=== PATIENT | female | born 1940 | race Caucasian/White ===

== ENCOUNTER → 2017-09-25 | Outpatient (CLI) | payer MEDICARE ==
--- NOTE | 2017-09-25 19:38 | CT ---
EXAMINATION TYPE: CT brain w con DATE OF EXAM: 09/25/2017 COMPARISON: 04/23/2014 HISTORY: Patient complains of unsteady gait and ringing in ears. CT DLP: 1085 mGycm Automated exposure control for dose reduction was used. CONTRAST: CT scan of the head is performed with IV Contrast, patient injected with 100 mL of Isovue M300. FINDINGS: There is cerebral cortical atrophy. There is patchy hypodensity in the periventricular white matter. There is no mass effect nor midline shift. There is no sign of intracranial hemorrhage. The calvarium is intact. There is no pathologic enhancement. IMPRESSION: Cerebral atrophy and chronic small vessel ischemia. No acute intracranial abnormality. No change.
== END | disposition home or self-care (01) ==
LOC: RADCTMAIN 18:07
PROVIDERS: ATTEND Family Medicine
DX: G31.9 Degenerative disease of nervous system, unspecified (principal); I67.82 Cerebral ischemia
CPT/HCPCS: 82565; 84520; 70460; 36415; Q9967

== ENCOUNTER → 2019-06-13 | Day surgery (SDC) | payer MEDICARE ==
[2019-06-12 09:02] VITALS: BMI 24.0
[2019-06-13 13:03] VITALS: TEMP 97.9
[2019-06-13 14:09] VITALS: RESP 17
[2019-06-13 14:15] VITALS: BP 145/80; PULSE 55
== END ==
LOC: ORWHC2ENDO 11:51
PROVIDERS: ATTEND Surgery
DX: K57.30 Diverticulosis of large intestine without perforation or abscess without bleeding (principal); K59.00 Constipation, unspecified; K21.9 Gastro-esophageal reflux disease without esophagitis; E78.5 Hyperlipidemia, unspecified; I10 Essential (primary) hypertension; M19.90 Unspecified osteoarthritis, unspecified site; R55 Syncope and collapse; E07.9 Disorder of thyroid, unspecified; R01.1 Cardiac murmur, unspecified; R00.2 Palpitations; Z86.19 Personal history of other infectious and parasitic diseases; M43.9 Deforming dorsopathy, unspecified; N32.89 Other specified disorders of bladder; I38 Endocarditis, valve unspecified; Z90.710 Acquired absence of both cervix and uterus; Z98.42 Cataract extraction status, left eye; Z98.41 Cataract extraction status, right eye; Z96.653 Presence of artificial knee joint, bilateral; Z98.890 Other specified postprocedural states; P96.81 Exposure to (parental) (environmental) tobacco smoke in the perinatal period; Z80.9 Family history of malignant neoplasm, unspecified; Z82.5 Family history of asthma and other chronic lower respiratory diseases; Z79.890 Hormone replacement therapy; Z79.899 Other long term (current) drug therapy; Z88.8 Allergy status to other drugs, medicaments and biological substances
CPT/HCPCS: 45378; J2704

== ENCOUNTER → 2021-04-14 | Outpatient (CLI) | payer MEDICARE ==
--- NOTE | 2021-04-14 16:12 | MR ---
EXAMINATION TYPE: MR brain and iac wo/w con DATE OF EXAM: 04/14/2021 COMPARISON: CT brain September 25, 2017 HISTORY: Rt ear hearing loss, tinnitus, acoustic nerve disorder TECHNIQUE: Multiplanar, multisequence images of the brain and brainstem along with internal auditory canals are all performed without and with IV contrast, utilizing 6 mL intravenous Gadavist . FINDINGS: Diffusion weighted images demonstrate no evidence of a recent infarct or other diffusion ab normality. There is mild to moderate diffuse ventricular and sulcal prominence redemonstrated. There are focal and confluent areas of T2 hyperintensity throughout the white matter on MRI. Midline structures demonstrate normal morphology. The craniocervical junction appears within normal limits. Post contrast images demonstrate no abnormal enhancement. The dural venous sinuses appear pa tent. The visualized sinuses are clear and the globes are intact. No suspicious fluid signal in the mastoid air cells bilaterally. The vestibulocochlear complexes are symmetric and within normal limits. No suspicious enhancing cerebellopontine angle mass identified bi laterally. IMPRESSION: 1. No specific findings to account for patient's symptoms of right-sided hearing loss and tinnitus on IAC imaging. 2. [id number] diffuse cerebral atrophy with advanced chronic small vessel ischemic change prese nt on MRI.
== END | disposition home or self-care (01) ==
LOC: RADMRIMAIN 14:44
PROVIDERS: ATTEND Otolaryngology
DX: I67.82 Cerebral ischemia (principal); G31.89 Other specified degenerative diseases of nervous system
CPT/HCPCS: 70553; A9585

== ENCOUNTER → 2022-04-25 | Day surgery (SDC) | payer MEDICARE ==
[2022-04-24 11:44] VITALS: BMI 22.8
[~2022-04-25] MED LIST: LIDOCAINE 1% INJ 10MG/ML (30 ML VIAL-PF) SQ ONE; MIDAZOLAM 2 MG/2 ML VIAL IVP ONE; SODIUM CHLORIDE 0.9% 1,000 ML IV SCH; SODIUM CHLORIDE 0.9% 500 ML 500 ML IV ONE; fentaNYL (PF) 50 MCG/1 ML VIAL IVP ONE; fentaNYL (PF) 50 MCG/ML 2 ML AMP ONE
[2022-04-25 07:22] VITALS: RESP 16; TEMP 97.2
--- NOTE | 2022-04-25 08:01 | P.PCN ---
Description of Procedure: Procedure: Insertion of Linq loop recorder Indication: Syncope CONSENT:I have discussed the risks, benefits and alternative therapies for the above-mentioned procedure. The patient has indicated understanding and acceptance of the risks and procedures discussed. PROCEDURE: Patient was brought to the catheterization lab in a fasting state. Patient was prepped and draped in the usual fashion. 1% lidocaine was used to anesthetize the area of the left third intercostal space. Using the loop recorder incision device, a small 0.5 cm incision was made in the left 3rd intercostal space. Next the Linq loop recorder was deployed in the 3rd intercostal space subcutaneously using the insertion tool. Thresholds were checked and were excellent at 0.33V. Next the incision was closed using Dermabond. Steristrips were placed over the incision and the procedure was completed. The patient tolerated the procedure well. The patient was transported to the post cath holding area in stable condition. Linq loop recorder serial number: [id number]
[2022-04-25 08:53] VITALS: BP 118/61; PULSE 50
== END ==
LOC: CATHEP 06:59
PROVIDERS: ATTEND Internal Medicine
DX: R55 Syncope and collapse (principal); I10 Essential (primary) hypertension; I48.0 Paroxysmal atrial fibrillation; E78.2 Mixed hyperlipidemia; Z82.49 Family history of ischemic heart disease and other diseases of the circulatory system; Z79.899 Other long term (current) drug therapy
CPT/HCPCS: 33285; J2250; J0690; J2001; J3010

== ENCOUNTER → 2022-06-23 | Outpatient (CLI) | payer MEDICARE ==
--- NOTE | 2022-06-23 14:21 | US ---
EXAMINATION TYPE: US mass soft tissue Neck DATE OF EXAM: 06/23/2022 COMPARISON: NONE CLINICAL HISTORY: R22.2 LOCALIZED SWELLING, Left clavicle . FINDINGS: In area of palpable mass, left neck/clavicle area, several abnormal hypoechoic vascular ma sses are visualized. 1. Palpable over left clavicle/junction of the neck. 3.0 x 1.8 x 2.8cm 2. Medial to palpable, inferior left neck. 2.0 x 1.6 x 2.1cm 3. Superior/ medial to palpable, inferior left neck. 1.7 x 2.2 x 2.0cm. Superior to this area, several normal appearing lymph nodes are present on the left mid neck Comparison imaging of the right neck reveals an abnormal hypoechoic mass. Visualized mid right neck. 0.9 x 0.7 x 0.9cm IMPRESSION: 1. Abnormal adenopathy noted. Further evaluation with CT is advised.
== END | disposition home or self-care (01) ==
LOC: RADUSWWP 13:14
PROVIDERS: ATTEND Family Medicine
DX: R22.2 Localized swelling, mass and lump, trunk (principal)
CPT/HCPCS: 76536

== ENCOUNTER 2022-07-18 04:17 | Inpatient (IN) | payer MEDICARE ==
[2022-07-18] MEDS ORDERED: RX INFO: IV CONTRAST WAS GIVEN 1 EACH MISC MISCELLANE PRN (04:33)
[2022-07-18] MEDS ORDERED: KETOROLAC 15 MG/ML 1 ML VIAL IVP STA (04:59)
[2022-07-18 05:00] LABS: Basophils % (A) 0 %; Eosinophils # (A) 0.1 k/uL (0-0.7); Eosinophils % (A) 1 %; HCT 40.3 % (34.0-46.0); HGB 13.5 gm/dL (11.4-16.0); Lymphocytes # (A) 0.9 k/uL (1.0-4.8); Lymphocytes % (A) 11 %; MCH 30.5 pg (25.0-35.0); MCHC 33.6 g/dL (31.0-37.0); MCV 90.8 fL (80.0-100.0); Mean Platelet Volume 8.5; Monocytes # (A) 0.4 k/uL (0-1.0); Monocytes % (A) 5 %; Neutrophils # (A) 6.7 k/uL (1.3-7.7); Neutrophils % (A) 81 %; Platelet Count 195 k/uL (150-450); RBC 4.44 m/uL (3.80-5.40); RDW 12.6 % (11.5-15.5); WBC 8.3 k/uL (3.8-10.6)
--- NOTE | 2022-07-18 05:06 | ED ---
General Adult HPI - General Chief complaint: Weakness Stated complaint: Tachycardia, Shoulder Pain Time Seen by Provider: 07/18/22 04:19 Source: EMS Mode of arrival: EMS Limitations: no limitations - History of Present Illness Initial comments: This is a 82-year-old female with a past medical history including atrial fibrillation on Eliquis presented to the emergency department for left clavicular swelling and pain as well as palpitations. The patient stated that over the last one day she started to have pain and swelling noted to the anterior portion of her left clavicle that became significantly tender to palpation today. The patient stated that as is became more tender, she had worsening palpitations and felt that her A. fib was elevated. The patient denied any fevers or chills. The patient stated that this swelling was noted over the last 2 months but stated that it has become severely tender to palpation today. The patient was however otherwise resting in bed comfortably. - Related Data Home Medications Medication Instructions Recorded Confirmed Levothyroxine Sodium [Synthroid] 50 mcg PO DAILY 04/23/14 04/25/22 Acetaminophen [Tylenol Extra 500 mg PO Q8H PRN 06/12/19 04/24/22 Strength] Atorvastatin [Lipitor] 10 mg PO HS 06/12/19 04/24/22 Cbd Drops 25 mg PO HS 06/12/19 04/24/22 Enalapril Maleate [Vasotec] 2.5 mg PO HS 06/12/19 04/24/22 Multivitamin [Multivitamins Adult 1 each PO DAILY 06/12/19 04/24/22 Gummies] Oxybutynin Chloride [Ditropan] 5 mg PO BID 06/12/19 04/25/22 Vitamin C/Biotin [Hair, Skin and 1 tab PO DAILY 06/12/19 04/24/22 Nails] polyethylene glycoL 3350 [Miralax] 17 gm PO DAILY 06/12/19 04/25/22 Apixaban [Eliquis] 2.5 mg PO BID 04/24/22 04/25/22 Cholecalciferol [Vitamin D3 (25 25 mcg PO DAILY 04/24/22 04/24/22 Mcg = 1000 Iu)] Cyanocobalamin (Vitamin B-12) 1,000 mcg PO DAILY 04/24/22 04/24/22 [Vitamin B-12] [place] 3 1280mg 2,560 mg PO DAILY 04/24/22 Allergies Allergy/AdvReac Type Severity Reaction Status Date / Time No Known Allergies Allergy Verified 04/25/22 07:20 Review of Systems ROS Statement: Those systems with pertinent positive or pertinent negative responses have been documented in the HPI. ROS Other: All systems not noted in ROS Statement are negative. Past Medical History Past Medical History: Atrial Fibrillation, Cancer, Hearing Disorder / Deafness, Hyperlipidemia, Hypertension, Osteoarthritis (OA), Syncope, Thyroid Disorder Additional Past Medical History / Comment(s): Hx MURMUR, PALPITATIONS, SHINGLES, CONSTIPATION, CURVATURE OF SPINE, bladder control prob, prob w/ balance- IMPROVING Recently told "Small leak in heart valve.", SKIN CANCER History of Any Multi-Drug Resistant Organisms: None Reported Past Surgical History: Hysterectomy, Joint Replacement Additional Past Surgical History / Comment(s): JASPER CATARACTS, JASPER KNEE REPLACEMENTS, OOPHERECTOMY, ColonoscopIES Past Anesthesia/Blood Transfusion Reactions: No Reported Reaction Past Psychological History: Anxiety Smoking Status: Never smoker - Past Family History Father Family Medical History: Cancer Additional Family Medical History / Comment(s): AGE 98, SMOKED, SKIN CANCER Mother Additional Family Medical History / Comment(s): AGE 80- SMOKER/EMPHYSEMA General Exam Limitations: no limitations General appearance: alert, in no apparent distress Head exam: Present: atraumatic, normocephalic, normal inspection Eye exam: Present: normal appearance, PERRL Pupils: Present: normal accommodation ENT exam: Present: normal exam, normal oropharynx, mucous membranes moist Neck exam: Present: normal inspection, full ROM Respiratory exam: Present: normal lung sounds bilaterally, chest wall tenderness (Swelling noted to the midline left anterior clavicle with TTP and mild erythema) Cardiovascular Exam: Present: tachycardia, irregular rhythm GI/Abdominal exam: Present: soft, normal bowel sounds Extremities exam: Present: normal inspection, full ROM Back exam: Present: normal inspection, full ROM Neurological exam: Present: alert, oriented X3, CN II-XII intact Psychiatric exam: Present: normal affect, normal mood Skin exam: Present: warm, dry Course Vital Signs 07/18/22 07/18/22 07/18/22 04:19 04:58 05:00 Temperature 98.8 F Pulse Rate 110 H 125 H 126 H Respiratory 18 16 Rate Blood Pressure 100/61 91/64 100/61 O2 Sat by Pulse 99 98 Oximetry 07/18/22 07/18/22 07/18/22 05:10 06:00 06:10 Temperature Pulse Rate 108 H 87 74 Respiratory 18 18 19 Rate Blood Pressure 114/86 91/53 104/68 O2 Sat by Pulse 95 97 98 Oximetry EKG Findings - EKG Comments: EKG Findings:: An EKG was obtained and was interpreted by myself showing a rate of 149, QRS duration 92, QTC of 386. This EKG showed an atrial fibrillation with RVR. There was however no ST segment elevation or depression noted. The patient had a past medical history including atrial fibrillation and this is consistent with it. A repeat EKG was obtained at 0556 and was interpreted by myself showing a rate of 82, MN interval 181, QS duration 100 and QTC of 421. This EKG showed a normal sinus rhythm and is no longer in atrial fibrillation with RVR. Medical Decision Making - Medical Decision Making Was pt. sent in by a medical professional or institution (, PA, STATISTICAL ENGINEER, urgent care, hospital, or long term...) When possible be specific @ -No Did you speak to anyone other than the patient for history (EMS, parent, family, police, friend...)? What history was obtained from this source @ -No Did you review nursing and triage notes (agree or disagree)? Why? @ -I reviewed and agree with nursing and triage notes Were old charts reviewed (outside hosp., previous admission, EMS record, old EKG, old radiological studies, urgent care reports/EKG's, long term records)? Report findings @ -No old charts were reviewed Differential Diagnosis (chest pain, altered mental status, abdominal pain women, abdominal pain men, vaginal bleeding, weakness, fever, dyspnea, syncope, headache, dizziness, GI bleed, back pain, seizure, CVA, palpatations, mental health)? @ -Atrial fibrillation with RVR, metastatic cancer, abscess EKG interpreted by me (3pts min.). @ -As above X-rays interpreted by me (1pt min.). @ -None done CT interpreted by me (1pt min.). @ -CT chest with contrast was obtained and was interpreted by myself showing metastatic neoplasm suspected as there are multiple bilateral lower lung pulmonary nodules an abnormal thoracic adenopathy. There was no suspicious acute pulmonary process. U/S interpreted by me (1pt. min.). @ -None done What testing was considered but not performed or refused? (CT, X-rays, U/S, labs)? Why? @ -None What meds were considered but not given or refused? Why? @ -None Did you discuss the management of the patient with other professionals (professionals i.e. , PA, STATISTICAL ENGINEER, lab, RT, psych nurse, social services, knit tubing dyer, teacher, chief resource officer, hospice case manager)? Give summary @ -Yes, the admitting physician was contacted regarding patient admission. Was smoking cessation discussed for >3mins.? @ -No Was critical care preformed (if so, how long)? @ -No Were there social determinants of health that impacted care today? How? (Homelessness, low income, unemployed, alcoholism, drug addiction, transportation, low edu. Level, literacy, decrease access to med. care, retirement, rehab)? @ -No Was there de-escalation of care discussed even if they declined (Discuss DNR or withdrawal of care, Hospice)? DNR status @ -No What co-morbidities impacted this encounter? (DM, HTN, Smoking, COPD, CAD, Cancer, CVA, ARF, Chemo, Hep., AIDS, mental health diagnosis, sleep apnea, morbid obesity)? @ -Atrial fibrillation Was patient admitted / discharged? Hospital course, mention meds given and route, prescriptions, significant lab abnormalities, going to OR and other pertinent info. @ -The patient was seen and evaluated emergency department. Physical exam, the patient was resting in bed without any acute distress. The vital signs admission did show atrial fibrillation with an elevated heart rate. The patient did have mild distress of the upper left clavicle secondary to the area of swelling. Laboratory workup was largely within normal limits. Once the patient received Toradol for pain control, the patient did convert to normal sinus rhythm. CT of the chest showed metastatic neoplasm suspected and likely new onset neoplasm as a cause of her swelling and the clavicle. Due to this finding, the patient was offered admission for evaluation by oncology and she did accept this plan. The patient was except for admission and oncology was placed on consult. Undiagnosed new problem with uncertain prognosis? @ -No Drug Therapy requiring intensive monitoring for toxicity (Heparin, Nitro, Insulin, Cardizem)? @ -No Were any procedures done? @ -No Diagnosis/symptom? @ -Likely new onset metastatic cancer Acute, or Chronic, or Acute on Chronic? @ -Acute on chronic Uncomplicated (without systemic symptoms) or Complicated (systemic symptoms)? @ -Complicated Side effects of treatment? @ -No Exacerbation, Progression, or Severe Exacerbation? @ -No Poses a threat to life or bodily function? How? (Chest pain, [place], [place], pneumonia, PE, COPD, DKA, ARF, appy, cholecystitis, CVA, Diverticulitis, Homicidal, Suicidal, threat to staff... and all critical care pts) @ -Yes, continue growth in spite of cancer can lead to . Diagnosis/symptom? @ -Atrial fibrillation with RVR Acute, or Chronic, or Acute on Chronic? @ -Acute Uncomplicated (without systemic symptoms) or Complicated (systemic symptoms)? @ -Uncomplicated Side effects of treatment? @ -none Exacerbation, Progression, or Severe Exacerbation] @ -no Poses a threat to life or bodily function? @ -no - Lab Data Result diagrams: 07/18/22 04:30 07/18/22 04:30 Lab Results 07/18/22 07/18/22 07/18/22 Range/Units 04:30 04:30 04:30 WBC 8.3 (3.8-10.6) k/uL RBC 4.44 (3.80-5.40) m/uL Hgb 13.5 (11.4-16.0) gm/dL Hct 40.3 (34.0-46.0) % MCV 90.8 (80.0-100.0) fL MCH 30.5 (25.0-35.0) pg MCHC 33.6 (31.0-37.0) g/dL RDW 12.6 (11.5-15.5) % Plt Count 195 (150-450) k/uL MPV 8.5 Neutrophils % 81 % Lymphocytes % 11 % Monocytes % 5 % Eosinophils % 1 % Basophils % 0 % Neutrophils # 6.7 (1.3-7.7) k/uL Lymphocytes # 0.9 L (1.0-4.8) k/uL Monocytes # 0.4 (0-1.0) k/uL Eosinophils # 0.1 (0-0.7) k/uL Basophils # 0.0 (0-0.2) k/uL PT 10.4 (9.0-12.0) sec INR 1.0 (<1.2) APTT 22.2 (22.0-30.0) sec Sodium 135 L (137-145) mmol/L Potassium 3.9 (3.5-5.1) mmol/L Chloride 103 (98-107) mmol/L Carbon Dioxide 26 (22-30) mmol/L Anion Gap 6 mmol/L BUN 17 (7-17) mg/dL Creatinine 0.91 (0.52-1.04) mg/dL Est GFR (CKD-EPI)AfAm 68 (>60 ml/min/1.73 sqM) Est GFR (CKD-EPI)NonAf 59 (>60 ml/min/1.73 sqM) Glucose 172 H (74-99) mg/dL Calcium 9.4 (8.4-10.2) mg/dL Magnesium 1.9 (1.6-2.3) mg/dL Total Bilirubin 1.2 (0.2-1.3) mg/dL AST 46 H (14-36) U/L ALT 25 (4-34) U/L Alkaline Phosphatase 68 (38-126) U/L Troponin I (0.000-0.034) ng/mL Total Protein 7.1 (6.3-8.2) g/dL Albumin 4.5 (3.5-5.0) g/dL Lipase 65 (23-300) U/L 07/18/22 Range/Units 04:30 WBC (3.8-10.6) k/uL RBC (3.80-5.40) m/uL Hgb (11.4-16.0) gm/dL Hct (34.0-46.0) % MCV (80.0-100.0) fL MCH (25.0-35.0) pg MCHC (31.0-37.0) g/dL RDW (11.5-15.5) % Plt Count (150-450) k/uL MPV Neutrophils % % Lymphocytes % % Monocytes % % Eosinophils % % Basophils % % Neutrophils # (1.3-7.7) k/uL Lymphocytes # (1.0-4.8) k/uL Monocytes # (0-1.0) k/uL Eosinophils # (0-0.7) k/uL Basophils # (0-0.2) k/uL PT (9.0-12.0) sec INR (<1.2) APTT (22.0-30.0) sec Sodium (137-145) mmol/L Potassium (3.5-5.1) mmol/L Chloride (98-107) mmol/L Carbon Dioxide (22-30) mmol/L Anion Gap mmol/L BUN (7-17) mg/dL Creatinine (0.52-1.04) mg/dL Est GFR (CKD-EPI)AfAm (>60 ml/min/1.73 sqM) Est GFR (CKD-EPI)NonAf (>60 ml/min/1.73 sqM) Glucose (74-99) mg/dL Calcium (8.4-10.2) mg/dL Magnesium (1.6-2.3) mg/dL Total Bilirubin (0.2-1.3) mg/dL AST (14-36) U/L ALT (4-34) U/L Alkaline Phosphatase (38-126) U/L Troponin I 0.015 (0.000-0.034) ng/mL Total Protein (6.3-8.2) g/dL Albumin (3.5-5.0) g/dL Lipase (23-300) U/L Disposition Clinical Impression: Metastatic cancer, Atrial fibrillation with RVR Disposition: ADMITTED IP TO THIS HOSP Condition: Stable Is patient prescribed a controlled substance at d/c from ED?: No Referrals: Natalie Wilks MD [Primary Care Provider] - 1-2 days Time of Disposition: 07:00 Decision to Admit Reason: Admit from EC Decision Date: 07/18/22 Decision Time: 07:00
[2022-07-18 05:13] LABS: Albumin 4.5 g/dL (3.5-5.0); Calcium 9.4 mg/dL (8.4-10.2); Magnesium 1.9 mg/dL (1.6-2.3); Total Bilirubin 1.2 mg/dL (0.2-1.3); Total Protein 7.1 g/dL (6.3-8.2)
[2022-07-18 05:24] LABS: Partial Thromboplastin Time 22.2 sec (22.0-30.0); Prothrombin Time 10.4 sec (9.0-12.0)
[2022-07-18 05:27] LABS: Potassium 3.9 mmol/L (3.5-5.1)
--- NOTE | 2022-07-18 07:05 | CT ---
EXAMINATION TYPE: CT chest w con DATE OF EXAM: 07/18/2022 COMPARISON: NONE HISTORY: Left clavicle swelling, AFIB CT DLP: 308.3 mGycm. Automated Exposure Control for Dose Reduction was Utilized. TECHNIQUE: CT scan of the thorax is performed following with IV Contrast, patient injected with 100 ml mL of Isovue 300. FINDINGS: LUNGS: Small bilateral pulmonary nodules in the mid to lower lungs. For reference is 14 x 13 mm nodul e axial image 51 medial left lower lobe. No suspicious focal consolidation. There is no pleural eff usion or pneumothorax seen. The tracheobronchial tree is patent. MEDIASTINUM: There are bilateral prominent enlarged hilar lymph nodes somewhat confluent in appearanc e. Abnormal mediastinal adenopathy having mass effect near the brachiocephalic confluence. Mottled le ft supraclavicular adenopathy likely accounts for physical exam findings axial image 13. No cardiomeg shai or pericardial effusion is seen. Mild to moderate right ventricular dilatation. Left ventricular hypertrophy. Ascending aorta measures up to 3.8 cm in diameter. OTHER: There are 1.0 cm rounded low dense lesion in the liver axial image 56 favors benign thin-yamilet d cyst. Marked underlying levoconvex scoliosis centered upper to mid thoracic spine. IMPRESSION: Metastatic Neoplasm suspected as there are multiple bilateral lower lung pulmonary nodule s and abnormal thoracic adenopathy. No suspicious acute pulmonary process.
[2022-07-18] MEDS ORDERED: NALOXONE 0.4 MG/ML 1 ML VIAL IV PRN (07:29)
--- NOTE | 2022-07-18 11:26 | P.HPIM ---
History of Present Illness H&P Date: 07/18/22 Patient is a 82-year-old female with history of paroxysmal atrial fibrillation on Eliquis, hypothyroidism, hypertension, dyslipidemia presenting with worsening left clavicular mass. She claims that she noted the mass about 2 months ago, and has been slowly progressing. She is also complaining of on and off tenderness in that area, which prompted her to come to the emergency. She has noted about 15 pound weight loss over the last 1 year. She denies any fevers, chills, abdominal pain, chest pain, shortness of breath, nausea, vomiting, urinary or bowel complaints. She's had prior colonoscopies and mammograms, which have been normal. She denies any family history of cancers. She is a nonsmoker, occasional alcohol and marijuana use. In the ED, on presentation, she was afebrile at 98.8, tachycardic 210, respiratory rate 18, blood pressure 100/61, saturating at 99% on room air. Laboratory workup showed WBC 8.3, hemoglobin 13.5, platelet 195, sodium 135, potassium 3.9, creatinine 0.91, glucose 172, AST 46, ALT 25, ALP 68, troponin 0.015. EKG initially showed atrial fibrillation with RVR, repeat EKG shows sinus rhythm. CT chest shows metastatic neoplasm. Multiple bilateral lower lung pulmonary nodules and abnormal thoracic adenopathy. Patient admitted for diagnostic workup for her newfound malignancy. Pertinent positives and negatives as discussed in HPI, a complete review of systems was performed and all other systems are negative. Patient seen and examined at bedside. Vital signs reviewed General: nontoxic, no distress, appears at stated age Derm: warm, dry, large left clavicular mass Head: atraumatic, normocephalic, symmetric Eyes: EOMI, no lid lag, anicteric sclera, pupils equal round reactive to light ENT: Nose and ears atraumatic Neck: No thyromegaly, supple Mouth: no lip lesion, mucus membranes moist Cardiovascular: S1S2 reg, no murmur, no edema Lungs: clear to auscultation bilateral, no rhonchi, no rales, no wheeze, no accessory muscle use Abdominal: soft, nontender to palpation, no guarding, no appreciable organomegaly Ext: no gross muscle atrophy, muscle strength muscle strength 5 out of 5 in all 4 extremities, no contractures Neuro: CN II-XII grossly intact Psych: Alert, oriented, appropriate affect Assessment/Plan: Active: Left clavicular mass Metastatic lung nodules, unknown primary Paroxysmal Atrial fibrillation with RVR History of hypothyroidism -CT chest findings consistent with possible metastatic neoplasm -Personally discussed management with oncology, patient to get IR guided biopsy of left clavicular mass as well as CT abdomen and pelvis for staging -Patient converted back to normal sinus rhythm -Holding Eliquis for biopsy -Continue telemetry -Continue metoprolol 12.5 daily -Continue levothyroxine 50 g daily -TSH, free T4 ordered Chronic: Hypertension Dyslipidemia The patient is admitted with an anticipated greater than 2 midnight stay as inpatient status for evaluation of new Malignancy, A. fib with RVR. Surrogate decision-maker: CODE STATUS: DO NOT RESUSCITATE/DO NOT INTUBATE DVT prophylaxis: SCDs Anticipated discharge date: After biopsy Anticipated discharge place: Home A total of 65 minutes was spent on the care of this complex patient more than 50% of the time was spent in counseling and care coordination. Past Medical History Past Medical History: Atrial Fibrillation, Cancer, Hearing Disorder / Deafness, Hyperlipidemia, Hypertension, Osteoarthritis (OA), Syncope, Thyroid Disorder Additional Past Medical History / Comment(s): Hx MURMUR, PALPITATIONS, SHINGLES, CONSTIPATION, CURVATURE OF SPINE, bladder control prob, prob w/ balance- IMPROVING Recently told "Small leak in heart valve.", SKIN CANCER History of Any Multi-Drug Resistant Organisms: None Reported Past Surgical History: Hysterectomy, Joint Replacement Additional Past Surgical History / Comment(s): JASPER CATARACTS, JASPER KNEE REPLACEMENTS, OOPHERECTOMY, ColonoscopIES Past Anesthesia/Blood Transfusion Reactions: No Reported Reaction Past Psychological History: Anxiety Smoking Status: Never smoker - Past Family History Father Family Medical History: Cancer Additional Family Medical History / Comment(s): AGE 98, SMOKED, SKIN CANCER Mother Additional Family Medical History / Comment(s): AGE 80- SMOKER/EMPHYSEMA Medications and Allergies Home Medications Medication Instructions Recorded Confirmed Type Atorvastatin [Lipitor] 10 mg PO HS 06/12/19 07/18/22 History Oxybutynin Chloride [Ditropan] 5 mg PO BID 06/12/19 07/18/22 History Apixaban [Eliquis] 2.5 mg PO BID 04/24/22 07/18/22 History Azelastine HCl [Astepro] 1 - 2 spray EA NOSTRIL BID PRN 07/18/22 07/18/22 History Enalapril [Vasotec] 2.5 mg PO HS 07/18/22 07/18/22 History Eye Vitamin (Unknown) 1 tab PO DAILY 07/18/22 07/18/22 History Fluticasone Propionate 1 - 2 spray EA NOSTRIL HS PRN 07/18/22 07/18/22 History Levothyroxine Sodium [Synthroid] 50 mcg PO DAILY 07/18/22 07/18/22 History Metoprolol Succinate (ER) [Toprol 12.5 mg PO DAILY 07/18/22 07/18/22 History Xl] Multivitamins, Thera [Multivitamin 1 tab PO DAILY 07/18/22 07/18/22 History (formulary)] Allergies Allergy/AdvReac Type Severity Reaction Status Date / Time No Known Allergies Allergy Verified 07/18/22 07:36 Physical Exam Vitals: Vital Signs Temp Pulse Resp BP Pulse Ox 07/18/22 06:10 74 19 104/68 98 07/18/22 06:00 87 18 91/53 97 07/18/22 05:10 108 H 18 114/86 95 07/18/22 05:00 126 H 16 100/61 98 07/18/22 04:58 125 H 91/64 07/18/22 04:19 98.8 F 110 H 18 100/61 99 Intake and Output 07/17/22 07/18/22 07/18/22 22:59 06:59 14:59 Other: Weight 61.235 kg Results CBC & Chem 7: 07/18/22 04:30 07/18/22 04:30 Labs: Abnormal Lab Results - Last 24 Hours (Table) 07/18/22 07/18/22 Range/Units 04:30 04:30 Lymphocytes # 0.9 L (1.0-4.8) k/uL Sodium 135 L (137-145) mmol/L Glucose 172 H (74-99) mg/dL AST 46 H (14-36) U/L
[2022-07-18] MEDS ORDERED: HYDROmorphone 0.5 MG/0.5 ML SYRINGE IVP PRN (15:42)
--- NOTE | 2022-07-18 17:12 | P.CONS ---
History of Present Illness - Reason for Consult Consult date: 07/18/22 r/o metastaic disease Requesting physician: Khoa Bowden - Chief Complaint swelling/pain of lower neck - History of Present Illness Patient is an 82-year-old female with a significant history of A. fib on eliquis. She reports over the last 2 months she's been having left supraclavicular swelling that has recently become painful to palpation. CT chest revealed metastatic neoplasm suspected as her multiple bilateral lower lung pulmonary nodules and abnormal thoracic adenopathy. Left lower lobe nodule measuring 14 x 13 mm. Bilateral prominent enlarged hilar lymph nodes. Abnormal mediastinal adenopathy having mass effect near the brachiocephalic confluence. Mottled left supraclavicular adenopathy. Patient also reports a 15lb unintentional weight loss over the last year. She denies dysphagia or hoarse voice. Denies abdominal pain and chest pain. Denies nausea vomiting diarrhea, fever and hills. Reports she's had a mammogram and colonoscopy in the last y ear. Review of Systems 10 point ROS is negative except as stated in the HPI Past Medical History Past Medical History: Atrial Fibrillation, Cancer, Hearing Disorder / Deafness, Hyperlipidemia, Hypertension, Osteoarthritis (OA), Syncope, Thyroid Disorder Additional Past Medical History / Comment(s): Hx MURMUR, PALPITATIONS, SHINGLES, CONSTIPATION, CURVATURE OF SPINE, bladder control prob, prob w/ balance- IMPROVING Recently told "Small leak in heart valve.", SKIN CANCER History of Any Multi-Drug Resistant Organisms: None Reported Past Surgical History: Hysterectomy, Joint Replacement Additional Past Surgical History / Comment(s): JASPER CATARACTS, JASPER KNEE REPLACEMENTS, OOPHERECTOMY, ColonoscopIES Past Anesthesia/Blood Transfusion Reactions: No Reported Reaction Past Psychological History: Anxiety Smoking Status: Never smoker - Past Family History Father Family Medical History: Cancer Additional Family Medical History / Comment(s): AGE 98, SMOKED, SKIN CANCE R Mother Additional Family Medical History / Comment(s): AGE 80- SMOKER/EMPHYSEMA Medications and Allergies Home Medications Medication Instructions Recorded Confirmed Type Atorvastatin [Lipitor] 10 mg PO HS 06/12/19 07/18/22 History Oxybutynin Chloride [Ditropan] 5 mg PO BID 06/12/19 07/18/22 History Apixaban [Eliquis] 2.5 mg PO BID 04/24/22 07/18/22 History Azelastine HCl [Astepro] 1 - 2 spray EA NOSTRIL BID PRN 07/18/22 07/18/22 History Enalapril [Vasotec] 2.5 mg PO HS 07/18/22 07/18/22 History Eye Vitamin (Unknown) 1 tab PO DAILY 07/18/22 07/18/22 History Fluticasone Propionate 1 - 2 spray EA NOSTRIL HS PRN 07/18/22 07/18/22 History Levothyroxine Sodium [Synthroid] 50 mcg PO DAILY 07/18/22 07/18/22 History Metoprolol Succinate (ER) [Toprol 12.5 mg PO DAILY 07/18/22 07/18/22 History Xl] Multivitamins, Thera [Multivitamin 1 tab PO DAILY 07/18/22 07/18/22 History (formulary)] Allergies Allergy/AdvReac Type Severity Reaction Status Date / Time No Known Allergies Allergy Verified 07/18/22 07:36 Physical Exam Vitals: Vital Signs Temp Pulse Pulse Resp BP BP Pulse Ox 07/18/22 15:54 86 16 119/80 07/18/22 15:25 78 16 115/68 07/18/22 14:48 73 18 115/68 99 07/18/22 06:10 74 19 104/68 98 07/18/22 06:00 87 18 91/53 97 07/18/22 05:10 108 H 18 114/86 95 07/18/22 05:00 126 H 16 100/61 98 07/18/22 04:58 125 H 91/64 07/18/22 04:19 98.8 F 110 H 18 100/61 99 Intake and Output 07/18/22 07/18/22 07/18/22 06:59 14:59 22:59 Other: Weight 61.235 kg - Constitutional General appearance: average body habitus, no acute distress - EENT Eyes: anicteric sclerae ENT: hearing grossly normal - Neck tender palpable lymphadenopathy of left supraclavicular region - Respiratory Respiratory: bilateral: CTA - Cardiovascular Rhythm: regular Heart sounds: normal: S1, S2 Abnormal Heart Sounds: no systolic murmur, no diastolic murmur, no rub, no S3 Gallop, no S4 Gallop, no click, no other - Gastrointestinal General gastrointestinal: soft, tenderness - Integumentary Integumentary: normal - Neurologic Neurologic: CNII-XII intact - Musculoskeletal Musculoskeletal: strength equal bilaterally - Psychiatric Psychiatric: A&O x's 3, appropriate affect, intact judgment & insight Results CBC & Chem 7: 07/18/22 04:30 07/18/22 04:30 Labs: Abnormal Lab Results - Last 24 Hours (Table) 07/18/22 07/18/22 Range/Units 04:30 04:30 Lymphocytes # 0.9 L (1.0-4.8) k/uL Sodium 135 L (137-145) mmol/L Glucose 172 H (74-99) mg/dL AST 46 H (14-36) U/L CT scan - chest: report reviewed Assessment and Plan (1) Metastatic cancer Current Visit: Yes Status: Acute Priority: High Code(s): C79.9 - SECONDARY MALIGNANT NEOPLASM OF UNSPECIFIED SITE SNOMED Code(s): 350720121 Plan: R/o metastatic disease: - CT chest revealed metastatic neoplasm suspected as her multiple bilateral lower lung pulmonary nodules and abnormal thoracic adenopathy. Left lower lobe nodule measuring 14 x 13 mm. Bilateral prominent enlarged hilar lymph nodes. Abnormal mediastinal adenopathy having mass effect near the brachiocephalic con fluence. Mottled left supraclavicular adenopathy. -CT abd/pelvis ordered to r/o abdominal metastasis -IR consult placed for biopsy of left supraclavicular mass -Will obtain NGS and PDL-1 testing on tissue biopsy -Pt updated on POC and is agreeable attests: I have performed H&P and developed impression plan of care for patient, discussed with dictator. I agree with dictated note, documented as a scribe
[2022-07-18] MEDS: APIXABAN 2.5 MG TABLET PO SCH (20:18)
[2022-07-18] MEDS: OXYBUTYNIN CHLORIDE 5 MG TAB PO SCH (20:46)
[2022-07-18] MEDS ORDERED: lisinopriL 5 MG TAB PO SCH (21:00)
[2022-07-18] MEDS ORDERED: ATORVASTATIN 10 MG TAB PO SCH (21:00)
[2022-07-19] MEDS ORDERED: LEVOTHYROXINE 50 MCG TAB PO SCH (06:30)
[2022-07-19] MEDS ORDERED: METOPROLOL SUCCINATE (ER) 25 MG TAB.ER.24H PO SCH (09:00)
[2022-07-19] MEDS ORDERED: MULTIVITAMINS, THERA 1 EACH TAB PO SCH (09:00)
--- NOTE | 2022-07-19 09:32 | US ---
PROCEDURE: Ultrasound-guided soft tissue mass core needle biopsy DATE: 07/18/2022 CREDIT CONTROLLER: Dr. Ziegler CLINICAL HISTORY: Enlarging, painful left supraclavicular mass. COMPARISON: None ANESTHESIA: 1% local lidocaine PROCEDURE: The procedure, risks, and alternatives were discussed and all questions were answered. Written inform ed consent obtained. A complicating paperwork and verified for accuracy. Directed history and physica l exam performed prior to the procedure. Medication reconciliation performed by nursing personnel. Pr ocedure was performed using a cap, sterile gloves, hand hygiene, and chlorhexidine for cutaneous anti sepsis. A critical pause was performed with assisting personnel just prior to the procedure with the patient's identity confirmed using 2 identifiers, confirming site and side. Limited grayscale ultrasound of the left supra and infraclavicular region was performed of the palpab le mass which demonstrates a hypoechoic lesion measuring approximately 3.5 x 2.1 cm in greatest dimen praveena with some internal flow on color Doppler. An appropriate skin entry site targeting this lesion w as marked, prepped, and draped in usual sterile fashion. 1% lidocaine was administered into the skin and deeper soft tissues. A small skin incision was made. A 20-gauge coaxial biopsy needle was advance d under continuous ultrasound guidance into the lesion and several 20-gauge core needle biopsy specim ens were then obtained. Manual pressure was applied for approximately 5 minutes. Limited postprocedur al centimeters is demonstrated expected postbiopsy changes without evidence of a significant hematoma . A sterile dressing was placed. Specimens were collected for surgical pathology, as well as flow cyt ometry. The patient tolerated the procedure well and there were no immediate complications. Blood loss was mi nimal. IMPRESSION: Successful, uncomplicated left supraclavicular soft tissue mass core needle biopsy.
[2022-07-19] MEDS: IOPAMIDOL CONTRAST (ORAL USE) VIAL PO PRN ×2 (10:02→11:07)
[2022-07-19] MEDS: OXYBUTYNIN CHLORIDE 5 MG TAB PO SCH (10:05)
[2022-07-19] MEDS: APIXABAN 2.5 MG TABLET PO SCH (10:05)
[2022-07-19 11:56] LABS: ALT 24 U/L (4-34); AST 40 U/L (14-36); African American GFR (CKD) >90 (>60 ml/min/1.73 sqM); Albumin/Globulin Ratio 1.8; Alkaline Phosphatase 57 U/L (38-126); Anion Gap 7 mmol/L; Blood Urea Nitrogen 16 mg/dL (7-17); Calcium 9.3 mg/dL (8.4-10.2); Carbon Dioxide 27 mmol/L (22-30); Chloride 103 mmol/L (98-107); Globulin 2.2 g/dL; Glucose 146 mg/dL (74-99); Non-African American GFR(CKD) 79 (>60 ml/min/1.73 sqM); Potassium 4.6 mmol/L (3.5-5.1); Sodium 137 mmol/L (137-145); Total Bilirubin 0.7 mg/dL (0.2-1.3); Total Protein 6.2 g/dL (6.3-8.2)
[2022-07-19 12:06] LABS: Basophils % (A) 0 %; Eosinophils # (A) 0.1 k/uL (0-0.7); Eosinophils % (A) 2 %; HCT 38.8 % (34.0-46.0); Lymphocytes # (A) 1.1 k/uL (1.0-4.8); Lymphocytes % (A) 18 %; MCHC 33.5 g/dL (31.0-37.0); MCV 92.5 fL (80.0-100.0); Mean Platelet Volume 7.7; Monocytes # (A) 0.3 k/uL (0-1.0); Monocytes % (A) 5 %; Neutrophils # (A) 4.6 k/uL (1.3-7.7); Neutrophils % (A) 74 %; Platelet Count 192 k/uL (150-450); RBC 4.19 m/uL (3.80-5.40); RDW 12.8 % (11.5-15.5); WBC 6.3 k/uL (3.8-10.6)
[2022-07-19 12:41] VITALS: BP 129/82; PULSE 75; RESP 17; TEMP 97.8
--- NOTE | 2022-07-19 12:48 | CT ---
EXAMINATION TYPE: CT abdomen pelvis w con CT DLP: 1066 mGycm, Automated exposure control for dose reduction was used. DATE OF EXAM: 07/19/2022 12:26 PM COMPARISON: CT chest 07/18/2022 CLINICAL INDICATION:Female, 82 years old with history of CT chest, worrisome for malignancy, r/o meta stasis; r/o mets TECHNIQUE: Standard CT of the abdomen and pelvis following the administration of 100 cc of Isovue 3 00 IV contrast material and oral contrast. Coronal and sagittal reformats were performed. FINDINGS: LOWER CHEST: Redemonstration of bibasilar pulmonary nodules from CT performed yesterday. The largest visualized is demonstrated within the left lower lobe measuring up to 1.6 cm (series 4, image 7). Mil dly prominent heart. Trace pericardial fluid. ABDOMEN LIVER: Left hepatic dome 1.1 cm cyst with additional right hepatic dome subcentimeter hypodense focus which is too small to characterize. GALLBLADDER AND BILE DUCTS: Layering hyperattenuating material within the gallbladder. No biliary joo becca dilatation. PANCREAS: Unremarkable. SPLEEN: There are 2 heterogenous hypoattenuating lesions within the spleen with largest measuring up to 3.5 cm. ADRENAL GLANDS: Unremarkable. KIDNEYS AND URETERS: No evidence of hydronephrosis or renal calculus. The kidneys enhance symmetrical ly without suspicious focal lesion. PELVIS BLADDER: Unremarkable REPRODUCTIVE: Unremarkable. ABDOMEN & PELVIS STOMACH AND BOWEL: Stomach is unremarkable there is a pedunculated filling defect demonstrated within the first/second portion of the duodenum measuring up to 1.0 cm (series 3, image 33).. Enteric contr ast reaches the descending colon. No focal wall thickening or surrounding inflammatory changes. No ev idence of bowel obstruction. PERITONEUM: No evidence of pneumoperitoneum or free fluid. VASCULATURE: No evidence of aortic aneurysm. MUSCULOSKELETAL: No acute osseous abnormalities. Moderate multilevel degenerative changes of the visu alized spine. No aggressive osseous lesion. LYMPH NODES: No gross evidence for lymphadenopathy. SOFT TISSUE/ABDOMINAL WALL: Unremarkable IMPRESSION: 1. There are 2 heterogenous hypoattenuating lesions within the spleen measuring up to 3.5 cm concerni ng for metastasis. 2. Left hepatic dome cyst with additional right hepatic dome subcentimeter hypodense focus which is t oo small to characterize. 3. Pedunculated filling defect demonstrated within the first/second portion the duodenum which may re present a polyp. Direct visualization is recommended. 4. Hyperattenuating material layering within gallbladder which may represent gallstones and/or kwan ous excretion of contrast. 5. Redemonstration of multiple pulmonary nodules concerning for metastasis.
--- NOTE | 2022-07-19 13:02 | P.DS ---
Providers Date of admission: 07/18/22 07:31 Expected date of discharge: 07/19/22 Attending physician: Rajendra Hurt MD Consults: 07/18/22 07:29 Consult Physician Routine Consulting Provider: Kieran Randhawa Consult Reason/Comments: New onset metastatic cancer Do you want consulting provider notified?: Yes, Notify in am [facility] Course: Discharge Diagnosis: Left clavicular mass Metastatic lung nodules, unknown primary Paroxysmal Atrial fibrillation with RVR History of hypothyroidism Hospital Course: Patient is a 82-year-old female with history of paroxysmal atrial fibrillation on Eliquis, hypothyroidism, hypertension, dyslipidemia presenting with worsening left clavicular mass. In the ED, on presentation, she was afebrile at 98.8, tachycardic 210, respiratory rate 18, blood pressure 100/61, saturating at 99% on room air. Laboratory workup showed WBC 8.3, hemoglobin 13.5, platelet 195, sodium 135, potassium 3.9, creatinine 0.91, glucose 172, AST 46, ALT 25, ALP 68, troponin 0.015. EKG initially showed atrial fibrillation with RVR, repeat EKG shows sinus rhythm. CT chest shows metastatic neoplasm. Multiple bilateral lower lung pulmonary nodules and abnormal thoracic adenopathy. Patient admitted for diagnostic workup for her newfound malignancy. Oncology was consulted. Patient underwent needle biopsy. CT abdomen and pelvis shows 2 heterogeneous hypoattenuating lesions within the spleen concerning for metastatic disease, left hepatic dome cyst with additional right hepatic dome subcentimeter hyper dense focus, pedunculated filling defect in the first/second portion of duodenum, hyperattenuating material within the gallbladder, multiple pulmonary nodules. Patient is hemodynamically stable, being discharged home with close follow-up with oncology for biopsy follow-up and further treatment recommendations. Patient seen and examined at bedside. Vital signs reviewed and stable. General: nontoxic, no distress, appears at stated age Derm: warm, dry, large left clavicular mass Head: atraumatic, normocephalic, symmetric Eyes: EOMI, no lid lag, anicteric sclera Mouth: no lip lesion, mucus membranes moist Cardiovascular: S1S2 reg, no murmur Lungs: CTA bilateral, no rhonchi, no rales , no accessory muscle use Abdominal: soft, nontender to palpation, no guarding, no appreciable organomegaly Ext: no gross muscle atrophy, no edema, no contractures Neuro: CN II-XI grossly intact, no focal neuro deficits Psych: Alert, oriented, appropriate affect A total of 37 minutes of time were spent preparing this complex discharge summary. Patient was discharged on 07/19/22 at 12:53. Patient Condition at Discharge: Stable Plan - Discharge Summary New Discharge Prescriptions: Continue Oxybutynin Chloride [Ditropan] 5 mg PO BID Atorvastatin [Lipitor] 10 mg PO HS Metoprolol Succinate (ER) [Toprol XL] 12.5 mg PO DAILY Azelastine HCl [Astepro] 1 - 2 spray EA NOSTRIL BID PRN PRN Reason: DRAINAGE/CONGESTION Eye Vitamin (Unknown) 1 tab PO DAILY Apixaban [Eliquis] 2.5 mg PO BID Levothyroxine Sodium [Synthroid] 50 mcg PO DAILY Enalapril [Vasotec] 2.5 mg PO HS Multivitamins, Thera [Multivitamin (formulary)] 1 tab PO DAILY Fluticasone Propionate 1 - 2 spray EA NOSTRIL HS PRN PRN Reason: DRAINAGE/CONGESTION Discharge Medication List Atorvastatin [Lipitor] 10 mg PO HS 06/12/19 [History] Oxybutynin Chloride [Ditropan] 5 mg PO BID 06/12/19 [History] Apixaban [Eliquis] 2.5 mg PO BID 04/24/22 [History] Azelastine HCl [Astepro] 1 - 2 spray EA NOSTRIL BID PRN 07/18/22 [History] Enalapril [Vasotec] 2.5 mg PO HS 07/18/22 [History] Eye Vitamin (Unknown) 1 tab PO DAILY 07/18/22 [History] Fluticasone Propionate 1 - 2 spray EA NOSTRIL HS PRN 07/18/22 [History] Levothyroxine Sodium [Synthroid] 50 mcg PO DAILY 07/18/22 [History] Metoprolol Succinate (ER) [Toprol XL] 12.5 mg PO DAILY 07/18/22 [History] Multivitamins, Thera [Multivitamin (formulary)] 1 tab PO DAILY 07/18/22 [History] Follow up Appointment(s)/Referral(s): Kieran Randhawa MD [STAFF PHYSICIAN] - 08/02/22 9:00 am Natalie Wilks MD [Primary Care Provider] - 1-2 days Patient Instructions/Handouts: A-fib (Atrial Fibrillation) (DC) Activity/Diet/Wound Care/Special Instructions: Please see oncology to go over biopsy results as well as further treatment options. Discharge Disposition: HOME SELF-CARE
--- NOTE | 2022-07-19 13:37 | P.PN ---
Subjective Progress Note Date: 07/19/22 Principal diagnosis: At today's visit patient is resting comfortably in bed. She is s/p biopsy of left supraclavicular mass. Path is pending. She is scheduled today for CT abdomen and pelvis for staging. Patient is anxious to go home. Patient reports mild pain at biopsy site area. No other reported complaints Objective - Vital Signs Vital signs: Vital Signs Temp 97.8 F 07/19/22 12:27 Pulse 75 07/19/22 12:27 Resp 17 07/19/22 12:27 BP 129/82 07/19/22 12:27 Pulse Ox 97 07/19/22 12:27 FiO2 Intake & Output 07/18/22 07/19/22 07/19/22 18:59 06:59 18:59 Intake Total 240 Balance 240 Weight 61.235 kg Intake: Oral 240 Other: # Voids 1 - Constitutional General appearance: Present: average body habitus, no acute distress - EENT Eyes: Present: anicteric sclerae, EOMI ENT: Present: hearing grossly normal - Neck Details: left supraclavicular edema, and tenderness to palpation - Respiratory Details: Breathing is even and unlabored - Cardiovascular Details: Skin is warm and dry - Integumentary Integumentary: Present: normal - Neurologic Neurologic Comment(s): Grossly intact - Musculoskeletal Musculoskeletal: Present: strength equal bilaterally - Psychiatric Psychiatric: Present: A&O x's 3, appropriate affect, intact judgment & insight - Labs CBC & Chem 7: 07/19/22 11:03 07/19/22 11:03 Labs: Abnormal Lab Results - Last 24 Hours (Table) 07/19/22 Range/Units 11:03 Glucose 146 H (74-99) mg/dL AST 40 H (14-36) U/L Total Protein 6.2 L (6.3-8.2) g/dL Assessment and Plan (1) Metastatic cancer Current Visit: Yes Status: Acute Priority: High Code(s): C79.9 - SECONDARY MALIGNANT NEOPLASM OF UNSPECIFIED SITE SNOMED Code(s): 776720308 Plan: R/o metastatic disease: - CT chest revealed metastatic neoplasm suspected as there are multiple bilateral lower lung pulmonary nodules and abnormal thoracic adenopathy. Left lower lobe nodule measuring 14 x 13 mm. Bilateral prominent enlarged hilar lymph nodes. Abnormal mediastinal adenopathy having mass effect near the brachiocephalic confluence. Mottled left supraclavicular adenopathy. -CT abd/pelvis ordered to r/o abdominal metastasis. -S/p biopsy of left supraclavicular mass, path pending -Will obtain NGS and PDL-1 testing on tissue biopsy and schedule PET Scan in outpatient setting. F/u visit scheduled for 2 weeks. F/u in discharge plan -Pt updated on POC and is agreeable *Once patient receives CAT scan abdomen/pelvis, patient is cleared from a hem/onc standpoint, once cleared by IM and other consulted medical specialties
[2022-07-19 14:22] VITALS: BMI 23.9
== END 2022-07-19 14:48 | disposition home or self-care (01) | DRG 181 ==
LOC: EC 04:17 → 5NMEDONC 07:31
PROVIDERS: ADMIT Student in an Organized Health Care Education/Training Program; ATTEND Student in an Organized Health Care Education/Training Program
PROC: 0JBF3ZX Excision of Left Upper Arm Subcutaneous Tissue and Fascia, Percutaneous Approach, Diagnostic (ICD-10-PCS; principal; 2022-07-19)
DX: C78.00 Secondary malignant neoplasm of unspecified lung (principal); C77.1 Secondary and unspecified malignant neoplasm of intrathoracic lymph nodes; E03.9 Hypothyroidism, unspecified; E78.5 Hyperlipidemia, unspecified; F41.9 Anxiety disorder, unspecified; H91.90 Unspecified hearing loss, unspecified ear; M19.90 Unspecified osteoarthritis, unspecified site; I10 Essential (primary) hypertension; Z79.01 Long term (current) use of anticoagulants; I48.0 Paroxysmal atrial fibrillation; Z79.890 Hormone replacement therapy; Z79.899 Other long term (current) drug therapy; Z85.828 Personal history of other malignant neoplasm of skin; Z90.710 Acquired absence of both cervix and uterus; Z98.42 Cataract extraction status, left eye; Z98.41 Cataract extraction status, right eye; Z96.653 Presence of artificial knee joint, bilateral
CPT/HCPCS: 20206; 36415; 71260; 74177; 76942; 80053; 83690; 83735; 84443; 84484; 85025; 85610; 85730; 88305; 88341; 88342; 93005; 96374; 96375; 99285

== ENCOUNTER 2022-08-22 11:18 | Day surgery (SDC) | payer MEDICARE ==
[~2022-08-22 11:18] MED LIST changes: +LACTATED RINGERS 1,000 ML IV SCH; +LIDOCAINE 1% (10MG/ML) FOR IV START INTRADERMA PRN; -LIDOCAINE 1% INJ 10MG/ML (30 ML VIAL-PF) SQ ONE; -MIDAZOLAM 2 MG/2 ML VIAL IVP ONE; -SODIUM CHLORIDE 0.9% 1,000 ML IV SCH; -SODIUM CHLORIDE 0.9% 500 ML 500 ML IV ONE; -fentaNYL (PF) 50 MCG/1 ML VIAL IVP ONE; -fentaNYL (PF) 50 MCG/ML 2 ML AMP ONE
[2022-08-22 11:47] VITALS: TEMP 97.5
[2022-08-22] MEDS ORDERED: LACTATED RINGERS 1,000 ML IV ONE (11:47)
[2022-08-22] MEDS ORDERED: PROPOFOL 10 MG/ML 20 ML VIAL IV ONE (12:24)
[2022-08-22] MEDS ORDERED: LIDOCAINE 2% INJ 20 MG/ML (2 ML VIAL) ONE (12:24)
--- NOTE | 2022-08-22 12:31 | P.GSHP ---
History of Present Illness H&P Date: 08/22/22 Chief Complaint: Duodenal lesion, epigastric pain 82-year-old female recently found to have what appears represent metastatic cancer. Patient has a mass in the left supraclavicular region. Recent CAT scan shows pulmonary nodules, splenic nodules, possible duodenal lesion Past Medical History Past Medical History: Atrial Fibrillation, Cancer, Hearing Disorder / Deafness, Hyperlipidemia, Hypertension, Osteoarthritis (OA), Syncope, Thyroid Disorder Additional Past Medical History / Comment(s): Hx MURMUR, PALPITATIONS, SHINGLES, CONSTIPATION, CURVATURE OF SPINE, bladder control prob, prob w/ balance-IMPROVED "Small leak in heart valve.", SKIN CANCER, recent adm. [facility] lung nodules, left clavicular mass, pt. unsure of kind of cancer, states when anxious or "worked up" affects her a-fib History of Any Multi-Drug Resistant Organisms: None Reported Past Surgical History: Hysterectomy, Joint Replacement Additional Past Surgical History / Comment(s): JASPER CATARACTS, JASPER KNEE REPLACEMENTS, OOPHERECTOMY, Colonoscopies Past Anesthesia/Blood Transfusion Reactions: No Reported Reaction Smoking Status: Never smoker - Past Family History Father Family Medical History: Cancer Additional Family Medical History / Comment(s): AGE 98, SMOKED, SKIN CANCER Mother Additional Family Medical History / Comment(s): AGE 80- SMOKER/EMPHYSEMA Medications and Allergies Home Medications Medication Instructions Recorded Confirmed Type Atorvastatin [Lipitor] 10 mg PO HS 06/12/19 08/18/22 History oxyBUTYnin chloride [Ditropan] 5 mg PO BID 06/12/19 08/18/22 History Apixaban [Eliquis] 2.5 mg PO BID 04/24/22 08/18/22 History Azelastine HCl [Astepro] 1 - 2 spray EA NOSTRIL BID PRN 07/18/22 08/18/22 History Enalapril [Vasotec] 2.5 mg PO HS 07/18/22 08/18/22 History Eye Vitamin (Unknown) 1 tab PO DAILY 07/18/22 08/18/22 History Fluticasone Propionate 1 - 2 spray EA NOSTRIL HS PRN 07/18/22 08/18/22 History Levothyroxine Sodium [Synthroid] 50 mcg PO DAILY 07/18/22 08/18/22 History Metoprolol Succinate (ER) [Toprol 12.5 mg PO DAILY 07/18/22 08/18/22 History XL] Multivitamins, Thera [Multivitamin 1 tab PO DAILY 07/18/22 08/18/22 History (formulary)] Multivit-Min/Folic Acid/Biotin 133.3 mcg PO DAILY 08/18/22 08/18/22 History [Hair, Skin and Nails Softgel] Neuriva 1 tab PO DAILY 08/18/22 08/18/22 History [place]-3 Fatty Acids [[place]-3] 1,000 mg PO DAILY 08/18/22 08/18/22 History traMADol HCL [Ultram] 50 mg PO Q6HR PRN 08/18/22 08/18/22 History Allergies Allergy/AdvReac Type Severity Reaction Status Date / Time No Known Allergies Allergy Verified 08/18/22 10:18 Surgical - Exam Vital Signs Temp Pulse Resp BP Pulse Ox 97.5 F L 88 18 155/78 98 08/22/22 11:46 08/22/22 11:46 08/22/22 11:46 08/22/22 11:46 08/22/22 11:46 Physical exam: General: Well-developed, well-nourished HEENT: Normocephalic, sclerae nonicteric Abdomen: Nontender, nondistended Extremities: No edema Neuro: Alert and oriented Assessment and Plan (1) Duodenal mass Narrative/Plan: Will proceed with EGD. Current Visit: Yes Status: Acute Code(s): K31.89 - OTHER DISEASES OF STOMACH AND DUODENUM SNOMED Code(s): 144592151
--- NOTE | 2022-08-22 12:40 | P.PCN ---
Date of Procedure: 08/22/22 Procedure(s) Performed: Preoperative Dx: Duodenal mass, epigastric pain Postoperative Dx: Pedunculated polyp duodenum, gastritis Procedure: EGD with Bx Anesthesia: Sedation Endoscopist: Dr. Jean Specimens: Polypoid lesion and duodenum, antrum Endoscopic Procedure: The patient was on the endoscopy table in the left decubitus position. The Olympus gastroscope was inserted into the oropharynx and passed under direct visualization to the region of the third portion of the duodenum. From that point the scope was slowly withdrawn inspecting all surfaces carefully. In the duodenum there was noted to be a pedunculated polyp. This measured approximately 2-37 m in length. A biopsy of the polyp took pl terri. This did not appear to be malignant although likely was adenomatous tissue. The pylorus was widely patent. The stomach was carefully inspected. There was mild gastritis present. A biopsy of the antrum took place to rule out H. pylori. Retroflexion revealed a normal hiatus. The esophagus was then carefully examined. There were no neoplastic inflammatory or polypoid lesions throughout the visualized esophagus. The patient was then taken to the recovery room in stable condition per anesthesia guidelines. Recommendations: Resume diet. Await biopsies results. Continue metastatic work up.
[2022-08-22 12:54] VITALS: RESP 17
[2022-08-22 13:07] VITALS: BP 148/85; PULSE 86
== END 2022-08-22 13:45 | disposition home or self-care (01) ==
LOC: ORWHC2ENDO 11:18
PROVIDERS: ATTEND Surgery
DX: K29.50 Unspecified chronic gastritis without bleeding (principal); K31.7 Polyp of stomach and duodenum; I48.91 Unspecified atrial fibrillation; I10 Essential (primary) hypertension; M19.90 Unspecified osteoarthritis, unspecified site; E78.5 Hyperlipidemia, unspecified; E07.9 Disorder of thyroid, unspecified; Z85.828 Personal history of other malignant neoplasm of skin; Z98.41 Cataract extraction status, right eye; Z98.42 Cataract extraction status, left eye; Z90.710 Acquired absence of both cervix and uterus; Z98.890 Other specified postprocedural states; Z79.899 Other long term (current) drug therapy; Z79.890 Hormone replacement therapy
CPT/HCPCS: 88305; 43239; J2704; J2001

== ENCOUNTER 2022-08-29 10:07 | Observation (INO) | payer MEDICARE ==
[2022-08-29] MEDS ORDERED: SODIUM CHLORIDE 0.9% 1,000 ML IV STA (11:41)
[2022-08-29 12:00] LABS: Basophils % (A) 0 %; Eosinophils % (A) 0 %; HCT 40.7 % (34.0-46.0); HGB 13.7 gm/dL (11.4-16.0); Lymphocytes # (A) 0.6 k/uL (1.0-4.8); Lymphocytes % (A) 8 %; MCH 30.1 pg (25.0-35.0); MCHC 33.7 g/dL (31.0-37.0); MCV 89.3 fL (80.0-100.0); Mean Platelet Volume 7.7; Monocytes # (A) 0.4 k/uL (0-1.0); Monocytes % (A) 5 %; Neutrophils # (A) 6.8 k/uL (1.3-7.7); Neutrophils % (A) 86 %; Platelet Count 229 k/uL (150-450); RBC 4.56 m/uL (3.80-5.40); RDW 12.4 % (11.5-15.5); WBC 7.9 k/uL (3.8-10.6)
--- NOTE | 2022-08-29 12:03 | ED ---
General Adult HPI - General Chief complaint: Arrhythmia/Palpitations Stated complaint: Afib Time Seen by Provider: 08/29/22 11:28 Source: patient, family, RN notes reviewed Mode of arrival: ambulatory Limitations: no limitations - History of Present Illness Initial comments: 82-year-old female presents emergency Department with multiple complaints. Freda ent states she's not been feeling well of recent. Patient states that she does feel that she has been constipated took 2 Dulcolax with no relief of symptoms. Patient has a history of A. fib and states that she's not been on her medication recently. Patient states she is currently being worked up for cancer or mass and left side of her chest, neck. Patient states she's had decreased oral intake, slight nausea. Patient denies any fevers chills no significant cough no chest pain currently. - Related Data Home Medications Medication Instructions Recorded Confirmed Atorvastatin [Lipitor] 10 mg PO HS 06/12/19 08/29/22 oxyBUTYnin chloride [Ditropan] 5 mg PO BID 06/12/19 08/29/22 Apixaban [Eliquis] 2.5 mg PO BID 04/24/22 08/29/22 Azelastine HCl [Astepro] 1 - 2 spray EA NOSTRIL BID PRN 07/18/22 08/29/22 Enalapril [Vasotec] 2.5 mg PO HS 07/18/22 08/29/22 Fluticasone Propionate 1 - 2 spray EA NOSTRIL HS PRN 07/18/22 08/29/22 Levothyroxine Sodium [Synthroid] 50 mcg PO DAILY 07/18/22 08/29/22 Metoprolol Succinate (ER) [Toprol 12.5 mg PO DAILY 07/18/22 08/29/22 XL] Multivitamins, Thera [Multivitamin 1 tab PO DAILY 07/18/22 08/29/22 (formulary)] Neuriva 1 tab PO DAILY 08/18/22 08/29/22 traMADol HCL [Ultram] 50 mg PO Q6HR 08/18/22 08/29/22 Ondansetron Odt [Zofran Odt] 4 mg PO Q8HR PRN 08/29/22 08/29/22 Allergies Allergy/AdvReac Type Severity Reaction Status Date / Time No Known Allergies Allergy Verified 08/29/22 12:33 Review of Systems ROS Statement: Those systems with pertinent positive or pertinent negative responses have been documented in the HPI. ROS Other: All systems not noted in ROS Statement are negative. Past Medical History Past Medical History: Atrial Fibrillation, Cancer, Hearing Disorder / Deafness, Hyperlipidemia, Hypertension, Osteoarthritis (OA), Syncope, Thyroid Disorder Additional Past Medical History / Comment(s): Hx MURMUR, PALPITATIONS, SHINGLES, CONSTIPATION, CURVATURE OF SPINE, bladder control prob, prob w/ balance-IMPROVED "Small leak in heart valve.", SKIN CANCER, recent adm. MPH lung nodules, left clavicular mass, pt. unsure of kind of cancer, states when anxious or "worked up" affects her a-fib History of Any Multi-Drug Resistant Organisms: None Reported Past Surgical History: Hysterectomy, Joint Replacement Additional Past Surgical History / Comment(s): JASPER CATARACTS, JASPER KNEE REPLACEMENTS, OOPHERECTOMY, Colonoscopies Past Anesthesia/Blood Transfusion Reactions: No Reported Reaction Past Psychological History: Anxiety Smoking Status: Never smoker Past Alcohol Use History: Rare Past Drug Use History: Marijuana - Past Family History Father Family Medical History: Cancer Additional Family Medical History / Comment(s): AGE 98, SMOKED, SKIN CANCER Mother Additional Family Medical History / Comment(s): AGE 80- SMOKER/EMPHYSEMA General Exam Limitations: no limitations General appearance: alert, in no apparent distress Head exam: Present: atraumatic, normocephalic, normal inspection ENT exam: Present: normal exam, normal oropharynx, mucous membranes moist Neck exam: Present: normal inspection, full ROM. Absent: tenderness, meningi smus, lymphadenopathy Respiratory exam: Present: normal lung sounds bilaterally. Absent: respiratory distress, wheezes, rales, rhonchi, stridor Cardiovascular Exam: Present: regular rate, normal rhythm, normal heart sounds. Absent: systolic murmur, diastolic murmur, rubs, gallop, clicks GI/Abdominal exam: Present: soft, normal bowel sounds. Absent: distended, tenderness, guarding, rebound, rigid Neurological exam: Present: alert Skin exam: Present: warm, dry, intact, normal color. Absent: rash Course Vital Signs 08/29/22 08/29/22 08/29/22 10:23 11:40 12:00 Temperature 98.4 F Pulse Rate 105 H 84 84 Respiratory 18 22 21 Rate Blood Pressure 123/78 138/90 138/90 O2 Sat by Pulse 96 93 L 91 L Oximetry 08/29/22 08/29/22 08/29/22 12:30 13:00 13:30 Temperature Pulse Rate 81 71 Respiratory 20 24 Rate Blood Pressure 144/91 144/91 147/70 O2 Sat by Pulse 97 92 L Oximetry 08/29/22 08/29/22 08/29/22 14:00 14:30 15:00 Temperature Pulse Rate 55 L 64 Respiratory 18 18 Rate Blood Pressure 145/95 179/104 154/112 O2 Sat by Pulse 94 L 94 L Oximetry EKG Findings - EKG Comments: EKG Findings:: EKG performed at 10:54 sinus rhythm rate of 88 FL 175/87 QT /QTC 335/381 - EKG Results: EKG: interpreted by CECILE Medical Decision Making - Medical Decision Making Was pt. sent in by a medical professional or institution (, PA, FURNITURE DECALS INSPECTOR, urgent care, hospital, or snf...) When possible be specific @ -Oncologist Did you speak to anyone other than the patient for history (EMS, parent, family, police, friend...)? What history was obtained from this source @ -No Did you review nursing and triage notes (agree or disagree)? Why? @ -I reviewed and agree with nursing and triage notes Were old charts reviewed (outside hosp., previous admission, EMS record, old E KG, old radiological studies, urgent care reports/EKG's, snf records)? Report findings @ -Review recent admission, oncology, pulmonary duration Differential Diagnosis (chest pain, altered mental status, abdominal pain women, abdominal pain men, vaginal bleeding, weakness, fever, dyspnea, syncope, headache, dizziness, GI bleed, back pain, seizure, CVA, palpatations, mental health, musculoskeletal)? @ -Differential Dyspnea: Coronary syndrome, arrhythmia, tamponade, asthma, COPD, pulmonary embolism, pneumonia, pneumothorax, pulmonary effusion, anaphylaxis, diabetic ketoacidosis, flailed chest, pulmonary contusion, diaphragmatic rupture, anemia, neuromuscular, this is not meant to be an all-inclusive list. EKG interpreted by me (3pts min.). @ -As above X-rays interpreted by me (1pt min.). @ -Chest x-ray shows evidence of increasing pneumonia, known mass. CT interpreted by me (1pt min.). @ -None done U/S interpreted by me (1pt. min.). @ -None done What testing was considered but not performed or refused? (CT, X-rays, U/S, labs)? Why? @ -None What meds were considered but not given or refused? Why? @ -None Did you discuss the management of the patient with other professionals (professionals i.e. , PA, FURNITURE DECALS INSPECTOR, lab, RT, psych nurse, medical social worker, it solutions sales consultant, teacher, toxics program officer, pillowcase cutter)? Give summary @ - for admission with oncology evaluation Was smoking cessation discussed for >3mins.? @ -No Was critical care preformed (if so, how long)? @ -No Were there social determinants of health that impacted care today? How? (Homelessness, low income, unemployed, alcoholism, drug addiction, transportation, low edu. Level, literacy, decrease access to med. care, halfway, rehab)? @ -No Was there de-escalation of care discussed even if they declined (Discuss DNR or withdrawal of care, Hospice)? DNR status @ -No What co-morbidities impacted this encounter? (DM, HTN, Smoking, COPD, CAD, Cancer, CVA, ARF, Chemo, Hep., AIDS, mental health diagnosis, sleep apnea, morbid obesity)? @ -Metastatic cancer Was patient admitted / discharged? Hospital course, mention meds given and route, prescriptions, significant lab abnormalities, going to OR and other pertinent info. @ -Admitted patient has PNA with bouts of hypoxia, increasing dyspnea with known metastatic cancer and possible new pneumonia. Patient was started on antibiotics will be observed and consult oncology Undiagnosed new problem with uncertain prognosis? @ -No Drug Therapy requiring intensive monitoring for toxicity (Heparin, Nitro, Insulin, Cardizem)? @ -No Were any procedures done? @ -No Diagnosis/symptom? @ -Pneumonia, dyspnea, metastatic cancer Acute, or Chronic, or Acute on Chronic? @ -Acute Uncomplicated (without systemic symptoms) or Complicated (systemic symptoms)? @ -Complicated Side effects of treatment? @ -No Exacerbation, Progression, or Severe Exacerbation? @ -No Poses a threat to life or bodily function? How? (Chest pain, USA, ME, pneumonia, PE, COPD, DKA, ARF, appy, cholecystitis, CVA, Diverticulitis, Homicidal, Suicidal, threat to staff... and all critical care pts) @ -Yes patient has metastatic cancer, pneumonia - Lab Data Result diagrams: 08/29/22 11:48 08/29/22 11:48 Lab Results 08/29/22 08/29/22 08/29/22 Range/Units 11:48 11:48 11:48 WBC 7.9 (3.8-10.6) k/uL RBC 4.56 (3.80-5.40) m/uL Hgb 13.7 (11.4-16.0) gm/dL Hct 40.7 (34.0-46.0) % MCV 89.3 (80.0-100.0) fL MCH 30.1 (25.0-35.0) pg MCHC 33.7 (31.0-37.0) g/dL RDW 12.4 (11.5-15.5) % Plt Count 229 (150-450) k/uL MPV 7.7 Neutrophils % 86 % Lymphocytes % 8 % Monocytes % 5 % Eosinophils % 0 % Basophils % 0 % Neutrophils # 6.8 (1.3-7.7) k/uL Lymphocytes # 0.6 L (1.0-4.8) k/uL Monocytes # 0.4 (0-1.0) k/uL Eosinophils # 0.0 (0-0.7) k/uL Basophils # 0.0 (0-0.2) k/uL PT 10.4 (9.0-12.0) sec INR 1.0 (<1.2) APTT 24.6 (22.0-30.0) sec Sodium 130 L (137-145) mmol/L Potassium 4.6 (3.5-5.1) mmol/L Chloride 93 L (98-107) mmol/L Carbon Dioxide 29 (22-30) mmol/L Anion Gap 8 mmol/L BUN 15 (7-17) mg/dL Creatinine 0.68 (0.52-1.04) mg/dL Est GFR (CKD-EPI)AfAm >90 (>60 ml/min/1.73 sqM) Est GFR (CKD-EPI)NonAf 82 (>60 ml/min/1.73 sqM) Glucose 205 H (74-99) mg/dL Calcium 9.1 (8.4-10.2) mg/dL Magnesium 1.9 (1.6-2.3) mg/dL Total Bilirubin 0.7 (0.2-1.3) mg/dL AST 41 H (14-36) U/L ALT 21 (4-34) U/L Alkaline Phosphatase 83 (38-126) U/L Troponin I (0.000-0.034) ng/mL Total Protein 6.6 (6.3-8.2) g/dL Albumin 4.2 (3.5-5.0) g/dL 08/29/22 Range/Units 11:48 WBC (3.8-10.6) k/uL RBC (3.80-5.40) m/uL Hgb (11.4-16.0) gm/dL Hct (34.0-46.0) % MCV (80.0-100.0) fL MCH (25.0-35.0) pg MCHC (31.0-37.0) g/dL RDW (11.5-15.5) % Plt Count (150-450) k/uL MPV Neutrophils % % Lymphocytes % % Monocytes % % Eosinophils % % Basophils % % Neutrophils # (1.3-7.7) k/uL Lymphocytes # (1.0-4.8) k/uL Monocytes # (0-1.0) k/uL Eosinophils # (0-0.7) k/uL Basophils # (0-0.2) k/uL PT (9.0-12.0) sec INR (<1.2) APTT (22.0-30.0) sec Sodium (137-145) mmol/L Potassium (3.5-5.1) mmol/L Chloride (98-107) mmol/L Carbon Dioxide (22-30) mmol/L Anion Gap mmol/L BUN (7-17) mg/dL Creatinine (0.52-1.04) mg/dL Est GFR (CKD-EPI)AfAm (>60 ml/min/1.73 sqM) Est GFR (CKD-EPI)NonAf (>60 ml/min/1.73 sqM) Glucose (74-99) mg/dL Calcium (8.4-10.2) mg/dL Magnesium (1.6-2.3) mg/dL Total Bilirubin (0.2-1.3) mg/dL AST (14-36) U/L ALT (4-34) U/L Alkaline Phosphatase (38-126) U/L Troponin I <0.012 (0.000-0.034) ng/mL Total Protein (6.3-8.2) g/dL Albumin (3.5-5.0) g/dL Disposition Clinical Impression: Pneumonia, Metastatic cancer, Dyspnea Disposition: ADMITTED IP TO THIS HOSP Condition: Fair Referrals: Natalie Rossi, JOSELITO [Primary Care Provider] - 1-2 days Time of Disposition: 15:30
[2022-08-29 12:09] LABS: ALT 21 U/L (4-34); AST 41 U/L (14-36); African American GFR (CKD) >90 (>60 ml/min/1.73 sqM); Albumin 4.2 g/dL (3.5-5.0); Alkaline Phosphatase 83 U/L (38-126); Anion Gap 8 mmol/L; Blood Urea Nitrogen 15 mg/dL (7-17); Calcium 9.1 mg/dL (8.4-10.2); Carbon Dioxide 29 mmol/L (22-30); Chloride 93 mmol/L (98-107); Glucose 205 mg/dL (74-99); Magnesium 1.9 mg/dL (1.6-2.3); Non-African American GFR(CKD) 82 (>60 ml/min/1.73 sqM); Potassium 4.6 mmol/L (3.5-5.1); Sodium 130 mmol/L (137-145); Total Bilirubin 0.7 mg/dL (0.2-1.3); Total Protein 6.6 g/dL (6.3-8.2)
[2022-08-29 12:20] LABS: Partial Thromboplastin Time 24.6 sec (22.0-30.0); Prothrombin Time 10.4 sec (9.0-12.0)
--- NOTE | 2022-08-29 12:47 | XR ---
EXAMINATION TYPE: XR chest 2V DATE OF EXAM: 08/29/2022 COMPARISON: 04/23/2014 HISTORY: Shortness of breath TECHNIQUE: Frontal and lateral views of the chest are obtained. FINDINGS: Scattered senescent parenchymal changes noted. Hyperinflation compatible with COPD. Increased right infrahilar density may reflect developing infiltrate. Left upper lobe nodular density . Recent CT demonstrates basilar pulmonary nodules. Heart size is stable. Mediastinal structures are stable and grossly unremarkable. No evidence for hilar prominence. Degenerative changes dorsal spine. Thoracic scoliosis convex to the left. IMPRESSION: 1. Increased right infrahilar density may reflect developing infiltrate. Left upper lobe nodular dens ity. Recent CT demonstrates basilar pulmonary nodules.
--- NOTE | 2022-08-29 12:50 | XR ---
EXAMINATION TYPE: XR KUB DATE OF EXAM: 08/29/2022 COMPARISON: NONE HISTORY: Pain TECHNIQUE: Single supine KUB image of the abdomen is obtained FINDINGS: Small bowel demonstrates no evidence for dilatation or air fluid levels. Gas and fecal material is seen in non-distended colon. No convincing evidence for pneumoperitoneum. No unusual calcifications. The lung bases are clear. The osseous structures are intact. IMPRESSION: 1. Overall nonobstructive bowel gas pattern.
[2022-08-29] MEDS ORDERED: AZITHROMYCIN 500 MG in SODIUM CHLORIDE 0.9% 250 ML IVPB STA (15:28)
[2022-08-29] MEDS ORDERED: PNEUMONIA PROTOCOL UTILIZED 1 EACH MISC PO PRN (15:31)
[2022-08-29 15:58] LABS: Appearance,Urine Clear (Clear); Bilirubin,Urine Negative (Negative); Blood,Urine Negative (Negative); Color,Urine Light Yellow; Glucose,Urine (UA) Negative (Negative); Ketones,Urine Negative (Negative); Leukocyte Esterase,Urine Negative (Negative); Nitrite,Urine Negative (Negative); PH, Urine 7.5 (5.0-8.0); Protein,Urine Negative (Negative); Specific Gravity,Urine 1.006 (1.001-1.035); Urobilinogen,Urine <2.0 mg/dL (<2.0)
--- NOTE | 2022-08-29 18:07 | P.HPIM ---
History of Present Illness H&P Date: 08/29/22 Chief Complaint: palpitations 82 year old woman with history of metastatic cancer of unknown primary, HTN, HLD, paroxysmal atrial fibrillation, hypothyroidism presented for palpitations. Patient says that today she had a 30 minute episode of palpitations and was not sure what her triggering factor was. She says that she spontaneously reverted back to sinus rhythm. When she normally feels palpitations she is in atrial fibrillation and this has happened several times in the past, so she was well aware that she was in atrial fibrillation at the time her symptoms started. She came to the hospital for further evaluation of her atrial fibrillation. During her ER course, she started to feel short of breath and had a 10 minute episode of inability to catch her breath. She says when she ambulates she feel short of breath as well. She is being worked up for metastatic cancer of unknown primary and was due for an MRI , but was unable to get it today due to being in atrial fibrillation and symptomatically from this. She denies fevers, reports chills. She denies nausea, vomiting, chest pain, syncope, presyncope, cough. She reports dyspnea. She denies abdominal pain, constipation, diarrhea, dysuria, dyschezia, numbness/weakness of extremities. She denies lower extremity edema. She denies pain in her calf. She does report loss of appetite. In the emergency room, patient was afebrile, 175/90, heart rate 82, 93% on room air. CBC was unremarkable. Basic metabolic panel shows sodium of 130, chloride of 93. Liver function test shows AST of 41. Troponin was less than 0.012. Coags are unremarkable. UA is unremarkable. Chest x-ray demonstrates right hilar prominence, thoracic scoliosis, appreciable loop recorder, otherwise clear parenchyma with no overt evidence of heart failure. EKG shows normal sinus rhythm with left axis deviation, no evidence of ischemia. KUB shows an overall nonobstructive bowel gas pattern. Case was discussed with emergency room provider and decision was made to admit the patient to observation for dyspnea. All Systems reviewed and pertinent positives and negatives noted in HPI, all other symptoms are negative Gen: in no apparent distress, resting comfortably in bed Eyes: PERRL, no scleral injection or icterus HENT: normocephalic, atraumatic, good hearing acuity, moist mucous membranes Neck: no tracheal deviation, full range of motion Resp: good air exchange, breathing comfortably with no accessory muscle use, no tactile fremitus, right lungs are clear, left lung has rhonchi in the middle posterior lung field CVS: good distal perfusion x 4, no pitting edema, regular rate and rhythm without murmurs GI: soft, NTTP, ND, no hepatosplenomegaly : no suprapubic tenderness, no CVAT, mccormack catheter not present MSK: no clubbing, no cyanosis, no noted contractures of extremities Skin: no noted rashes, petechiae; temperature of skin is appropriate Neuro: moving all extremities without signs of weakness, CN II-XII intact Psych: cooperative, euthymic mood, insight and judgment intact Labs and imaging as above Assessment: Dyspnea Hypertensive urgency Hyperlipidemia Paroxysmal atrial fibrillation Metastatic cancer of unknown primary Hypothyroidism Plan: Vital signs reviewed and noted in the HPI Lab work reviewed and noted in the HPI EKG and CXR are personally interpreted and noted in the HPI KUB result is reviewed and noted in HPI above Case was discussed with the Emergency Room provider and decision was made to admit the patient for dyspnea, hypertensive urgency Order CT of the chest with angiography to rule out pulmonary embolism given history of cancer Ceftriaxone, azithromycin ordered until pneumonia definitively ruled out pro- calcitonin Pending pro-calcitonin Oncology consulted Continue Apixiban 2.5 mg twice a day Continue atorvastatin 10 mg daily at bedtime Continue levothyroxine 50 g Continue lisinopril 5 mg at bedtime, 12.5 mg metoprolol succinate Past Medical History Past Medical History: Atrial Fibrillation, Cancer, Hearing Disorder / Deafness, Hyperlipidemia, Hypertension, Osteoarthritis (OA), Syncope, Thyroid Disorder Additional Past Medical History / Comment(s): Hx MURMUR, PALPITATIONS, SHINGLES, CONSTIPATION, CURVATURE OF SPINE, bladder control prob, prob w/ balance-IMPROVED "Small leak in heart valve.", SKIN CANCER, recent adm. MPH lung nodules, left clavicular mass, pt. unsure of kind of cancer, states when anxious or "worked up" affects her a-fib History of Any Multi-Drug Resistant Organisms: None Reported Past Surgical History: Hysterectomy, Joint Replacement Additional Past Surgical History / Comment(s): JASPER CATARACTS, JASPER KNEE REPLACEMENTS, OOPHERECTOMY, Colonoscopies Past Anesthesia/Blood Transfusion Reactions: No Reported Reaction Past Psychological History: Anxiety Smoking Status: Never smoker Past Alcohol Use History: Rare Past Drug Use History: Marijuana - Past Family History Father Family Medical History: Cancer Additional Family Medical History / Comment(s): AGE 98, SMOKED, SKIN C ANCER Mother Additional Family Medical History / Comment(s): AGE 80- SMOKER/EMPHYSEMA Medications and Allergies Home Medications Medication Instructions Recorded Confirmed Type Atorvastatin [Lipitor] 10 mg PO HS 06/12/19 08/29/22 History oxyBUTYnin chloride [Ditropan] 5 mg PO BID 06/12/19 08/29/22 History Apixaban [Eliquis] 2.5 mg PO BID 04/24/22 08/29/22 History Azelastine HCl [Astepro] 1 - 2 spray EA NOSTRIL BID PRN 07/18/22 08/29/22 History Enalapril [Vasotec] 2.5 mg PO HS 07/18/22 08/29/22 History Fluticasone Propionate 1 - 2 spray EA NOSTRIL HS PRN 07/18/22 08/29/22 History Levothyroxine Sodium [Synthroid] 50 mcg PO DAILY 07/18/22 08/29/22 History Metoprolol Succinate (ER) [Toprol 12.5 mg PO DAILY 07/18/22 08/29/22 History XL] Multivitamins, Thera [Multivitamin 1 tab PO DAILY 07/18/22 08/29/22 History (formulary)] Neuriva 1 tab PO DAILY 08/18/22 08/29/22 History traMADol HCL [Ultram] 50 mg PO Q6HR 08/18/22 08/29/22 History Ondansetron Odt [Zofran Odt] 4 mg PO Q8HR PRN 08/29/22 08/29/22 History Allergies Allergy/AdvReac Type Severity Reaction Status Date / Time No Known Allergies Allergy Verified 08/29/22 12:33 Physical Exam Osteopathic Statement: *. No significant issues noted on an osteopathic structural exam other than those noted in the History and Physical/Consult. Vitals: Vital Signs Temp Pulse Resp BP Pulse Ox 08/29/22 15:30 82 23 175/90 95 08/29/22 15:00 154/112 08/29/22 14:30 64 18 179/104 94 L 08/29/22 14:00 55 L 18 145/95 94 L 08/29/22 13:30 71 24 147/70 92 L 08/29/22 13:00 81 20 144/91 97 08/29/22 12:30 144/91 08/29/22 12:00 84 21 138/90 91 L 08/29/22 11:40 84 22 138/90 93 L 08/29/22 10:23 98.4 F 105 H 18 123/78 96 Intake and Output 08/29/22 08/29/22 08/29/22 06:59 14:59 22:59 Other: Weight 61.235 kg Results CBC & Chem 7: 08/29/22 11:48 08/29/22 11:48 Labs: Abnormal Lab Results - Last 24 Hours (Table) 08/29/22 08/29/22 Range/Units 11:48 11:48 Lymphocytes # 0.6 L (1.0-4.8) k/uL Sodium 130 L (137-145) mmol/L Chloride 93 L (98-107) mmol/L Glucose 205 H (74-99) mg/dL AST 41 H (14-36) U/L
[2022-08-29] MEDS: traMADol 50 MG TAB PO SCH (19:05)
--- NOTE | 2022-08-29 19:43 | CT ---
CT CHEST FOR PULMONARY EMBOLISM. EXAMINATION TYPE: CT angio chest DATE OF EXAM: 08/29/2022 INDICATION: a-fib CT DLP: 198.9 mGycm, Automated exposure control for dose reduction was used. CONTRAST: Patient injected with 68cc mL of Isovue 370. COMPARISON: 07/18/2022 TECHNIQUE: CT of the chest is performed on a spiral scan at 2 mm thick sections. Study is performed with intravenous contrast timed for evaluation for pulmonary embolism. This will limit additional po rtions of the evaluation. 3-D MIP images reconstructed by the technologist are reviewed on the compu ter in the coronal and sagittal planes. FINDINGS: No persistent filling defects are evident to suggest an acute pulmonary embolism. No mediastinal or hilar adenopathy enlarged by CT criteria is evident. The ascending aorta diameter at the level of the main pulmonary artery is 3.9 cm. The main pulmonary artery diameter at the bifur cation is 2.8 cm. There is a small right pleural effusion. There is a 1.2 cm nodule posterior lateral left lung base. Series 406 image 102. There is a 0.6 cm posterior medial right apical nodule. Series 406 image 18. There is a 0.5 cm nodule anterior right apex. Series 406 image 26. There is a 0.4 cm nodule anterior left upper lobe. Series 406 image 33. There is a 1.0 cm nodule posterior right upper lobe. Series 406 image 46. There is a 0.5 cm nodule right upper lung field posterior lateral. Series 406 image 51. There is a 0.9 cm nodule anterior left upper lung field. Series 406 image 53. There is a 1.7 cm nodule right hilar region. Series 406 image 65. There is a 1.7 cm right hilar nodul e. Series 406 image 70. There appears to be confluent nodularity extending from the left infrahilar r egion. Series 406 image 83. There is a 1.9 cm nodule in the posterior medial left lung base. Series 406 image 94. Multiple additional subcentimeter nodules are present scattered bilaterally. Findings should consider multiple metastatic lesions. Nodularity is increasing in number and size from the recent comparison of 07/18/2022. Limited CT section through the upper abdomen are unremarkable. IMPRESSIONS: 1. No acute pulmonary embolism. 2. Multiple bilateral nodules, increasing in size and number from 07/18/2022 comparison.
[2022-08-29] MEDS ORDERED: ATORVASTATIN 10 MG TAB PO SCH (21:00)
[2022-08-29] MEDS: APIXABAN 2.5 MG TABLET PO SCH (21:05)
[2022-08-29] MEDS: oxyBUTYnin chloride 5 MG TAB PO SCH (21:06)
[2022-08-29] MEDS: lisinopriL 5 MG TAB PO SCH ×2 (21:06→21:07)
[2022-08-30] MEDS: traMADol 50 MG TAB PO SCH ×3 (02:22→11:32)
[2022-08-30] MEDS ORDERED: LEVOTHYROXINE 50 MCG TAB PO SCH (06:30)
[2022-08-30] MEDS: oxyBUTYnin chloride 5 MG TAB PO SCH (08:10)
[2022-08-30] MEDS: APIXABAN 2.5 MG TABLET PO SCH (08:10)
[2022-08-30] MEDS ORDERED: METOPROLOL SUCCINATE (ER) 25 MG TAB.ER.24H PO SCH (09:00)
--- NOTE | 2022-08-30 09:36 | P.DS ---
Providers Date of admission: 08/29/22 16:17 Expected date of discharge: 08/30/22 Attending physician: Maranda Lawrence DO Consults: 08/29/22 15:31 Consult Physician Routine Consulting Provider: Kieran Randhawa Consult Reason/Comments: Metastatic cancer, increasing weakness Do you want consulting provider notified?: Yes Primary care physician: JOSELITO Venegas Hospital Course: Assessment: Dyspnea Hypertensive urgency Hyperlipidemia Paroxysmal atrial fibrillation Metastatic cancer of unknown primary Hypothyroidism 82 year old woman with history of metastatic cancer of unknown primary, HTN, HLD, paroxysmal atrial fibrillation, hypothyroidism presented for palpitations. In the emergency room, patient was afebrile, 175/90, heart rate 82, 93% on room air. CBC was unremarkable. Basic metabolic panel shows sodium of 130, chloride of 93. Liver function test shows AST of 41. Troponin was less than 0.012. Coags are unremarkable. UA is unremarkable. Chest x-ray demonstrates right hilar prominence, thoracic scoliosis, appreciable loop recorder, otherwise clear parenchyma with no overt evidence of heart failure. EKG shows normal sinus rhythm with left axis deviation, no evidence of ischemia. KUB shows an overall nonobstructive bowel gas pattern. Case was discussed with emergency room provider and decision was made to admit the patient to observation for dyspnea. Patient did undergo computed tomography scan of the chest to rule out pulmonary embolism and this was negative, but really demonstrated findings of multiple nodules consistent with metastatic disease. There was no evidence of pneumonia on the scan. Pro-calcitonin was 0.08. Patient was subsequently discharged home with instructions to follow-up with oncology for ongoing cancer workup and treatment plan. Gen: in no apparent distress, resting comfortably in bed Eyes: PERRL, no scleral injection or icterus HENT: normocephalic, atraumatic, good hearing acuity, moist mucous membranes Neck: no tracheal deviation, full range of motion Resp: good air exchange, breathing comfortably with no accessory muscle use, no tactile fremitus, right lungs are clear, left lung has rhonchi in the middle posterior lung field CVS: good distal perfusion x 4, no pitting edema, regular rate and rhythm without murmurs GI: soft, NTTP, ND, no hepatosplenomegaly : no suprapubic tenderness, no CVAT, mccormack catheter not present MSK: no clubbing, no cyanosis, no noted contractures of extremities Skin: no noted rashes, petechiae; temperature of skin is appropriate Neuro: moving all extremities without signs of weakness, CN II-XII intact Psych: cooperative, euthymic mood, insight and judgment intact Patient Condition at Discharge: Good Plan - Discharge Summary Discharge Rx Participant: No New Discharge Prescriptions: Continue oxyBUTYnin chloride [Ditropan] 5 mg PO BID Atorvastatin [Lipitor] 10 mg PO HS Metoprolol Succinate (ER) [Toprol XL] 12.5 mg PO DAILY Azelastine HCl [Astepro] 1 - 2 spray EA NOSTRIL BID PRN PRN Reason: DRAINAGE/CONGESTION Neuriva 1 tab PO DAILY Apixaban [Eliquis] 2.5 mg PO BID Levothyroxine Sodium [Synthroid] 50 mcg PO DAILY Enalapril [Vasotec] 2.5 mg PO HS Multivitamins, Thera [Multivitamin (formulary)] 1 tab PO DAILY Fluticasone Propionate 1 - 2 spray EA NOSTRIL HS PRN PRN Reason: DRAINAGE/CONGESTION traMADol HCL [Ultram] 50 mg PO Q6HR Ondansetron Odt [Zofran ODT] 4 mg PO Q8HR PRN PRN Reason: Nausea And Vomiting Discharge Medication List Atorvastatin [Lipitor] 10 mg PO HS 06/12/19 [History] oxyBUTYnin chloride [Ditropan] 5 mg PO BID 06/12/19 [History] Apixaban [Eliquis] 2.5 mg PO BID 04/24/22 [History] Azelastine HCl [Astepro] 1 - 2 spray EA NOSTRIL BID PRN 07/18/22 [History] Enalapril [Vasotec] 2.5 mg PO HS 07/18/22 [History] Fluticasone Propionate 1 - 2 spray EA NOSTRIL HS PRN 07/18/22 [History] Levothyroxine Sodium [Synthroid] 50 mcg PO DAILY 07/18/22 [History] Metoprolol Succinate (ER) [Toprol XL] 12.5 mg PO DAILY 07/18/22 [History] Multivitamins, Thera [Multivitamin (formulary)] 1 tab PO DAILY 07/18/22 [History] Neuriva 1 tab PO DAILY 08/18/22 [History] traMADol HCL [Ultram] 50 mg PO Q6HR 08/18/22 [History] Ondansetron Odt [Zofran ODT] 4 mg PO Q8HR PRN 08/29/22 [History] Follow up Appointment(s)/Referral(s): Natalie Rossi NPC [Primary Care Provider] - 1-2 days Discharge Disposition: HOME SELF-CARE
[2022-08-30 10:28] VITALS: RESP 16; TEMP 97.6
[2022-08-30] MEDS ORDERED: polyethylene glycoL 3350 17 GM POWD.PACK PO SCH (10:30)
[2022-08-30 11:38] VITALS: BMI 23.1
--- NOTE | 2022-08-30 12:07 | XR ---
EXAMINATION TYPE: XR chest 1V portable DATE OF EXAM: 08/30/2022 Comparison: 08/29/2022 Clinical History: 82-year-old female follow-up pneumonia. Findings: The heart is normal size. Marked levoconvex scoliosis of the upper thoracic spine. Hyperinflation. Pa tchy right midlung opacity in medial right lower lung opacity relatively similar to slightly increase d. No pleural effusion. Loop recorder device projects over the left side of the heart. Impression: COPD, scoliosis, and similar to slightly increased focal airspace disease right mid and lower lung.
--- NOTE | 2022-08-30 14:45 | P.CONS ---
History of Present Illness - Reason for Consult Consult date: 08/30/22 hx NSCLC Requesting physician: Severiano Kowalski - Chief Complaint weakness, palpitations - History of Present Illness Patient is a 82 year old female with a history of NSCLC. She is a patient of Dr. Randhawa. She was initially seen in consult at [facility] on . The patient had presented with a lump that was noticed about 2 months prior, in the left supraclavicular area. Ultrasound had shown a 3 x 1.8 x 2.8 cm mass, with additional masses in the 2 cm range adjacent to that. CT chest on this admission showed bilateral prominent enlarged hilar nodes, somewhat confluent in appearance, abnormal mediastinal adenopathy with mass effect near the brachiocephalic confluence, and left supraclavicular adenopathy. there were bilateral lung nodules, largest 1.4 cm in the left lower lobe. There was a 1 cm cystic lesion in the liver. CT of the abdomen and pelvis showed 2 lesions in the spleen measuring up to 3.5 cm concerning for metastasis. 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 IHC was nonspecific on site of origin, which is felt to include lung, upper GI, head and neck/salivary gland and breast. 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 She had an EGD showing a benign looking polyp in the duodenum. Biopsy negative for malignancy. PET scan showed uptake in b/l lung nodules and mediastinal and supraclavicular adenopathy, as well as involvement of the spleen and portocaval/hepatorenal nodes. MRI brain scheduled. Recommended treatment with Carboplatin /Taxol and keytruda. If brain MRI reveals malignancy, she would need RT first. patient presented to the ER for weakness, SOB and palpitations. Patient has history of A. fib anticoagulated with eloquent. Patient also reports experiencing nausea and constipation. Last BM 6 days ago. Denies vomiting. She reports eating this morning and was able to tolerate breakfast. Patient denies fever and chills. chest x-ray revealed increased right infrahilar density which may reflect developing infiltrate. Left upper lobe nodular density. KUB showed overall nonobstructive bowel gas pattern. CT chest negative for pulmonary embolism area multiple bilateral nodules, increasing in size and number from previous study on 07/18/22. UA negative for acute infection. Blood cultures and sputum culture ordered. WBC 7.9, hemoglobin 13.7, platelets 229,000. Review of Systems 10 point ROS is negative except as stated in the HPI Past Medical History Past Medical History: Atrial Fibrillation, Cancer, Hearing Disorder / Deafness, Hyperlipidemia, Hypertension, Osteoarthritis (OA), Syncope, Thyroid Disorder Additional Past Medical History / Comment(s): Hx MURMUR, PALPITATIONS, SHINGLES, CONSTIPATION, CURVATURE OF SPINE, bladder control prob, prob w/ balance-IMPROVED "Small leak in heart valve.", SKIN CANCER, recent adm. [facility] lung nodules, left clavicular mass, pt. unsure of kind of cancer, states when anxious or "worked up" affects her a-fib History of Any Multi-Drug Resistant Organisms: None Reported Past Surgical History: Hysterectomy, Joint Replacement Additional Past Surgical History / Comment(s): JASPER CATARACTS, JASPER KNEE REPLACEMENTS, OOPHERECTOMY, Colonoscopies Past Anesthesia/Blood Transfusion Reactions: No Reported Reaction Past Psychological History: Anxiety Smoking Status: Never smoker Past Alcohol Use History: Rare Additional Past Alcohol Use History / Comment(s): 2ND HAND SMOKE WHILE GROWING UP (PARENTS) Past Drug Use History: Marijuana Additional Drug Use History / Comment(s): TAKES CBD GUMMIES FOR SLEEP - Past Family History Father Family Medical History: Cancer Additional Family Medical History / Comment(s): AGE 98, SMOKED, SKIN CANCER Mother Additional Family Medical History / Comment(s): AGE 80- SMOKER/EMPHYSEMA Medications and Allergies Home Medications Medication Instructions Recorded Confirmed Type Atorvastatin [Lipitor] 10 mg PO HS 06/12/19 08/29/22 History oxyBUTYnin chloride [Ditropan] 5 mg PO BID 06/12/19 08/29/22 History Apixaban [Eliquis] 2.5 mg PO BID 04/24/22 08/29/22 History Azelastine HCl [Astepro] 1 - 2 spray EA NOSTRIL BID PRN 07/18/22 08/29/22 History Enalapril [Vasotec] 2.5 mg PO HS 07/18/22 08/29/22 History Fluticasone Propionate 1 - 2 spray EA NOSTRIL HS PRN 07/18/22 08/29/22 History Levothyroxine Sodium [Synthroid] 50 mcg PO DAILY 07/18/22 08/29/22 History Metoprolol Succinate (ER) [Toprol 12.5 mg PO DAILY 07/18/22 08/29/22 History XL] Multivitamins, Thera [Multivitamin 1 tab PO DAILY 07/18/22 08/29/22 History (formulary)] Neuriva 1 tab PO DAILY 08/18/22 08/29/22 History traMADol HCL [Ultram] 50 mg PO Q6HR 08/18/22 08/29/22 History Ondansetron Odt [Zofran ODT] 4 mg PO Q8HR PRN 08/29/22 08/29/22 History Allergies Allergy/AdvReac Type Severity Reaction Status Date / Time No Known Allergies Allergy Verified 08/29/22 12:33 Physical Exam Vitals: Vital Signs Temp Pulse Pulse Resp BP BP Pulse Ox 08/30/22 07:46 96 08/30/22 06:52 15 08/30/22 02:25 97.2 F L 64 19 136/66 96 08/30/22 00:09 70 18 133/88 96 08/29/22 19:00 77 14 95 08/29/22 18:30 71 19 96 08/29/22 18:00 75 17 174/112 94 L 08/29/22 17:30 181/106 94 L 08/29/22 17:00 171/128 93 L 08/29/22 16:30 172/97 96 08/29/22 16:00 77 19 177/95 94 L 08/29/22 15:30 82 23 175/90 95 08/29/22 15:00 154/112 08/29/22 14:30 64 18 179/104 94 L 08/29/22 14:00 55 L 18 145/95 94 L 08/29/22 13:30 71 24 147/70 92 L 08/29/22 13:00 81 20 144/91 97 08/29/22 12:30 144/91 08/29/22 12:00 84 21 138/90 91 L 08/29/22 11:40 84 22 138/90 93 L 08/29/22 10:23 98.4 F 105 H 18 123/78 96 Intake and Output 08/29/22 08/30/22 08/30/22 22:59 06:59 14:59 Intake Total 1970 Balance 1969 Intake: IV 10 Invasive Line 1 10 Intake, IV Titration 1000 Amount Sodium Chloride 0.9% 1, 1000 000 ml @ 999 mls/hr IV . Q1H1M STA Rx#:[id number] Oral 960 Other: Voiding Method Toilet # Voids 1 Weight 61.235 kg - Constitutional General appearance: average body habitus, no acute distress - EENT Eyes: anicteric sclerae, EOMI ENT: hearing grossly normal - Respiratory Respiratory: bilateral: CTA - Cardiovascular Rhythm: regular Heart sounds: normal: S1, S2 Abnormal Heart Sounds: no systolic murmur, no diastolic murmur, no rub, no S3 Gallop, no S4 Gallop, no click, no other - Gastrointestinal mildly distended General gastrointestinal: soft, no tenderness - Integumentary Integumentary: no cyanotic, no rash - Neurologic grossly intact - Musculoskeletal Musculoskeletal: strength equal bilaterally - Psychiatric Psychiatric: A&O x's 3, appropriate affect, intact judgment & insight Results CBC & Chem 7: 08/29/22 11:48 08/29/22 11:48 Labs: Abnormal Lab Results - Last 24 Hours (Table) 08/29/22 08/29/22 Range/Units 11:48 11:48 Lymphocytes # 0.6 L (1.0-4.8) k/uL Sodium 130 L (137-145) mmol/L Chloride 93 L (98-107) mmol/L Glucose 205 H (74-99) mg/dL AST 41 H (14-36) U/L Chest x-ray: report reviewed Abdominal x-ray: report reviewed CT scan - chest: report reviewed Assessment and Plan (1) Metastatic cancer Current Visit: Yes Status: Acute Priority: High Code(s): C79.9 - SECONDARY MALIGNANT NEOPLASM OF UNSPECIFIED SITE SNOMED Code(s): 423955893 Plan: Metastatic NSCLC: -The patient had an ultrasound-guided biopsy in 07/19/22, revealing malignant, severely atypical epithelioid cells, 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 PET scan showed uptake in b/l lung nodules and mediastinal and supraclavicular adenopathy, as well as involvement of the spleen and portocaval/hepatorenal nodes. -MRI brain will be rescheduled due to hospitalization. Recommended treatment with Carboplatin /Taxol and keytruda. If brain MRI reveals malignancy, she would need RT first. -Clinic f/u scheduled Constipation: -No BM in last 6 days, miralax ordered. Pt is tolerating oral intake. Abdominal exam benign -Defer to IM for medical management attests: I have performed H&P and developed impression and plan of care for patient, discussed with dictator. I agree with dictated note, documented as a scribe
[2022-08-30 15:29] VITALS: BP 130/62; PULSE 62
== END 2022-08-30 15:15 | disposition home or self-care (01) ==
LOC: EC 10:07 → 5NMEDONC 16:17 → 1SOBS 08-30 00:31
PROVIDERS: ADMIT Internal Medicine; ATTEND Internal Medicine
DX: R06.00 Dyspnea, unspecified (principal); J18.9 Pneumonia, unspecified organism; C78.02 Secondary malignant neoplasm of left lung; C78.01 Secondary malignant neoplasm of right lung; K59.00 Constipation, unspecified; I16.0 Hypertensive urgency; I48.0 Paroxysmal atrial fibrillation; E03.9 Hypothyroidism, unspecified; E78.5 Hyperlipidemia, unspecified; I10 Essential (primary) hypertension; F41.9 Anxiety disorder, unspecified; Z79.899 Other long term (current) drug therapy; Z79.01 Long term (current) use of anticoagulants; Z79.890 Hormone replacement therapy; Z79.51 Long term (current) use of inhaled steroids; Z82.5 Family history of asthma and other chronic lower respiratory diseases; Z80.8 Family history of malignant neoplasm of other organs or systems
CPT/HCPCS: 99285; 36415; 94760; 93005; 80053; 87449; 83735; 84484; 85025; 85610; 85730; 81003; 87040; 84145; 71045; 71046; 74018; 71275; G0378 ×3; J0456; J0696; Q9967

== ENCOUNTER → 2022-09-01 | Outpatient (CLI) | payer MEDICARE ==
--- NOTE | 2022-09-01 14:17 | MR ---
EXAMINATION TYPE: MR brain wo/w con DATE OF EXAM: 09/01/2022 1:56 PM COMPARISON: 04/14/2021 HISTORY: Hx of lung cancer CONTRAST: Patient received 6 mL intravenous Gadavist gadolinium contrast. Multiplanar and multispin-echo imaging of the brain was performed . Pre and post contrast enhanced i mages are obtained. The ventricles, basal cisterns and sulci overlying the cerebral convexities are moderately enlarged. There is evidence of severe confluent periventricular white matter ischemic demyelination. Remote deep white matter insults are also noted. No acute edema is seen on diffusion weighted imaging. There is no evidence for midline shift or mass effect. Acute intracranial hemorrhage or extra-axial collection is not evident. No enhancing lesions are seen. The paranasal sinuses and mastoid air cells are well-aerated. IMPRESSION: Age-related atrophic and chronic small vessel ischemic change. No acute intracranial process at this time. No enhancing lesions are seen.
== END | disposition home or self-care (01) ==
LOC: RADMRIMAIN 12:44
PROVIDERS: ATTEND Internal Medicine Hematology & Oncology
DX: C34.32 Malignant neoplasm of lower lobe, left bronchus or lung (principal); I67.82 Cerebral ischemia
CPT/HCPCS: 70553; A9585

== ENCOUNTER 2022-09-12 10:06 | Inpatient (IN) | payer MEDICARE ==
[2022-09-12 11:43] LABS: Basophils % (A) 0 %; Eosinophils % (A) 0 %; HCT 43.6 % (34.0-46.0); HGB 14.6 gm/dL (11.4-16.0); Lymphocytes % (A) 10 %; MCH 29.9 pg (25.0-35.0); MCHC 33.5 g/dL (31.0-37.0); Mean Platelet Volume 8.3; Monocytes # (A) 0.6 k/uL (0-1.0); Monocytes % (A) 6 %; Neutrophils # (A) 7.9 k/uL (1.3-7.7); Neutrophils % (A) 82 %; Platelet Count 260 k/uL (150-450); RBC 4.89 m/uL (3.80-5.40); RDW 12.4 % (11.5-15.5); WBC 9.6 k/uL (3.8-10.6)
[2022-09-12 11:51] LABS: ALT 21 U/L (4-34); AST 44 U/L (14-36); African American GFR (CKD) >90 (>60 ml/min/1.73 sqM); Albumin 4.2 g/dL (3.5-5.0); Alkaline Phosphatase 87 U/L (38-126); Anion Gap 11 mmol/L; Blood Urea Nitrogen 15 mg/dL (7-17); Calcium 9.5 mg/dL (8.4-10.2); Carbon Dioxide 23 mmol/L (22-30); Chloride 93 mmol/L (98-107); Glucose 140 mg/dL (74-99); Magnesium 1.8 mg/dL (1.6-2.3); Non-African American GFR(CKD) 81 (>60 ml/min/1.73 sqM); Sodium 127 mmol/L (137-145); Total Bilirubin 1.1 mg/dL (0.2-1.3); Total Protein 6.8 g/dL (6.3-8.2)
--- NOTE | 2022-09-12 12:06 | XR ---
EXAMINATION TYPE: XR chest 2V DATE OF EXAM: 09/12/2022 11:52 AM COMPARISON: Chest radiographs from 08/30/2022 CTA chest 08/29/2022 TECHNIQUE: XR chest 2V Frontal and lateral views of the chest. CLINICAL INDICATION:Female, 82 years old with history of Weakness; FINDINGS: Patient is rotated which limits evaluation. Lungs/Pleura: No pleural effusion or pneumothorax. Increased right midlung perihilar opacity. Nodular density measuring up to 1.1 cm in the lung base corresponding to prior CT. Pulmonary vascularity: Unremarkable. Heart/mediastinum: Cardiomediastinal silhouette is prominent in size. Musculoskeletal: No acute osseous pathology. IMPRESSION: Similar left basilar nodularity with increased right midlung opacity likely representing adenopathy/m ass when compared to prior CT.
[2022-09-12 12:12] LABS: Partial Thromboplastin Time 24.7 sec (22.0-30.0)
[2022-09-12 12:16] LABS: Potassium 4.9 mmol/L (3.5-5.1)
[2022-09-12] MEDS ORDERED: ONDANSETRON 4 MG/2 ML VIAL IVP STA (12:18)
[2022-09-12] MEDS ORDERED: DILTIAZEM DRIP BOLUS FROM BAG 1 MG SOLN IV ONE (12:21)
[2022-09-12] MEDS: SODIUM CHLORIDE 0.9% 1,000 ML IV SCH (12:31)
--- NOTE | 2022-09-12 12:51 | ED ---
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 Patient was recently discharged for same complaint. She reports that at home she has not been eating or drinking. Her last significant oral intake was 4 days ago. She admits to dry heaving without vomiting. She did take Zofran at home without any improvement in her symptoms. She was able to take her morning medications. Presents today in A. fib with a rapid ventricular rate. Patient does have a history of A. fib. Denies chest pain or palpitations. No fevers. Patient has not started any chemo or radiation at this time. Follow-up appointment was on to possibly begin radiation. She denies any chest pain, shortness breath, abdominal pain. No other alleviating, precipitating or modifying factors - Related Data Home Medications Medication Instructions Recorded Confirmed Azelastine HCl [Astepro] 1 - 2 spray EA NOSTRIL BID PRN 07/18/22 09/26/22 Fluticasone Propionate 1 - 2 spray EA NOSTRIL HS PRN 07/18/22 09/26/22 Multivitamins, Thera [Multivitamin 1 tab PO DAILY 07/18/22 09/26/22 (formulary)] Neuriva 1 tab PO DAILY 08/18/22 09/26/22 traMADol HCL [Ultram] 50 mg PO Q6HR 08/18/22 09/26/22 Zolpidem [Ambien] 5 mg PO HS PRN 09/12/22 09/26/22 Amiodarone [Cordarone] See Taper PO DIRECTED 09/26/22 09/26/22 Previous Rx's Medication Instructions Recorded Calcium Carbonate [Tums] 500 mg PO QID PRN #28 tab 09/14/22 Docusate [Colace] 100 mg PO BID #60 capsule 09/15/22 ALPRAZolam [Xanax] 0.25 mg PO DAILY PRN tab 09/17/22 Apixaban [Eliquis] 2.5 mg PO BID 30 Days #60 tab 09/17/22 Atorvastatin [Lipitor] 10 mg PO HS 30 Days #30 tab 09/17/22 Enalapril [Vasotec] 2.5 mg PO HS 30 Days #30 tab 09/17/22 Levothyroxine Sodium [Synthroid] 50 mcg PO DAILY 30 Days #30 tab 09/17/22 Metoprolol Tartrate [Lopressor] 75 mg PO TID 30 Days #90 tab 09/17/22 Omeprazole 20 mg PO DAILY 30 Days #30 tab 09/17/22 Ondansetron Odt [Zofran ODT] 8 mg PO Q8HR PRN 7 Days #21 tab 09/17/22 oxyBUTYnin chloride [Ditropan] 5 mg PO BID 30 Days #60 tab 09/17/22 droNABinol [Marinol] 2.5 mg PO AC-BID #60 cap 09/22/22 Allergies Allergy/AdvReac Type Severity Reaction Status Date / Time No Known Allergies Allergy Verified 09/26/22 10:49 Review of Systems ROS Statement: Those systems with pertinent positive or pertinent negative responses have been documented in the HPI. ROS Other: All systems not noted in ROS Statement are negative. Past Medical History Past Medical History: Atrial Fibrillation, Cancer, Hearing Disorder / Deafness, Hyperlipidemia, Hypertension, Osteoarthritis (OA), Syncope, Thyroid Disorder Additional Past Medical History / Comment(s): Hx MURMUR, PALPITATIONS, SHINGLES, CONSTIPATION, CURVATURE OF SPINE, bladder control prob, prob w/ balance- IMPROVED "Small leak in heart valve.", SKIN CANCER, recent adm. [facility] lung nodules, left clavicular mass, pt. unsure of kind of cancer, states when anxious or "worked up" affects her a-fib History of Any Multi-Drug Resistant Organisms: None Reported Past Surgical History: Hysterectomy, Joint Replacement Additional Past Surgical History / Comment(s): JASPER CATARACTS, JASPER KNEE REPLACEMENTS, OOPHERECTOMY, Colonoscopies Past Anesthesia/Blood Transfusion Reactions: No Reported Reaction Past Psychological History: Anxiety Smoking Status: Never smoker Past Alcohol Use History: Rare Past Drug Use History: Marijuana - Past Family History Father Family Medical History: Cancer Additional Family Medical History / Comment(s): AGE 98, SMOKED, SKIN CANCER Mother Additional Family Medical History / Comment(s): AGE 80- SMOKER/EMPHYSEMA General Exam Limitations: no limitations General appearance: alert, in no apparent distress, cachectic Head exam: Present: atraumatic, normocephalic, normal inspection Eye exam: Present: normal appearance, PERRL, EOMI. Absent: scleral icterus, conjunctival injection, periorbital swelling ENT exam: Present: mucous membranes dry Neck exam: Present: normal inspection. Absent: tenderness, meningismus, lymphadenopathy Respiratory exam: Present: normal lung sounds bilaterally. Absent: respiratory distress, wheezes, rales, rhonchi, stridor Cardiovascular Exam: Present: tachycardia, irregular rhythm, normal heart sounds. Absent: systolic murmur, diastolic murmur, rubs, gallop, clicks GI/Abdominal exam: Present: soft, normal bowel sounds. Absent: distended, tenderness, guarding, rebound, rigid Extremities exam: Present: normal inspection, full ROM, normal capillary refill. Absent: tenderness, pedal edema, joint swelling, calf tenderness Back exam: Present: normal inspection Neurological exam: Present: alert, oriented X3, CN II-XII intact Psychiatric exam: Present: normal affect, normal mood Skin exam: Present: warm, dry, intact, normal color. Absent: rash Course Vital Signs 09/12/22 09/12/22 09/12/22 10:12 10:33 10:47 Temperature 97.9 F Pulse Rate 132 H 172 H Pulse Rate [ 146 H Apical] Respiratory 20 147 H 12 Rate Blood Pressure 94/62 125/95 106/76 O2 Sat by Pulse 96 95 95 Oximetry 09/12/22 09/12/22 09/12/22 11:25 12:37 13:46 Temperature Pulse Rate 156 H 167 H 75 Pulse Rate [ Apical] Respiratory 18 18 Rate Blood Pressure 108/62 111/81 110/78 O2 Sat by Pulse 95 95 Oximetry Medical Decision Making - Medical Decision Making Was pt. sent in by a medical professional or institution (, PA, INTERNATIONAL ACCOUNTANT, urgent care, hospital, or longterm...) When possible be specific @ -No Did you speak to anyone other than the patient for history (EMS, parent, family, police, friend...)? What history was obtained from this source @ -No Did you review nursing and triage notes (agree or disagree)? Why? @ -I reviewed and agree with nursing and triage notes Were old charts reviewed (outside hosp., previous admission, EMS record, old EKG, old radiological studies, urgent care reports/EKG's, longterm records)? Report findings @ - old charts were reviewed - biopsy results from july. egd from july Differential Diagnosis (chest pain, altered mental status, abdominal pain women, abdominal pain men, vaginal bleeding, weakness, fever, dyspnea, syncope, headache, dizziness, GI bleed, back pain, seizure, CVA, palpatations, mental health, musculoskeletal)? @ -aflutter, afib, dehydration, pe EKG interpreted by me (3pts min.). @ -Yes and demonstrates A. fib with a rapid rate of 163. QRS 87. QTC of 338. No acute ST segment elevations or depressions Repeat EKG done at 1326 demonstrates the patient has converted to a sinus rhythm with a rate of 84. Pr interval 166. QRS 86. QTC 392 X-rays interpreted by me (1pt min.). @ -None done CT interpreted by me (1pt min.). @ -None done U/S interpreted by me (1pt. min.). @ -None done What testing was considered but not performed or refused? (CT, X-rays, U/S, labs)? Why? @ -None What meds were considered but not given or refused? Why? @ -No Did you discuss the management of the patient with other professionals (professionals i.e. , PA, INTERNATIONAL ACCOUNTANT, lab, RT, psych nurse, social studies department chair, cooler worker, teacher, senior credit officer, case filler)? Give summary @ -dr garza Was smoking cessation discussed for >3mins.? @ -No Was critical care preformed (if so, how long)? @ -35 minutes for cardizem gtt Were there social determinants of health that impacted care today? How? (Homelessness, low income, unemployed, alcoholism, drug addiction, transportation, low edu. Level, literacy, decrease access to med. care, custodial, rehab)? @ -No Was there de-escalation of care discussed even if they declined (Discuss DNR or withdrawal of care, Hospice)? DNR status @ -yes - patient states she will think about it What co-morbidities impacted this encounter? (DM, HTN, Smoking, COPD, CAD, Cancer, CVA, ARF, Chemo, Hep., AIDS, mental health diagnosis, sleep apnea, morbid obesity)? @ -lung cancer Was patient admitted / discharged? Hospital course, mention meds given and route, prescriptions, significant lab abnormalities, going to OR and other pertinent info. @ -Upon arrival patient was placed in the hallway 19. Thorough history and physical exam was performed. Patient placed on continuous pulse ox and cardiac monitoring. She is in A. fib with a rapid ventricular rate of 163. She has taken her morning medications. IV is established. She is started on main tenance fluids. She is given a bolus of Cardizem and started on a Cardizem drip. Laboratory studies are conducted. Sodium is 127. Chest x-ray demonstrates left basilar nodularity with increased right mid lung opacity. These results are discussed the patient. She is given 4 mg of Zofran for lokesh sea. Recommended admission for dehydration and A. fib. Patient was agreeable to this. Spoke with Dr. Garza who is agreeable to admission Undiagnosed new problem with uncertain prognosis? @ -No Drug Therapy requiring intensive monitoring for toxicity (Heparin, Nitro, Insulin, Cardizem)? @ -cardizem Were any procedures done? @ -No Diagnosis/symptom? @ -afib with rvr, acute/chronic nausea, lung cancer Acute, or Chronic, or Acute on Chronic? @ -acute on chronic Uncomplicated (without systemic symptoms) or Complicated (systemic symptoms)? @ -complicated Side effects of treatment? @ -hypotension, bradycardia Exacerbation, Progression, or Severe Exacerbation? @ -yes Poses a threat to life or bodily function? How? (Chest pain, USA, NC, pneumonia, PE, COPD, DKA, ARF, appy, cholecystitis, CVA, Diverticulitis, Homicidal, Suicidal, threat to staff... and all critical care pts) @ -yes - rapid heart rate, dehydration - Lab Data Result diagrams: 09/13/22 08:27 09/13/22 08:27 Lab Results 09/12/22 09/12/22 09/12/22 Range/Units 11:24 11:24 11:24 WBC 9.6 (3.8-10.6) k/uL RBC 4.89 (3.80-5.40) m/uL Hgb 14.6 (11.4-16.0) gm/dL Hct 43.6 (34.0-46.0) % MCV 89.0 (80.0-100.0) fL MCH 29.9 (25.0-35.0) pg MCHC 33.5 (31.0-37.0) g/dL RDW 12.4 (11.5-15.5) % Plt Count 260 (150-450) k/uL MPV 8.3 Neutrophils % 82 % Lymphocytes % 10 % Monocytes % 6 % Eosinophils % 0 % Basophils % 0 % Neutrophils # 7.9 H (1.3-7.7) k/uL Lymphocytes # 1.0 (1.0-4.8) k/uL Monocytes # 0.6 (0-1.0) k/uL Eosinophils # 0.0 (0-0.7) k/uL Basophils # 0.0 (0-0.2) k/uL PT 11.0 (9.0-12.0) sec INR 1.0 (<1.2) APTT 24.7 (22.0-30.0) sec Sodium 127 L (137-145) mmol/L Potassium 4.9 (3.5-5.1) mmol/L Chloride 93 L (98-107) mmol/L Carbon Dioxide 23 (22-30) mmol/L Anion Gap 11 mmol/L BUN 15 (7-17) mg/dL Creatinine 0.70 (0.52-1.04) mg/dL Est GFR (CKD-EPI)AfAm >90 (>60 ml/min/1.73 sqM) Est GFR (CKD-EPI)NonAf 81 (>60 ml/min/1.73 sqM) Glucose 140 H (74-99) mg/dL Plasma Lactic Acid Pierre (0.7-2.0) mmol/L Calcium 9.5 (8.4-10.2) mg/dL Magnesium 1.8 (1.6-2.3) mg/dL Total Bilirubin 1.1 (0.2-1.3) mg/dL AST 44 H (14-36) U/L ALT 21 (4-34) U/L Alkaline Phosphatase 87 (38-126) U/L Troponin I (0.000-0.034) ng/mL Total Protein 6.8 (6.3-8.2) g/dL Albumin 4.2 (3.5-5.0) g/dL TSH 3.200 (0.465-4.680) mIU/L 09/12/22 09/12/22 Range/Units 11:24 11:24 WBC (3.8-10.6) k/uL RBC (3.80-5.40) m/uL Hgb (11.4-16.0) gm/dL Hct (34.0-46.0) % MCV (80.0-100.0) fL MCH (25.0-35.0) pg MCHC (31.0-37.0) g/dL RDW (11.5-15.5) % Plt Count (150-450) k/uL MPV Neutrophils % % Lymphocytes % % Monocytes % % Eosinophils % % Basophils % % Neutrophils # (1.3-7.7) k/uL Lymphocytes # (1.0-4.8) k/uL Monocytes # (0-1.0) k/uL Eosinophils # (0-0.7) k/uL Basophils # (0-0.2) k/uL PT (9.0-12.0) sec INR (<1.2) APTT (22.0-30.0) sec Sodium (137-145) mmol/L Potassium (3.5-5.1) mmol/L Chloride (98-107) mmol/L Carbon Dioxide (22-30) mmol/L Anion Gap mmol/L BUN (7-17) mg/dL Creatinine (0.52-1.04) mg/dL Est GFR (CKD-EPI)AfAm (>60 ml/min/1.73 sqM) Est GFR (CKD-EPI)NonAf (>60 ml/min/1.73 sqM) Glucose (74-99) mg/dL Plasma Lactic Acid Pierre 1.7 (0.7-2.0) mmol/L Calcium (8.4-10.2) mg/dL Magnesium (1.6-2.3) mg/dL Total Bilirubin (0.2-1.3) mg/dL AST (14-36) U/L ALT (4-34) U/L Alkaline Phosphatase (38-126) U/L Troponin I <0.012 (0.000-0.034) ng/mL Total Protein (6.3-8.2) g/dL Albumin (3.5-5.0) g/dL TSH (0.465-4.680) mIU/L Disposition Clinical Impression: Atrial fibrillation with RVR, Hyponatremia, Nausea and vomiting, Metastatic cancer Disposition: ADMITTED IP TO THIS [facility] Condition: Poor Is patient prescribed a controlled substance at d/c from ED?: No Time of Disposition: 12:52 Decision to Admit Reason: Admit from EC Decision Date: 09/12/22 Decision Time: 12:52
[2022-09-12] MEDS ORDERED: NALOXONE 0.4 MG/ML 1 ML VIAL IV PRN (12:58)
[2022-09-12] MEDS ORDERED: DILTIAZEM 125 MG in SODIUM CHLORIDE 0.9% 100 ML IV SCH (13:00)
[2022-09-12] MEDS: PANTOPRAZOLE 40 MG/10 ML VIAL IV SCH (13:44)
[2022-09-12] MEDS: traMADol 50 MG TAB PO SCH ×2 (16:00→23:58)
[2022-09-12] MEDS: CALCIUM CARBONATE 500 MG CHEWABLE PO PRN (17:36)
--- NOTE | 2022-09-12 17:52 | P.HPIM ---
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 She was recently discharged for similar complaints and reports that since returning home has not been eating and drinking well. She started to develop palpitations today and in addition to her generalized weakness decided to come to the hospital for further evaluation. She denies fevers, chills, vomiting. She reports nausea. She denies chest pain, syncopal, presyncope, cough, dyspnea, abdominal pain, constipation, diarrhea, dysuria, dyschezia, numbness/weakness of extremities. In the emergency room, patient was afebrile, 94/62, heart rate 172, 95% on room air. CBC was unremarkable. His metabolic panel showed hyponatremia to 127, chloride of 93. Liver function test showed AST of 44, ALT of 21, otherwise unremarkable. TSH was 2.2. Initial troponin is less than 0.012. Coags are unremarkable. Chest x-ray shows mass in the right midlung, otherwise clear parenchyma bilaterally. Initial EKG demonstrated atrial fibrillation with rapid ventricular response at a rate of 163, right axis deviation. Repeat EKG demonstrated return to normal sinus rhythm with occasional PACs. Case was discussed with emergency room provider, and decision was made to admit the patient to our hospital for further evaluation of hyponatremia and paroxysmal atrial fibrillation. All Systems reviewed and pertinent positives and negatives noted in HPI, all other symptoms are negative Gen: in no apparent distress, resting comfortably in bed Eyes: PERRL, no scleral injection or icterus HENT: normocephalic, atraumatic, good hearing acuity, moist mucous membranes Neck: no tracheal deviation, full range of motion Resp: good air exchange, breathing comfortably with no accessory muscle use, no tactile fremitus CVS: good distal perfusion x 4, no pitting edema GI: soft, NTTP, ND, no hepatosplenomegaly : no suprapubic tenderness, no CVAT, mccormack catheter not present MSK: no clubbing, no cyanosis, no noted contractures of extremities Skin: no noted rashes, petechiae; temperature of skin is appropriate Neuro: moving all extremities without signs of weakness, CN II-XII intact Psych: cooperative, euthymic mood, insight and judgment intact Assessment: Paroxysmal atrial fibrillation with RVR Generalized weakness Hyponatremia Hypertension Hyperlipidemia Hypothyroidism Plan: Vital signs reviewed and noted in the HPI Lab work reviewed and noted in the HPI EKG and CXR are personally interpreted and noted in the HPI Case was discussed with the Emergency Room provider and decision was made to admit the patient for paroxysmal atrial fibrillation with RVR and hyponatremia Start Cardizem drip Increase home metoprolol to 25 mg XL from 12.5 mg XL Cardiology consultation requested Consideration of flecainide pill in pocket strategy on discharge IV fluids: Normal saline at 75 mL per hour Tramadol 50 mrem every 6 hours for pain control Continue Apixiban had 2.5 mg twice a day Patient is DO NOT RESUSCITATE/DO NOT INTUBATE Past Medical History Past Medical History: Atrial Fibrillation, Cancer, Hearing Disorder / Deafness, Hyperlipidemia, Hypertension, Osteoarthritis (OA), Syncope, Thyroid Disorder Additional Past Medical History / Comment(s): Hx MURMUR, PALPITATIONS, SHINGLES, CONSTIPATION, CURVATURE OF SPINE, bladder control prob, prob w/ balance-IMPROVED "Small leak in heart valve.", SKIN CANCER, recent adm. MPH lung nodules, left clavicular mass, pt. unsure of kind of cancer, states when anxious or "worked up" affects her a-fib History of Any Multi-Drug Resistant Organisms: None Reported Past Surgical History: Hysterectomy, Joint Replacement Additional Past Surgical History / Comment(s): JASPER CATARACTS, JASPER KNEE REPLACEME NTS, OOPHERECTOMY, Colonoscopies Past Anesthesia/Blood Transfusion Reactions: No Reported Reaction Past Psychological History: Anxiety Smoking Status: Never smoker Past Alcohol Use History: Rare Past Drug Use History: Marijuana - Past Family History Father Family Medical History: Cancer Additional Family Medical History / Comment(s): AGE 98, SMOKED, SKIN CANCER Mother Additional Family Medical History / Comment(s): AGE 80- SMOKER/EMPHYSEMA Medications and Allergies Home Medications Medication Instructions Recorded Confirmed Type Atorvastatin [Lipitor] 10 mg PO HS 06/12/19 09/12/22 History oxyBUTYnin chloride [Ditropan] 5 mg PO BID 06/12/19 09/12/22 History Apixaban [Eliquis] 2.5 mg PO BID 04/24/22 09/12/22 History Azelastine HCl [Astepro] 1 - 2 spray EA NOSTRIL BID PRN 07/18/22 09/12/22 History Enalapril [Vasotec] 2.5 mg PO HS 07/18/22 09/12/22 History Fluticasone Propionate 1 - 2 spray EA NOSTRIL HS PRN 07/18/22 09/12/22 History Levothyroxine Sodium [Synthroid] 50 mcg PO DAILY 07/18/22 09/12/22 History Metoprolol Succinate (ER) [Toprol 12.5 mg PO DAILY 07/18/22 09/12/22 History XL] Multivitamins, Thera [Multivitamin 1 tab PO DAILY 07/18/22 09/12/22 History (formulary)] Neuriva 1 tab PO DAILY 08/18/22 09/12/22 History traMADol HCL [Ultram] 50 mg PO Q6HR 08/18/22 09/12/22 History Omeprazole 20 mg PO DAILY 09/12/22 09/12/22 History Ondansetron Odt [Zofran Odt] 8 mg PO Q8HR PRN 09/12/22 09/12/22 History Zolpidem [Ambien] 5 mg PO HS PRN 09/12/22 09/12/22 History Allergies Allergy/AdvReac Type Severity Reaction Status Date / Time No Known Allergies Allergy Verified 09/12/22 13:28 Physical Exam Osteopathic Statement: *. No significant issues noted on an osteopathic structural exam other than those noted in the History and Physical/Consult. Vitals: Vital Signs Temp Pulse Pulse Resp BP BP Pulse Ox 09/12/22 16:34 18 93 L 09/12/22 15:16 97.9 F 72 18 128/80 95 09/12/22 15:14 97.9 F 75 18 120/87 95 09/12/22 13:46 75 18 110/78 95 09/12/22 12:37 167 H 111/81 09/12/22 11:25 156 H 18 108/62 95 09/12/22 10:47 172 H 146 H 12 106/76 95 09/12/22 10:33 147 H 125/95 95 09/12/22 10:12 97.9 F 132 H 20 94/62 96 Intake and Output 09/12/22 09/12/22 09/12/22 06:59 14:59 22:59 Intake Total 0 Balance 0 Intake: Oral 0 Other: Voiding Method Toilet # Voids 1 Weight 61.235 kg 61.235 kg Results CBC & Chem 7: 09/12/22 11:24 09/12/22 11:24 Labs: Abnormal Lab Results - Last 24 Hours (Table) 09/12/22 09/12/22 Range/Units 11:24 11:24 Neutrophils # 7.9 H (1.3-7.7) k/uL Sodium 127 L (137-145) mmol/L Chloride 93 L (98-107) mmol/L Glucose 140 H (74-99) mg/dL AST 44 H (14-36) U/L Thrombosis Risk Factor Assmnt - Choose All That Apply Any of the Below Risk Factors Present?: Yes Each Factor Represents 1 point: Serious lung disease incl. pneumonia (< 1month) Other Risk Factors: Yes Each Risk Factor Represents 2 Points: Malignancy Each Risk Factor Represents 3 Points: Age 75 years or older Other congenital or acquired thrombophilia - If yes, enter type in comment: No Thrombosis Risk Factor Assessment Total Risk Factor Score: 6 Thrombosis Risk Factor Assessment Level: High Risk
[2022-09-12] MEDS: oxyBUTYnin chloride 5 MG TAB PO SCH (21:01)
[2022-09-12] MEDS: APIXABAN 2.5 MG TABLET PO SCH (21:02)
[2022-09-12] MEDS: lisinopriL 5 MG TAB PO SCH (21:02)
[2022-09-12] MEDS: ATORVASTATIN 10 MG TAB PO SCH (21:02)
[2022-09-13] MEDS: SODIUM CHLORIDE 0.9% 1,000 ML IV SCH ×2 (04:45→15:56)
[2022-09-13] MEDS: LEVOTHYROXINE 50 MCG TAB PO SCH (06:02)
[2022-09-13] MEDS: traMADol 50 MG TAB PO SCH ×4 (06:02→23:45)
[2022-09-13] MEDS: MULTIVITAMINS, THERA 1 EACH TAB PO SCH (08:55)
[2022-09-13] MEDS: APIXABAN 2.5 MG TABLET PO SCH ×2 (08:55→20:34)
[2022-09-13] MEDS: PANTOPRAZOLE 40 MG/10 ML VIAL IV SCH (08:55)
[2022-09-13] MEDS: oxyBUTYnin chloride 5 MG TAB PO SCH ×2 (08:55→20:33)
[2022-09-13] MEDS: ONDANSETRON 4 MG/2 ML VIAL IVP PRN (08:55)
[2022-09-13] MEDS ORDERED: METOPROLOL SUCCINATE (ER) 25 MG TAB.ER.24H PO SCH ×2 (09:00)
[2022-09-13] MEDS ORDERED: NON FORMULARY DRUG (Omeprazole [Omeprazole] 20 MG Tab.Rap.Dr) PO SCH (09:00)
[2022-09-13 09:22] LABS: Basophils % (A) 0 %; Eosinophils % (A) 0 %; HCT 41.8 % (34.0-46.0); HGB 13.9 gm/dL (11.4-16.0); Lymphocytes # (A) 0.8 k/uL (1.0-4.8); Lymphocytes % (A) 9 %; MCH 30.2 pg (25.0-35.0); MCHC 33.2 g/dL (31.0-37.0); MCV 90.9 fL (80.0-100.0); Mean Platelet Volume 7.8; Monocytes # (A) 0.5 k/uL (0-1.0); Monocytes % (A) 5 %; Neutrophils # (A) 7.8 k/uL (1.3-7.7); Neutrophils % (A) 85 %; Platelet Count 233 k/uL (150-450); RDW 12.2 % (11.5-15.5); WBC 9.2 k/uL (3.8-10.6)
[2022-09-13 09:41] LABS: African American GFR (CKD) 79 (>60 ml/min/1.73 sqM); Anion Gap 6 mmol/L; Blood Urea Nitrogen 14 mg/dL (7-17); Calcium 9.1 mg/dL (8.4-10.2); Carbon Dioxide 25 mmol/L (22-30); Chloride 97 mmol/L (98-107); Glucose 177 mg/dL (74-99); Non-African American GFR(CKD) 68 (>60 ml/min/1.73 sqM); Sodium 128 mmol/L (137-145)
--- NOTE | 2022-09-13 09:47 | P.PN ---
Subjective Progress Note Date: 09/13/22 No new complaints today. Still hyponatremic Gen: in no apparent distress, resting comfortably in bed Eyes: PERRL, no scleral injection or icterus HENT: normocephalic, atraumatic, good hearing acuity, moist mucous membranes Neck: no tracheal deviation, full range of motion Resp: good air exchange, breathing comfortably with no accessory muscle use, no tactile fremitus CVS: good distal perfusion x 4, no pitting edema GI: soft, NTTP, ND, no hepatosplenomegaly : no suprapubic tenderness, no CVAT, mccormack catheter not present MSK: no clubbing, no cyanosis, no noted contractures of extremities Skin: no noted rashes, petechiae; temperature of skin is appropriate Neuro: moving all extremities without signs of weakness, CN II-XII intact Psych: cooperative, euthymic mood, insight and judgment intact Hospital Course: 82-year-old woman with medical history of 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 In the emergency room, patient was afebrile, 94/62, heart rate 172, 95% on room air. CBC was unremarkable. His metabolic panel showed hyponatremia to 127, chloride of 93. Liver function test showed AST of 44, ALT of 21, otherwise unremarkable. TSH was 2.2. Initial troponin is less than 0.012. Coags are unremarkable. Chest x-ray shows mass in the right midlung, otherwise clear parenchyma bilaterally. Initial EKG demonstrated atrial fibri llation with rapid ventricular response at a rate of 163, right axis deviation. Repeat EKG demonstrated return to normal sinus rhythm with occasional PACs. Case was discussed with emergency room provider, and decision was made to admit the patient to our hospital for further evaluation of hyponatremia and paroxysmal atrial fibrillation. Assessment: Paroxysmal atrial fibrillation with RVR Generalized weakness Hyponatremia Hypertension Hyperlipidemia Hypothyroidism Plan: Today, patient is afebrile, 121/75, heart rate 95, 95% on room air CBC is reviewed and unremarkable Basic metabolic panel shows sodium of 128, chloride of 97 Discontinue Cardizem Continue metoprolol and increased dose of 25 mg XL from 12.5 mg XL Cardiology consultation requested Consideration of flecainide pill in pocket strategy on discharge IV fluids: Normal saline at 75 mL per hour Tramadol 50 mrem every 6 hours for pain control Continue Apixiban had 2.5 mg twice a day Patient is DO NOT RESUSCITATE/DO NOT INTUBATE Objective - Vital Signs Vital signs: Vital Signs Temp 98.1 F 09/13/22 08:50 Pulse 95 09/13/22 08:50 Resp 16 09/13/22 08:50 BP 121/75 09/13/22 08:50 Pulse Ox 95 09/13/22 08:50 FiO2 Intake & Output 09/12/22 09/13/22 09/13/22 18:59 06:59 18:59 Intake Total 0 220 Output Total 300 Balance 0 -300 220 Weight 61.235 kg Intake: Oral 0 220 Output: Urine 300 Other: Voiding Method Toilet Toilet # Voids 1 2 - Labs CBC & Chem 7: 09/13/22 08:27 09/13/22 08:27 Labs: Abnormal Lab Results - Last 24 Hours (Table) 09/12/22 09/12/22 09/13/22 Range/Units 11:24 11:24 08:27 Neutrophils # 7.9 H 7.8 H (1.3-7.7) k/uL Lymphocytes # 0.8 L (1.0-4.8) k/uL Sodium 127 L (137-145) mmol/L Chloride 93 L (98-107) mmol/L Glucose 140 H (74-99) mg/dL AST 44 H (14-36) U/L 09/13/22 Range/Units 08:27 Neutrophils # (1.3-7.7) k/uL Lymphocytes # (1.0-4.8) k/uL Sodium 128 L (137-145) mmol/L Chloride 97 L (98-107) mmol/L Glucose 177 H (74-99) mg/dL AST (14-36) U/L
--- NOTE | 2022-09-13 11:07 | P.CRDCN ---
History of Present Illness History of present illness: HISTORY OF PRESENT ILLNESS: This is a 82-year-old female with a past medical history significant for paroxysmal atrial fibrillation, hypertension, hyperlipidemia, non-small cell lung cancer, and hypothyroidism. Patient follows in the office with Dr. Harris. We have been asked to see the patient in consultation for A. fib with RVR. Patient examined at the bedside. Patient presented to the hospital with a chief complaint of palpitations. Patient states she has been having palpitations over the past week but yesterday her symptoms seemed to be worse. She also reports increased weakness and states she feels "worn out". Patient was found to be in A. fib with RVR. This morning upon review of telemetry, the patient has in sinus mechanism although she is slightly tachycardic with a heart rate around 105. She is also having PACs this morning. * EKG reveals A. fib with RVR * Chest xray similar left basilar nodularity with increased right midlung opacity likely representing adenopathy, mass when compared to prior CT * Laboratory data: WBC 9.6. Hemoglobin 14.6. Platelet count 260. Sodium 127. Potassium 4.9. BUN 15. Creatinine 0.70. Troponin negative 1. TSH 3.200. * Current home cardiac medications include Eliquis 2.5mg BID, metoprolol succinate 12.5 mg daily, Lipitor 10 mg at night, enalapril 2.5 mg at night * Most recent echocardiogram obtained in April 2014 revealed ejection fraction 60-65%, mild MR, mild TR REVIEW OF SYSTEMS: At the time of my exam: CONSTITUTIONAL: Denies fever or chills. HEENT: Denies blurred vision, vision changes, or eye pain. Denies hemoptysis CARDIOVASCULAR: Denies chest pain. Denies orthopnea. Denies PND. Denies palpitations RESPIRATORY: Denies shortness of breath. GASTROINTESTINAL: Denies abdominal pain. Denies nausea or vomiting. HEMATOLOGIC: Denies bleeding disorders. GENITOURINARY: Denies any blood in urine. SKIN: Denies pruitis. Denies rash. PHYSICAL EXAM: VITAL SIGNS: Reviewed. GENERAL: Well-developed in no acute distress. HEENT: Head is normocephalic. Pupils are equal, round. Sclerae anicteric. Mucous membranes of the mouth are moist. Neck supple. No JVD or thyromegaly LUNGS: Respirations even and unlabored. Lungs essentially clear to auscultation bilaterally. HEART: Tachycardic. Regular rate and rhythm. S1 and S2 heard. ABDOMEN: Soft. Nondistended. Nontender. EXTREMITIES: Normal range of motion. No clubbing or cyanosis. Peripheral pulses intact. No lower extremity edema NEUROLOGIC: Awake and alert. Oriented x 3. ASSESSMENT: Palpitations Paroxysmal atrial fibrillation with RVR, currently maintaining sinus mechanism Hyponatremia, secondary to decreased oral intake Syed weakness Hypertension Hyperlipidemia Non-small cell lung cancer Hypothyroidism PLAN: Obtain 2-D echo to assess cardiac structure and function Change metoprolol to 25mg TID TSH checked and within normal limits Continue telemetry monitoring Stable from a cardiac standpoint Further recommendations pending patient's course Nurse practitioner note has been reviewed by physician. Signing provider agrees with the documented findings, assessment, and plan of care. Past Medical History Past Medical History: Atrial Fibrillation, Cancer, Hearing Disorder / Deafness, Hyperlipidemia, Hypertension, Osteoarthritis (OA), Syncope, Thyroid Disorder Additional Past Medical History / Comment(s): Hx MURMUR, PALPITATIONS, SHINGLES, CONSTIPATION, CURVATURE OF SPINE, bladder control prob, prob w/ balance-IMPROVED "Small leak in heart valve.", SKIN CANCER, recent adm. [facility] lung nodules, left clavicular mass, pt. unsure of kind of cancer, states when anxious or "worked up" affects her a-fib History of Any Multi-Drug Resistant Organisms: None Reported Past Surgical History: Hysterectomy, Joint Replacement Additional Past Surgical History / Comment(s): JASPER CATARACTS, JASPER KNEE REPLACEMENTS, OOPHERECTOMY, Colonoscopies Past Anesthesia/Blood Transfusion Reactions: No Reported Reaction Past Psychological History: Anxiety Smoking Status: Never smoker Past Alcohol Use History: Rare Past Drug Use History: Marijuana - Past Family History Father Family Medical History: Cancer Additional Family Medical History / Comment(s): AGE 98, SMOKED, SKIN CANCER Mother Additional Family Medical History / Comment(s): AGE 80- SMOKER/EMPHYSEMA Medications and Allergies Home Medications Medication Instructions Recorded Confirmed Type Atorvastatin [Lipitor] 10 mg PO HS 06/12/19 09/12/22 History oxyBUTYnin chloride [Ditropan] 5 mg PO BID 06/12/19 09/12/22 History Apixaban [Eliquis] 2.5 mg PO BID 04/24/22 09/12/22 History Azelastine HCl [Astepro] 1 - 2 spray EA NOSTRIL BID PRN 07/18/22 09/12/22 History Enalapril [Vasotec] 2.5 mg PO HS 07/18/22 09/12/22 History Fluticasone Propionate 1 - 2 spray EA NOSTRIL HS PRN 07/18/22 09/12/22 History Levothyroxine Sodium [Synthroid] 50 mcg PO DAILY 07/18/22 09/12/22 History Metoprolol Succinate (ER) [Toprol 12.5 mg PO DAILY 07/18/22 09/12/22 History XL] Multivitamins, Thera [Multivitamin 1 tab PO DAILY 07/18/22 09/12/22 History (formulary)] Neuriva 1 tab PO DAILY 08/18/22 09/12/22 History traMADol HCL [Ultram] 50 mg PO Q6HR 08/18/22 09/12/22 History Omeprazole 20 mg PO DAILY 09/12/22 09/12/22 History Ondansetron Odt [Zofran Odt] 8 mg PO Q8HR PRN 09/12/22 09/12/22 History Zolpidem [Ambien] 5 mg PO HS PRN 09/12/22 09/12/22 History Allergies Allergy/AdvReac Type Severity Reaction Status Date / Time No Known Allergies Allergy Verified 09/12/22 13:28 Physical Exam Vitals: Vital Signs Temp Pulse Pulse Resp BP BP Pulse Ox 09/13/22 04:00 97.5 F L 71 21 137/79 97 09/13/22 01:36 80 15 09/12/22 23:58 98.5 F 80 15 120/83 96 09/12/22 20:00 97.2 F L 84 17 134/78 96 09/12/22 16:34 18 93 L 09/12/22 15:16 97.9 F 72 18 128/80 95 09/12/22 15:14 97.9 F 75 18 120/87 95 09/12/22 13:46 75 18 110/78 95 09/12/22 12:37 167 H 111/81 09/12/22 11:25 156 H 18 108/62 95 09/12/22 10:47 172 H 146 H 12 106/76 95 06/13/23 10:33 147 H 125/95 95 09/12/22 10:12 97.9 F 132 H 20 94/62 96 Intake and Output 09/12/22 09/13/22 09/13/22 22:59 06:59 14:59 Intake Total 0 Output Total 300 Balance 0 -300 Intake: Oral 0 Output: Urine 300 Other: Voiding Method Toilet Toilet # Voids 1 2 Weight 61.235 kg Results 09/13/22 08:27 09/13/22 08:27 Cardiac Enzymes 09/12/22 09/12/22 Range/Units 11:24 11:24 AST 44 H (14-36) U/L Troponin I <0.012 (0.000-0.034) ng/mL Coagulation 09/12/22 Range/Units 11:24 PT 11.0 (9.0-12.0) sec APTT 24.7 (22.0-30.0) sec CBC 09/12/22 Range/Units 11:24 WBC 9.6 (3.8-10.6) k/uL RBC 4.89 (3.80-5.40) m/uL Hgb 14.6 (11.4-16.0) gm/dL Hct 43.6 (34.0-46.0) % Plt Count 260 (150-450) k/uL Comprehensive Metabolic Panel 09/12/22 Range/Units 11:24 Sodium 127 L (137-145) mmol/L Potassium 4.9 (3.5-5.1) mmol/L Chloride 93 L (98-107) mmol/L Carbon Dioxide 23 (22-30) mmol/L BUN 15 (7-17) mg/dL Creatinine 0.70 (0.52-1.04) mg/dL Glucose 140 H (74-99) mg/dL Calcium 9.5 (8.4-10.2) mg/dL AST 44 H (14-36) U/L ALT 21 (4-34) U/L Alkaline Phosphatase 87 (38-126) U/L Total Protein 6.8 (6.3-8.2) g/dL Albumin 4.2 (3.5-5.0) g/dL Current Medications Generic Name Dose Route Start Last Admin Trade Name Freq PRN Reason Stop Dose Admin Apixaban 2.5 mg 09/12/22 21:00 09/12/22 21:02 Apixaban 2.5 Mg Tablet PO 2.5 mg BID TYREE Administration Protocol Atorvastatin Calcium 10 mg 09/12/22 21:00 09/12/22 21:02 Atorvastatin 10 Mg Tab PO 10 mg HS TYREE Administration Calcium Carbonate/Glycine 500 mg 09/12/22 17:33 09/12/22 17:36 Calcium Carbonate 500 Mg Chewable PO 500 mg QID PRN Administration Heartburn Sodium Chloride 1,000 mls @ 75 mls/hr 09/12/22 12:30 09/13/22 04:45 Saline 0.9% IV Not Given .[id number] TYREE Levothyroxine Sodium 50 mcg 09/13/22 06:30 09/13/22 06:02 Levothyroxine 50 Mcg Tab PO 50 mcg 0630 TYREE Administration Lisinopril 5 mg 09/12/22 21:00 09/12/22 21:02 Lisinopril 5 Mg Tab PO 5 mg HS [facility] Administration Metoprolol Succinate 25 mg 09/13/22 09:00 Metoprolol Succinate (Er) 25 Mg Tab.Er.24h PO DAILY [facility] Multivitamins 1 each 09/13/22 09:00 Multivitamins, Thera 1 Each Tab PO DAILY [facility] Naloxone HCl 0.2 mg 09/12/22 12:58 Naloxone 0.4 Mg/Ml 1 Ml Vial IV Q2M PRN Opioid Reversal Ondansetron HCl 4 mg 09/12/22 13:04 Ondansetron 4 Mg/2 Ml Vial IVP Q8HR PRN Nausea And Vomiting Oxybutynin Chloride 5 mg 09/12/22 21:00 09/12/22 21:01 Oxybutynin Chloride 5 Mg Tab PO 5 mg BID [facility] Administration Pantoprazole Sodium 40 mg 09/12/22 13:30 09/12/22 13:44 Pantoprazole 40 Mg/10 Ml Vial IV 40 mg DAILY [facility] Administration Tramadol HCl 50 mg 09/12/22 18:00 09/13/22 06:02 Tramadol 50 Mg Tab PO 50 mg Q6HR TYREE Administration Intake and Output 09/12/22 09/13/22 09/13/22 22:59 06:59 14:59 Intake Total 0 Output Total 300 Balance 0 -300 Intake: Oral 0 Output: Urine 300 Other: Voiding Method Toilet Toilet # Voids 1 2 Weight 61.235 kg 09/12/22 11:24 09/12/22 11:24
[2022-09-13 14:42] VITALS: BMI 23.1
[2022-09-13] MEDS: CALCIUM CARBONATE 500 MG CHEWABLE PO PRN (15:56)
[2022-09-13] MEDS: METOPROLOL TARTRATE 25 MG TAB PO SCH ×2 (15:56→23:45)
[2022-09-13] MEDS: droNABinol 2.5 MG CAP PO SCH (16:43)
--- NOTE | 2022-09-13 18:46 | CA ---
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 [employer] Operator Jazzy Nina [facility] Procedure CPT: Indications: LV function Cardiac Hx: Technical Quality: Fair Contrast 1: Total Dose (mL): Contrast 2: Total Dose (mL): MEASUREMENTS (Male / Female) Normal Values 2D ECHO LV Diastolic Diameter PLAX 3.4 cm 4.2 - 5.9 / 3.9 - 5.3 cm LV Systolic Diameter PLAX 1.9 cm IVS Diastolic Thickness 1.3 cm 0.6 - 1.0 / 0.6 - 0.9 cm LVPW Diastolic Thickness 1.2 cm 0.6 - 1.0 / 0.6 - 0.9 cm LV Relative Wall Thickness 0.7 Ascending Aorta Diameter 3.9 cm M-MODE Aortic Root Diameter MM 3.0 cm LA Systolic Diameter MM 2.7 cm LA Ao Ratio MM 0.9 AV Cusp Separation MM 2.1 cm DOPPLER AV Peak Velocity 206.4 cm/s AV Peak Gradient 17.0 mmHg AV Mean Velocity 135.5 cm/s AV Mean Gradient 9.7 mmHg AV Velocity Time Integral 43.1 cm LVOT Peak Velocity 172.4 cm/s LVOT Peak Gradient 11.9 mmHg LVOT Velocity Time Integral 28.9 cm Mitral E Point Velocity 60.0 cm/s Mitral A Point Velocity 86.9 cm/s Mitral E to A Ratio 0.7 MV Deceleration Time 234.3 ms LV E' Lateral Velocity 6.0 cm/s Mitral E to LV E' Lateral Ratio 9.9 LV E' Septal Velocity 5.9 cm/s Mitral E to LV E' Septal Ratio 10.2 TR Peak Velocity 291.5 cm/s TR Peak Gradient 34.0 mmHg Right Atrial Pressure 3.0 mmHg Pulmonary Artery Systolic Pressu 37.0 mmHg Right Ventricular Systolic Press 37.0 mmHg FINDINGS Left Ventricle No obvious regional wall motion abnormalities. Left ventricular ejection fraction is estimated at 60-65.left ventricular cavity size normal. Mildly increased left ventricular wall thickness. Right Ventricle Normal right ventricular size and function. Mild pulmonary hypertension Right Atrium Normal right atrial size. Left Atrium Normal left atrial size. Mitral Valve Structurally normal mitral valve. Mild mitral regurgitation. Aortic Valve Trileaflet aortic valve. No aortic valve stenosis or regurgitation. Tricuspid Valve Structurally normal tricuspid valve. moderate tricuspid regurgitation. Pulmonic Valve Structurally normal pulmonic valve. Mild pulmonic regurgitation. Pericardium No pericardial effusion. Aorta Mildly dilated proximal ascending aorta (tube). CONCLUSIONS 1. Normal left ventricle size and systolic function 2. Mild mitral was moderate tricuspid regurgitation and mild pulmonary hypertension Previewed by: Dr. Warren Harris MD (Electronically Signed) Final Date: 13 September 2022 18:45
[2022-09-13] MEDS: ATORVASTATIN 10 MG TAB PO SCH (20:34)
[2022-09-13] MEDS: lisinopriL 5 MG TAB PO SCH (20:34)
[2022-09-14] MEDS: ONDANSETRON 4 MG/2 ML VIAL IVP PRN (04:30)
[2022-09-14] MEDS: SODIUM CHLORIDE 0.9% 1,000 ML IV SCH (06:06)
[2022-09-14] MEDS: LEVOTHYROXINE 50 MCG TAB PO SCH (06:15)
[2022-09-14] MEDS: traMADol 50 MG TAB PO SCH (06:15)
[2022-09-14] MEDS: droNABinol 2.5 MG CAP PO SCH (06:15)
[2022-09-14 08:08] VITALS: BP 148/83; PULSE 90; RESP 18; TEMP 98
[2022-09-14] MEDS: APIXABAN 2.5 MG TABLET PO SCH (08:09)
[2022-09-14] MEDS: MULTIVITAMINS, THERA 1 EACH TAB PO SCH (08:09)
[2022-09-14] MEDS: PANTOPRAZOLE 40 MG/10 ML VIAL IV SCH (08:09)
[2022-09-14] MEDS: oxyBUTYnin chloride 5 MG TAB PO SCH (08:09)
[2022-09-14] MEDS: METOPROLOL TARTRATE 25 MG TAB PO SCH (08:09)
[2022-09-14] MEDS: CALCIUM CARBONATE 500 MG CHEWABLE PO PRN (08:19)
[2022-09-14] MEDS ORDERED: DOCUSATE 100 MG CAP PO SCH (09:00)
--- NOTE | 2022-09-14 11:21 | P.DS ---
Providers Date of admission: 09/12/22 14:46 Attending physician: David Garza MD Consults: 09/12/22 13:04 Consult Physician Urgent Consulting Provider: [facility] Consult Reason/Comments: afib with rvr Do you want consulting provider notified?: Yes 09/14/22 09:21 Consult Physician Routine Consulting Provider: Kieran Randhawa Consult Reason/Comments: history of cancer Do you want consulting provider notified?: Yes 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 In the emergency room, patient was afebrile, 94/62, heart rate 172, 95% on room air. CBC was unremarkable. His metabolic panel showed hyponatremia to 127, chloride of 93. Liver function test showed AST of 44, ALT of 21, otherwise unremarkable. TSH was 2.2. Initial troponin is less than 0.012. Coags are unremarkable. Chest x-ray shows mass in the right midlung, otherwise clear parenchyma bilaterally. Initial EKG demonstrated atrial fibrillation with rapid ventricular response at a rate of 163, right axis deviation. Repeat EKG demonstrated return to normal sinus rhythm with occasional PACs. Case was discussed with emergency room provider, and decision was made to admit the patient to our hospital for further evaluation of hyponatremia and paroxysmal atrial fibrillation. Patient was initially started on Cardizem drip. Cardiology increases patient's metoprolol to 25 mg 3 times a day. Patient was weaned off the Cardizem drip. Her heart rate was monitored for 24 hours and was controlled. Patient's sodium was also stable. Hyponatremia could be due to hypovolemia versus SIADH related to her lung cancer. Patient had a poor appetite. She was started on Marinol. Patient was deemed stable for discharge. Patient will follow-up with her oncologist as well as a radiation oncologist. Patient seen and examined at bedside on 09/14/2022.[] Vital signs reviewed and stable. General: [non toxic], [no distress], [appears at stated age], appears malnourished and chronically debilitated Derm: [warm], [dry] Head: [atraumatic], [normocephalic], [symmetric] Eyes: [EOMI], [no lid lag], [anicteric sclera] Mouth: [no lip lesion], [mucus membranes moist] Cardiovascular: [S1S2 reg], [no murmur], [positive posterior tibial pulse bilateral], Lungs: [CTA bilateral], [no rhonchi, no rales] , [no accessory muscle use] Abdominal: [soft], [ nontender to palpation], [no guarding], [no appreciable organomegaly] Ext: [no gross muscle atrophy], [no edema], [no contractures] Neuro: [ CN II-XI grossly intact], [no focal neuro deficits] Psych: [Alert], [oriented], [appropriate affect] anxious A total of [33] minutes of time were spent preparing this complex discharge summary . Patient Condition at Discharge: Poor Plan - Discharge Summary Discharge Rx Participant: No New Discharge Prescriptions: New Metoprolol Tartrate [Lopressor] 25 mg PO TID 30 Days #90 tab droNABinol [Marinol] 2.5 mg PO AC-BID #14 cap Calcium Carbonate [Tums] 500 mg PO QID PRN #28 tab PRN Reason: Heartburn Continue oxyBUTYnin chloride [Ditropan] 5 mg PO BID Atorvastatin [Lipitor] 10 mg PO HS Azelastine HCl [Astepro] 1 - 2 spray EA NOSTRIL BID PRN PRN Reason: DRAINAGE/CONGESTION Neuriva 1 tab PO DAILY Ondansetron Odt [Zofran ODT] 8 mg PO Q8HR PRN PRN Reason: Nausea And Vomiting Apixaban [Eliquis] 2.5 mg PO BID Levothyroxine Sodium [Synthroid] 50 mcg PO DAILY Enalapril [Vasotec] 2.5 mg PO HS Multivitamins, Thera [Multivitamin (formulary)] 1 tab PO DAILY Fluticasone Propionate 1 - 2 spray EA NOSTRIL HS PRN PRN Reason: DRAINAGE/CONGESTION traMADol HCL [Ultram] 50 mg PO Q6HR Zolpidem [Ambien] 5 mg PO HS PRN PRN Reason: Insomnia Omeprazole 20 mg PO DAILY Discontinued Metoprolol Succinate (ER) [Toprol XL] 12.5 mg PO DAILY Discharge Medication List Atorvastatin [Lipitor] 10 mg PO HS 06/12/19 [History] oxyBUTYnin chloride [Ditropan] 5 mg PO BID 06/12/19 [History] Apixaban [Eliquis] 2.5 mg PO BID 04/24/22 [History] Azelastine HCl [Astepro] 1 - 2 spray EA NOSTRIL BID PRN 07/18/22 [History] Enalapril [Vasotec] 2.5 mg PO HS 07/18/22 [History] Fluticasone Propionate 1 - 2 spray EA NOSTRIL HS PRN 07/18/22 [History] Levothyroxine Sodium [Synthroid] 50 mcg PO DAILY 07/18/22 [History] Multivitamins, Thera [Multivitamin (formulary)] 1 tab PO DAILY 07/18/22 [His tory] Neuriva 1 tab PO DAILY 08/18/22 [History] traMADol HCL [Ultram] 50 mg PO Q6HR 08/18/22 [History] Omeprazole 20 mg PO DAILY 09/12/22 [History] Ondansetron Odt [Zofran ODT] 8 mg PO Q8HR PRN 09/12/22 [History] Zolpidem [Ambien] 5 mg PO HS PRN 09/12/22 [History] Calcium Carbonate [Tums] 500 mg PO QID PRN #28 tab 09/14/22 [Rx] Metoprolol Tartrate [Lopressor] 25 mg PO TID 30 Days #90 tab 09/14/22 [Rx] droNABinol [Marinol] 2.5 mg PO AC-BID #14 cap 09/14/22 [Rx] Follow up Appointment(s)/Referral(s): Kieran Randhawa MD [STAFF PHYSICIAN] - 1 Week (please call and make appointment) aNtalie Wilks MD [Primary Care Provider] - 1-2 days (please call and make appointment) Patient Instructions/Handouts: A-fib (Atrial Fibrillation) (DC), Hyponatremia (DC) Discharge Disposition: HOME SELF-CARE
--- NOTE | 2022-09-14 13:04 | P.PN ---
Subjective HISTORY OF PRESENT ILLNESS: This is a 82-year-old female with a past medical history significant for paroxysmal atrial fibrillation, hypertension, hyperlipidemia, non-small cell lung cancer, and hypothyroidism. Patient follows in the office with Dr. Harris. We have been asked to see the patient in consultation for A. fib with RVR. Patient examined at the bedside. Patient presented to the hospital with a chief complaint of palpitations. Patient states she has been having palpitations over the past week but yesterday her symptoms seemed to be worse. She also reports increased weakness and states she feels "worn out". Patient was found to be in A. fib with RVR. This morning upon review of telemetry, the patient has in sinus mechanism although she is slightly tachycardic with a heart rate around 105. She is also having PACs this morning. * EKG reveals A. fib with RVR * Chest xray similar left basilar nodularity with increased right midlung opacity likely representing adenopathy, mass when compared to prior CT * Laboratory data: WBC 9.6. Hemoglobin 14.6. Platelet count 260. Sodium 127. Potassium 4.9. BUN 15. Creatinine 0.70. Troponin negative 1. TSH 3.200. * Current home cardiac medications include Eliquis 2.5mg BID, metoprolol succinate 12.5 mg daily, Lipitor 10 mg at night, enalapril 2.5 mg at night * Most recent echocardiogram obtained in April 2014 revealed ejection fraction 60-65%, mild MR, mild TR 09/14/2022 Patient examined this morning at the bedside. Patient denies chest pain or pressure. She denies shortness of breath. Telemetry reveals sinus mechanism. Vital signs are stable. Echocardiogram completed revealing ejection fraction 60-65%. PHYSICAL EXAM: VITAL SIGNS: Reviewed. GENERAL: Well-developed in no acute distress. HEENT: Head is normocephalic. Pupils are equal, round. Sclerae anicteric. Mucous membranes of the mouth are moist. Neck supple. No JVD or thyromegaly LUNGS: Respirations even and unlabored. Lungs essentially clear to auscultation bilaterally. HEART: Tachycardic. Regular rate and rhythm. S1 and S2 heard. ABDOMEN: Soft. Nondistended. Nontender. EXTREMITIES: Normal range of motion. No clubbing or cyanosis. Peripheral pulses intact. No lower extremity edema NEUROLOGIC: Awake and alert. Oriented x 3. ASSESSMENT: Palpitations Paroxysmal atrial fibrillation with RVR, currently maintaining sinus mechanism Hyponatremia, secondary to decreased oral intake Generalized weakness Hypertension Hyperlipidemia Non-small cell lung cancer Hypothyroidism PLAN: Continue current cardiac medications Patient is stable for discharge home today from a cardiac standpoint We will sign off. Please reconsult if needed Nurse practitioner note has been reviewed by physician. Signing provider agrees with the documented findings, assessment, and plan of care. Objective - Vital Signs Vital signs: Vital Signs Temp 98.0 F 09/14/22 08:04 Pulse 90 09/14/22 10:41 Resp 18 09/14/22 10:41 BP 148/83 09/14/22 08:04 Pulse Ox 92 L 09/14/22 08:04 FiO2 Intake & Output 09/13/22 09/14/22 09/14/22 18:59 06:59 18:59 Intake Total 550 Balance 550 Weight 61.235 kg Intake: Oral 550 Other: Voiding Method Toilet Toilet Toilet # Voids 1 2 - Labs CBC & Chem 7: 09/13/22 08:27 09/13/22 08:27
--- NOTE | 2022-09-15 07:51 | P.CONS ---
History of Present Illness - Reason for Consult Consult date: 09/14/22 hx NSCLC Requesting physician: Rodri Peña - Chief Complaint weakness, nausea - History of Present Illness Patient is a 82 year old female with a significant hx of NSCLC. She is a patient of Dr. Randhawa. She was initially seen on consult at [facility] 07/2022 for a left suprac lavicular mass. Ultrasound had shown a 3 x 1.8 x 2.8 cm mass, with additional masses in the 2 cm range adjacent to that. Scans showed bilateral prominent enlarged hilar nodes, somewhat confluent in appearance, abnormal mediastinal adenopathy with mass effect near the brachiocephalic confluence, and left supraclavicular adenopathy. there were bilateral lung nodules, largest 1.4 cm in the left lower lobe. There was a 1 cm cystic lesion in the liver, and 2 lesions in the spleen measuring up to 3.5 cm concerning for metastasis. MRI brain negative for metastasis. 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 IHC was nonspecific or site of origin, which is felt to include lung, upper GI, head and neck/salivary gland and breast. 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 It was recommended that patient would start Carboplatin /Taxol and keytruda. Patient is first wanting a second opinion from the [facility]. She has not yet started treatment but has upcoming appointment in office in 2 weeks to further discuss treatment plan. She is following with rad onc for palliative RT of left supraclavicular mass. Patient presented to the ER with complaints of persistent nausea, decreased appetite and generalized weakness. Patient denies abdominal pain and diarrhea. Denies fever and chills. Upon admission chest x-ray showed similar left basilar nodularity with increased right midlung opacity likely representing adenopathy/mass. Echocardiogram revealed normal left ventricle size and systolic function. Hemoglobin 13.9, WBC 9.2, platelets 233,000. Sodium 128 which could be contributing to some of patient's symptoms. Patient afebrile. Review of Systems 10 point ROS is negative except as stated in the HPI Past Medical History Past Medical History: Atrial Fibrillation, Cancer, Hearing Disorder / Deafness, Hyperlipidemia, Hypertension, Osteoarthritis (OA), Syncope, Thyroid Disorder Additional Past Medical History / Comment(s): Hx MURMUR, PALPITATIONS, SHINGLES, CONSTIPATION, CURVATURE OF SPINE, bladder control prob, prob w/ balance-IMPROVED "Small leak in heart valve.", SKIN CANCER, recent adm. MPH lung nodules, left clavicular mass, pt. unsure of kind of cancer, states when anxious or "worked up" affects her a-fib History of Any Multi-Drug Resistant Organisms: None Reported Past Surgical History: Hysterectomy, Joint Replacement Additional Past Surgical History / Comment(s): JASPER CATARACTS, JASPER KNEE REPLACEMENTS, OOPHERECTOMY, Colonoscopies Past Anesthesia/Blood Transfusion Reactions: No Reported Reaction Past Psychological History: Anxiety Smoking Status: Never smoker Past Alcohol Use History: Rare Past Drug Use History: Marijuana - Past Family History Father Family Medical History: Cancer Additional Family Medical History / Comment(s): AGE 98, SMOKED, SKIN CANCER Mother Additional Family Medical History / Comment(s): AGE 80- SMOKER/EMPHYSEMA Medications and Allergies Home Medications Medication Instructions Recorded Confirmed Type Atorvastatin [Lipitor] 10 mg PO HS 06/12/19 09/12/22 History oxyBUTYnin chloride [Ditropan] 5 mg PO BID 06/12/19 09/12/22 History Apixaban [Eliquis] 2.5 mg PO BID 04/24/22 09/12/22 History Azelastine HCl [Astepro] 1 - 2 spray EA NOSTRIL BID PRN 07/18/22 09/12/22 History Enalapril [Vasotec] 2.5 mg PO HS 07/18/22 09/12/22 History Fluticasone Propionate 1 - 2 spray EA NOSTRIL HS PRN 07/18/22 09/12/22 History Levothyroxine Sodium [Synthroid] 50 mcg PO DAILY 07/18/22 09/12/22 History Multivitamins, Thera [Multivitamin 1 tab PO DAILY 07/18/22 09/12/22 History (formulary)] Neuriva 1 tab PO DAILY 08/18/22 09/12/22 History traMADol HCL [Ultram] 50 mg PO Q6HR 08/18/22 09/12/22 History Omeprazole 20 mg PO DAILY 09/12/22 09/12/22 History Ondansetron Odt [Zofran ODT] 8 mg PO Q8HR PRN 09/12/22 09/12/22 History Zolpidem [Ambien] 5 mg PO HS PRN 09/12/22 09/12/22 History Calcium Carbonate [Tums] 500 mg PO QID PRN #28 tab 09/14/22 Rx Metoprolol Tartrate [Lopressor] 25 mg PO TID 30 Days #90 tab 09/14/22 Rx droNABinol [Marinol] 2.5 mg PO AC-BID #14 cap 09/14/22 Rx Allergies Allergy/AdvReac Type Severity Reaction Status Date / Time No Known Allergies Allergy Verified 09/12/22 13:28 Physical Exam Vitals: Vital Signs Temp Pulse Resp BP Pulse Ox 09/14/22 10:41 90 18 09/14/22 08:04 98.0 F 90 18 148/83 92 L 09/14/22 04:00 98.6 F 75 15 142/87 96 09/14/22 02:00 76 18 09/14/22 00:00 76 18 142/84 96 Intake and Output 09/14/22 09/14/22 09/14/22 06:59 14:59 22:59 Other: Voiding Method Toilet Toilet # Voids 2 - Constitutional General appearance: average body habitus, no acute distress - EENT Eyes: anicteric sclerae, EOMI ENT: hearing grossly normal - Neck left supraclavicular mass - Respiratory Respiratory: bilateral: CTA - Cardiovascular Rhythm: regular Heart sounds: normal: S1, S2 Abnormal Heart Sounds: no systolic murmur, no diastolic murmur, no rub, no S3 Gallop, no S4 Gallop, no click, no other - Gastrointestinal General gastrointestinal: soft, no tenderness - Integumentary Integumentary: no cyanotic, no rash - Neurologic Neurologic: CNII-XII intact - Musculoskeletal Musculoskeletal: strength equal bilaterally - Psychiatric Psychiatric: A&O x's 3, appropriate affect, intact judgment & insight Results CBC & Chem 7: 09/13/22 08:27 09/13/22 08:27 Comments: Echo reviewed Chest x-ray: report reviewed Assessment and Plan (1) Non-small cell lung cancer (NSCLC) Status: Acute Priority: High Code(s): C34.90 - MALIGNANT NEOPLASM OF UNSP PART OF UNSP BRONCHUS OR LUNG SNOMED Code(s): 720840944 Plan: NSCLC: -Recently diagnosed with 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 -It was recommended that patient would start Carboplatin /Taxol and keytruda. Patient is first wanting a second opinion from the [facility]. She has not yet started treatment but has upcoming appointment in office in 2 weeks to further discuss treatment plan. -She is following with rad onc for palliative RT of left supraclavicular mass. Nausea: -Patient has been started on zofran and continues on fluid hydration -Sodium found to be 127 on admission, 128 today. -Defer to IM for management. -Zofran sent to pharmacy on file attests: I have performed H&P and developed impression and plan of care for patient, discussed with dictator. I agree with dictated note, documented as a scribe
--- NOTE | 2022-09-15 13:31 | CDI ---
Documentation Clarification Form Date: 09/15/2022 01:06:07 PM From: Genoveva Bryson Admit Date: 09/12/2022 02:46:00 PM Patient Name: Puja Sheridan Visit Number: [id number] Discharge Date: 09/14/2022 11:18:00 AM ATTENTION: The Clinical Documentation Specialists (CDI) and [facility] Coding Staff appreciate your assistance in clarifying documentation. Please respond to the clarification below the line at the bottom and electronically sign. The CDI & [facility] Coding staff will review the response and follow-up if needed. Please note: Queries are made part of the Legal Health Record. If you have any questions, please contact the author of this message via ITS. Dr. Rodri Peña Malnutrition is documented in the discharge summary 09/14/22 under general "nontoxic, no distress, appears as stated age, appears malnourished and chronically debilitated. Additional clarification regarding the severity of malnutrition is requested. History/Risk Factors: patient is an 82 year old woman with a history of non- small cell lung cancer with endocrine features and metastasis to supraclavicular lymph nodes, mediastinum, and the spleen. She has paroxysmal AFIB, hypothyroidism, hyperlipidemia, and hypertension. 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
== END 2022-09-14 11:18 | disposition home or self-care (01) | DRG 644 ==
LOC: EC 10:06 → 3SCARD 14:46 → OBSVTOIN 14:46
PROVIDERS: ADMIT Internal Medicine; ATTEND Internal Medicine
DX: E22.2 Syndrome of inappropriate secretion of antidiuretic hormone (principal); C34.90 Malignant neoplasm of unspecified part of unspecified bronchus or lung; C7A.1 Malignant poorly differentiated neuroendocrine tumors; C77.0 Secondary and unspecified malignant neoplasm of lymph nodes of head, face and neck; C78.1 Secondary malignant neoplasm of mediastinum; C78.89 Secondary malignant neoplasm of other digestive organs; E44.1 Mild protein-calorie malnutrition; I48.0 Paroxysmal atrial fibrillation; E03.9 Hypothyroidism, unspecified; E86.1 Hypovolemia; E78.5 Hyperlipidemia, unspecified; I10 Essential (primary) hypertension; F41.9 Anxiety disorder, unspecified; M19.90 Unspecified osteoarthritis, unspecified site; R62.7 Adult failure to thrive; H91.90 Unspecified hearing loss, unspecified ear; Z66 Do not resuscitate; Z96.653 Presence of artificial knee joint, bilateral; Z68.23 Body mass index [BMI] 23.0-23.9, adult; Z79.890 Hormone replacement therapy; Z79.01 Long term (current) use of anticoagulants; Z79.899 Other long term (current) drug therapy; Z87.01 Personal history of pneumonia (recurrent)
CPT/HCPCS: 36415; 71046; 80048; 80053; 83605; 83735; 84443; 84484; 85025; 85610; 85730; 93005; 93306; 96361; 96374; 96375; 99291

== ENCOUNTER 2022-09-15 16:21 | Emergency (ER) | payer MEDICARE ==
[2022-09-15 16:49] VITALS: TEMP 98.2
--- NOTE | 2022-09-15 17:07 | ED ---
General Adult HPI - General Chief complaint: Shortness of Breath Stated complaint: SOB Time Seen by Provider: 09/15/22 16:49 Source: patient, RN notes reviewed, old records reviewed Mode of arrival: wheelchair Limitations: no limitations - History of Present Illness Initial comments: 82-year-old female presenting for evaluation of dyspnea and palpitations. Patient has history of lung cancer as well as atrial fibrillation. She states she will has been evaluated on multiple occasions but her symptoms persist. She denies central chest pain. Denies fever. Denies cough. Denies lower extremity pain or swelling. - Related Data Home Medications Medication Instructions Recorded Confirmed Atorvastatin [Lipitor] 10 mg PO HS 06/12/19 09/15/22 oxyBUTYnin chloride [Ditropan] 5 mg PO BID 06/12/19 09/15/22 Apixaban [Eliquis] 2.5 mg PO BID 04/24/22 09/15/22 Azelastine HCl [Astepro] 1 - 2 spray EA NOSTRIL BID PRN 07/18/22 09/15/22 Enalapril [Vasotec] 2.5 mg PO HS 07/18/22 09/15/22 Fluticasone Propionate 1 - 2 spray EA NOSTRIL HS PRN 07/18/22 09/15/22 Levothyroxine Sodium [Synthroid] 50 mcg PO DAILY 07/18/22 09/15/22 Multivitamins, Thera [Multivitamin 1 tab PO DAILY 07/18/22 09/15/22 (formulary)] Neuriva 1 tab PO DAILY 08/18/22 09/15/22 traMADol HCL [Ultram] 50 mg PO Q6HR 08/18/22 09/15/22 Omeprazole 20 mg PO DAILY 09/12/22 09/15/22 Ondansetron Odt [Zofran ODT] 8 mg PO Q8HR PRN 09/12/22 09/15/22 Zolpidem [Ambien] 5 mg PO HS PRN 09/12/22 09/15/22 Previous Rx's Medication Instructions Recorded Calcium Carbonate [Tums] 500 mg PO QID PRN #28 tab 09/14/22 Metoprolol Tartrate [Lopressor] 25 mg PO TID 30 Days #90 tab 09/14/22 droNABinol [Marinol] 2.5 mg PO AC-BID #14 cap 09/14/22 Docusate [Colace] 100 mg PO BID #60 capsule 09/15/22 Allergies Allergy/AdvReac Type Severity Reaction Status Date / Time No Known Allergies Allergy Verified 09/15/22 18:05 Review of Systems ROS Statement: Those systems with pertinent positive or pertinent negative responses have been documented in the HPI. ROS Other: All systems not noted in ROS Statement are negative. Past Medical History Past Medical History: Atrial Fibrillation, Cancer, Hearing Disorder / Deafness, Hyperlipidemia, Hypertension, Osteoarthritis (OA), Syncope, Thyroid Disorder Additional Past Medical History / Comment(s): Hx MURMUR, PALPITATIONS, SHINGLES, CONSTIPATION, CURVATURE OF SPINE, bladder control prob, prob w/ balance- IMPROVED "Small leak in heart valve.", SKIN CANCER, recent adm. MPH lung nodules, left clavicular mass, pt. unsure of kind of cancer, states when anxious or "worked up" affects her a-fib History of Any Multi-Drug Resistant Organisms: None Reported Past Surgical History: Hysterectomy, Joint Replacement Additional Past Surgical History / Comment(s): JASPER CATARACTS, JASPER KNEE REPLACEMENTS, OOPHERECTOMY, Colonoscopies Past Anesthesia/Blood Transfusion Reactions: No Reported Reaction Past Psychological History: Anxiety Smoking Status: Never smoker Past Alcohol Use History: Rare Past Drug Use History: Marijuana - Past Family History Father Family Medical History: Cancer Additional Family Medical History / Comment(s): AGE 98, SMOKED, SKIN CANCER Mother Additional Family Medical History / Comment(s): AGE 80- SMOKER/EMPHYSEMA General Exam Limitations: no limitations General appearance: alert, in no apparent distress Head exam: Present: atraumatic, normocephalic Eye exam: Present: normal appearance, PERRL ENT exam: Present: normal exam Respiratory exam: Present: normal lung sounds bilaterally. Absent: respiratory distress, wheezes Cardiovascular Exam: Present: regular rate, normal rhythm GI/Abdominal exam: Present: soft. Absent: distended, tenderness Neurological exam: Present: alert, oriented X3, CN II-XII intact. Absent: motor sensory deficit Psychiatric exam: Present: normal affect, normal mood Skin exam: Present: warm, dry, other (Mass in the supraclavicular region left side) Course Vital Signs 09/15/22 09/15/22 09/15/22 16:47 17:10 19:00 Temperature 98.2 F Pulse Rate 98 65 Respiratory 20 18 20 Rate Blood Pressure 147/86 165/85 O2 Sat by Pulse 96 95 Oximetry Medical Decision Making - Medical Decision Making Was pt. sent in by a medical professional or institution ([facility] Feliz, [facility], urgent care, hospital, or long-term...) When possible be specific @ -[No] Did you speak to anyone other than the patient for history (EMS, parent, family, police, friend...)? What history was obtained from this source @ -[No] Did you review nursing and triage notes (agree or disagree)? Why? @ -[I reviewed and agree with nursing and triage notes] Were old charts reviewed (outside hosp., previous admission, EMS record, old EKG, old radiological studies, urgent care reports/EKG's, long-term records)? Report findings @ Reviewed echo, CT angiography, previous admission Differential Diagnosis (chest pain, altered mental status, abdominal pain women, abdominal pain men, vaginal bleeding, weakness, fever, dyspnea, syncope, headache, dizziness, GI bleed, back pain, seizure, CVA, palpatations, mental health, musculoskeletal)? @ Differential Dyspnea: Coronary syndrome, arrhythmia, tamponade, asthma, COPD, pulmonary embolism, pneumonia, pneumothorax, pulmonary effusion, anaphylaxis, diabetic ketoacidosis, flailed chest, pulmonary contusion, diaphragmatic rupture, anemia, neuromuscular, this is not meant to be an all-inclusive list. EKG interpreted by me (3pts min.). @Sinus rhythm rate of 86, [place] interval 172, QRS duration 86, QTC [address] segment elevation X-rays interpreted by me (1pt min.). @ -Chest x-ray negative for pneumothorax focal pneumonia, shows right hilar consolidation and fullness CT interpreted by me (1pt min.). @ -[None done] U/S interpreted by me (1pt. min.). @ -[None done] What testing was considered but not performed or refused? (CT, X-rays, U/S, labs)? Why? @ -[None] What meds were considered but not given or refused? Why? @ -[None] Did you discuss the management of the patient with other professionals (professionals i.e. , SHREYA, [facility], lab, RT, psych nurse, social sciences instructor, chair car driver, teacher, corrections officer, manager case management)? Give summary @ -[No] Was smoking cessation discussed for >3mins.? @ -[No] Was critical care preformed (if so, how long)? @ -[No] Were there social determinants of health that impacted care today? How? (Homelessness, low income, unemployed, alcoholism, drug addiction, transportation, low edu. Level, literacy, decrease access to med. care, senior care, rehab)? @ -[No] Was there de-escalation of care discussed even if they declined (Discuss DNR or withdrawal of care, Hospice)? DNR status @ -[No] What co-morbidities impacted this encounter? (DM, HTN, Smoking, COPD, CAD, Cancer, CVA, ARF, Chemo, Hep., AIDS, mental health diagnosis, sleep apnea, morb id obesity)? @ -[Atrial fibrillation, lung CVA Was patient admitted / discharged? Hospital course, mention meds given and route, prescriptions, significant lab abnormalities, going to OR and other pertinent info. @ 82-year-old female with dyspnea. Patient does not appear short of breath. Her vital signs are stable upon arrival. Chest x-ray is stable showing right hilar consolidation or mass. No pneumothorax. Patient has normal CBC, h yponatremia sodium 126, negative troponin, EKG is sinus. Patient reevaluated she states her breathing is improved but she is complaining of constipation and requests an enema. The cause of her shortness of breath likely related to tumor. There is previous CT angiography which is negative for pulmonary embolism previous echo performed yesterday. I do not feel she will benefit from admission at this time. Patient is on Eliquis. Undiagnosed new problem with uncertain prognosis? @ -[No] Drug Therapy requiring intensive monitoring for toxicity (Heparin, Nitro, Insulin, Cardizem)? @ -[No] Were any procedures done? @ -[No] Diagnosis/symptom? @ Dyspnea, lung cancer Acute, or Chronic, or Acute on Chronic? @ -[Chronic Uncomplicated (without systemic symptoms) or Complicated (systemic symptoms)? @ -[default] Side effects of treatment? @ -[No] Exacerbation, Progression, or Severe Exacerbation? @ -[No] Poses a threat to life or bodily function? How? (Chest pain, [place], [place], pneumonia, PE, COPD, DKA, ARF, appy, cholecystitis, CVA, Diverticulitis, Homicidal, Suicidal, threat to staff... and all critical care pts) @ -ES, multiple comorbidities, atrial fibrillation, lung cancer - Lab Data Result diagrams: 09/15/22 17:00 09/15/22 17:00 Lab Results 09/15/22 09/15/22 09/15/22 Range/Units 17:00 17:00 17:00 WBC 9.9 (3.8-10.6) k/uL RBC 4.68 (3.80-5.40) m/uL Hgb 14.3 (11.4-16.0) gm/dL Hct 41.9 (34.0-46.0) % MCV 89.6 (80.0-100.0) fL MCH 30.6 (25.0-35.0) pg MCHC 34.1 (31.0-37.0) g/dL RDW 12.2 (11.5-15.5) % Plt Count 239 (150-450) k/uL MPV 7.7 Neutrophils % 83 % Lymphocytes % 9 % Monocytes % 6 % Eosinophils % 1 % Basophils % 0 % Neutrophils # 8.3 H (1.3-7.7) k/uL Lymphocytes # 0.9 L (1.0-4.8) k/uL Monocytes # 0.6 (0-1.0) k/uL Eosinophils # 0.1 (0-0.7) k/uL Basophils # 0.0 (0-0.2) k/uL PT 10.4 (9.0-12.0) sec INR 1.0 (<1.2) APTT 23.6 (22.0-30.0) sec Sodium 126 L (137-145) mmol/L Potassium 4.7 (3.5-5.1) mmol/L Chloride 93 L (98-107) mmol/L Carbon Dioxide 23 (22-30) mmol/L Anion Gap 10 mmol/L BUN 15 (7-17) mg/dL Creatinine 0.53 (0.52-1.04) mg/dL Est GFR (CKD-EPI)AfAm >90 (>60 ml/min/1.73 sqM) Est GFR (CKD-EPI)NonAf 89 (>60 ml/min/1.73 sqM) Glucose 158 H (74-99) mg/dL Plasma Lactic Acid Pierre (0.7-2.0) mmol/L Calcium 9.0 (8.4-10.2) mg/dL Magnesium 1.8 (1.6-2.3) mg/dL Total Bilirubin 0.7 (0.2-1.3) mg/dL AST 48 H (14-36) U/L ALT 21 (4-34) U/L Alkaline Phosphatase 66 (38-126) U/L Troponin I (0.000-0.034) ng/mL Total Protein 6.9 (6.3-8.2) g/dL Albumin 4.3 (3.5-5.0) g/dL 09/15/22 09/15/22 Range/Units 17:00 17:10 WBC (3.8-10.6) k/uL RBC (3.80-5.40) m/uL Hgb (11.4-16.0) gm/dL Hct (34.0-46.0) % MCV (80.0-100.0) fL MCH (25.0-35.0) pg MCHC (31.0-37.0) g/dL RDW (11.5-15.5) % Plt Count (150-450) k/uL MPV Neutrophils % % Lymphocytes % % Monocytes % % Eosinophils % % Basophils % % Neutrophils # (1.3-7.7) k/uL Lymphocytes # (1.0-4.8) k/uL Monocytes # (0-1.0) k/uL Eosinophils # (0-0.7) k/uL Basophils # (0-0.2) k/uL PT (9.0-12.0) sec INR (<1.2) APTT (22.0-30.0) sec Sodium (137-145) mmol/L Potassium (3.5-5.1) mmol/L Chloride (98-107) mmol/L Carbon Dioxide (22-30) mmol/L Anion Gap mmol/L BUN (7-17) mg/dL Creatinine (0.52-1.04) mg/dL Est GFR (CKD-EPI)AfAm (>60 ml/min/1.73 sqM) Est GFR (CKD-EPI)NonAf (>60 ml/min/1.73 sqM) Glucose (74-99) mg/dL Plasma Lactic Acid Pierre 1.4 (0.7-2.0) mmol/L Calcium (8.4-10.2) mg/dL Magnesium (1.6-2.3) mg/dL Total Bilirubin (0.2-1.3) mg/dL AST (14-36) U/L ALT (4-34) U/L Alkaline Phosphatase (38-126) U/L Troponin I <0.012 (0.000-0.034) ng/mL Total Protein (6.3-8.2) g/dL Albumin (3.5-5.0) g/dL Disposition Clinical Impression: Non-small cell lung cancer (NSCLC), Metastatic cancer Disposition: HOME SELF-CARE Condition: Fair Instructions (If sedation given, give patient instructions): Lung Cancer (DC) Prescriptions: Docusate [Colace] 100 mg PO BID #60 capsule Is patient prescribed a controlled substance at d/c from ED?: No Referrals: Natalie Rossi NPC [STAFF PHYSICIAN] - 1-2 days Time of Disposition: 19:32
[2022-09-15 17:17] LABS: Basophils % (A) 0 %; Eosinophils # (A) 0.1 k/uL (0-0.7); Eosinophils % (A) 1 %; HCT 41.9 % (34.0-46.0); HGB 14.3 gm/dL (11.4-16.0); Lymphocytes # (A) 0.9 k/uL (1.0-4.8); Lymphocytes % (A) 9 %; MCH 30.6 pg (25.0-35.0); MCHC 34.1 g/dL (31.0-37.0); MCV 89.6 fL (80.0-100.0); Mean Platelet Volume 7.7; Monocytes # (A) 0.6 k/uL (0-1.0); Monocytes % (A) 6 %; Neutrophils # (A) 8.3 k/uL (1.3-7.7); Neutrophils % (A) 83 %; Platelet Count 239 k/uL (150-450); RBC 4.68 m/uL (3.80-5.40); RDW 12.2 % (11.5-15.5); WBC 9.9 k/uL (3.8-10.6)
[2022-09-15 17:32] LABS: ALT 21 U/L (4-34); AST 48 U/L (14-36); African American GFR (CKD) >90 (>60 ml/min/1.73 sqM); Albumin 4.3 g/dL (3.5-5.0); Alkaline Phosphatase 66 U/L (38-126); Anion Gap 10 mmol/L; Blood Urea Nitrogen 15 mg/dL (7-17); Carbon Dioxide 23 mmol/L (22-30); Chloride 93 mmol/L (98-107); Magnesium 1.8 mg/dL (1.6-2.3); Non-African American GFR(CKD) 89 (>60 ml/min/1.73 sqM); Potassium 4.7 mmol/L (3.5-5.1); Sodium 126 mmol/L (137-145); Total Bilirubin 0.7 mg/dL (0.2-1.3); Total Protein 6.9 g/dL (6.3-8.2)
[2022-09-15 17:39] LABS: Glucose 158 mg/dL (74-99)
[2022-09-15 17:40] LABS: Partial Thromboplastin Time 23.6 sec (22.0-30.0); Prothrombin Time 10.4 sec (9.0-12.0)
--- NOTE | 2022-09-15 18:35 | XR ---
EXAMINATION TYPE: XR chest 2V DATE OF EXAM: 09/15/2022 6:08 PM COMPARISON: Chest radiographs from 09/12/2022 TECHNIQUE: XR chest 2V Frontal and lateral views of the chest. CLINICAL INDICATION:Female, 82 years old with history of difficulty breathing; FINDINGS: Lungs/Pleura: Right midlung perihilar consolidation similar to prior 09/12/2022 given differences in t echnique. No pneumothorax or pleural effusion. Eventration of the diaphragm. Pulmonary vascularity: Unremarkable. Heart/mediastinum: Cardiomediastinal silhouette is unremarkable. A loop recorder projects over the le ft thorax over the heart. Musculoskeletal: Severe scoliosis changes of the spine. There is degeneration changes of the spine. IMPRESSION: Right perihilar consolidation similar to prior given differences in technique.
[2022-09-15 20:00] VITALS: BP 165/85; PULSE 65; RESP 20
== END 2022-09-15 20:15 | disposition home or self-care (01) ==
LOC: EC 16:21
DX: C34.90 Malignant neoplasm of unspecified part of unspecified bronchus or lung (principal); C79.89 Secondary malignant neoplasm of other specified sites; I48.91 Unspecified atrial fibrillation; E78.5 Hyperlipidemia, unspecified; I10 Essential (primary) hypertension; M19.90 Unspecified osteoarthritis, unspecified site; E07.9 Disorder of thyroid, unspecified; F41.9 Anxiety disorder, unspecified; F12.90 Cannabis use, unspecified, uncomplicated; Z79.890 Hormone replacement therapy; Z79.1 Long term (current) use of non-steroidal anti-inflammatories (NSAID); Z79.899 Other long term (current) drug therapy; Z79.01 Long term (current) use of anticoagulants
CPT/HCPCS: 36415; 71046; 80053; 83605; 83735; 84484; 85025; 85610; 85730; 93005; 99285

== ENCOUNTER 2022-09-16 | Inpatient (IN) | payer MEDICARE ==
[2022-09-16] MEDS ORDERED: DILTIAZEM DRIP BOLUS FROM BAG 1 MG SOLN IV ONE (00:10)
--- NOTE | 2022-09-16 00:13 | ED ---
General Adult HPI - General Stated complaint: SVT Time Seen by Provider: 09/16/22 00:05 - History of Present Illness Initial comments: Dictation was produced using [employer] dictation software. please excuse any grammatical, word or spelling errors. Chief Complaint: 82-year-old female past medical history of A. fib presents to the ER for palpitations History of Present Illness: Patient is a 82-year-old female she is brought in by EMS. She was brought in from home. Patient history of A. fib. She takes anticoagulation medications and beta blockers. Patient was having a bout of shortness of breath. Called EMS. EMS noticed that she was tachycardic. He diagnosed her with SVT and gave her some adenosine. Adenosine did not resolve her tachycardia patient is brought to the ER. Patient states that she feels slightly improved. She is still tachycardic. Denies any chest pain. No fever or constitutional symptoms. The ROS documented in this emergency department record has been reviewed and confirmed by me. Those systems with pertinent positive or negative responses have been documented in the HPI. All other systems are other negative and/or noncontributory. - Related Data Home Medications Medication Instructions Recorded Confirmed Atorvastatin [Lipitor] 10 mg PO HS 06/12/19 09/15/22 oxyBUTYnin chloride [Ditropan] 5 mg PO BID 06/12/19 09/15/22 Apixaban [Eliquis] 2.5 mg PO BID 04/24/22 09/15/22 Azelastine HCl [Astepro] 1 - 2 spray EA NOSTRIL BID PRN 07/18/22 09/15/22 Enalapril [Vasotec] 2.5 mg PO HS 07/18/22 09/15/22 Fluticasone Propionate 1 - 2 spray EA NOSTRIL HS PRN 07/18/22 09/15/22 Levothyroxine Sodium [Synthroid] 50 mcg PO DAILY 07/18/22 09/15/22 Multivitamins, Thera [Multivitamin 1 tab PO DAILY 07/18/22 09/15/22 (formulary)] Neuriva 1 tab PO DAILY 08/18/22 09/15/22 traMADol HCL [Ultram] 50 mg PO Q6HR 08/18/22 09/15/22 Omeprazole 20 mg PO DAILY 09/12/22 09/15/22 Ondansetron Odt [Zofran ODT] 8 mg PO Q8HR PRN 09/12/22 09/15/22 Zolpidem [Ambien] 5 mg PO HS PRN 09/12/22 09/15/22 Previous Rx's Medication Instructions Recorded Calcium Carbonate [Tums] 500 mg PO QID PRN #28 tab 09/14/22 Metoprolol Tartrate [Lopressor] 25 mg PO TID 30 Days #90 tab 09/14/22 droNABinol [Marinol] 2.5 mg PO AC-BID #14 cap 09/14/22 Docusate [Colace] 100 mg PO BID #60 capsule 09/15/22 Allergies Allergy/AdvReac Type Severity Reaction Status Date / Time No Known Allergies Allergy Verified 09/15/22 18:05 Review of Systems ROS Statement: Those systems with pertinent positive or pertinent negative responses have been documented in the HPI. ROS Other: All systems not noted in ROS Statement are negative. Past Medical History Past Medical History: Atrial Fibrillation, Cancer, Hearing Disorder / Deafness, Hyperlipidemia, Hypertension, Osteoarthritis (OA), Syncope, Thyroid Disorder Additional Past Medical History / Comment(s): Hx MURMUR, PALPITATIONS, SHINGLES, CONSTIPATION, CURVATURE OF SPINE, bladder control prob, prob w/ balance- IMPROVED "Small leak in heart valve.", SKIN CANCER, recent adm. [facility] lung nodules, left clavicular mass, pt. unsure of kind of cancer, states when anxious or "worked up" affects her a-fib History of Any Multi-Drug Resistant Organisms: None Reported Past Surgical History: Hysterectomy, Joint Replacement Additional Past Surgical History / Comment(s): JASPER CATARACTS, JASEPR KNEE REPLACEMENTS, OOPHERECTOMY, Colonoscopies Past Anesthesia/Blood Transfusion Reactions: No Reported Reaction Past Psychological History: Anxiety Smoking Status: Never smoker Past Alcohol Use History: Rare Past Drug Use History: Marijuana - Past Family History Father Family Medical History: Cancer Additional Family Medical History / Comment(s): AGE 98, SMOKED, SKIN CANCER Mother Additional Family Medical History / Comment(s): AGE 80- SMOKER/EMPHYSEMA General Exam - General Exam Comments Initial Comments: PHYSICAL EXAM: General Impression: Alert and oriented x3, not in acute distress HEENT: Normocephalic atraumatic, extra-ocular movements intact, pupils equal and reactive to light bilaterally, mucous membranes moist. Cardiovascular: Tachycardic, irregularly irregular Chest: Able to complete full sentences, no retractions, no tachypnea Abdomen: abdomen soft, non-tender, non-distended, no organomegaly Musculoskeletal: Pulses present and equal in all extremities, no peripheral edema Motor: no focal deficits noted Neurological: CN II-XII grossly intact, no focal motor or sensory deficits noted Skin: Intact with no visualized rashes Psych: Normal affect and mood Course Vital Signs 09/16/22 09/16/22 09/16/22 00:13 00:15 01:15 Temperature 97.5 F L Pulse Rate 147 H 110 H Pulse Rate [ 147 H Tar Boiler ] Respiratory 16 20 Rate Blood Pressure 140/104 135/99 O2 Sat by Pulse 98 99 Oximetry 09/16/22 02:01 Temperature Pulse Rate 85 Pulse Rate [ Tar Boiler ] Respiratory 18 Rate Blood Pressure 117/83 O2 Sat by Pulse 98 Oximetry EKG Findings - EKG Comments: EKG Findings:: My EKG interpretation: Ventricular rate 161, A. fib with RVR, QRS 85, QTc 350. , no QTC prolongation, no ST or T-wave changes noted. No evidence of rate dependent ischemia. Gross EKG consistent with A. fib with RVR Medical Decision Making - Medical Decision Making Was pt. sent in by a medical professional or institution (, PA, FLOOR POLISHER, urgent care, hospital, or correction...) When possible be specific @ -No Did you speak to anyone other than the patient for history (EMS, parent, family, police, friend...)? What history was obtained from this source @ -No Did you review nursing and triage notes (agree or disagree)? Why? @ -I reviewed and agree with nursing and triage notes Were old charts reviewed (outside hosp., previous admission, EMS record, old EKG, old radiological studies, urgent care reports/EKG's, correction records)? Report findings @ -No old charts were reviewed Differential Diagnosis (chest pain, altered mental status, abdominal pain women, abdominal pain men, vaginal bleeding, musculoskeletal, weakness, fever, dyspnea, syncope, headache, dizziness, GI bleed, back pain, seizure, CVA, palpatations, mental health)? @ - Differential Palpitations: Ventricular arrhythmias, atrial arrhythmias, myocardial infarction, anemia, thyrotoxicosis, electrolyte imbalance, hypokalemia, pulmonary embolism, pulmonary disease, drugs, alcohol, anxiety, stress.... This is not meant to be an all-inclusive list. EKG interpreted by me (3pts min.). @ -See above X-rays interpreted by me (1pt min.). @ -Chest x-ray is nonacute CT interpreted by me (1pt min.). @ -None done U/S interpreted by me (1pt. min.). @ -None done What testing was considered but not performed or refused? (CT, X-rays, U/S, labs)? Why? @ -None What meds were considered but not given or refused? Why? @ -None Did you discuss the management of the patient with other professionals (professionals i.e. , PA, FLOOR POLISHER, lab, RT, psych nurse, social secretary, quantitative manager, te acher, principal gifts officer, patient case coordinator)? Give summary @ -Clinical presentation labs and imaging discussed with Dr. Aiken for admission Was smoking cessation discussed for >3mins.? @ -No Was critical care preformed (if so, how long)? @ -yes, 30 minutes Were there social determinants of health that impacted care today? How? (Homelessness, low income, unemployed, alcoholism, drug addiction, transportation, low edu. Level, literacy, decrease access to med. care, [place] [facility], rehab)? @ -No Was there de-escalation of care discussed even if they declined (Discuss DNR or withdrawal of care, Hospice)? DNR status @ -No What co-morbidities impacted this encounter? (DM, HTN, Smoking, COPD, CAD, Cancer, CVA, ARF, Chemo, Hep., AIDS, mental health diagnosis, sleep apnea, morbid obesity)? @ -None Was patient admitted / discharged? Hospital course, mention meds given and route, prescriptions, significant lab abnormalities, going to OR and other pertinent info. @ -82-year-old female presents emergency Department with A. fib with RVR. Patient started on Cardizem drip with rate control. Patient's hyponatremia 125. Rest of labs within acceptable limits. Patient also getting IV fluids. Patient be admitted to stepdown cardiac floor. Undiagnosed new problem with uncertain prognosis? @ -No Drug Therapy requiring intensive monitoring for toxicity (Heparin, Nitro, Insulin, Cardizem)? @ -No Were any procedures done? @ -No Diagnosis/symptom? Acute, or Chronic, or Acute on Chronic? Uncomplicated (without systemic symptoms) or Complicated (systemic symptoms)? @ -. A. fib RVR Side effects of treatment? @ -No Exacerbation, Progression, or Severe Exacerbation? @ -No Poses a threat to life or bodily function? How? (Chest pain, [place], [place], pneumonia, PE, COPD, DKA, ARF, appy, cholecystitis, CVA, Diverticulitis, Homicidal, Suicidal, threat to staff... and all critical care pts) @ -yes - Lab Data Result diagrams: 09/16/22 00:05 09/16/22 00:05 Lab Results 09/16/22 09/16/22 09/16/22 Range/Units 00:05 00:05 00:05 WBC 13.4 H (3.8-10.6) k/uL RBC 4.99 (3.80-5.40) m/uL Hgb 14.7 (11.4-16.0) gm/dL Hct 44.1 (34.0-46.0) % MCV 88.6 (80.0-100.0) fL MCH 29.5 (25.0-35.0) pg MCHC 33.3 (31.0-37.0) g/dL RDW 12.4 (11.5-15.5) % Plt Count 257 (150-450) k/uL MPV 8.0 Neutrophils % 84 % Lymphocytes % 8 % Monocytes % 7 % Eosinophils % 0 % Basophils % 0 % Neutrophils # 11.2 H (1.3-7.7) k/uL Lymphocytes # 1.0 (1.0-4.8) k/uL Monocytes # 0.9 (0-1.0) k/uL Eosinophils # 0.1 (0-0.7) k/uL Basophils # 0.0 (0-0.2) k/uL Sodium 125 L (137-145) mmol/L Potassium 3.6 (3.5-5.1) mmol/L Chloride 93 L (98-107) mmol/L Carbon Dioxide 21 L (22-30) mmol/L Anion Gap 11 mmol/L BUN 13 (7-17) mg/dL Creatinine 0.59 (0.52-1.04) mg/dL Est GFR (CKD-EPI)AfAm >90 (>60 ml/min/1.73 sqM) Est GFR (CKD-EPI)NonAf 86 (>60 ml/min/1.73 sqM) Glucose 171 H (74-99) mg/dL Plasma Lactic Acid Pierre 1.9 (0.7-2.0) mmol/L Calcium 9.1 (8.4-10.2) mg/dL Magnesium 1.6 (1.6-2.3) mg/dL Total Bilirubin 0.8 (0.2-1.3) mg/dL AST 39 H (14-36) U/L ALT 21 (4-34) U/L Alkaline Phosphatase 94 (38-126) U/L Troponin I (0.000-0.034) ng/mL NT-Pro-B Natriuret Pep pg/mL Total Protein 6.8 (6.3-8.2) g/dL Albumin 4.3 (3.5-5.0) g/dL 09/16/22 09/16/22 Range/Units 00:05 00:05 WBC (3.8-10.6) k/uL RBC (3.80-5.40) m/uL Hgb (11.4-16.0) gm/dL Hct (34.0-46.0) % MCV (80.0-100.0) fL MCH (25.0-35.0) pg MCHC (31.0-37.0) g/dL RDW (11.5-15.5) % Plt Count (150-450) k/uL MPV Neutrophils % % Lymphocytes % % Monocytes % % Eosinophils % % Basophils % % Neutrophils # (1.3-7.7) k/uL Lymphocytes # (1.0-4.8) k/uL Monocytes # (0-1.0) k/uL Eosinophils # (0-0.7) k/uL Basophils # (0-0.2) k/uL Sodium (137-145) mmol/L Potassium (3.5-5.1) mmol/L Chloride (98-107) mmol/L Carbon Dioxide (22-30) mmol/L Anion Gap mmol/L BUN (7-17) mg/dL Creatinine (0.52-1.04) mg/dL Est GFR (CKD-EPI)AfAm (>60 ml/min/1.73 sqM) Est GFR (CKD-EPI)NonAf (>60 ml/min/1.73 sqM) Glucose (74-99) mg/dL Plasma Lactic Acid Pierre (0.7-2.0) mmol/L Calcium (8.4-10.2) mg/dL Magnesium (1.6-2.3) mg/dL Total Bilirubin (0.2-1.3) mg/dL AST (14-36) U/L ALT (4-34) U/L Alkaline Phosphatase (38-126) U/L Troponin I 0.020 (0.000-0.034) ng/mL NT-Pro-B Natriuret Pep 368 pg/mL Total Protein (6.3-8.2) g/dL Albumin (3.5-5.0) g/dL Disposition Clinical Impression: Atrial fibrillation Disposition: ADMITTED IP TO THIS HOSP Condition: Serious Referrals: Natalie Rossi NPC [Primary Care Provider] - 1-2 days Decision Time: 01:37
[2022-09-16] MEDS ORDERED: DILTIAZEM 125 MG in SODIUM CHLORIDE 0.9% 100 ML IV SCH (00:15)
[2022-09-16 00:26] LABS: Basophils % (A) 0 %; Eosinophils # (A) 0.1 k/uL (0-0.7); Eosinophils % (A) 0 %; HCT 44.1 % (34.0-46.0); HGB 14.7 gm/dL (11.4-16.0); Lymphocytes % (A) 8 %; MCH 29.5 pg (25.0-35.0); MCHC 33.3 g/dL (31.0-37.0); MCV 88.6 fL (80.0-100.0); Monocytes # (A) 0.9 k/uL (0-1.0); Monocytes % (A) 7 %; Neutrophils # (A) 11.2 k/uL (1.3-7.7); Neutrophils % (A) 84 %; Platelet Count 257 k/uL (150-450); RBC 4.99 m/uL (3.80-5.40); RDW 12.4 % (11.5-15.5); WBC 13.4 k/uL (3.8-10.6)
[2022-09-16 00:37] LABS: ALT 21 U/L (4-34); AST 39 U/L (14-36); African American GFR (CKD) >90 (>60 ml/min/1.73 sqM); Albumin 4.3 g/dL (3.5-5.0); Alkaline Phosphatase 94 U/L (38-126); Anion Gap 11 mmol/L; Blood Urea Nitrogen 13 mg/dL (7-17); Calcium 9.1 mg/dL (8.4-10.2); Carbon Dioxide 21 mmol/L (22-30); Chloride 93 mmol/L (98-107); Glucose 171 mg/dL (74-99); Magnesium 1.6 mg/dL (1.6-2.3); Non-African American GFR(CKD) 86 (>60 ml/min/1.73 sqM); Potassium 3.6 mmol/L (3.5-5.1); Sodium 125 mmol/L (137-145); Total Bilirubin 0.8 mg/dL (0.2-1.3); Total Protein 6.8 g/dL (6.3-8.2)
[2022-09-16] MEDS ORDERED: NALOXONE 0.4 MG/ML 1 ML VIAL IV PRN (02:12)
[2022-09-16] MEDS ORDERED: SODIUM CHLORIDE 0.9% 1,000 ML IV SCH (02:15)
--- NOTE | 2022-09-16 03:21 | XR ---
EXAM: XR Chest, 1 View CLINICAL HISTORY: ITS.REASON XR Reason: afib rvr TECHNIQUE: Frontal view of the chest. COMPARISON: 09/12/2022 FINDINGS: Lungs: Focal segmental right perihilar opacity. Few irregular patchy airspace opacities. Bronchovascular markings, slightly ill-defined. Pleural space: Unremarkable. No significant pleural effusion or pneumothorax seen. Heart: Unremarkable. No cardiomegaly. Mediastinum: Prominent cardiomediastinal silhouette. Bones/joints: Moderate degenerative scoliosis. Tubes, lines and devices: Cardiac event loop recorder projects over the left heart. IMPRESSION: 1. Subtle increased interstitial edema/unusual pneumonia changes. 2. Persistent subsegmental and segmental opacities, likely atelectasis.
--- NOTE | 2022-09-16 04:49 | P.HPIM ---
History of Present Illness H&P Date: 09/15/22 Chief Complaint: palpitations 82 year old female with metastatic lung cancer, afib on blood thinners patient was hospitalized recently and just discharged yesterday, where she was treated for afib , and medications were adjusted prior to discharge , metoprolol was increase to 25 mg po tid she went home yesterday, and later that day , she started experiencing palpitations again and heart racing , called EMS , she was given adenosine with no improvement and then she was brought in here. in the ED she was found in afib with RVR again. she claims that she took all her medications as prescribed patient is known to have metastatic lung cancer and claims she was supposed to start chemotherapy soon Review of Systems Pertinent positives as noted in HPI. All other systems were reviewed and are negative Past Medical History Past Medical History: Atrial Fibrillation, Cancer, Hearing Disorder / Deafness, Hyperlipidemia, Hypertension, Osteoarthritis (OA), Syncope, Thyroid Disorder Additional Past Medical History / Comment(s): Hx MURMUR, PALPITATIONS, SHINGLES, CONSTIPATION, CURVATURE OF SPINE, bladder control prob, prob w/ balance-IMPROVED "Small leak in heart valve.", SKIN CANCER, recent adm. [facility] lung nodules, left clavicular mass, pt. unsure of kind of cancer, states when anxious or "worked up" affects her a-fib History of Any Multi-Drug Resistant Organisms: None Reported Past Surgical History: Hysterectomy, Joint Replacement Additional Past Surgical History / Comment(s): JASPER CATARACTS, JASPER KNEE REPLACEMENTS, OOPHERECTOMY, Colonoscopies Past Anesthesia/Blood Transfusion Reactions: No Reported Reaction Past Psychological History: Anxiety Smoking Status: Never smoker Past Alcohol Use History: Rare Additional Past Alcohol Use History / Comment(s): Both parents smoked when she was growing up so she was exposed. Past Drug Use History: Marijuana Additional Drug Use History / Comment(s): CBD gummies for sleep each night per pt. - Past Family History Father Family Medical History: Cancer Additional Family Medical History / Comment(s): AGE 98, SMOKED, SKIN CANCER Mother Additional Family Medical History / Comment(s): AGE 80- SMOKER/EMPHYSEMA Medications and Allergies Home Medications Medication Instructions Recorded Confirmed Type Atorvastatin [Lipitor] 10 mg PO HS 06/12/19 09/15/22 History oxyBUTYnin chloride [Ditropan] 5 mg PO BID 06/12/19 09/15/22 History Apixaban [Eliquis] 2.5 mg PO BID 04/24/22 09/15/22 History Azelastine HCl [Astepro] 1 - 2 spray EA NOSTRIL BID PRN 07/18/22 09/15/22 History Enalapril [Vasotec] 2.5 mg PO HS 07/18/22 09/15/22 History Fluticasone Propionate 1 - 2 spray EA NOSTRIL HS PRN 07/18/22 09/15/22 History Levothyroxine Sodium [Synthroid] 50 mcg PO DAILY 07/18/22 09/15/22 History Multivitamins, Thera [Multivitamin 1 tab PO DAILY 07/18/22 09/15/22 History (formulary)] Neuriva 1 tab PO DAILY 08/18/22 09/15/22 History traMADol HCL [Ultram] 50 mg PO Q6HR 08/18/22 09/15/22 History Omeprazole 20 mg PO DAILY 09/12/22 09/15/22 History Ondansetron Odt [Zofran ODT] 8 mg PO Q8HR PRN 09/12/22 09/15/22 History Zolpidem [Ambien] 5 mg PO HS PRN 09/12/22 09/15/22 History Calcium Carbonate [Tums] 500 mg PO QID PRN #28 tab 09/14/22 09/15/22 Rx Metoprolol Tartrate [Lopressor] 25 mg PO TID 30 Days #90 tab 09/14/22 09/15/22 Rx droNABinol [Marinol] 2.5 mg PO AC-BID #14 cap 09/14/22 09/15/22 Rx Docusate [Colace] 100 mg PO BID #60 capsule 09/15/22 Rx Allergies Allergy/AdvReac Type Severity Reaction Status Date / Time No Known Allergies Allergy Verified 09/15/22 18:05 Physical Exam Vitals: Vital Signs Temp Pulse Pulse Resp BP BP Pulse Ox 09/16/22 03:27 76 20 124/84 99 09/16/22 03:15 97.6 F 78 17 155/93 98 09/16/22 02:01 85 18 117/83 98 09/16/22 01:15 110 H 20 135/99 99 09/16/22 00:15 147 H 09/16/22 00:13 97.5 F L 147 H 16 140/104 98 Intake and Output 09/15/22 09/15/22 09/16/22 14:59 22:59 06:59 Intake Total 13.167 Balance 13.167 Intake: Intake, IV Titration 13.167 Amount Diltiazem 125 mg In 13.167 Sodium Chloride 0.9% 100 ml @ 10 MG/HR 10 mls/hr IV .[id number] [facility] Rx#: [id number] Other: Weight 61.235 kg Constitutional: No acute distress, conversant, Eyes: Anicteric sclerae, moist conjunctiva, Pupils equal round reactive to light ENMT: NC/AT Oropharynx clear, no erythema, or exudates Neck: Supple, large left supraclavicular mass hard , non tender, attached to the underlying tissue. nodular Lungs: Clear to auscultation Clear to percussion Normal respiratory effort, no accessory muscle use Cardiovascular: Heart regular in rate and rhythm, No murmurs, gallops, or rubs No peripheral edema Abdominal: Soft Nontender, no guarding, rebound or rigidity Abdomen moving with respiration Normoactive bowel sounds No hepatomegaly, No splenomegaly No palpable mass No abdominal wall hernia noted Skin: Normal temperature, tone, texture, turgor Extremities: No digital cyanosis No clubbing Pedal pulses intact and symmetrical Radial pulses intact and symmetrical No calf tenderness Psychiatric: Alert and oriented to person, place and time Appropriate affect Neuro Muscles Strength 5/5 in all 4 extremities Sensation to light touch grossly present throughout Cranial nerves II-XII grossly intact Lymphatics: no palpable cervical or supraclavicular lymph nodes Results CBC & Chem 7: 09/16/22 00:05 09/16/22 00:05 Labs: Abnormal Lab Results - Last 24 Hours (Table) 09/16/22 09/16/22 Range/Units 00:05 00:05 WBC 13.4 H (3.8-10.6) k/uL Neutrophils # 11.2 H (1.3-7.7) k/uL Sodium 125 L (137-145) mmol/L Chloride 93 L (98-107) mmol/L Carbon Dioxide 21 L (22-30) mmol/L Glucose 171 H (74-99) mg/dL AST 39 H (14-36) U/L Thrombosis Risk Factor Assmnt - Choose All That Apply Any of the Below Risk Factors Present?: Yes Each Factor Represents 1 point: Serious lung disease incl. pneumonia (< 1month) Other Risk Factors: Yes Each Risk Factor Represents 2 Points: Malignancy Each Risk Factor Represents 3 Points: Age 75 years or older Other congenital or acquired thrombophilia - If yes, enter type in comment: No Thrombosis Risk Factor Assessment Total Risk Factor Score: 6 Thrombosis Risk Factor Assessment Level: High Risk Assessment and Plan Assessment: 82 year old female with metastatic lung cancer, afib on eliquis , presneted with afib with RVR, I discussed the case with ED doc, and I accepted the admission for management of afib afib with RVR resume eliquis cardizem drip, patient converted to sinus rhythm, will proceed with weaning off cardizem resume metoprolol 25 mg po TID cardiaac monitor patient recently was admitted and had full work up of her afib metastatic lung cancer left supraclavicular hard mass. 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
[2022-09-16] MEDS: LEVOTHYROXINE 50 MCG TAB PO SCH (06:39)
[2022-09-16] MEDS ORDERED: ONDANSETRON 4 MG/2 ML VIAL IVP STA (06:53)
--- NOTE | 2022-09-16 07:18 | P.CRDCN ---
History of Present Illness Consult date: 09/16/22 Chief complaint: Medications/heart racing History of present illness: The patient is an 82-year-old female patient who is known to our service from before with a past medical history significant for non-small cell lung cancer as well as paroxysmal atrial fibrillation presented to the hospital complaining of heart racing/fluttering. The patient just was discharged from the hospital recently after she was admitted with atrial fibrillation with rapid ventricular response and electrolytes imbalance with hyponatremia. The dose of metoprolol h as increased and she was receiving oral anticoagulation. During that admission she underwent an echocardiogram which revealed normal LV systolic function. This time she stated that she has been compliant with all of her medication and she went home and started experiencing palpitations/heart racing was no dizziness or light conus and no presyncope or syncope and no symptoms of chest pain or chest discomfort or any shortness of breath. Ambulance was called and the patient was found to be in A. fib with RVR and subsequently she was brought to the hospital where she started on Cardizem IV and converted to normal sinus mechanism. She still on Cardizem IV at 5 mg per hour. She is on metoprolol at 25 mg by mouth 3 times a day. I'm going to increase that to 50 twice a day. She is on oral anticoagulation which was continued. She underwent further workup including electrolytes and that showed sodium of 125. On examination she does have regular rhythm with clear breathing sounds bilater ally and no lower extremity edema noted. Assessment Atrial fibrillation with RVR. Currently the patient is in normal sinus mechanism Paroxysmal atrial fibrillation History of non-small cell lung cancer Plan Increase the dose of beta stefany with metoprolol Continue oral anticoagulation No need to repeat the echo in the light of recent echo showing normal LV function Follow-up with the patient Past Medical History Past Medical History: Atrial Fibrillation, Cancer, Hearing Disorder / Deafness, Hyperlipidemia, Hypertension, Osteoarthritis (OA), Syncope, Thyroid Disorder Additional Past Medical History / Comment(s): Hx MURMUR, PALPITATIONS, SHINGLES, CONSTIPATION, CURVATURE OF SPINE, bladder control prob, prob w/ balance-IMPROVED "Small leak in heart valve.", SKIN CANCER, recent adm. [facility]PH lung nodules, left clavicular mass, pt. unsure of kind of cancer, states when anxious or "worked up" affects her a-fib History of Any Multi-Drug Resistant Organisms: None Reported Past Surgical History: Hysterectomy, Joint Replacement Additional Past Surgical History / Comment(s): JASPER CATARACTS, JASPER KNEE REPLACEMENTS, OOPHERECTOMY, Colonoscopies Past Anesthesia/Blood Transfusion Reactions: No Reported Reaction Past Psychological History: Anxiety Smoking Status: Never smoker Past Alcohol Use History: Rare Additional Past Alcohol Use History / Comment(s): Both parents smoked when she was growing up so she was exposed. Past Drug Use History: Marijuana Additional Drug Use History / Comment(s): CBD gummies for sleep each night per pt. - Past Family History Father Family Medical History: Cancer Additional Family Medical History / Comment(s): AGE 98, SMOKED, SKIN CANCER Mother Additional Family Medical History / Comment(s): AGE 80- SMOKER/EMPHYSEMA Medications and Allergies Home Medications Medication Instructions Recorded Confirmed Type Atorvastatin [Lipitor] 10 mg PO HS 06/12/19 09/15/22 History oxyBUTYnin chloride [Ditropan] 5 mg PO BID 06/12/19 09/15/22 History Apixaban [Eliquis] 2.5 mg PO BID 04/24/22 09/15/22 History Azelastine HCl [Astepro] 1 - 2 spray EA NOSTRIL BID PRN 07/18/22 09/15/22 History Enalapril [Vasotec] 2.5 mg PO HS 07/18/22 09/15/22 History Fluticasone Propionate 1 - 2 spray EA NOSTRIL HS PRN 07/18/22 09/15/22 History Levothyroxine Sodium [Synthroid] 50 mcg PO DAILY 07/18/22 09/15/22 History Multivitamins, Thera [Multivitamin 1 tab PO DAILY 07/18/22 09/15/22 History (formulary)] Neuriva 1 tab PO DAILY 08/18/22 09/15/22 History traMADol HCL [Ultram] 50 mg PO Q6HR 08/18/22 09/15/22 History Omeprazole 20 mg PO DAILY 09/12/22 09/15/22 History Ondansetron Odt [Zofran ODT] 8 mg PO Q8HR PRN 09/12/22 09/15/22 History Zolpidem [Ambien] 5 mg PO HS PRN 09/12/22 09/15/22 History Calcium Carbonate [Tums] 500 mg PO QID PRN #28 tab 09/14/22 09/15/22 Rx Metoprolol Tartrate [Lopressor] 25 mg PO TID 30 Days #90 tab 09/14/22 09/15/22 Rx droNABinol [Marinol] 2.5 mg PO AC-BID #14 cap 09/14/22 09/15/22 Rx Docusate [Colace] 100 mg PO BID #60 capsule 09/15/22 Rx Allergies Allergy/AdvReac Type Severity Reaction Status Date / Time No Known Allergies Allergy Verified 09/15/22 18:05 Physical Exam Vitals: Vital Signs Temp Pulse Pulse Resp BP BP Pulse Ox 09/16/22 03:27 76 20 124/84 99 09/16/22 03:15 97.6 F 78 17 155/93 98 09/16/22 02:01 85 18 117/83 98 09/16/22 01:15 110 H 20 135/99 99 09/16/22 00:15 147 H 09/16/22 00:13 97.5 F L 147 H 16 140/104 98 Intake and Output 09/15/22 09/16/22 09/16/22 22:59 06:59 14:59 Intake Total 13.167 Balance 13.167 Intake: Intake, IV Titration 13.167 Amount Diltiazem 125 mg In 13.167 Sodium Chloride 0.9% 100 ml @ 10 MG/HR 10 mls/hr IV .[id number] [facility] Rx#: [id number] Other: Weight 61.235 kg Results 09/16/22 00:05 09/16/22 00:05 Cardiac Enzymes 09/16/22 09/16/22 Range/Units 00:05 00:05 AST 39 H (14-36) U/L Troponin I 0.020 (0.000-0.034) ng/mL CBC 09/16/22 Range/Units 00:05 WBC 13.4 H (3.8-10.6) k/uL RBC 4.99 (3.80-5.40) m/uL Hgb 14.7 (11.4-16.0) gm/dL Hct 44.1 (34.0-46.0) % Plt Count 257 (150-450) k/uL Comprehensive Metabolic Panel 09/16/22 Range/Units 00:05 Sodium 125 L (137-145) mmol/L Potassium 3.6 (3.5-5.1) mmol/L Chloride 93 L (98-107) mmol/L Carbon Dioxide 21 L (22-30) mmol/L BUN 13 (7-17) mg/dL Creatinine 0.59 (0.52-1.04) mg/dL Glucose 171 H (74-99) mg/dL Calcium 9.1 (8.4-10.2) mg/dL AST 39 H (14-36) U/L ALT 21 (4-34) U/L Alkaline Phosphatase 94 (38-126) U/L Total Protein 6.8 (6.3-8.2) g/dL Albumin 4.3 (3.5-5.0) g/dL Current Medications Generic Name Dose Route Start Last Admin Trade Name Freq PRN Reason Stop Dose Admin Apixaban 2.5 mg 09/16/22 09:00 Apixaban 2.5 Mg Tablet PO BID [facility] Protocol Atorvastatin Calcium 10 mg 09/16/22 21:00 Atorvastatin 10 Mg Tab PO HS [facility] Diltiazem HCl 125 mg/ Sodium 125 mls @ 10 mls/hr 09/16/22 00:15 09/16/22 01:59 Chloride IV 5 mg/hr .[id number] [facility] 5 mls/hr Infusion 10 MG/HR Levothyroxine Sodium 50 mcg 09/16/22 06:30 09/16/22 06:39 Levothyroxine 50 Mcg Tab PO 50 mcg DAILY@0630 [facility] Administration Lisinopril 5 mg 09/16/22 21:00 Lisinopril 5 Mg Tab PO HS [facility] Metoprolol Tartrate 25 mg 09/16/22 09:00 Metoprolol Tartrate 25 Mg Tab PO TID [facility] Naloxone HCl 0.2 mg 09/16/22 02:12 Naloxone 0.4 Mg/Ml 1 Ml Vial IV Q2M PRN Opioid Reversal Oxybutynin Chloride 5 mg 09/16/22 09:00 Oxybutynin Chloride 5 Mg Tab PO BID [facility] Intake and Output 09/15/22 09/16/22 09/16/22 22:59 06:59 14:59 Intake Total 13.167 Balance 13.167 Intake: Intake, IV Titration 13.167 Amount Diltiazem 125 mg In 13.167 Sodium Chloride 0.9% 100 ml @ 10 MG/HR 10 mls/hr IV .[id number] [facility] Rx#: [id number] Other: Weight 61.235 kg 09/16/22 00:05 09/16/22 00:05
[2022-09-16] MEDS: METOPROLOL TARTRATE 50 MG TAB PO SCH ×3 (08:49→19:58)
[2022-09-16] MEDS: oxyBUTYnin chloride 5 MG TAB PO SCH ×2 (08:49→19:59)
[2022-09-16] MEDS: APIXABAN 2.5 MG TABLET PO SCH ×2 (08:49→19:58)
[2022-09-16] MEDS ORDERED: METOPROLOL TARTRATE 25 MG TAB PO SCH (09:00)
[2022-09-16] MEDS ORDERED: ALPRAZolam 0.5 MG TAB PO PRN (11:42)
--- NOTE | 2022-09-16 11:43 | P.NPCON ---
History of Present Illness - Reason for Consult hyponatremia - History of Present Illness Patient is a 82-year-old female with history of chronic A. fib, non-small cell lung cancer who was recently discharged from the hospital after treatment for A. fib with RVR. It appears that patient was taking the metoprolol twice a day instead of 3 times a day. She is readmitted with complaints of palpitations and feeling her heart was racing. No complaints of shortness of breath or chest pain. Noted to be back in A. fib with RVR. Currently maintained on IV Cardizem. Sodium was noted to be 125. Sodium was 1:30 on 08/29/2022 but noted to be 126- 127 mEq per liter on 09/12/2022. Next Patient admits to not eating much due to loss of taste and sensation of fullness. No complaints of nausea vomiting diarrhea or abdominal pain. No other new medications started recently. Review of Systems As per HPI Past Medical History Past Medical History: Atrial Fibrillation, Cancer, Hearing Disorder / Deafness, Hyperlipidemia, Hypertension, Osteoarthritis (OA), Syncope, Thyroid Disorder Additional Past Medical History / Comment(s): Hx MURMUR, PALPITATIONS, SHINGLES, CONSTIPATION, CURVATURE OF SPINE, bladder control prob, prob w/ balance-IMPROVED "Small leak in heart valve.", SKIN CANCER, recent adm. MPH lung nodules, left clavicular mass, pt. unsure of kind of cancer, states when anxious or "worked up" affects her a-fib History of Any Multi-Drug Resistant Organisms: None Reported Past Surgical History: Hysterectomy, Joint Replacement Additional Past Surgical History / Comment(s): JASPER CATARACTS, JASPER KNEE REPLACEMENTS, OOPHERECTOMY, Colonoscopies Past Anesthesia/Blood Transfusion Reactions: No Reported Reaction Past Psychological History: Anxiety Smoking Status: Never smoker Past Alcohol Use History: Rare Additional Past Alcohol Use History / Comment(s): Both parents smoked when she was growing up so she was exposed. Past Drug Use History: Marijuana Additional Drug Use History / Comment(s): CBD gummies for sleep each night per pt. - Past Family History Father Family Medical History: Cancer Additional Family Medical History / Comment(s): AGE 98, SMOKED, SKIN CANCE R Mother Additional Family Medical History / Comment(s): AGE 80- SMOKER/EMPHYSEMA Medications and Allergies Home Medications Medication Instructions Recorded Confirmed Type Atorvastatin [Lipitor] 10 mg PO HS 06/12/19 09/16/22 History oxyBUTYnin chloride [Ditropan] 5 mg PO BID 06/12/19 09/16/22 History Apixaban [Eliquis] 2.5 mg PO BID 04/24/22 09/16/22 History Azelastine HCl [Astepro] 1 - 2 spray EA NOSTRIL BID PRN 07/18/22 09/16/22 History Enalapril [Vasotec] 2.5 mg PO HS 07/18/22 09/16/22 History Fluticasone Propionate 1 - 2 spray EA NOSTRIL HS PRN 07/18/22 09/16/22 History Levothyroxine Sodium [Synthroid] 50 mcg PO DAILY 07/18/22 09/16/22 History Multivitamins, Thera [Multivitamin 1 tab PO DAILY 07/18/22 09/16/22 History (formulary)] Neuriva 1 tab PO DAILY 08/18/22 09/16/22 History traMADol HCL [Ultram] 50 mg PO Q6HR 08/18/22 09/16/22 History Omeprazole 20 mg PO DAILY 09/12/22 09/16/22 History Ondansetron Odt [Zofran ODT] 8 mg PO Q8HR PRN 09/12/22 09/16/22 History Zolpidem [Ambien] 5 mg PO HS PRN 09/12/22 09/16/22 History Calcium Carbonate [Tums] 500 mg PO QID PRN #28 tab 09/14/22 09/16/22 Rx Metoprolol Tartrate [Lopressor] 25 mg PO TID 30 Days #90 tab 09/14/22 09/16/22 Rx droNABinol [Marinol] 2.5 mg PO AC-BID #14 cap 09/14/22 09/16/22 Rx Docusate [Colace] 100 mg PO BID #60 capsule 09/15/22 09/16/22 Rx Allergies Allergy/AdvReac Type Severity Reaction Status Date / Time No Known Allergies Allergy Verified 09/16/22 11:08 Physical Exam Vitals: Vital Signs Temp Pulse Pulse Resp BP BP Pulse Ox 09/16/22 08:00 98.4 F 84 16 131/79 97 09/16/22 03:27 76 20 124/84 99 09/16/22 03:15 97.6 F 78 17 155/93 98 09/16/22 02:01 85 18 117/83 98 09/16/22 01:15 110 H 20 135/99 99 09/16/22 00:15 147 H 09/16/22 00:13 97.5 F L 147 H 16 140/104 98 Intake and Output 09/15/22 09/16/22 09/16/22 22:59 06:59 14:59 Intake Total 13.167 420 Balance 13.167 420 Intake: Intake, IV Titration 13.167 Amount Diltiazem 125 mg In 13.167 Sodium Chloride 0.9% 100 ml @ 10 MG/HR 10 mls/hr IV .[id number] [facility] Rx#: [id number] Oral 420 Other: # Voids 2 Weight 61.235 kg Patient is awake, comfortable, no acute distress Examination of the heart S1 and S2 Examination of the lungs bilateral breath sounds are heard Abdomen is soft nontender Examination of lower extremity shows no evidence of edema [employer] exam grossly intact Results - Lab Results Most recent lab results Calcium 9.1 mg/dL (8.4-10.2) 09/16/22 00:05 Magnesium 1.6 mg/dL (1.6-2.3) 09/16/22 00:05 09/16/22 00:05 09/16/22 00:05 Assessment and Plan Assessment: 1. Hyponatremia, patient appears euvolemic. 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 Check urine osmolality and random urine sodium. Maintain off of normal saline for now. Patient is encouraged increased oral intake particularly protein. We will maintain her on some degree of fluid restriction. 2. A. fib with RVR maintained on Cardizem drip. Metoprolol dose has been increased 3. Hypothyroidism 4. Non-small cell lung cancer with bilateral multiple nodules Plan: Check urine osmolality and random urine sodium Encourage increased oral intake particularly protein Fluid restriction to about 1.5 L Repeat sodium this evening Consider tolvaptan if serum sodium does not improve. Thank you for the consultation. We will continue to follow the patient with you during her hospitalization.
[2022-09-16] MEDS ORDERED: ALPRAZolam 0.25 MG TAB PO PRN (15:41)
[2022-09-16] MEDS ORDERED: ATORVASTATIN 10 MG TAB PO SCH (21:00)
[2022-09-16] MEDS ORDERED: lisinopriL 5 MG TAB PO SCH (21:00)
[2022-09-17 04:00] VITALS: RESP 18
[2022-09-17] MEDS: LEVOTHYROXINE 50 MCG TAB PO SCH (06:22)
[2022-09-17 08:49] LABS: African American GFR (CKD) >90 (>60 ml/min/1.73 sqM); Anion Gap 5 mmol/L; Blood Urea Nitrogen 15 mg/dL (7-17); Calcium 9.5 mg/dL (8.4-10.2); Carbon Dioxide 29 mmol/L (22-30); Chloride 98 mmol/L (98-107); Glucose 97 mg/dL (74-99); Non-African American GFR(CKD) 85 (>60 ml/min/1.73 sqM); Potassium 4.8 mmol/L (3.5-5.1); Sodium 132 mmol/L (137-145)
[2022-09-17] MEDS: oxyBUTYnin chloride 5 MG TAB PO SCH (09:01)
[2022-09-17] MEDS: METOPROLOL TARTRATE 50 MG TAB PO SCH (09:01)
[2022-09-17] MEDS: APIXABAN 2.5 MG TABLET PO SCH (09:01)
--- NOTE | 2022-09-17 09:11 | P.PN ---
Subjective Progress Note Date: 09/17/22 Principal diagnosis: Paroxysmal atrial fibrillation The patient is an 82-year-old female patient who is known to our service from before with a past medical history significant for non-small cell lung cancer as well as paroxysmal atrial fibrillation presented to the hospital complaining of heart racing/fluttering. The patient just was discharged from the hospital recently after she was admitted with atrial fibrillation with rapid ventricular response and electrolytes imbalance with hyponatremia. The dose of metoprolol has increased and she was receiving oral anticoagulation. During that admission she underwent an echocardiogram which revealed normal LV systolic function. This time she stated that she has been compliant with all of her medication and she went home and started experiencing palpitations/heart racing was no dizziness or light conus and no presyncope or syncope and no symptoms of chest pain or chest discomfort or any shortness of breath. Ambulance was called and the patient was found to be in A. fib with RVR and subsequently she was brought to the hospital where she started on Cardizem IV and converted to normal sinus mechanism. She still on Cardizem IV at 5 mg per hour. She is on metoprolol at 25 mg by mouth 3 times a day. I'm going to increase that to 50 twice a day. She is on oral anticoagulation which was continued. She underwent further workup including electrolytes and that showed sodium of 125. 09/17/2022 The patient was seen and evaluated this morning. She has been maintaining normal sinus mechanism. She seems to be euvolemic on examination. I am going to increase the dose of beta stefany the right to keep the patient in normal sinus mechanism and continue oral anticoagulation. From a cardiovascular standpoint of view, the patient seems to be stable but she is euvolemic on examination. We will follow-up with the patient on when necessary case On examination she does have regular rhythm with clear breathing sounds bilaterally and no lower extremity edema noted. Assessment Atrial fibrillation with RVR. Currently the patient is in normal sinus mechanism Paroxysmal atrial fibrillation History of non-small cell lung cancer Plan Increase the dose of beta stefany with metoprolol Continue oral anticoagulation No need to repeat the echo in the light of recent echo showing normal LV function Follow-up with the patient on when necessary case Objective - Vital Signs Vital signs: Vital Signs Temp 98.1 F 09/16/22 20:00 Pulse 75 09/17/22 03:54 Resp 18 09/17/22 03:54 BP 145/83 09/17/22 03:54 Pulse Ox 98 09/17/22 03:54 FiO2 Intake & Output 09/16/22 09/17/22 09/17/22 18:59 06:59 18:59 Intake Total 420 Balance 420 Intake: Oral 420 Other: # Voids 1 2 - Labs CBC & Chem 7: 09/16/22 00:05 09/17/22 07:31 Labs: Abnormal Lab Results - Last 24 Hours (Table) 09/16/22 09/17/22 Range/Units 10:50 07:31 Sodium 127 L 132 L (137-145) mmol/L
[2022-09-17 11:37] VITALS: BP 104/70; PULSE 81; TEMP 98.2
--- NOTE | 2022-09-17 12:40 | P.PN ---
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 Sodium has improved with fluid restriction and increased intake of supplements like ensure. Sodium is 132 today. No significant complaints today except for weakness Objective - Vital Signs Vital signs: Vital Signs Temp 98.2 F 09/17/22 11:37 Pulse 81 09/17/22 11:37 Resp 18 09/17/22 11:37 BP 104/70 09/17/22 11:37 Pulse Ox 96 09/17/22 11:37 FiO2 Intake & Output 09/16/22 09/17/22 09/17/22 18:59 06:59 18:59 Intake Total 420 Balance 420 Intake: Oral 420 Other: Voiding Method Toilet # Voids 1 2 1 - Exam Patient is awake, comfortable, no acute distress Examination of the heart S1 and S2 Examination of the lungs bilateral breath sounds are heard Abdomen is soft nontender Examination lower extremity shows no edema [employer] exam grossly intact - Labs CBC & Chem 7: 09/16/22 00:05 09/17/22 07:31 Labs: Abnormal Lab Results - Last 24 Hours (Table) 09/17/22 Range/Units 07:31 Sodium 132 L (137-145) mmol/L Assessment and Plan Assessment: 1. Hyponatremia, patient appears euvolemic. Etiology is related to decreased oral intake and low urine osmoles. Urine osmolality was low at 181. Maintain off of normal saline for now. Patient is encouraged increased oral intake particularly protein. We will maintain her on some degree of fluid restriction. 2. A. fib with RVR maintained on Cardizem drip. Metoprolol dose has been increased 3. Hypothyroidism 4. Non-small cell lung cancer with bilateral multiple nodules Plan: Continue to encourage increased oral intake Continue with ensure Repeat labs in a.m.
--- NOTE | 2022-09-17 12:58 | P.DS ---
Providers Date of admission: 09/16/22 02:12 Attending physician: Bjorn Aiken MD Consults: 09/16/22 02:12 Consult Physician Routine Consulting Provider: Ganesh Bartholomew Consult Reason/Comments: afib rvr Do you want consulting provider notified?: Yes 09/16/22 09:29 Consult Physician Routine Consulting Provider: Natalia Kay Consult Reason/Comments: hyponatremia Do you want consulting provider notified?: Yes [facility]: Discharge Diagnosis: A. fib with RVR Metastatic lung cancer Hyponatremia secondary to SIADH Hypothyroidism Hospital Course: Patient is a 82-year-old female with a past medical history of metastatic lung cancer who is scheduled to start radiation next week and then chemotherapy, atrial fibrillation on blood thinners who was recently admitted to a hospital for A. fib with RVR. Patient was discharged on metoprolol 25 mg by mouth 3 times a day. Daughter suspects that the patient was not compliant with her medications. When asked the patient if she was taking the medication 3 times a day patient responded by saying she thought she was only supposed to take it 2 times a day. In the ED patient was again found to be in A. fib with RVR. Likely due to not taking her medications correctly. Patient was started on Cardizem drip. She was restarted on metoprolol. She converted normal sinus rhythm and was weaned off of the Cardizem drip. Cardiology also increased her metoprolol now to 75 mg 3 times a day to keep her in sinus rhythm. Patient cleared for discharge by cardiology. Daughter states that she will arrange her mother's medications out to make it easier for her mom to take them. Daughter also will make sure that her mom will take her medications. Daughter also suggested something for anxiety for her mother. I started patient on Xanax 0.5 mg twice a day. Patient then became too somnolent so I reduced it to 0.25 mg twice a day. On the day of discharge patient was somnolent. I spoke with the daughter and told her that I will discharge her on Xanax 0.25 mg daily only if she is able to provide her mother were 24/7 supervision and also accepts the risk of increased fall that can potentially lead to head bleed and . Daughter was amenable to the patient starting on Xanax. I also discussed with the patient and she is also amenable to Xanax. Patient also had hyponatremia. Due to history of lung cancer I suspect SIADH. Patient was placed on a fluid restriction of 1.5 L. Her sodium improved. I discussed with daughter that a she will need to be on a fluid restriction diet. Patient's home meds were apparently lost in the ambulance. So I prescribed all her other home medications that were essential. Patient seen and examined at bedside.[] Vital signs reviewed and stable. General: [non toxic], [no distress], [appears at stated age], appears chronically debilitated Derm: [warm], [dry] Head: [atraumatic], [normocephalic], [symmetric] Eyes: [EOMI], [no lid lag], [anicteric sclera] Mouth: [no lip lesion], [mucus membranes moist] Cardiovascular: [S1S2 reg], [no murmur], [positive posterior tibial pulse bilateral], Lungs: [CTA bilateral], [no rhonchi, no rales] , [no accessory muscle use], left side supraclavicular mass Abdominal: [soft], [ nontender to palpation], [no guarding], [no appreciable organomegaly] Ext: [no gross muscle atrophy], [no edema], [no contractures] Neuro: [ CN II-XI grossly intact], [no focal neuro deficits] Psych: [Alert], [oriented], [appropriate affect] somnolent A total of [33] minutes of time were spent preparing this complex discharge summary . Patient Condition at Discharge: Poor Plan - Discharge Summary Discharge Rx Participant: No New Discharge Prescriptions: New Metoprolol Tartrate [Lopressor] 75 mg PO TID 30 Days #90 tab ALPRAZolam [Xanax] 0.25 mg PO DAILY PRN tab PRN Reason: Anxiety Continue Azelastine HCl [Astepro] 1 - 2 spray EA NOSTRIL BID PRN PRN Reason: DRAINAGE/CONGESTION Neuriva 1 tab PO DAILY droNABinol [Marinol] 2.5 mg PO AC-BID #14 cap Calcium Carbonate [Tums] 500 mg PO QID PRN #28 tab PRN Reason: Heartburn Apixaban [Eliquis] 2.5 mg PO BID 30 Days #60 tab Atorvastatin [Lipitor] 10 mg PO HS 30 Days #30 tab Levothyroxine Sodium [Synthroid] 50 mcg PO DAILY 30 Days #30 tab Enalapril [Vasotec] 2.5 mg PO HS 30 Days #30 tab Ondansetron Odt [Zofran ODT] 8 mg PO Q8HR PRN 7 Days #21 tab PRN Reason: Nausea And Vomiting Multivitamins, Thera [Multivitamin (formulary)] 1 tab PO DAILY Fluticasone Propionate 1 - 2 spray EA NOSTRIL HS PRN PRN Reason: DRAINAGE/CONGESTION traMADol HCL [Ultram] 50 mg PO Q6HR Zolpidem [Ambien] 5 mg PO HS PRN PRN Reason: Insomnia Docusate [Colace] 100 mg PO BID #60 capsule oxyBUTYnin chloride [Ditropan] 5 mg PO BID 30 Days #60 tab Omeprazole 20 mg PO DAILY 30 Days #30 tab Discontinued Metoprolol Tartrate [Lopressor] 25 mg PO TID 30 Days #90 tab Discharge Medication List Azelastine HCl [Astepro] 1 - 2 spray EA NOSTRIL BID PRN 07/18/22 [History] Fluticasone Propionate 1 - 2 spray EA NOSTRIL HS PRN 07/18/22 [History] Multivitamins, Thera [Multivitamin (formulary)] 1 tab PO DAILY 07/18/22 [History] Neuriva 1 tab PO DAILY 08/18/22 [History] traMADol HCL [Ultram] 50 mg PO Q6HR 08/18/22 [History] Zolpidem [Ambien] 5 mg PO HS PRN 09/12/22 [History] Calcium Carbonate [Tums] 500 mg PO QID PRN #28 tab 09/14/22 [Rx] droNABinol [Marinol] 2.5 mg PO AC-BID #14 cap 09/14/22 [Rx] Docusate [Colace] 100 mg PO BID #60 capsule 09/15/22 [Rx] ALPRAZolam [Xanax] 0.25 mg PO DAILY PRN tab 09/17/22 [Rx] Apixaban [Eliquis] 2.5 mg PO BID 30 Days #60 tab 09/17/22 [Rx] Atorvastatin [Lipitor] 10 mg PO HS 30 Days #30 tab 09/17/22 [Rx] Enalapril [Vasotec] 2.5 mg PO HS 30 Days #30 tab 09/17/22 [Rx] Levothyroxine Sodium [Synthroid] 50 mcg PO DAILY 30 Days #30 tab 09/17/22 [Rx] Metoprolol Tartrate [Lopressor] 75 mg PO TID 30 Days #90 tab 09/17/22 [Rx] Omeprazole 20 mg PO DAILY 30 Days #30 tab 09/17/22 [Rx] Ondansetron Odt [Zofran ODT] 8 mg PO Q8HR PRN 7 Days #21 tab 09/17/22 [Rx] oxyBUTYnin chloride [Ditropan] 5 mg PO BID 30 Days #60 tab 09/17/22 [Rx] Follow up Appointment(s)/Referral(s): Chai Grubbs MD [STAFF PHYSICIAN] - 1 Week Natalie Rossi NPC [Family Provider] - 1-2 days (Please call to set up appointment ) Patient Instructions/Handouts: A-fib (Atrial Fibrillation) (DC) Activity/Diet/Wound Care/Special Instructions: Home care will call tomorrow to set up appointment to come to house. Discharge Disposition: HOME WITH HOME HEALTH SERVICES Plan of Treatment: Please restrict fluid intake to 1.5L
[2022-09-17] MEDS ORDERED: METOPROLOL TARTRATE 25 MG TAB PO SCH (16:00)
== END 2022-09-17 14:28 | disposition home health service (06) | DRG 309 ==
LOC: EC → 3SCARD 02:12
PROVIDERS: ADMIT Internal Medicine; ATTEND Internal Medicine
DX: I48.0 Paroxysmal atrial fibrillation (principal); C34.92 Malignant neoplasm of unspecified part of left bronchus or lung; C79.9 Secondary malignant neoplasm of unspecified site; E22.2 Syndrome of inappropriate secretion of antidiuretic hormone; I47.1 Supraventricular tachycardia; D64.9 Anemia, unspecified; E03.9 Hypothyroidism, unspecified; E78.5 Hyperlipidemia, unspecified; E87.6 Hypokalemia; F10.20 Alcohol dependence, uncomplicated; F41.9 Anxiety disorder, unspecified; B02.9 Zoster without complications; H91.90 Unspecified hearing loss, unspecified ear; I10 Essential (primary) hypertension; Z79.899 Other long term (current) drug therapy; Z79.890 Hormone replacement therapy; M19.90 Unspecified osteoarthritis, unspecified site; Z85.118 Personal history of other malignant neoplasm of bronchus and lung; Z85.828 Personal history of other malignant neoplasm of skin; Z90.710 Acquired absence of both cervix and uterus; Z98.42 Cataract extraction status, left eye; Z98.41 Cataract extraction status, right eye; Z96.653 Presence of artificial knee joint, bilateral; Z91.148 Patient's other noncompliance with medication regimen for other reason; Z79.01 Long term (current) use of anticoagulants
CPT/HCPCS: 36415; 71045; 80048; 80053; 83605; 83735; 83880; 83935; 84295; 84300; 84443; 84484; 85025; 93005; 96365; 96366; 99291

== ENCOUNTER 2022-09-21 07:59 | Observation (INO) | payer MEDICARE ==
[2022-09-21] MEDS ORDERED: SODIUM CHLORIDE 0.9% 1,000 ML IV STA (08:25)
[2022-09-21 08:26] LABS: Glucose,Whole Blood 204 mg/dL (70-110)
--- NOTE | 2022-09-21 08:30 | ED ---
General Adult HPI - General Chief complaint: Weakness Stated complaint: Recheck - sent by Dr Slater Seen by Provider: 09/21/22 08:01 Source: patient, family Mode of arrival: wheelchair Limitations: no limitations - History of Present Illness Initial comments: Dictation was produced using [employer] dictation software. please excuse any grammatical, word or spelling errors. Chief Complaint: 82-year-old female recently admitted to the hospital for A. fib with RVR and hyponatremia presents to the emergency department for generalized weakness History of Present Illness: Patient is a 82-year-old female presents emergency department for generalized weakness. Patient just discharged from the hospital 4 days ago. She was admitted for A. fib with RVR and hyponatremia. She was treated and discharged in stable medical condition. She had her medications adjusted. Patient states that since being discharged she slowly became weak. Patient went to her radiation therapy appointment. The emergency department. Patient has not taken her morning medications yet. She usually takes them after radiation appointment. The ROS documented in this emergency department record has been reviewed and confirmed by me. Those systems with pertinent positive or negative responses have been documented in the HPI. All other systems are other negative and/or noncontributory. - Related Data Home Medications Medication Instructions Recorded Confirmed RX: Azelastine HCl [Astepro] 1 - 2 spray EA NOSTRIL BID PRN 07/18/22 09/16/22 RX: Fluticasone Propionate 1 - 2 spray EA NOSTRIL HS PRN 07/18/22 09/16/22 RX: Multivitamins, Thera 1 tab PO DAILY 07/18/22 09/16/22 [Multivitamin (formulary)] Neuriva 1 tab PO DAILY 08/18/22 09/16/22 RX: traMADol HCL [Ultram] 50 mg PO Q6HR 08/18/22 09/16/22 RX: Zolpidem [Ambien] 5 mg PO HS PRN 09/12/22 09/16/22 Previous Rx's Medication Instructions Recorded RX: Calcium Carbonate [Tums] 500 mg PO QID PRN #28 tab 09/14/22 RX: droNABinol [Marinol] 2.5 mg PO AC-BID #14 cap 09/14/22 RX: Docusate [Colace] 100 mg PO BID #60 capsule 09/15/22 RX: ALPRAZolam [Xanax] 0.25 mg PO DAILY PRN tab 09/17/22 RX: Apixaban [Eliquis] 2.5 mg PO BID 30 Days #60 tab 09/17/22 RX: Atorvastatin [Lipitor] 10 mg PO HS 30 Days #30 tab 09/17/22 RX: Enalapril [Vasotec] 2.5 mg PO HS 30 Days #30 tab 09/17/22 RX: Levothyroxine Sodium 50 mcg PO DAILY 30 Days #30 tab 09/17/22 [Synthroid] RX: Metoprolol Tartrate [Lopressor] 75 mg PO TID 30 Days #90 tab 09/17/22 RX: Omeprazole 20 mg PO DAILY 30 Days #30 tab 09/17/22 RX: Ondansetron Odt [Zofran ODT] 8 mg PO Q8HR PRN 7 Days #21 tab 09/17/22 RX: oxyBUTYnin chloride [Ditropan] 5 mg PO BID 30 Days #60 tab 09/17/22 Allergies Allergy/AdvReac Type Severity Reaction Status Date / Time No Known Allergies Allergy Verified 09/21/22 08:07 Review of Systems ROS Statement: Those systems with pertinent positive or pertinent negative responses have been documented in the HPI. ROS Other: All systems not noted in ROS Statement are negative. Past Medical History Past Medical History: Atrial Fibrillation, Cancer, Hearing Disorder / Deafness, Hyperlipidemia, Hypertension, Osteoarthritis (OA), Syncope, Thyroid Disorder Additional Past Medical History / Comment(s): Hx MURMUR, PALPITATIONS, SHINGLES, CONSTIPATION, CURVATURE OF SPINE, bladder control prob, prob w/ balance- IMPROVED "Small leak in heart valve.", SKIN CANCER, recent adm. [facility] lung nodules, left clavicular mass, pt. unsure of kind of cancer, states when anxious or "worked up" affects her a-fib History of Any Multi-Drug Resistant Organisms: None Reported Past Surgical History: Hysterectomy, Joint Replacement Additional Past Surgical History / Comment(s): JASPER CATARACTS, JASPER KNEE REPLACEMENTS, OOPHERECTOMY, Colonoscopies Past Anesthesia/Blood Transfusion Reactions: No Reported Reaction Past Psychological History: Anxiety Smoking Status: Never smoker Past Alcohol Use History: Rare Past Drug Use History: Marijuana - Past Family History Father Family Medical History: Cancer Additional Family Medical History / Comment(s): AGE 98, SMOKED, SKIN CANCER Mother Additional Family Medical History / Comment(s): AGE 80- SMOKER/EMPHYSEMA General Exam - General Exam Comments Initial Comments: PHYSICAL EXAM: General Impression: Alert and oriented x3, not in acute distress HEENT: Normocephalic atraumatic, extra-ocular movements intact, pupils equal and reactive to light bilaterally, mucous membranes moist. Cardiovascular: Tachycardic irregular Chest: Able to complete full sentences, no retractions, no tachypnea Abdomen: abdomen soft, non-tender, non-distended, no organomegaly Musculoskeletal: Pulses present and equal in all extremities, no peripheral edema Motor: no focal deficits noted Neurological: CN II-XII grossly intact, no focal motor or sensory deficits noted Skin: Intact with no visualized rashes Psych: Normal affect and mood Limitations: no limitations Course Vital Signs 09/21/22 09/21/22 09/21/22 08:01 09:59 11:29 Temperature 98 F Pulse Rate 118 H 89 88 Respiratory 18 20 18 Rate Blood Pressure 88/60 118/80 119/78 O2 Sat by Pulse 97 95 96 Oximetry EKG Findings - EKG Comments: EKG Findings:: My EKG interpretation: Ventricular rate 151, a fibrillation with RVR. No DC prolongation, no QTC prolongation, no ST or T-wave changes noted. EKG is consistent with A. fib RVR Medical Decision Making - Medical Decision Making Was pt. sent in by a medical professional or institution (, PA, TRACER CLERK, urgent care, hospital, or [facility]...) When possible be specific @ -Sent in from radiation oncology outpatient Did you speak to anyone other than the patient for history (EMS, parent, family, police, friend...)? What history was obtained from this source @ -No Did you review nursing and triage notes (agree or disagree)? Why? @ -I reviewed and agree with nursing and triage notes Were old charts reviewed (outside hosp., previous admission, EMS record, old EKG, old radiological studies, urgent care reports/EKG's, [facility] records)? Report findings @ -discharge summary was reviewed showing the patient was admitted for hyponatremia A. fib RVR Differential Diagnosis (chest pain, altered mental status, abdominal pain women, abdominal pain men, vaginal bleeding, musculoskeletal, weakness, fever, dyspnea, syncope, headache, dizziness, GI bleed, back pain, seizure, CVA, palpatations, mental health)? @ -Differential Weakness: Hypoglycemia, shock, sepsis, hyponatremia, anemia, infection, CO, ETOH, adverse medicine reaction, overdose, stroke, this is not meant to be an all-inclusive list. EKG interpreted by me (3pts min.). @ -See above X-rays interpreted by me (1pt min.). @ -None done CT interpreted by me (1pt min.). @ -None done U/S interpreted by me (1pt. min.). @ -None done What testing was considered but not performed or refused? (CT, X-rays, U/S, labs)? Why? @ -None What meds were considered but not given or refused? Why? @ -None Did you discuss the management of the patient with other professionals (professionals i.e. , PA, TRACER CLERK, lab, RT, psych nurse, professor of social work, spike machine feeder, teacher, human resource officer, cyanide case hardener)? Give summary @ -Clinical presentation, vital signs and labs discussed with Dr. Shepard from [facility] for admission Was smoking cessation discussed for >3mins.? @ -No Was critical care preformed (if so, how long)? @ -33 minutes. Patient initially arrived with A. fib RVR Were there social determinants of health that impacted care today? How? (Homelessness, low income, unemployed, alcoholism, drug addiction, transportation, low edu. Level, literacy, decrease access to med. care, skilled nursing, rehab)? @ -No Was there de-escalation of care discussed even if they declined (Discuss DNR or withdrawal of care, Hospice)? DNR status @ -No What co-morbidities impacted this encounter? (DM, HTN, Smoking, COPD, CAD, Cancer, CVA, ARF, Chemo, Hep., AIDS, mental health diagnosis, sleep apnea, morbid obesity)? @ -None Was patient admitted / discharged? Hospital course, mention meds given and rou te, prescriptions, significant lab abnormalities, going to OR and other pertinent info. @ -82 Year-old female presents emergency department for generalized weakness. Patient initially very tachycardic A. fib RVR. Patient given IV fluids. She converted to sinus rhythm. Patient has a soft blood pressure. Lab shows hyponatremia. Rest of labs within acceptable limits. Patient was admitted to observation with consultation to cardiology. Undiagnosed new problem with uncertain prognosis? @ -No Drug Therapy requiring intensive monitoring for toxicity (Heparin, Nitro, Insulin, Cardizem)? @ -No Were any procedures done? @ -No Diagnosis/symptom? Acute, or Chronic, or Acute on Chronic? Uncomplicated (without systemic symptoms) or Complicated (systemic symptoms)? @ -1. Hyponatremia, 2. A. fib RVR Side effects of treatment? @ -No Exacerbation, Progression, or Severe Exacerbation? @ -No Poses a threat to life or bodily function? How? (Chest pain, USA, CO, pneumonia, PE, COPD, DKA, ARF, appy, cholecystitis, CVA, Diverticulitis, Homicidal, Suicidal, threat to staff... and all critical care pts) @ -ES - Lab Data Result diagrams: 09/21/22 08:30 09/21/22 08:30 Lab Results 09/21/22 09/21/22 09/21/22 Range/Units 08:25 08:30 08:30 WBC 10.0 (3.8-10.6) k/uL RBC 4.83 (3.80-5.40) m/uL Hgb 14.8 (11.4-16.0) gm/dL Hct 43.9 (34.0-46.0) % MCV 90.8 (80.0-100.0) fL MCH 30.6 (25.0-35.0) pg MCHC 33.7 (31.0-37.0) g/dL RDW 12.3 (11.5-15.5) % Plt Count 281 (150-450) k/uL MPV 8.2 Neutrophils % 85 % Lymphocytes % 6 % Monocytes % 7 % Eosinophils % 0 % Basophils % 0 % Neutrophils # 8.5 H (1.3-7.7) k/uL Lymphocytes # 0.6 L (1.0-4.8) k/uL Monocytes # 0.7 (0-1.0) k/uL Eosinophils # 0.0 (0-0.7) k/uL Basophils # 0.0 (0-0.2) k/uL PT 10.5 (9.0-12.0) sec INR 1.0 (<1.2) APTT 23.2 (22.0-30.0) sec Sodium (137-145) mmol/L Potassium (3.5-5.1) mmol/L Chloride (98-107) mmol/L Carbon Dioxide (22-30) mmol/L Anion Gap mmol/L BUN (7-17) mg/dL Creatinine (0.52-1.04) mg/dL Est GFR (CKD-EPI)AfAm (>60 ml/min/1.73 sqM) Est GFR (CKD-EPI)NonAf (>60 ml/min/1.73 sqM) Glucose (74-99) mg/dL POC Glucose (mg/dL) 204 H (70-110) mg/dL POC Glu Blast Furnace Supervisor ID Ross, Concepcion Plasma Lactic Acid Pierre (0.7-2.0) mmol/L Calcium (8.4-10.2) mg/dL Magnesium (1.6-2.3) mg/dL Total Bilirubin (0.2-1.3) mg/dL AST (14-36) U/L ALT (4-34) U/L Alkaline Phosphatase (38-126) U/L Troponin I (0.000-0.034) ng/mL Total Protein (6.3-8.2) g/dL Albumin (3.5-5.0) g/dL Blood Type Blood Type Confirm Blood Type Recheck Bld Type Recheck Status Antibody Screen Spec Expiration Date 09/21/22 09/21/22 09/21/22 Range/Units 08:30 08:30 08:30 WBC (3.8-10.6) k/uL RBC (3.80-5.40) m/uL Hgb (11.4-16.0) gm/dL Hct (34.0-46.0) % MCV (80.0-100.0) fL MCH (25.0-35.0) pg MCHC (31.0-37.0) g/dL RDW (11.5-15.5) % Plt Count (150-450) k/uL MPV Neutrophils % % Lymphocytes % % Monocytes % % Eosinophils % % Basophils % % Neutrophils # (1.3-7.7) k/uL Lymphocytes # (1.0-4.8) k/uL Monocytes # (0-1.0) k/uL Eosinophils # (0-0.7) k/uL Basophils # (0-0.2) k/uL PT (9.0-12.0) sec INR (<1.2) APTT (22.0-30.0) sec Sodium 129 L (137-145) mmol/L Potassium 4.4 (3.5-5.1) mmol/L Chloride 96 L (98-107) mmol/L Carbon Dioxide 23 (22-30) mmol/L Anion Gap 10 mmol/L BUN 21 H (7-17) mg/dL Creatinine 0.72 (0.52-1.04) mg/dL Est GFR (CKD-EPI)AfAm >90 (>60 ml/min/1.73 sqM) Est GFR (CKD-EPI)NonAf 79 (>60 ml/min/1.73 sqM) Glucose 208 H (74-99) mg/dL POC Glucose (mg/dL) (70-110) mg/dL POC Glu Blast Furnace Supervisor ID Plasma Lactic Acid Pierre 2.3 H* (0.7-2.0) mmol/L Calcium 9.5 (8.4-10.2) mg/dL Magnesium 1.9 (1.6-2.3) mg/dL Total Bilirubin 0.9 (0.2-1.3) mg/dL AST 40 H (14-36) U/L ALT 25 (4-34) U/L Alkaline Phosphatase 91 (38-126) U/L Troponin I 0.018 (0.000-0.034) ng/mL Total Protein 6.5 (6.3-8.2) g/dL Albumin 4.1 (3.5-5.0) g/dL Blood Type Blood Type Confirm Blood Type Recheck Bld Type Recheck Status Antibody Screen Spec Expiration Date 09/21/22 09/21/22 Range/Units 08:30 09:35 WBC (3.8-10.6) k/uL RBC (3.80-5.40) m/uL Hgb (11.4-16.0) gm/dL Hct (34.0-46.0) % MCV (80.0-100.0) fL MCH (25.0-35.0) pg MCHC (31.0-37.0) g/dL RDW (11.5-15.5) % Plt Count (150-450) k/uL MPV Neutrophils % % Lymphocytes % % Monocytes % % Eosinophils % % Basophils % % Neutrophils # (1.3-7.7) k/uL Lymphocytes # (1.0-4.8) k/uL Monocytes # (0-1.0) k/uL Eosinophils # (0-0.7) k/uL Basophils # (0-0.2) k/uL PT (9.0-12.0) sec INR (<1.2) APTT (22.0-30.0) sec Sodium (137-145) mmol/L Potassium (3.5-5.1) mmol/L Chloride (98-107) mmol/L Carbon Dioxide (22-30) mmol/L Anion Gap mmol/L BUN (7-17) mg/dL Creatinine (0.52-1.04) mg/dL Est GFR (CKD-EPI)AfAm (>60 ml/min/1.73 sqM) Est GFR (CKD-EPI)NonAf (>60 ml/min/1.73 sqM) Glucose (74-99) mg/dL POC Glucose (mg/dL) (70-110) mg/dL POC Glu Blast Furnace Supervisor ID Plasma Lactic Acid Pierre (0.7-2.0) mmol/L Calcium (8.4-10.2) mg/dL Magnesium (1.6-2.3) mg/dL Total Bilirubin (0.2-1.3) mg/dL AST (14-36) U/L ALT (4-34) U/L Alkaline Phosphatase (38-126) U/L Troponin I (0.000-0.034) ng/mL Total Protein (6.3-8.2) g/dL Albumin (3.5-5.0) g/dL Blood Type A Positive Blood Type Confirm A Positive Blood Type Recheck No Previous Record Bld Type Recheck Status CABO Indicated Antibody Screen NEGATIVE Spec Expiration Date 09/24/20222329 Disposition Clinical Impression: Atrial fibrillation with RVR, Hyponatremia Disposition: ADMITTED IP TO THIS [facility] Condition: Fair Referrals: Natalie Rossi, JOSELITO [Primary Care Provider] - 1-2 days Decision Time: 11:40
[2022-09-21 10:10] LABS: ALT 25 U/L (4-34); AST 40 U/L (14-36); African American GFR (CKD) >90 (>60 ml/min/1.73 sqM); Albumin 4.1 g/dL (3.5-5.0); Alkaline Phosphatase 91 U/L (38-126); Anion Gap 10 mmol/L; Basophils % (A) 0 %; Blood Urea Nitrogen 21 mg/dL (7-17); Calcium 9.5 mg/dL (8.4-10.2); Carbon Dioxide 23 mmol/L (22-30); Chloride 96 mmol/L (98-107); Eosinophils % (A) 0 %; Glucose 208 mg/dL (74-99); HCT 43.9 % (34.0-46.0); HGB 14.8 gm/dL (11.4-16.0); Lymphocytes # (A) 0.6 k/uL (1.0-4.8); Lymphocytes % (A) 6 %; MCH 30.6 pg (25.0-35.0); MCHC 33.7 g/dL (31.0-37.0); MCV 90.8 fL (80.0-100.0); Magnesium 1.9 mg/dL (1.6-2.3); Mean Platelet Volume 8.2; Monocytes # (A) 0.7 k/uL (0-1.0); Monocytes % (A) 7 %; Neutrophils # (A) 8.5 k/uL (1.3-7.7); Neutrophils % (A) 85 %; Non-African American GFR(CKD) 79 (>60 ml/min/1.73 sqM); Partial Thromboplastin Time 23.2 sec (22.0-30.0); Platelet Count 281 k/uL (150-450); Potassium 4.4 mmol/L (3.5-5.1); Prothrombin Time 10.5 sec (9.0-12.0); RBC 4.83 m/uL (3.80-5.40); RDW 12.3 % (11.5-15.5); Sodium 129 mmol/L (137-145); Total Bilirubin 0.9 mg/dL (0.2-1.3); Total Protein 6.5 g/dL (6.3-8.2)
[2022-09-21] MEDS ORDERED: ONDANSETRON 4 MG/2 ML VIAL IVP PRN (11:30)
[2022-09-21] MEDS ORDERED: NALOXONE 0.4 MG/ML 1 ML VIAL IV PRN (11:30)
[2022-09-21] MEDS ORDERED: ZOLPIDEM 5 MG TAB PO PRN (15:49)
[2022-09-21] MEDS ORDERED: ALPRAZolam 0.25 MG TAB PO PRN (15:49)
[2022-09-21] MEDS ORDERED: CALCIUM CARBONATE 500 MG CHEWABLE PO PRN (15:49)
[2022-09-21] MEDS ORDERED: traMADol 50 MG TAB PO PRN (15:49)
[2022-09-21] MEDS: METOPROLOL TARTRATE 25 MG TAB PO SCH ×2 (17:10→21:47)
[2022-09-21] MEDS: SODIUM CHLORIDE 0.9% 1,000 ML IV SCH ×2 (17:22→21:53)
[2022-09-21] MEDS: droNABinol 2.5 MG CAP PO SCH (18:21)
--- NOTE | 2022-09-21 18:22 | P.HPIM ---
History of Present Illness H&P Date: 09/21/22 Patient is a 82-year-old female with PMH of metastatic lung cancer, atrial fibrillation, hypertension, dyslipidemia, hypothyroidism presents the ED for generalized weakness. She was sent in by her radiation oncologist that noted that her heart rate was high. She reports generalized weakness since her previous discharge on 09/17. Patient and family reports a poor appetite. Patient reports constipation, last bowel movement was 3 days ago. She would like to home. She denies any headache, lower extremity edema, nausea or vomiting, fever or chills, cough, chest pain, shortness breath, palpitations, changes in urination. She denies any dizziness, numbness/weakness/tingling of the extremities. In the ED, her vital signs are stable. EKG showed atrial fibrillation with RVR, ventricular rate 151. CBC was unremarkable. Coagulation panel within normal limits. CMP showed sodium 129, chloride of 96, BUN of 21, glucose of 208, AST of 40. Troponin was 0.018. Lactic acid was 2.3. Patient is admitted for atrial fibrillation with RVR with cardiology consultation. Pertinent positives and negatives as discussed in HPI, a complete review of systems was performed and all other systems are negative. General: non toxic, no distress, appears at stated age Derm: warm, dry Head: atraumatic, normocephalic, symmetric Eyes: EOMI, no lid lag, anicteric sclera Mouth: no lip lesion, mucus membranes moist Cardiovascular: Irregularly regular, no murmur, positive posterior tibial pulse bilateral, Lungs: CTA bilateral, no rhonchi, no rales , no accessory muscle use Abdominal: soft, nontender to palpation, no guarding, no appreciable organomegaly Ext: no gross muscle atrophy, no edema, no contractures Neuro: no focal neuro deficits Psych: Alert, oriented, appropriate affect Atrial fibrillation with RVR Constipation Hyponatremia likely due to dehydration Lactic acidosis Chronic conditions: metastatic lung cancer, hypertension, dyslipidemia, hypothyroidism Based on my assessment of this patient, this patient meets a high complexity level of care. Patient has an acute diagnosis of atrial fibrillation with RVR that poses a threat to life or bodily function. This is likely worsened by dehydration. She is currently converted after 1 L normal saline bolus. Restart metoprolol 75 mg by mouth 3 times a day. Restart Eliquis 2.5 mg by mouth twice a day. Telemetry monitoring. Obtain magnesium level. Obtain TSH. Cardiology consulted. PT and OT was consulted to work with this patient. MiraLAX and Senokot for constipation. Trend lactic acid until negative. Hopeful improvement of hyponatremia with IV hydration. Eliquis for DVT prophylaxis. Patient would like to be NO CODE but OK with chest compressions. Patient names her daughter decision maker if she can't make decisions for herself. I have reviewed the following rehab consultant notes: I have reviewed the results of the following tests: CBC, CMP, coagulation panel, troponin, lactic acid as above. I have ordered the following tests: TSH, magnesium level. Repeat BMP tomorrow morning. I have discussed the care of this patient with the following independent historian: I have independently interpreted the following test below: EKG as above. I have discussed the management of this patient with the following physician: The case was discussed with the ED physician. Past Medical History Past Medical History: Atrial Fibrillation, Cancer, Hearing Disorder / Deafness, Hyperlipidemia, Hypertension, Osteoarthritis (OA), Syncope, Thyroid Disorder Additional Past Medical History / Comment(s): Hx MURMUR, PALPITATIONS, SHINGLES, CONSTIPATION, CURVATURE OF SPINE, bladder control prob, prob w/ balance-IMPROVED "Small leak in heart valve.", SKIN CANCER, recent adm. [facility] lung nodules, left clavicular mass, pt. unsure of kind of cancer, states when anxious or "worked up" affects her a-fib History of Any Multi-Drug Resistant Organisms: None Reported Past Surgical History: Hysterectomy, Joint Replacement Additional Past Surgical History / Comment(s): JASPER CATARACTS, JASPER KNEE RE PLACEMENTS, OOPHERECTOMY, Colonoscopies Past Anesthesia/Blood Transfusion Reactions: No Reported Reaction Past Psychological History: No Psychological Hx Reported, Anxiety Smoking Status: Never smoker Past Alcohol Use History: Rare Additional Past Alcohol Use History / Comment(s): Both parents smoked when she was growing up so she was exposed. Past Drug Use History: Marijuana Additional Drug Use History / Comment(s): CBD gummies for sleep each night per pt. - Past Family History Father Family Medical History: Cancer Additional Family Medical History / Comment(s): AGE 98, SMOKED, SKIN CANCER Mother Additional Family Medical History / Comment(s): AGE 80- SMOKER/EMPHYSEMA Medications and Allergies Home Medications Medication Instructions Recorded Confirmed Type Azelastine HCl [Astepro] 1 - 2 spray EA NOSTRIL BID PRN 07/18/22 09/21/22 History Fluticasone Propionate 1 - 2 spray EA NOSTRIL HS PRN 07/18/22 09/21/22 History Multivitamins, Thera [Multivitamin 1 tab PO DAILY 07/18/22 09/21/22 History (formulary)] Neuriva 1 tab PO DAILY 08/18/22 09/21/22 History traMADol HCL [Ultram] 50 mg PO Q6HR 08/18/22 09/21/22 History Zolpidem [Ambien] 5 mg PO HS PRN 09/12/22 09/21/22 History Calcium Carbonate [Tums] 500 mg PO QID PRN #28 tab 09/14/22 09/21/22 Rx droNABinol [Marinol] 2.5 mg PO AC-BID #14 cap 09/14/22 09/21/22 Rx Docusate [Colace] 100 mg PO BID #60 capsule 09/15/22 09/21/22 Rx ALPRAZolam [Xanax] 0.25 mg PO DAILY PRN tab 09/17/22 09/21/22 Rx Apixaban [Eliquis] 2.5 mg PO BID 30 Days #60 tab 09/17/22 09/21/22 Rx Atorvastatin [Lipitor] 10 mg PO HS 30 Days #30 tab 09/17/22 09/21/22 Rx Enalapril [Vasotec] 2.5 mg PO HS 30 Days #30 tab 09/17/22 09/21/22 Rx Levothyroxine Sodium [Synthroid] 50 mcg PO DAILY 30 Days #30 tab 09/17/22 09/21/22 Rx Metoprolol Tartrate [Lopressor] 75 mg PO TID 30 Days #90 tab 09/17/22 09/21/22 Rx Omeprazole 20 mg PO DAILY 30 Days #30 tab 09/17/22 09/21/22 Rx Ondansetron Odt [Zofran ODT] 8 mg PO Q8HR PRN 7 Days #21 tab 09/17/22 09/21/22 Rx oxyBUTYnin chloride [Ditropan] 5 mg PO BID 30 Days #60 tab 06/18/23 06/22/23 Rx Allergies Allergy/AdvReac Type Severity Reaction Status Date / Time No Known Allergies Allergy Verified 09/21/22 12:24 Physical Exam Vitals: Vital Signs Temp Pulse Pulse Resp BP BP Pulse Ox 09/21/22 14:00 76 16 09/21/22 13:53 98.3 F 76 16 133/78 97 09/21/22 12:33 97.4 F L 76 18 136/79 95 09/21/22 11:29 88 18 119/78 96 09/21/22 09:59 89 20 118/80 95 09/21/22 08:01 98 F 118 H 18 88/60 97 Intake and Output 09/21/22 09/21/22 09/21/22 06:59 14:59 22:59 Intake Total 118 Balance 118 Intake: Oral 118 Other: # Voids 1 Weight 60.328 kg 60.328 kg Results CBC & Chem 7: 09/21/22 08:30 09/21/22 08:30 Labs: Abnormal Lab Results - Last 24 Hours (Table) 09/21/22 09/21/22 09/21/22 Range/Units 08:25 08:30 08:30 Neutrophils # 8.5 H (1.3-7.7) k/uL Lymphocytes # 0.6 L (1.0-4.8) k/uL Sodium 129 L (137-145) mmol/L Chloride 96 L (98-107) mmol/L BUN 21 H (7-17) mg/dL Glucose 208 H (74-99) mg/dL POC Glucose (mg/dL) 204 H (70-110) mg/dL Plasma Lactic Acid Pierre (0.7-2.0) mmol/L AST 40 H (14-36) U/L 09/21/22 Range/Units 08:30 Neutrophils # (1.3-7.7) k/uL Lymphocytes # (1.0-4.8) k/uL Sodium (137-145) mmol/L Chloride (98-107) mmol/L BUN (7-17) mg/dL Glucose (74-99) mg/dL POC Glucose (mg/dL) (70-110) mg/dL Plasma Lactic Acid Pierre 2.3 H* (0.7-2.0) mmol/L AST (14-36) U/L Thrombosis Risk Factor Assmnt - Choose All That Apply Each Factor Represents 1 point: Abnormal pulmonary function (COPD) Each Risk Factor Represents 2 Points: Malignancy Each Risk Factor Represents 3 Points: Age 75 years or older Thrombosis Risk Factor Assessment Total Risk Factor Score: 6 Thrombosis Risk Factor Assessment Level: High Risk
[2022-09-21] MEDS: polyethylene glycoL 3350 17 GM POWD.PACK PO SCH (19:55)
[2022-09-21] MEDS: SENNOSIDES 8.6 MG TAB PO SCH (19:55)
[2022-09-21] MEDS: DOCUSATE 100 MG CAP PO SCH (19:59)
[2022-09-21] MEDS: APIXABAN 2.5 MG TABLET PO SCH (20:00)
[2022-09-21] MEDS: oxyBUTYnin chloride 5 MG TAB PO SCH (20:00)
[2022-09-21] MEDS ORDERED: lisinopriL 5 MG TAB PO SCH (21:00)
[2022-09-21] MEDS ORDERED: ATORVASTATIN 10 MG TAB PO SCH (21:00)
[2022-09-22] MEDS: droNABinol 2.5 MG CAP PO SCH (05:34)
[2022-09-22] MEDS ORDERED: LEVOTHYROXINE 50 MCG TAB PO SCH (06:30)
[2022-09-22 07:28] VITALS: RESP 18
[2022-09-22 07:58] LABS: HCT 43.4 % (34.0-46.0); HGB 14.7 gm/dL (11.4-16.0); MCH 30.7 pg (25.0-35.0); MCHC 33.8 g/dL (31.0-37.0); MCV 90.9 fL (80.0-100.0); Mean Platelet Volume 7.7; Platelet Count 266 k/uL (150-450); RBC 4.77 m/uL (3.80-5.40); RDW 12.3 % (11.5-15.5); WBC 9.8 k/uL (3.8-10.6)
[2022-09-22 08:28] LABS: African American GFR (CKD) >90 (>60 ml/min/1.73 sqM); Anion Gap 7 mmol/L; Blood Urea Nitrogen 14 mg/dL (7-17); Calcium 9.4 mg/dL (8.4-10.2); Carbon Dioxide 26 mmol/L (22-30); Chloride 95 mmol/L (98-107); Glucose 116 mg/dL (74-99); Non-African American GFR(CKD) 87 (>60 ml/min/1.73 sqM); Potassium 4.5 mmol/L (3.5-5.1); Sodium 128 mmol/L (137-145)
[2022-09-22] MEDS ORDERED: PANTOPRAZOLE 40 MG TABLET PO SCH (09:00)
[2022-09-22] MEDS ORDERED: AMIODARONE 200 MG TAB PO SCH (09:00)
[2022-09-22] MEDS: APIXABAN 2.5 MG TABLET PO SCH (09:02)
[2022-09-22] MEDS: DOCUSATE 100 MG CAP PO SCH (09:02)
[2022-09-22] MEDS: SENNOSIDES 8.6 MG TAB PO SCH (09:02)
[2022-09-22] MEDS: METOPROLOL TARTRATE 25 MG TAB PO SCH (09:02)
[2022-09-22] MEDS: polyethylene glycoL 3350 17 GM POWD.PACK PO SCH (09:03)
[2022-09-22] MEDS: oxyBUTYnin chloride 5 MG TAB PO SCH (09:03)
--- NOTE | 2022-09-22 09:20 | P.CRDCN ---
History of Present Illness History of present illness: HISTORY OF PRESENT ILLNESS: This is a 82-year-old female with a past medical history significant for paroxysmal atrial fibrillation hypertension, hyperlipidemia, and metastatic lung cancer. Patient follows in the office with Dr. Harris. We have been asked to see the patient in consultation for atrial fibrillation. Patient examined at the bedside. Patient presented to the hospital as recommended by her radiation oncologist as he noted her heart rate to be high. The patient was found to be in A. fib with RVR. At the time of examination this morning, the patient is maintaining sinus mechanism. She has been started on oral amiodarone. She denies any chest pain or pressure. Denies shortness of breath. Vital signs are stable. * EKG reveals atrial fibrillation with RVR * Laboratory data: WBC 9.8. Hemoglobin 14.7. Platelet count 266. Sodium 128. Potassium 4.5. B UN 14. Creatinine 0.57. Troponin negative 1. TSH 2.270. * Current home cardiac medications include Eliquis 2.5mg BID, enalapril 2.5 mg at night, metoprolol tartrate 75 mg 3 times a day * Most recent echocardiogram obtained in August 2022 revealing normal left ventricular size and systolic function, mild mitral and moderate tricuspid regurgitation and mild pulmonary hypertension REVIEW OF SYSTEMS: At the time of my exam: CONSTITUTIONAL: Denies fever or chills. HEENT: Denies blurred vision, vision changes, or eye pain. Denies hemoptysis CARDIOVASCULAR: Denies chest pain. Denies orthopnea. Denies PND. Denies palpitations RESPIRATORY: Denies shortness of breath. GASTROINTESTINAL: Denies abdominal pain. Denies nausea or vomiting. HEMATOLOGIC: Denies bleeding disorders. GENITOURINARY: Denies any blood in urine. SKIN: Denies pruitis. Denies rash. PHYSICAL EXAM: VITAL SIGNS: Reviewed. GENERAL: Well-developed in no acute distress. HEENT: Head is normocephalic. Pupils are equal, round. Sclerae anicteric. Mucous membranes of the mouth are moist. Neck supple. No JVD or thyromegaly LUNGS: Respirations even and unlabored. Lungs essentially clear to auscultation bilaterally. HEART: Regular rate and rhythm. S1 and S2 heard. ABDOMEN: Soft. Nondistended. Nontender. EXTREMITIES: Normal range of motion. No clubbing or cyanosis. Peripheral pulses intact. No lower extremity edema NEUROLOGIC: Awake and alert. Oriented x 3. ASSESSMENT: Paroxysmal atrial fibrillation with RVR, currently maintaining sinus mechanism Hyponatremia Metastatic lung cancer Hypertension Hyperlipidemia PLAN: No need to repeat echocardiogram as this was performed last week Continue current cardiac medications Patient started on amiodarone this morning. Continue 400 mg twice a day for one week then decrease to 200 mg twice a day for one week and then decrease to 200 mg daily Patient may be discharged home today from a cardiac standpoint Nurse practitioner note has been reviewed by physician. Signing provider agrees with the documented findings, assessment, and plan of care. Past Medical History Past Medical History: Atrial Fibrillation, Cancer, Hearing Disorder / Deafness, Hyperlipidemia, Hypertension, Osteoarthritis (OA), Syncope, Thyroid Disorder Additional Past Medical History / Comment(s): Hx MURMUR, PALPITATIONS, SHINGLES, CONSTIPATION, CURVATURE OF SPINE, bladder control prob, prob w/ balance-IMPROVED "Small leak in heart valve.", SKIN CANCER, recent adm. MPH lung nodules, left clavicular mass, pt. unsure of kind of cancer, states when anxious or "worked up" affects her a-fib History of Any Multi-Drug Resistant Organisms: None Reported Past Surgical History: Hysterectomy, Joint Replacement Additional Past Surgical History / Comment(s): JASPER CATARACTS, JASPER KNEE REPLACEMENTS, OOPHERECTOMY, Colonoscopies Past Anesthesia/Blood Transfusion Reactions: No Reported Reaction Past Psychological History: No Psychological Hx Reported, Anxiety Smoking Status: Never smoker Past Alcohol Use History: Rare Additional Past Alcohol Use History / Comment(s): Both parents smoked when she was growing up so she was exposed. Past Drug Use History: Marijuana Additional Drug Use History / Comment(s): CBD gummies for sleep each night per pt. - Past Family History Father Family Medical History: Cancer Additional Family Medical History / Comment(s): AGE 98, SMOKED, SKIN CANCER Mother Additional Family Medical History / Comment(s): AGE 80- SMOKER/EMPHYSEMA Medications and Allergies Home Medications Medication Instructions Recorded Confirmed Type Azelastine HCl [Astepro] 1 - 2 spray EA NOSTRIL BID PRN 07/18/22 09/21/22 History Fluticasone Propionate 1 - 2 spray EA NOSTRIL HS PRN 07/18/22 09/21/22 History Multivitamins, Thera [Multivitamin 1 tab PO DAILY 07/18/22 09/21/22 History (formulary)] Neuriva 1 tab PO DAILY 08/18/22 09/21/22 History traMADol HCL [Ultram] 50 mg PO Q6HR 08/18/22 09/21/22 History Zolpidem [Ambien] 5 mg PO HS PRN 09/12/22 09/21/22 History Calcium Carbonate [Tums] 500 mg PO QID PRN #28 tab 09/14/22 09/21/22 Rx droNABinol [Marinol] 2.5 mg PO AC-BID #14 cap 09/14/22 09/21/22 Rx Docusate [Colace] 100 mg PO BID #60 capsule 09/15/22 09/21/22 Rx ALPRAZolam [Xanax] 0.25 mg PO DAILY PRN tab 09/17/22 09/21/22 Rx Apixaban [Eliquis] 2.5 mg PO BID 30 Days #60 tab 09/17/22 09/21/22 Rx Atorvastatin [Lipitor] 10 mg PO HS 30 Days #30 tab 09/17/22 09/21/22 Rx Enalapril [Vasotec] 2.5 mg PO HS 30 Days #30 tab 09/17/22 09/21/22 Rx Levothyroxine Sodium [Synthroid] 50 mcg PO DAILY 30 Days #30 tab 09/17/22 09/21/22 Rx Metoprolol Tartrate [Lopressor] 75 mg PO TID 30 Days #90 tab 09/17/22 09/21/22 Rx Omeprazole 20 mg PO DAILY 30 Days #30 tab 09/17/22 09/21/22 Rx Ondansetron Odt [Zofran ODT] 8 mg PO Q8HR PRN 7 Days #21 tab 09/17/22 09/21/22 Rx oxyBUTYnin chloride [Ditropan] 5 mg PO BID 30 Days #60 tab 09/17/22 09/21/22 Rx Allergies Allergy/AdvReac Type Severity Reaction Status Date / Time No Known Allergies Allergy Verified 09/21/22 12:24 Physical Exam Vitals: Vital Signs Temp Pulse Pulse Resp BP BP BP 09/22/22 06:30 97.5 F L 68 18 137/81 09/22/22 04:10 97.7 F 71 15 146/80 09/22/22 02:16 97.9 F 70 16 138/81 09/21/22 19:40 98.2 F 51 L 16 154/88 09/21/22 14:00 76 16 09/21/22 13:53 98.3 F 76 16 133/78 09/21/22 12:33 97.4 F L 76 18 136/79 09/21/22 11:29 88 18 119/78 09/21/22 09:59 89 20 118/80 Pulse Ox 09/22/22 06:30 97 09/22/22 04:10 95 09/22/22 02:16 96 09/21/22 19:40 95 09/21/22 14:00 09/21/22 13:53 97 09/21/22 12:33 95 09/21/22 11:29 96 09/21/22 09:59 95 Intake and Output 09/21/22 09/22/22 09/22/22 22:59 06:59 14:59 Intake Total 118 Balance 118 Intake: Oral 118 Other: # Voids 0 4 Weight 60.328 kg Results 09/22/22 07:43 09/22/22 07:43 Cardiac Enzymes 09/21/22 09/21/22 Range/Units 08:30 08:30 AST 40 H (14-36) U/L Troponin I 0.018 (0.000-0.034) ng/mL Coagulation 09/21/22 Range/Units 08:30 PT 10.5 (9.0-12.0) sec APTT 23.2 (22.0-30.0) sec CBC 09/21/22 09/22/22 Range/Units 08:30 07:43 WBC 10.0 9.8 (3.8-10.6) k/uL RBC 4.83 4.77 (3.80-5.40) m/uL Hgb 14.8 14.7 (11.4-16.0) gm/dL Hct 43.9 43.4 (34.0-46.0) % Plt Count 281 266 (150-450) k/uL Comprehensive Metabolic Panel 09/21/22 09/22/22 Range/Units 08:30 07:43 Sodium 129 L 128 L (137-145) mmol/L Potassium 4.4 4.5 (3.5-5.1) mmol/L Chloride 96 L 95 L (98-107) mmol/L Carbon Dioxide 23 26 (22-30) mmol/L BUN 21 H 14 (7-17) mg/dL Creatinine 0.72 0.57 (0.52-1.04) mg/dL Glucose 208 H 116 H (74-99) mg/dL Calcium 9.5 9.4 (8.4-10.2) mg/dL AST 40 H (14-36) U/L ALT 25 (4-34) U/L Alkaline Phosphatase 91 (38-126) U/L Total Protein 6.5 (6.3-8.2) g/dL Albumin 4.1 (3.5-5.0) g/dL Current Medications Generic Name Dose Route Start Last Admin Trade Name Freq PRN Reason Stop Dose Admin Alprazolam 0.25 mg 09/21/22 15:49 Alprazolam 0.25 Mg Tab PO DAILY PRN Anxiety Amiodarone HCl 400 mg 09/22/22 09:00 09/22/22 09:03 Amiodarone 200 Mg Tab PO 10/25/22 08:59 400 mg BID TYREE Administration Taper Apixaban 2.5 mg 09/21/22 21:00 09/22/22 09:02 Apixaban 2.5 Mg Tablet PO 2.5 mg BID TYREE Administration Protocol Atorvastatin Calcium 10 mg 09/21/22 21:00 09/21/22 20:00 Atorvastatin 10 Mg Tab PO 10 mg HS TYREE Administration Calcium Carbonate/Glycine 500 mg 09/21/22 15:49 Calcium Carbonate 500 Mg Chewable PO QID PRN Heartburn Demeclocycline HCl 300 mg 09/22/22 09:30 Demeclocycline 150 Mg Tab PO BID TYREE Protocol Docusate Sodium 100 mg 09/21/22 21:00 09/22/22 09:02 Docusate 100 Mg Cap PO 100 mg BID TYREE Administration Dronabinol 2.5 mg 09/21/22 17:30 09/22/22 05:34 Dronabinol 2.5 Mg Cap PO 2.5 mg AC-BID TYREE Administration Levothyroxine Sodium 50 mcg 09/22/22 06:30 09/22/22 05:35 Levothyroxine 50 Mcg Tab PO 50 mcg 0630 TYREE Administration Lisinopril 5 mg 09/21/22 21:00 09/21/22 19:59 Lisinopril 5 Mg Tab PO 5 mg HS TYREE Administration Metoprolol Tartrate 75 mg 09/21/22 16:00 09/22/22 09:02 Metoprolol Tartrate 25 Mg Tab PO 75 mg TID TYREE Administration Naloxone HCl 0.2 mg 09/21/22 11:30 Naloxone 0.4 Mg/Ml 1 Ml Vial IV Q2M PRN Opioid Reversal Ondansetron HCl 4 mg 09/21/22 11:30 Ondansetron 4 Mg/2 Ml Vial IVP Q8HR PRN Nausea And Vomiting Oxybutynin Chloride 5 mg 09/21/22 21:00 09/22/22 09:03 Oxybutynin Chloride 5 Mg Tab PO 5 mg BID TYREE Administration Pantoprazole Sodium 40 mg 09/22/22 09:00 09/22/22 09:01 Pantoprazole 40 Mg Tablet PO 40 mg DAILY TYREE Administration Polyethylene Glycol 17 gm 09/21/22 18:30 09/22/22 09:03 Polyethylene Glycol 3350 17 Gm Powd.Pack PO 17 gm DAILY TYREE Administration Senna 8.6 mg 09/21/22 18:30 09/22/22 09:02 Sennosides 8.6 Mg Tab PO 8.6 mg DAILY TYREE Administration Tramadol HCl 50 mg 09/21/22 15:49 Tramadol 50 Mg Tab PO Q6HR PRN Breakthrough Pain Zolpidem Tartrate 5 mg 09/21/22 15:49 Zolpidem 5 Mg Tab PO HS PRN Insomnia Intake and Output 09/21/22 09/22/22 09/22/22 22:59 06:59 14:59 Intake Total 118 Balance 118 Intake: Oral 118 Other: # Voids 0 4 Weight 60.328 kg 09/22/22 07:43 09/22/22 07:43
[2022-09-22] MEDS ORDERED: DEMECLOCYCLINE 150 MG TAB PO SCH (09:30)
--- NOTE | 2022-09-22 12:18 | P.DS ---
Providers Date of admission: 09/21/22 11:31 Expected date of discharge: 09/22/22 Attending physician: Christy Myles MD Consults: 09/21/22 11:30 Consult Physician Routine Consulting Provider: Warren Harris Consult Reason/Comments: afib rvr Do you want consulting provider notified?: Yes Primary care physician: JOSELITO Venegas Hospital Course: Patient is a 82-year-old female with PMH of metastatic lung cancer, atrial fibrillation, hypertension, dyslipidemia, hypothyroidism presents the ED for generalized weakness. She was sent in by her radiation oncologist that noted that her heart rate was high. She reports generalized weakness since her previous discharge on 09/17. Patient and family reports a poor appetite. Patient reports constipation, last bowel movement was 3 days ago. She would like to home. She denies any headache, lower extremity edema, nausea or vomiting, fever or chills, cough, chest pain, shortness breath, palpitations, changes in urination. She denies any dizziness, numbness/weakness/tingling of the extremities. In the ED, her vital signs are stable. EKG showed atrial fibrillation with RVR, ventricular rate 151. CBC was unremarkable. Coagulation panel within normal limits. CMP showed sodium 129, chloride of 96, BUN of 21, glucose of 208, AST of 40. Troponin was 0.018. Lactic acid was 2.3. Patient is admitted for atrial fibrillation with RVR with cardiology consultation. Patient seen and examined. No acute events overnight. Patient reports continued weakness. She denies any dizziness, chest pain, SOB, palpitations. Patient states she would like to go home. She has been started on amiodarone by cardiology and cleared for discharge. Her heart rate is currently in the 90s. Her discharge is pending PT and OT evaluation. Pertinent studies include EKG. General: non toxic, no distress, appears at stated age Derm: warm, dry Head: atraumatic, normocephalic, symmetric Eyes: EOMI, no lid lag, anicteric sclera Cardiovascular: Irregularly regular, no murmur Lungs: CTA bilateral, no rhonchi, no rales , no accessory muscle use Ext: no gross muscle atrophy, no edema, no contractures Neuro: no focal neuro deficits Psych: Alert, oriented, appropriate affect Discharge Diagnosis: Atrial fibrillation with RVR Constipation Hyponatremia likely due to dehydration Lactic acidosis Chronic conditions: metastatic lung cancer, hypertension, dyslipidemia, hypothyroidism This complex discharge took 35 minutes to complete. Patient Condition at Discharge: Fair Plan - Discharge Summary New Discharge Prescriptions: New Amiodarone [Cordarone] See Rx Instructions .ROUTE .COMPLEX #58 tab Continue Azelastine HCl [Astepro] 1 - 2 spray EA NOSTRIL BID PRN PRN Reason: DRAINAGE/CONGESTION Neuriva 1 tab PO DAILY Calcium Carbonate [Tums] 500 mg PO QID PRN #28 tab PRN Reason: Heartburn Metoprolol Tartrate [Lopressor] 75 mg PO TID 30 Days #90 tab ALPRAZolam [Xanax] 0.25 mg PO DAILY PRN tab PRN Reason: Anxiety Apixaban [Eliquis] 2.5 mg PO BID 30 Days #60 tab Atorvastatin [Lipitor] 10 mg PO HS 30 Days #30 tab Levothyroxine Sodium [Synthroid] 50 mcg PO DAILY 30 Days #30 tab Enalapril [Vasotec] 2.5 mg PO HS 30 Days #30 tab Ondansetron Odt [Zofran ODT] 8 mg PO Q8HR PRN 7 Days #21 tab PRN Reason: Nausea And Vomiting Multivitamins, Thera [Multivitamin (formulary)] 1 tab PO DAILY Fluticasone Propionate 1 - 2 spray EA NOSTRIL HS PRN PRN Reason: DRAINAGE/CONGESTION traMADol HCL [Ultram] 50 mg PO Q6HR Zolpidem [Ambien] 5 mg PO HS PRN PRN Reason: Insomnia Docusate [Colace] 100 mg PO BID #60 capsule oxyBUTYnin chloride [Ditropan] 5 mg PO BID 30 Days #60 tab Omeprazole 20 mg PO DAILY 30 Days #30 tab droNABinol [Marinol] 2.5 mg PO AC-BID #60 cap Discharge Medication List Azelastine HCl [Astepro] 1 - 2 spray EA NOSTRIL BID PRN 07/18/22 [History] Fluticasone Propionate 1 - 2 spray EA NOSTRIL HS PRN 07/18/22 [History] Multivitamins, Thera [Multivitamin (formulary)] 1 tab PO DAILY 07/18/22 [History] Neuriva 1 tab PO DAILY 08/18/22 [History] traMADol HCL [Ultram] 50 mg PO Q6HR 08/18/22 [History] Zolpidem [Ambien] 5 mg PO HS PRN 09/12/22 [History] Calcium Carbonate [Tums] 500 mg PO QID PRN #28 tab 09/14/22 [Rx] Docusate [Colace] 100 mg PO BID #60 capsule 09/15/22 [Rx] ALPRAZolam [Xanax] 0.25 mg PO DAILY PRN tab 09/17/22 [Rx] Apixaban [Eliquis] 2.5 mg PO BID 30 Days #60 tab 09/17/22 [Rx] Atorvastatin [Lipitor] 10 mg PO HS 30 Days #30 tab 09/17/22 [Rx] Enalapril [Vasotec] 2.5 mg PO HS 30 Days #30 tab 09/17/22 [Rx] Levothyroxine Sodium [Synthroid] 50 mcg PO DAILY 30 Days #30 tab 09/17/22 [Rx] Metoprolol Tartrate [Lopressor] 75 mg PO TID 30 Days #90 tab 09/17/22 [Rx] Omeprazole 20 mg PO DAILY 30 Days #30 tab 09/17/22 [Rx] Ondansetron Odt [Zofran ODT] 8 mg PO Q8HR PRN 7 Days #21 tab 09/17/22 [Rx] oxyBUTYnin chloride [Ditropan] 5 mg PO BID 30 Days #60 tab 09/17/22 [Rx] Amiodarone [Cordarone] See Rx Instructions .ROUTE .COMPLEX #58 tab 09/22/22 [Rx] droNABinol [Marinol] 2.5 mg PO AC-BID #60 cap 09/22/22 [Rx] Follow up Appointment(s)/Referral(s): Warren Harris MD [STAFF PHYSICIAN] - 1 Week Natalie Rossi NPC [Primary Care Provider] - 1-2 days Activity/Diet/Wound Care/Special Instructions: Diet: Cardiac, fluid restriction Follow up with your PCP within 1-2 days of discharge. Follow up with Cardiology within 1 week of discharge. Follow up with Radiation Oncology and Oncology with the appointment given to you. Take all medications as advised. Amiodarone 400 mg by mouth twice a day x 1 week followed by 200 mg by mouth twice a day x 1 week followed by 200 mg by mouth daily. Discharge Disposition: HOME SELF-CARE
[2022-09-22 13:51] VITALS: BP 146/89; PULSE 67; TEMP 97.4
== END 2022-09-22 14:52 | disposition home or self-care (01) ==
LOC: EC 07:59 → 6NMEDSUR 11:31
PROVIDERS: ADMIT Family Medicine; ATTEND Family Medicine
DX: I48.0 Paroxysmal atrial fibrillation (principal); K59.00 Constipation, unspecified; E87.1 Hypo-osmolality and hyponatremia; E87.20 Acidosis, unspecified; I08.1 Rheumatic disorders of both mitral and tricuspid valves; I27.20 Pulmonary hypertension, unspecified; C34.90 Malignant neoplasm of unspecified part of unspecified bronchus or lung; I10 Essential (primary) hypertension; E78.5 Hyperlipidemia, unspecified; E03.9 Hypothyroidism, unspecified; H91.90 Unspecified hearing loss, unspecified ear; M19.90 Unspecified osteoarthritis, unspecified site; R01.1 Cardiac murmur, unspecified; Z86.19 Personal history of other infectious and parasitic diseases; R32 Unspecified urinary incontinence; Z96.653 Presence of artificial knee joint, bilateral; Z98.42 Cataract extraction status, left eye; Z98.41 Cataract extraction status, right eye; Z90.722 Acquired absence of ovaries, bilateral; Z98.890 Other specified postprocedural states; F41.9 Anxiety disorder, unspecified; Z80.8 Family history of malignant neoplasm of other organs or systems; Z83.6 Family history of other diseases of the respiratory system; Z79.01 Long term (current) use of anticoagulants; Z79.890 Hormone replacement therapy; Z79.899 Other long term (current) drug therapy; Z79.891 Long term (current) use of opiate analgesic
CPT/HCPCS: 96360; 99291; 36415; 93005; 97162; 97166; 86900; 86901; 80053; 80048; 84443; 83605; 83735; 84484; 85025; 85027; 85610; 85730; 86850; G0378 ×2; Q0167 ×2

== ENCOUNTER 2022-09-26 08:53 | Inpatient (IN) | payer MEDICARE ==
[2022-09-26] MEDS ORDERED: SODIUM CHLORIDE 0.9% 500 ML 500 ML IV STA (10:06)
--- NOTE | 2022-09-26 10:12 | ED ---
Weakness HPI - General Chief complaint: Weakness Stated complaint: weakness Time Seen by Provider: 09/26/22 09:35 Source: patient, RN notes reviewed Mode of arrival: ambulatory Limitations: no limitations - History of Present Illness Initial comments: This an 82-year-old female presents emergency Department chief complaint of generalized weakness. Patient has been in our hospital with A. fib, hyponatremia. Patient states she felt well yesterday prior to her radiation therapy. Patient states she woke up today feeling very weak, run down denies any focal weakness no headache or dizziness. Patient states she is currently being treated for lung cancer denies any states he nausea vomiting diarrhea constipation no reported fever. - Related Data Home Medications Medication Instructions Recorded Confirmed Azelastine HCl [Astepro] 1 - 2 spray EA NOSTRIL BID PRN 07/18/22 09/26/22 Fluticasone Propionate 1 - 2 spray EA NOSTRIL HS PRN 07/18/22 09/26/22 Multivitamins, Thera [Multivitamin 1 tab PO DAILY 07/18/22 09/26/22 (formulary)] Neuriva 1 tab PO DAILY 08/18/22 09/26/22 traMADol HCL [Ultram] 50 mg PO Q6HR 08/18/22 09/26/22 Zolpidem [Ambien] 5 mg PO HS PRN 09/12/22 09/26/22 Amiodarone [Cordarone] See Taper PO DIRECTED 09/26/22 09/26/22 Previous Rx's Medication Instructions Recorded Calcium Carbonate [Tums] 500 mg PO QID PRN #28 tab 09/14/22 Docusate [Colace] 100 mg PO BID #60 capsule 09/15/22 ALPRAZolam [Xanax] 0.25 mg PO DAILY PRN tab 09/17/22 Apixaban [Eliquis] 2.5 mg PO BID 30 Days #60 tab 09/17/22 Atorvastatin [Lipitor] 10 mg PO HS 30 Days #30 tab 09/17/22 Enalapril [Vasotec] 2.5 mg PO HS 30 Days #30 tab 09/17/22 Levothyroxine Sodium [Synthroid] 50 mcg PO DAILY 30 Days #30 tab 09/17/22 Metoprolol Tartrate [Lopressor] 75 mg PO TID 30 Days #90 tab 09/17/22 Omeprazole 20 mg PO DAILY 30 Days #30 tab 09/17/22 Ondansetron Odt [Zofran ODT] 8 mg PO Q8HR PRN 7 Days #21 tab 09/17/22 oxyBUTYnin chloride [Ditropan] 5 mg PO BID 30 Days #60 tab 09/17/22 droNABinol [Marinol] 2.5 mg PO AC-BID #60 cap 09/22/22 Allergies Allergy/AdvReac Type Severity Reaction Status Date / Time No Known Allergies Allergy Verified 09/26/22 10:49 Review of Systems ROS Statement: Those systems with pertinent positive or pertinent negative responses have been documented in the HPI. ROS Other: All systems not noted in ROS Statement are negative. Past Medical History Past Medical History: Atrial Fibrillation, Cancer, Hearing Disorder / Deafness, Hyperlipidemia, Hypertension, Osteoarthritis (OA), Syncope, Thyroid Disorder Additional Past Medical History / Comment(s): Hx MURMUR, PALPITATIONS, SHINGLES, CONSTIPATION, CURVATURE OF SPINE, bladder control prob, prob w/ balance- IMPROVED "Small leak in heart valve.", SKIN CANCER, recent adm. [facility] lung nodules, left clavicular mass, pt. unsure of kind of cancer, states when anxious or "worked up" affects her a-fib History of Any Multi-Drug Resistant Organisms: None Reported Past Surgical History: Hysterectomy, Joint Replacement Additional Past Surgical History / Comment(s): JASPER CATARACTS, JASPER KNEE REPLACEMENTS, OOPHERECTOMY, Colonoscopies Past Anesthesia/Blood Transfusion Reactions: No Reported Reaction Past Psychological History: No Psychological Hx Reported, Anxiety Smoking Status: Never smoker Past Alcohol Use History: Rare Past Drug Use History: Marijuana - Past Family History Father Family Medical History: Cancer Additional Family Medical History / Comment(s): AGE 98, SMOKED, SKIN CANCER Mother Additional Family Medical History / Comment(s): AGE 80- SMOKER/EMPHYSEMA General Exam Limitations: no limitations General appearance: alert, in no apparent distress Head exam: Present: atraumatic, normocephalic, normal inspection Eye exam: Present: normal appearance, PERRL, EOMI. Absent: scleral icterus, conjunctival injection, periorbital swelling ENT exam: Present: normal exam, normal oropharynx, mucous membranes moist Neck exam: Present: normal inspection, full ROM. Absent: tenderness, meningismus, lymphadenopathy Respiratory exam: Present: normal lung sounds bilaterally. Absent: respiratory distress, wheezes, rales, rhonchi, stridor Cardiovascular Exam: Present: regular rate, normal rhythm, normal heart sounds. Absent: systolic murmur, diastolic murmur, rubs, gallop, clicks GI/Abdominal exam: Present: soft, normal bowel sounds. Absent: distended, tenderness, guarding, rebound, rigid Neurological exam: Present: alert, oriented X3, CN II-XII intact, reflexes normal. Absent: motor sensory deficit Skin exam: Present: warm, dry, intact, normal color. Absent: rash Course Vital Signs 09/26/22 09/26/22 09/26/22 09:20 10:45 11:26 Temperature 98 F Pulse Rate 51 L 52 L 52 L Respiratory 18 16 18 Rate Blood Pressure 114/67 143/78 156/86 O2 Sat by Pulse 97 96 96 Oximetry 09/26/22 09/26/22 12:21 12:58 Temperature Pulse Rate 46 L 61 Respiratory 16 Rate Blood Pressure 139/91 O2 Sat by Pulse 94 L 95 Oximetry EKG Findings - EKG Comments: EKG Findings:: EKG performed at 9:33 sinus bradycardia with rate of 46 [place] 184 QRS 83 QT/QTc 440 /408 - EKG Results: EKG: interpreted by CECILE Medical Decision Making - Medical Decision Making Was pt. sent in by a medical professional or institution ([facility]RE[facility] Feliz, STOCK HOLDER, urgent care, hospital, or jail...) When possible be specific @ -No Did you speak to anyone other than the patient for history (EMS, parent, family, police, friend...)? What history was obtained from this source @ -Daughter in the room providing significant past medical history Did you review nursing and triage notes (agree or disagree)? Why? @ -I reviewed and agree with nursing and triage notes Were old charts reviewed (outside hosp., previous admission, EMS record, old EKG, old radiological studies, urgent care reports/EKG's, jail records)? Report findings @ -Reviewed recent laboratory studies and admissions reviewed Differential Diagnosis (chest pain, altered mental status, abdominal pain women, abdominal pain men, vaginal bleeding, weakness, fever, dyspnea, syncope, headache, dizziness, GI bleed, back pain, seizure, CVA, palpatations, mental health, musculoskeletal)? @ -Weakness, hyponatremia, dehydration, UTI, MS, EKG interpreted by me (3pts min.). @ -As above X-rays interpreted by me (1pt min.). @ -None done CT interpreted by me (1pt min.). @ -None done U/S interpreted by me (1pt. min.). @ -None done What testing was considered but not performed or refused? (CT, X-rays, U/S, labs)? Why? @ -None What meds were considered but not given or refused? Why? @ -None Did you discuss the management of the patient with other professionals (professionals i.e. , PA, STOCK HOLDER, lab, RT, psych nurse, rn social services, trial lawyer, teacher, audit officer, employment case manager)? Give summary @ -[Dr. Garza for admission given hyponatremia at 120, increasing weakness, fatigue Was smoking cessation discussed for >3mins.? @ -No Was critical care preformed (if so, how long)? @ -No Were there social determinants of health that impacted care today? How? (Homelessness, low income, unemployed, alcoholism, drug addiction, transportation, low edu. Level, literacy, decrease access to med. care, long term, rehab)? @ -No Was there de-escalation of care discussed even if they declined (Discuss DNR or withdrawal of care, Hospice)? DNR status @ -No What co-morbidities impacted this encounter? (DM, HTN, Smoking, COPD, CAD, Cancer, CVA, ARF, Chemo, Hep., AIDS, mental health diagnosis, sleep apnea, mor bid obesity)? @ -Lung cancer, A. fib Was patient admitted / discharged? Hospital course, mention meds given and route, prescriptions, significant lab abnormalities, going to OR and other pertinent info. @ -Admitted patient's found to have hyponatremia 120 patient will require IV fluid hydration, recheck this most likely related to her non-small cell lung cancer. Patient did have fluid bolus, IV fluids ordered Undiagnosed new problem with uncertain prognosis? @ -No Drug Therapy requiring intensive monitoring for toxicity (Heparin, Nitro, Insulin, Cardizem)? @ -No Were any procedures done? @ -No Diagnosis/symptom? @ -Weakness, hyponatremia Acute, or Chronic, or Acute on Chronic? @ -Acute Uncomplicated (without systemic symptoms) or Complicated (systemic symptoms)? @ -Uncomplicated Side effects of treatment? @ -No Exacerbation, Progression, or Severe Exacerbation? @ -No Poses a threat to life or bodily function? How? (Chest pain, USA, MS, pneumonia, PE, COPD, DKA, ARF, appy, cholecystitis, CVA, Diverticulitis, Homicidal, Suicidal, threat to staff... and all critical care pts) @ -No - Lab Data Result diagrams: 09/26/22 10:20 09/26/22 10:20 Lab Results 09/26/22 09/26/22 09/26/22 Range/Units 10:20 10:20 10:20 WBC 11.2 H (3.8-10.6) k/uL RBC 4.61 (3.80-5.40) m/uL Hgb 14.0 (11.4-16.0) gm/dL Hct 40.5 (34.0-46.0) % MCV 87.7 (80.0-100.0) fL MCH 30.3 (25.0-35.0) pg MCHC 34.6 (31.0-37.0) g/dL RDW 12.4 (11.5-15.5) % Plt Count 262 (150-450) k/uL MPV 8.3 Neutrophils % 85 % Lymphocytes % 6 % Monocytes % 7 % Eosinophils % 0 % Basophils % 0 % Neutrophils # 9.5 H (1.3-7.7) k/uL Lymphocytes # 0.7 L (1.0-4.8) k/uL Monocytes # 0.8 (0-1.0) k/uL Eosinophils # 0.0 (0-0.7) k/uL Basophils # 0.0 (0-0.2) k/uL PT 10.7 (9.0-12.0) sec INR 1.0 (<1.2) APTT 23.1 (22.0-30.0) sec Sodium (137-145) mmol/L Potassium (3.5-5.1) mmol/L Chloride (98-107) mmol/L Carbon Dioxide (22-30) mmol/L Anion Gap mmol/L BUN (7-17) mg/dL Creatinine (0.52-1.04) mg/dL Est GFR (CKD-EPI)AfAm (>60 ml/min/1.73 sqM) Est GFR (CKD-EPI)NonAf (>60 ml/min/1.73 sqM) Glucose (74-99) mg/dL Calcium (8.4-10.2) mg/dL Magnesium (1.6-2.3) mg/dL Total Bilirubin (0.2-1.3) mg/dL AST (14-36) U/L ALT (4-34) U/L Alkaline Phosphatase (38-126) U/L Troponin I (0.000-0.034) ng/mL Total Protein (6.3-8.2) g/dL Albumin (3.5-5.0) g/dL Urine Color Light Yellow Urine Appearance Clear (Clear) Urine pH 7.0 (5.0-8.0) Ur Specific [place] 1.012 (1.001-1.035) Urine Protein Negative (Negative) Urine Glucose (UA) Negative (Negative) Urine Ketones Negative (Negative) Urine Blood Negative (Negative) Urine Nitrite Negative (Negative) Urine Bilirubin Negative (Negative) Urine Urobilinogen <2.0 (<2.0) mg/dL Ur Leukocyte Esterase Negative (Negative) 09/26/22 09/26/22 Range/Units 10:20 10:20 WBC (3.8-10.6) k/uL RBC (3.80-5.40) m/uL Hgb (11.4-16.0) gm/dL Hct (34.0-46.0) % MCV (80.0-100.0) fL MCH (25.0-35.0) pg MCHC (31.0-37.0) g/dL RDW (11.5-15.5) % Plt Count (150-450) k/uL MPV Neutrophils % % Lymphocytes % % Monocytes % % Eosinophils % % Basophils % % Neutrophils # (1.3-7.7) k/uL Lymphocytes # (1.0-4.8) k/uL Monocytes # (0-1.0) k/uL Eosinophils # (0-0.7) k/uL Basophils # (0-0.2) k/uL PT (9.0-12.0) sec INR (<1.2) APTT (22.0-30.0) sec Sodium 120 L (137-145) mmol/L Potassium 5.4 H (3.5-5.1) mmol/L Chloride 86 L (98-107) mmol/L Carbon Dioxide 27 (22-30) mmol/L Anion Gap 7 mmol/L BUN 18 H (7-17) mg/dL Creatinine 0.63 (0.52-1.04) mg/dL Est GFR (CKD-EPI)AfAm >90 (>60 ml/min/1.73 sqM) Est GFR (CKD-EPI)NonAf 84 (>60 ml/min/1.73 sqM) Glucose 157 H (74-99) mg/dL Calcium 9.2 (8.4-10.2) mg/dL Magnesium 1.8 (1.6-2.3) mg/dL Total Bilirubin 1.0 (0.2-1.3) mg/dL AST 101 H (14-36) U/L ALT 48 H (4-34) U/L Alkaline Phosphatase 73 (38-126) U/L Troponin I <0.012 (0.000-0.034) ng/mL Total Protein 6.7 (6.3-8.2) g/dL Albumin 4.2 (3.5-5.0) g/dL Urine Color Urine Appearance (Clear) Urine pH (5.0-8.0) Ur Specific [place] (1.001-1.035) Urine Protein (Negative) Urine Glucose (UA) (Negative) Urine Ketones (Negative) Urine Blood (Negative) Urine Nitrite (Negative) Urine Bilirubin (Negative) Urine Urobilinogen (<2.0) mg/dL Ur Leukocyte Esterase (Negative) Disposition Clinical Impression: Hyponatremia, Weakness Disposition: ADMITTED IP TO THIS [facility] Condition: Fair Time of Disposition: 11:51
[2022-09-26 11:03] LABS: Basophils % (A) 0 %; Eosinophils % (A) 0 %; HCT 40.5 % (34.0-46.0); Lymphocytes # (A) 0.7 k/uL (1.0-4.8); Lymphocytes % (A) 6 %; MCH 30.3 pg (25.0-35.0); MCHC 34.6 g/dL (31.0-37.0); MCV 87.7 fL (80.0-100.0); Mean Platelet Volume 8.3; Monocytes # (A) 0.8 k/uL (0-1.0); Monocytes % (A) 7 %; Neutrophils # (A) 9.5 k/uL (1.3-7.7); Neutrophils % (A) 85 %; Platelet Count 262 k/uL (150-450); RBC 4.61 m/uL (3.80-5.40); RDW 12.4 % (11.5-15.5); WBC 11.2 k/uL (3.8-10.6)
[2022-09-26 11:19] LABS: Partial Thromboplastin Time 23.1 sec (22.0-30.0); Prothrombin Time 10.7 sec (9.0-12.0)
[2022-09-26 11:24] LABS: ALT 48 U/L (4-34); AST 101 U/L (14-36); African American GFR (CKD) >90 (>60 ml/min/1.73 sqM); Albumin 4.2 g/dL (3.5-5.0); Alkaline Phosphatase 73 U/L (38-126); Anion Gap 7 mmol/L; Blood Urea Nitrogen 18 mg/dL (7-17); Calcium 9.2 mg/dL (8.4-10.2); Carbon Dioxide 27 mmol/L (22-30); Chloride 86 mmol/L (98-107); Glucose 157 mg/dL (74-99); Magnesium 1.8 mg/dL (1.6-2.3); Non-African American GFR(CKD) 84 (>60 ml/min/1.73 sqM); Sodium 120 mmol/L (137-145); Total Protein 6.7 g/dL (6.3-8.2)
[2022-09-26 11:28] LABS: Potassium 5.4 mmol/L (3.5-5.1)
[2022-09-26] MEDS ORDERED: ONDANSETRON 4 MG/2 ML VIAL IVP PRN (11:52)
[2022-09-26] MEDS ORDERED: ACETAMINOPHEN TAB 325 MG TAB PO PRN (11:52)
[2022-09-26] MEDS ORDERED: ZOLPIDEM 5 MG TAB PO PRN (11:52)
[2022-09-26] MEDS ORDERED: ALPRAZolam 0.25 MG TAB PO PRN (11:52)
[2022-09-26] MEDS ORDERED: NALOXONE 0.4 MG/ML 1 ML VIAL IV PRN (11:52)
[2022-09-26] MEDS: traMADol 50 MG TAB PO SCH ×2 (12:23→16:35)
[2022-09-26] MEDS: AMIODARONE 200 MG TAB PO SCH ×2 (12:23→13:32)
[2022-09-26] MEDS: CALCIUM CARBONATE 500 MG CHEWABLE PO PRN ×2 (12:30→16:34)
[2022-09-26] MEDS: SODIUM CHLORIDE 0.9% 1,000 ML IV SCH (12:31)
[2022-09-26 12:44] LABS: Appearance,Urine Clear (Clear); Bilirubin,Urine Negative (Negative); Blood,Urine Negative (Negative); Color,Urine Light Yellow; Glucose,Urine (UA) Negative (Negative); Ketones,Urine Negative (Negative); Leukocyte Esterase,Urine Negative (Negative); Nitrite,Urine Negative (Negative); Protein,Urine Negative (Negative); Specific Gravity,Urine 1.012 (1.001-1.035); Urobilinogen,Urine <2.0 mg/dL (<2.0)
--- NOTE | 2022-09-26 13:54 | P.NPCON ---
History of Present Illness - Reason for Consult hyponatremia - History of Present Illness Patient is an 82-year-old female with history of chronic A. fib, non-small cell lung cancer who is admitted to the hospital with complaints of increased weakness after radiation therapy. Patient has not been eating much. Serum sodium was 120 this admission Patient was hospitalized about one week ago with hyponatremia with serum sodium was around 125-1 26 mg/L and improved to 132 with fluid restriction. Patient did not receive Samsca. No reports of nausea vomiting or diarrhea. Blood pressure is not low Started on normal saline at 75 mL an hour. Review of Systems As per HPI Past Medical History Past Medical History: Atrial Fibrillation, Cancer, Hearing Disorder / Deafness, Hyperlipidemia, Hypertension, Osteoarthritis (OA), Syncope, Thyroid Disorder Additional Past Medical History / Comment(s): Hx MURMUR, PALPITATIONS, SHINGLES, CONSTIPATION, CURVATURE OF SPINE, bladder control prob, prob w/ balance-IMPROVED "Small leak in heart valve.", SKIN CANCER, recent adm. [facility] lung nodules, left clavicular mass, pt. unsure of kind of cancer, states when anxious or "worked up" affects her a-fib History of Any Multi-Drug Resistant Organisms: None Reported Past Surgical History: Hysterectomy, Joint Replacement Additional Past Surgical History / Comment(s): JASPER CATARACTS, JASPER KNEE REPLACEMENTS, OOPHERECTOMY, Colonoscopies Past Anesthesia/Blood Transfusion Reactions: No Reported Reaction Past Psychological History: No Psychological Hx Reported, Anxiety Smoking Status: Never smoker Past Alcohol Use History: Rare Past Drug Use History: Marijuana - Past Family History Father Family Medical History: Cancer Additional Family Medical History / Comment(s): AGE 98, SMOKED, SKIN CANCER Mother Additional Family Medical History / Comment(s): AGE 80- SMOKER/EMPHYSEMA Medications and Allergies Home Medications Medication Instructions Recorded Confirmed Type Azelastine HCl [Astepro] 1 - 2 spray EA NOSTRIL BID PRN 07/18/22 09/26/22 History Fluticasone Propionate 1 - 2 spray EA NOSTRIL HS PRN 07/18/22 09/26/22 History Multivitamins, Thera [Multivitamin 1 tab PO DAILY 07/18/22 09/26/22 History (formulary)] Neuriva 1 tab PO DAILY 08/18/22 09/26/22 History traMADol HCL [Ultram] 50 mg PO Q6HR 08/18/22 09/26/22 History Zolpidem [Ambien] 5 mg PO HS PRN 09/12/22 09/26/22 History Calcium Carbonate [Tums] 500 mg PO QID PRN #28 tab 09/14/22 09/26/22 Rx Docusate [Colace] 100 mg PO BID #60 capsule 09/15/22 09/26/22 Rx ALPRAZolam [Xanax] 0.25 mg PO DAILY PRN tab 09/17/22 09/26/22 Rx Apixaban [Eliquis] 2.5 mg PO BID 30 Days #60 tab 09/17/22 09/26/22 Rx Atorvastatin [Lipitor] 10 mg PO HS 30 Days #30 tab 09/17/22 09/26/22 Rx Enalapril [Vasotec] 2.5 mg PO HS 30 Days #30 tab 09/17/22 09/26/22 Rx Levothyroxine Sodium [Synthroid] 50 mcg PO DAILY 30 Days #30 tab 09/17/22 09/26/22 Rx Metoprolol Tartrate [Lopressor] 75 mg PO TID 30 Days #90 tab 09/17/22 09/26/22 Rx Omeprazole 20 mg PO DAILY 30 Days #30 tab 09/17/22 09/26/22 Rx Ondansetron Odt [Zofran ODT] 8 mg PO Q8HR PRN 7 Days #21 tab 09/17/22 09/26/22 Rx oxyBUTYnin chloride [Ditropan] 5 mg PO BID 30 Days #60 tab 09/17/22 09/26/22 Rx droNABinol [Marinol] 2.5 mg PO AC-BID #60 cap 09/22/22 09/26/22 Rx Amiodarone [Cordarone] See Taper PO DIRECTED 09/26/22 09/26/22 History Allergies Allergy/AdvReac Type Severity Reaction Status Date / Time No Known Allergies Allergy Verified 09/26/22 10:49 Physical Exam Vitals: Vital Signs Temp Pulse Resp BP Pulse Ox 09/26/22 12:58 61 95 09/26/22 12:21 46 L 16 139/91 94 L 09/26/22 11:26 52 L 18 156/86 96 09/26/22 10:45 52 L 16 143/78 96 09/26/22 09:20 98 F 51 L 18 114/67 97 Intake and Output 09/25/22 09/26/22 09/26/22 22:59 06:59 14:59 Other: Weight 60.781 kg Patient is awake, comfortable, in no acute distress Examination of the heart S1 and S2 Examination of the lungs bilateral breath sounds are heard Abdomen is soft nontender Examination lower extremity shows no evidence of edema 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 Hyponatremia possibly hypovolemic. Started on IV saline. Check urine osmolality and urine sodium. Repeat sodium in about 4 hours. Patient is also encouraged increased oral intake. 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 2. Non-small cell lung cancer,metastatic receiving radiation therapy 3. Mild hyperkalemia with no evidence of acute kidney injury. Rule out urine retention Plan: Continue with saline. Hold Sina inhibitors Repeat sodium in 4 hours Check bladder scan and rule out urine retention Repeat labs in a.m. Patient is advised to increase oral protein intake Repeat urine osmolality and urine sodium.
[2022-09-26] MEDS: METOPROLOL TARTRATE 25 MG TAB PO SCH ×2 (16:34→18:10)
[2022-09-26] MEDS: droNABinol 2.5 MG CAP PO SCH ×2 (16:35→18:06)
--- NOTE | 2022-09-26 18:28 | P.HPIM ---
History of Present Illness H&P Date: 09/26/22 History of Presenting Illness: Patient is a very pleasant 82-year-old female with a past medical history of atrial fibrillation on anticoagulation, with Eliquis hypertension, hyperlipidemia, hypothyroidism, and metastatic non-small cell lung cancer. She presented to the emergency department with a chief complaint of generalized weakness and fatigue and decreased appetite. She recently underwent hospitalization 09/21/22 through 09/22/22 for similar complaint. Patient currently undergoing radiation therapy for treatment of her metastatic lung cancer. She denies having any fevers, chills, dizziness, lightheadedness, headache, palpitations, chest pain, shortness of breath, abdominal pain, nausea, vomiting, diarrhea, melena, hematochezia, or difficulties with or changes in urination. She underwent full evaluation in the emergency department. Labs completed and reviewed. CBC completed showing leukocytosis with WBC count of 11.2. Coagulation profile normal findings. BMP revealed severe hyperchloremic hyponatremia with sodium of 120 and chloride of 86 as well as mild hyperkalemia with potassium of 5.4 however showing hemolyzed specimen. Liver profile showing elevated AST 101 and ALT of 48. Troponin was negative at less than 0.012. Urin alysis was negative for infection. Urine osmolality was 438. EKG was completed showing sinus bradycardia at 46 bpm. Discussed presenting symptoms, clinical findings, laboratory analysis, and EKG results in detail with the ED provider. Patient being admitted under services with consultation to nephrology and cardiology. Review of systems: Pertinent positives and negatives as discussed in HPI, a complete review of systems was performed and all other systems are negative. Physical exam: Vital signs reviewed and stable. General: Nontoxic, no distress and appears stated age. Thin build. Derm: Skin warm and dry, normal coloration for ethnicity. Head: Atraumatic, normocephalic and symmetric. Eyes: EOMs intact, no lid lag, and anicteric sclera Mouth: no lip lesions, mucus membranes moist Cardiovascular: Bradycardic rate and regular rhythm with normal S1S2, systolic murmur, positive posterior tibial pulses bilaterally, and cap refill < 2 seconds. Lungs: Respirations even, regular, and unlabored on room air. Lungs CTA bilaterally, no rhonchi, no rales, no wheezing, and no accessory muscle usage. Abdominal: soft, nontender to palpation, no guarding, no appreciable organomegaly Ext: ROM intact. No gross muscle atrophy, no edema, no contractures Neuro: Speech clear, face symmetrical and CN II-XII grossly intact with no noted focal neuro deficits Psych: Alert and oriented to person, place, time, and situation. Appropriate and pleasant affect. Assessment and Plan of Care: Severe acute on chronic hypochloremic hyponatremia, believed to be secondary to poor oral intake Symptomatic bradycardia Metastatic non-small cell lung cancer Generalized weakness and fatigue, likely multifactorial secondary to above. Paroxysmal atrial fibrillation Hypertension Hyperlipidemia Hypothyroidism -Labs completed and reviewed. CBC completed showing leukocytosis with WBC count of 11.2. Coagulation profile normal findings. BMP revealed severe hyperchloremic hyponatremia with sodium of 120 and chloride of 86 as well as mild hyperkalemia with potassium of 5.4 however showing hemolyzed specimen. Liver profile showing elevated AST 101 and ALT of 48. Troponin was negative at less than 0.012. -Urinalysis was negative for infection. Urine osmolality was 438. -EKG was completed showing sinus bradycardia at 46 bpm. -Discussed presenting symptoms, clinical findings, laboratory analysis, and EKG results in detail with the ED provider. -Patient being admitted under services to general medical unit with telemetry with consultation to nephrology and cardiology. -Telemetry monitoring -Gentle IV fluid hydration with 0.9% normal saline at 75 mL per hour order placed a repeat BMP every 6 hours. -Seizure precautions and fall precautions place. -TSH with reflex free T4 to be completed. -Neuro checks every 4 hours. -Hold metoprolol secondary to bradycardia. -Encourage oral intake The patient is admitted with an anticipated greater than 2 midnight stay for evaluation of symptomatic bradycardia and severe hyponatremia, . CODE STATUS: Full code DVT prophylaxis: Vasyl Discussed with: Patient, RN, and ED provider Anticipated discharge date: Clinical course to determine Anticipated discharge place: Home Patient was seen independently by Nurse Practitioner. This document was prepared using Solvate dictation software. Please allow for errors in firer automatic stoker while rare they do occur. Lefty Jacobson NP rendered care for this patient independently, reviewed the findings and plan as documented in the note above. I did not physically speak with or examine the patient on this date. Past Medical History Past Medical History: Atrial Fibrillation, Cancer, Hearing Disorder / Deafness, Hyperlipidemia, Hypertension, Osteoarthritis (OA), Syncope, Thyroid Disorder Additional Past Medical History / Comment(s): Hx MURMUR, PALPITATIONS, SHINGLES, CONSTIPATION, CURVATURE OF SPINE, bladder control prob, prob w/ balance-IMPROVED "Small leak in heart valve.", SKIN CANCER, recent adm. [facility] lung nodules, left clavicular mass, pt. unsure of kind of cancer, states when anxious or "worked up" affects her a-fib History of Any Multi-Drug Resistant Organisms: None Reported Past Surgical History: Hysterectomy, Joint Replacement Additional Past Surgical History / Comment(s): JASPER CATARACTS, JASPER KNEE REPLACEMENTS, OOPHERECTOMY, Colonoscopies Past Anesthesia/Blood Transfusion Reactions: No Reported Reaction Past Psychological History: No Psychological Hx Reported, Anxiety Smoking Status: Never smoker Past Alcohol Use History: Rare Past Drug Use History: Marijuana - Past Family History Father Family Medical History: Cancer Additional Family Medical History / Comment(s): AGE 98, SMOKED, SKIN CANCER Mother Additional Family Medical History / Comment(s): AGE 80- SMOKER/EMPHYSEMA Medications and Allergies Home Medications Medication Instructions Recorded Confirmed Type Azelastine HCl [Astepro] 1 - 2 spray EA NOSTRIL BID PRN 07/18/22 09/26/22 History Fluticasone Propionate 1 - 2 spray EA NOSTRIL HS PRN 07/18/22 09/26/22 History Multivitamins, Thera [Multivitamin 1 tab PO DAILY 07/18/22 09/26/22 History (formulary)] Neuriva 1 tab PO DAILY 08/18/22 09/26/22 History traMADol HCL [Ultram] 50 mg PO Q6HR 08/18/22 09/26/22 History Zolpidem [Ambien] 5 mg PO HS PRN 09/12/22 09/26/22 History Calcium Carbonate [Tums] 500 mg PO QID PRN #28 tab 09/14/22 09/26/22 Rx Docusate [Colace] 100 mg PO BID #60 capsule 09/15/22 09/26/22 Rx ALPRAZolam [Xanax] 0.25 mg PO DAILY PRN tab 09/17/22 09/26/22 Rx Apixaban [Eliquis] 2.5 mg PO BID 30 Days #60 tab 09/17/22 09/26/22 Rx Atorvastatin [Lipitor] 10 mg PO HS 30 Days #30 tab 09/17/22 09/26/22 Rx Enalapril [Vasotec] 2.5 mg PO HS 30 Days #30 tab 09/17/22 09/26/22 Rx Levothyroxine Sodium [Synthroid] 50 mcg PO DAILY 30 Days #30 tab 09/17/22 09/26/22 Rx Metoprolol Tartrate [Lopressor] 75 mg PO TID 30 Days #90 tab 09/17/22 09/26/22 Rx Omeprazole 20 mg PO DAILY 30 Days #30 tab 09/17/22 09/26/22 Rx Ondansetron Odt [Zofran ODT] 8 mg PO Q8HR PRN 7 Days #21 tab 09/17/22 09/26/22 Rx oxyBUTYnin chloride [Ditropan] 5 mg PO BID 30 Days #60 tab 09/17/22 09/26/22 Rx droNABinol [Marinol] 2.5 mg PO AC-BID #60 cap 09/22/22 09/26/22 Rx Amiodarone [Cordarone] See Taper PO DIRECTED 09/26/22 09/26/22 History Allergies Allergy/AdvReac Type Severity Reaction Status Date / Time No Known Allergies Allergy Verified 09/26/22 10:49 Physical Exam Osteopathic Statement: *. No significant issues noted on an osteopathic structural exam other than those noted in the History and Physical/Consult. Vitals: Vital Signs Temp Pulse Resp BP Pulse Ox 09/26/22 11:26 52 L 18 156/86 96 09/26/22 10:45 52 L 16 143/78 96 09/26/22 09:20 98 F 51 L 18 114/67 97 Intake and Output 09/25/22 09/26/22 09/26/22 22:59 06:59 14:59 Other: Weight 60.781 kg Results CBC & Chem 7: 09/27/22 04:12 09/27/22 16:03 Labs: Abnormal Lab Results - Last 24 Hours (Table) 09/26/22 09/26/22 Range/Units 10:20 10:20 WBC 11.2 H (3.8-10.6) k/uL Neutrophils # 9.5 H (1.3-7.7) k/uL Lymphocytes # 0.7 L (1.0-4.8) k/uL Sodium 120 L (137-145) mmol/L Potassium 5.4 H (3.5-5.1) mmol/L Chloride 86 L (98-107) mmol/L BUN 18 H (7-17) mg/dL Glucose 157 H (74-99) mg/dL AST 101 H (14-36) U/L ALT 48 H (4-34) U/L
[2022-09-26] MEDS ORDERED: lisinopriL 5 MG TAB PO SCH (21:00)
[2022-09-26] MEDS: DOCUSATE 100 MG CAP PO SCH (22:28)
[2022-09-26] MEDS: APIXABAN 2.5 MG TABLET PO SCH (22:28)
[2022-09-26] MEDS: oxyBUTYnin chloride 5 MG TAB PO SCH (22:29)
[2022-09-26] MEDS: ATORVASTATIN 10 MG TAB PO SCH (22:30)
[2022-09-26 23:18] LABS: African American GFR (CKD) >90 (>60 ml/min/1.73 sqM); Anion Gap 7 mmol/L; Blood Urea Nitrogen 12 mg/dL (7-17); Calcium 9.3 mg/dL (8.4-10.2); Carbon Dioxide 25 mmol/L (22-30); Chloride 89 mmol/L (98-107); Glucose 110 mg/dL (74-99); Non-African American GFR(CKD) >90 (>60 ml/min/1.73 sqM); Potassium 4.6 mmol/L (3.5-5.1); Sodium 121 mmol/L (137-145)
[2022-09-27] MEDS: traMADol 50 MG TAB PO SCH ×5 (01:07→23:54)
[2022-09-27] MEDS: AMIODARONE 200 MG TAB PO SCH ×2 (01:09→07:34)
[2022-09-27] MEDS: SODIUM CHLORIDE 0.9% 1,000 ML IV SCH ×2 (01:10→16:40)
[2022-09-27 04:39] LABS: African American GFR (CKD) >90 (>60 ml/min/1.73 sqM); Anion Gap 11 mmol/L; Blood Urea Nitrogen 11 mg/dL (7-17); Calcium 8.9 mg/dL (8.4-10.2); Carbon Dioxide 18 mmol/L (22-30); Chloride 90 mmol/L (98-107); Glucose 125 mg/dL (74-99); Non-African American GFR(CKD) >90 (>60 ml/min/1.73 sqM)
[2022-09-27 04:51] LABS: Potassium 4.3 mmol/L (3.5-5.1); Sodium 119 mmol/L (137-145)
[2022-09-27] MEDS ORDERED: FUROSEMIDE 10 MG/ML 2 ML VIAL IV STA (04:56)
[2022-09-27] MEDS ORDERED: TOLVAPTAN 15 MG TABLET PO ONE ×2 (04:56→16:52)
[2022-09-27] MEDS ORDERED: cloNIDine HCL 0.2 MG TAB PO STA (04:59)
[2022-09-27] MEDS: CALCIUM CARBONATE 500 MG CHEWABLE PO PRN (07:33)
[2022-09-27] MEDS: APIXABAN 2.5 MG TABLET PO SCH ×2 (07:33→20:46)
[2022-09-27] MEDS: LEVOTHYROXINE 50 MCG TAB PO SCH (07:33)
[2022-09-27] MEDS: MULTIVITAMINS, THERA 1 EACH TAB PO SCH (07:33)
[2022-09-27] MEDS: droNABinol 2.5 MG CAP PO SCH ×2 (07:33→17:24)
[2022-09-27] MEDS: PANTOPRAZOLE 40 MG TABLET PO SCH (07:33)
[2022-09-27] MEDS: DOCUSATE 100 MG CAP PO SCH ×2 (07:33→20:46)
[2022-09-27] MEDS: oxyBUTYnin chloride 5 MG TAB PO SCH ×2 (07:33→20:47)
[2022-09-27 08:50] LABS: HCT 41.1 % (37.2-46.3); HGB 14.6 d/dL (12.0-15.0); MCH 30.8 pg (27.0-32.0); MCHC 35.5 d/dL (32.0-37.0); MCV 86.7 FL (80.0-97.0); Mean Platelet Volume 10.7 FL (9.5-12.2); NRBC Per 100 WBC 0 X 10*3/uL (0.00-0.01); Platelet Count 249 X 10*3/uL (140-440); RBC 4.74 X 10*6/uL (4.10-5.20); WBC 13.01 X 10*3/uL (4.50-10.00)
[2022-09-27] MEDS ORDERED: NEURIVA PO SCH (09:00)
--- NOTE | 2022-09-27 09:48 | P.CRDCN ---
History of Present Illness Consult date: 09/27/22 Reason for Consult (text): bradycardia History of present illness: HISTORY OF PRESENT ILLNESS: This is a 82-year-old female patient of Dr. Harris with a past medical history significant for paroxysmal atrial fibrillation hypertension, hyperlipidemia, and metastatic lung cancer. Patient had recent hospitalization discharged on 09/22 which time cardiology evaluate the patient for A. fib and started her on amiodarone, discharged on a tapering dose. Patient states that she has not been eating and feeling very weak and she ended up falling as she missed a step when she was coming into the house. She denies having any loss of consciousness and no lightheadedness or dizziness. She denies any chest pain or shortness of breath. She states she had a small amount of cough last night. Patient is under care for non-small cell lung cancer undergoing radiation treatment which she states is making her weaker. Patient presented with a sodium of 119 and she has been seen by nephrology. Regarding heart rate, telemetry is been sinus rhythm with frequent episodes of A. fib with RVR. In the emergency center and found to have A. fib at this time [id number] ventricular rate. EKG reveals sinus rhythm with QR prolongation Laboratory data: WBC 13, hemoglobin 14.6, platelet count 249. Sodium 119, potassium 4.3, chloride 90, CO2 18, BUN 11 creatinine 0.47. Blood sugar 125. TSH 4.24. Current home cardiac medications include amiodarone 400 mg twice daily on tapering dose, eliquis 25 mg twice daily, atorvastatin 10 g at bedtime, Vasotec 2.5 mg at bedtime, Lopressor 75 mg 3 times daily, levothyroxine 50 g daily. Most recent echocardiogram obtained in August 2022 revealing normal left ventricular size and systolic function, mild mitral and moderate tricuspid regurgitation and mild pulmonary hypertension REVIEW OF SYSTEMS: At the time of my exam: CONSTITUTIONAL: Denies fever or chills. Reports fatigue, reports weakness generalized HEENT: Denies blurred vision, vision changes, or eye pain. Denies hemoptysis CARDIOVASCULAR: Denies chest pain. Denies orthopnea. Denies PND. Denies palpitations RESPIRATORY: Denies shortness of breath. GASTROINTESTINAL: Denies abdominal pain. Denies nausea or vomiting. HEMATOLOGIC: Denies bleeding disorders. GENITOURINARY: Denies any blood in urine. SKIN: Denies pruitis. Denies rash. PHYSICAL EXAM: VITAL SIGNS: Reviewed. GENERAL: Well-developed in no acute distress. HEENT: Head is normocephalic. Pupils are equal, round. Sclerae anicteric. Mucous membranes of the mouth are somewhat dry. Neck supple. No JVD or thyromegaly LUNGS: Respirations even and unlabored. Lungs essentially clear to auscultation bilaterally. HEART: Irregular rate and rhythm. S1 and S2 heard. Tachycardic ABDOMEN: Soft. Nondistended. Nontender. EXTREMITIES: Normal range of motion. No clubbing or cyanosis. Peripheral pulses intact. No lower extremity edema NEUROLOGIC: Awake and alert. Oriented x 3. ASSESSMENT: Paroxysmal atrial fibrillation with RVR Bradycardia, rule out tachybradycardia syndrome Hyponatremia Generalized weakness Metastatic lung cancer Hypertension Hyperlipidemia PLAN: No need to repeat echocardiogram Discontinue amiodarone. Resume patient on decreased dose of Lopressor 50 mg 3 times daily Continue patient's other home medications Continue telemetry monitoring Further recommendations as patient progresses Thank you kindly for this consultation. Nurse practitioner note has been reviewed by physician. Signing provider agrees with the documented findings, assessment, and plan of care. Past Medical History Past Medical History: Atrial Fibrillation, Cancer, Hearing Disorder / Deafness, Hyperlipidemia, Hypertension, Osteoarthritis (OA), Syncope, Thyroid Disorder Additional Past Medical History / Comment(s): Hx MURMUR, PALPITATIONS, SHINGLES, CONSTIPATION, CURVATURE OF SPINE, bladder control prob, prob w/ balance-IMPROVED "Small leak in heart valve.", SKIN CANCER, recent adm. MPH lung nodules, left clavicular mass, pt. unsure of kind of cancer, states when anxious or "worked up" affects her a-fib History of Any Multi-Drug Resistant Organisms: None Reported Past Surgical History: Hysterectomy, Joint Replacement Additional Past Surgical History / Comment(s): JASPER CATARACTS, JASPER KNEE REPLACEMENTS, OOPHERECTOMY, Colonoscopies Past Anesthesia/Blood Transfusion Reactions: No Reported Reaction Past Psychological History: No Psychological Hx Reported, Anxiety Smoking Status: Never smoker Past Alcohol Use History: Rare Past Drug Use History: Marijuana - Past Family History Father Family Medical History: Cancer Additional Family Medical History / Comment(s): AGE 98, SMOKED, SKIN CANCER Mother Additional Family Medical History / Comment(s): AGE 80- SMOKER/EMPHYSEMA Medications and Allergies Home Medications Medication Instructions Recorded Confirmed Type Azelastine HCl [Astepro] 1 - 2 spray EA NOSTRIL BID PRN 07/18/22 09/26/22 History Fluticasone Propionate 1 - 2 spray EA NOSTRIL HS PRN 07/18/22 09/26/22 History Multivitamins, Thera [Multivitamin 1 tab PO DAILY 07/18/22 09/26/22 History (formulary)] Neuriva 1 tab PO DAILY 08/18/22 09/26/22 History traMADol HCL [Ultram] 50 mg PO Q6HR 08/18/22 09/26/22 History Zolpidem [Ambien] 5 mg PO HS PRN 09/12/22 09/26/22 History Calcium Carbonate [Tums] 500 mg PO QID PRN #28 tab 09/14/22 09/26/22 Rx Docusate [Colace] 100 mg PO BID #60 capsule 09/15/22 09/26/22 Rx ALPRAZolam [Xanax] 0.25 mg PO DAILY PRN tab 09/17/22 09/26/22 Rx Apixaban [Eliquis] 2.5 mg PO BID 30 Days #60 tab 09/17/22 09/26/22 Rx Atorvastatin [Lipitor] 10 mg PO HS 30 Days #30 tab 09/17/22 09/26/22 Rx Enalapril [Vasotec] 2.5 mg PO HS 30 Days #30 tab 09/17/22 09/26/22 Rx Levothyroxine Sodium [Synthroid] 50 mcg PO DAILY 30 Days #30 tab 09/17/22 Rx Metoprolol Tartrate [Lopressor] 75 mg PO TID 30 Days #90 tab 09/17/22 09/26/22 Rx Omeprazole 20 mg PO DAILY 30 Days #30 tab 09/17/22 09/26/22 Rx Ondansetron Odt [Zofran ODT] 8 mg PO Q8HR PRN 7 Days #21 tab 09/17/22 09/26/22 Rx oxyBUTYnin chloride [Ditropan] 5 mg PO BID 30 Days #60 tab 09/17/22 09/26/22 Rx droNABinol [Marinol] 2.5 mg PO AC-BID #60 cap 09/22/22 09/26/22 Rx Amiodarone [Cordarone] See Taper PO DIRECTED 09/26/22 09/26/22 History Allergies Allergy/AdvReac Type Severity Reaction Status Date / Time No Known Allergies Allergy Verified 09/26/22 10:49 Physical Exam Vitals: Vital Signs Temp Pulse Pulse Resp BP BP Pulse Ox 09/27/22 07:44 87 16 133/79 93 L 09/27/22 06:00 66 18 161/93 99 09/27/22 02:37 65 18 148/91 95 09/27/22 01:20 59 L 18 188/95 95 09/27/22 00:31 67 18 159/92 98 09/26/22 22:33 58 L 18 114/93 98 09/26/22 21:05 50 L 18 159/86 09/26/22 16:00 98.0 F 50 L 16 156/95 94 L 09/26/22 12:58 61 95 09/26/22 12:21 46 L 16 139/91 94 L 09/26/22 11:26 52 L 18 156/86 96 09/26/22 10:45 52 L 16 143/78 96 09/26/22 09:20 98 F 51 L 18 114/67 97 Intake and Output 09/26/22 09/27/22 09/27/22 22:59 06:59 14:59 Intake Total 75 Output Total 150 Balance -75 Intake: Intake, IV Titration 75 Amount Sodium Chloride 0.9% 1, 75 000 ml @ 75 mls/hr IV . [id number] [facility] Rx#:[id number] Output: Urine 150 Other: Voiding Method Bedpan Bedpan Diaper Diaper External Catheter External Catheter # Voids 2 Results 09/27/22 04:12 09/27/22 04:12 Cardiac Enzymes 09/26/22 09/26/22 Range/Units 10:20 10:20 AST 101 H (14-36) U/L Troponin I <0.012 (0.000-0.034) ng/mL Coagulation 09/26/22 Range/Units 10:20 PT 10.7 (9.0-12.0) sec APTT 23.1 (22.0-30.0) sec CBC 09/26/22 09/27/22 Range/Units 10:20 04:12 WBC 11.2 H 13.01 H (3.8-10.6) k/uL RBC 4.61 4.74 (3.80-5.40) m/uL Hgb 14.0 14.6 (11.4-16.0) gm/dL Hct 40.5 41.1 (34.0-46.0) % Plt Count 262 249 (150-450) k/uL Comprehensive Metabolic Panel 09/26/22 09/26/22 09/26/22 Range/Units 10:20 17:10 21:47 Sodium 120 L 121 L 121 L (137-145) mmol/L Potassium 5.4 H 4.6 (3.5-5.1) mmol/L Chloride 86 L 89 L (98-107) mmol/L Carbon Dioxide 27 25 (22-30) mmol/L BUN 18 H 12 (7-17) mg/dL Creatinine 0.63 0.51 L (0.52-1.04) mg/dL Glucose 157 H 110 H (74-99) mg/dL Calcium 9.2 9.3 (8.4-10.2) mg/dL AST 101 H (14-36) U/L ALT 48 H (4-34) U/L Alkaline Phosphatase 73 (38-126) U/L Total Protein 6.7 (6.3-8.2) g/dL Albumin 4.2 (3.5-5.0) g/dL 09/27/22 09/27/22 Range/Units 01:25 04:12 Sodium 121 L 119 L* (137-145) mmol/L Potassium 4.3 (3.5-5.1) mmol/L Chloride 90 L (98-107) mmol/L Carbon Dioxide 18 L (22-30) mmol/L BUN 11 (7-17) mg/dL Creatinine 0.47 L (0.52-1.04) mg/dL Glucose 125 H (74-99) mg/dL Calcium 8.9 (8.4-10.2) mg/dL AST (14-36) U/L ALT (4-34) U/L Alkaline Phosphatase (38-126) U/L Total Protein (6.3-8.2) g/dL Albumin (3.5-5.0) g/dL Current Medications Generic Name Dose Route Start Last Admin Trade Name Freq PRN Reason Stop Dose Admin Acetaminophen 650 mg 06/27/23 11:52 Acetaminophen Tab 325 Mg Tab PO Q6HR PRN Mild Pain or Fever > 100.5 Alprazolam 0.25 mg 09/26/22 11:52 Alprazolam 0.25 Mg Tab PO DAILY PRN Anxiety Amiodarone HCl 400 mg 09/26/22 12:00 09/27/22 07:34 Amiodarone 200 Mg Tab PO 09/29/22 21:01 400 mg BID TYREE Administration Amiodarone HCl 200 mg 09/30/22 09:00 Amiodarone 200 Mg Tab PO 10/06/22 21:01 BID TYREE Amiodarone HCl 200 mg 10/07/22 09:00 Amiodarone 200 Mg Tab PO 10/22/22 09:01 DAILY TYREE Apixaban 2.5 mg 09/26/22 21:00 09/27/22 07:33 Apixaban 2.5 Mg Tablet PO 2.5 mg BID TYREE Administration Protocol Atorvastatin Calcium 10 mg 09/26/22 21:00 09/26/22 22:30 Atorvastatin 10 Mg Tab PO 10 mg HS TYREE Administration Calcium Carbonate/Glycine 500 mg 09/26/22 11:52 09/27/22 07:33 Calcium Carbonate 500 Mg Chewable PO 500 mg QID PRN Administration Heartburn Docusate Sodium 100 mg 09/26/22 21:00 09/27/22 07:33 Docusate 100 Mg Cap PO 100 mg BID TYREE Administration Dronabinol 2.5 mg 09/26/22 17:30 09/27/22 07:33 Dronabinol 2.5 Mg Cap PO 2.5 mg AC-BID TYREE Administration Sodium Chloride 1,000 mls @ 75 mls/hr 09/26/22 11:45 09/27/22 01:10 Saline 0.9% IV 75 mls/hr .[id number] TYREE Administration Levothyroxine Sodium 50 mcg 09/27/22 06:30 09/27/22 07:33 Levothyroxine 50 Mcg Tab PO 50 mcg DAILY@0630 TYREE Administration Multivitamins 1 each 09/27/22 09:00 09/27/22 07:33 Multivitamins, Thera 1 Each Tab PO 1 each DAILY TYREE Administration Naloxone HCl 0.2 mg 09/26/22 11:52 Naloxone 0.4 Mg/Ml 1 Ml Vial IV Q2M PRN Opioid Reversal Ondansetron HCl 4 mg 09/26/22 11:52 09/27/22 06:24 Ondansetron 4 Mg/2 Ml Vial IVP 4 mg Q8HR PRN Administration Nausea And Vomiting Oxybutynin Chloride 5 mg 09/26/22 21:00 09/27/22 07:33 Oxybutynin Chloride 5 Mg Tab PO 5 mg BID TYREE Administration Pantoprazole Sodium 40 mg 09/27/22 07:30 09/27/22 07:33 Pantoprazole 40 Mg Tablet PO 40 mg DAILY@0730 TYREE Administration Tramadol HCl 50 mg 09/26/22 12:00 09/27/22 07:33 Tramadol 50 Mg Tab PO 50 mg Q6HR TYREE Administration Zolpidem Tartrate 5 mg 09/26/22 11:52 Zolpidem 5 Mg Tab PO HS PRN Insomnia Intake and Output 09/26/22 09/27/22 09/27/22 22:59 06:59 14:59 Intake Total 75 Output Total 150 Balance -75 Intake: Intake, IV Titration 75 Amount Sodium Chloride 0.9% 1, 75 000 ml @ 75 mls/hr IV . [id number] [facility] Rx#:[id number] Output: Urine 150 Other: Voiding Method Bedpan Bedpan Diaper Diaper External Catheter External Catheter # Voids 2 09/27/22 04:12 09/27/22 04:12
[2022-09-27] MEDS: METOPROLOL TARTRATE 50 MG TAB PO SCH ×3 (10:06→21:00)
[2022-09-27 12:21] VITALS: BMI 23.0
--- NOTE | 2022-09-27 14:44 | P.PN ---
Subjective Progress Note Date: 09/27/22 Hospital course: Patient is a very pleasant 82-year-old female with a past medical history of atrial fibrillation on anticoagulation, with Eliquis hypertension, hy perlipidemia, hypothyroidism, and metastatic non-small cell lung cancer. She presented to the emergency department with a chief complaint of generalized weakness and fatigue and decreased appetite. She recently underwent hospitalization 09/21/22 through 09/22/22 for similar complaint. Patient shay gaitan undergoing radiation therapy for treatment of her metastatic lung cancer. She denies having any fevers, chills, dizziness, lightheadedness, headache, palpitations, chest pain, shortness of breath, abdominal pain, nausea, vomiting, diarrhea, melena, hematochezia, or difficulties with or changes in urination. She underwent full evaluation in the emergency department. Labs completed and reviewed. CBC completed showing leukocytosis with WBC count of 11.2. Coagulation profile normal findings. BMP revealed severe hyperchloremic hyponatremia with sodium of 120 and chloride of 86 as well as mild hyperkalemia with potassium of 5.4 however showing hemolyzed specimen. Liver profile showing elevated AST 101 and ALT of 48. Troponin was negative at less than 0.012. Urinalysis was negative for infection. Urine osmolality was 438. EKG was completed showing sinus bradycardia at 46 bpm. Discussed presenting symptoms, clinical findings, laboratory analysis, and EKG results in detail with the ED provider. Patient being admitted under services with consultation to nephrology and cardiology. Physical exam: Patient seen and fully evaluated at bedside. She was sitting up in bed visiting with family. Patient reports continued decreased appetite stating everything just tastes different and she feels like she has a constant lump in her throat. Vital signs reviewed and stable. General: Nontoxic, no distress and appears stated age. Thin build. Derm: Skin warm and dry, normal coloration for ethnicity. Head: Atraumatic, normocephalic and symmetric. Eyes: EOMs intact, no lid lag, and anicteric sclera Mouth: no lip lesions, mucus membranes moist Cardiovascular: Regular rate and regular rhythm with normal S1S2, systolic murmur, positive posterior tibial pulses bilaterally, and cap refill < 2 seconds. Large left supraclavicular mass. Lungs: Respirations even, regular, and unlabored on room air. Lungs CTA bilaterally, no rhonchi, no rales, no wheezing, and no accessory muscle usage. Abdominal: soft, nontender to palpation, no guarding, no appreciable organomegaly Ext: ROM intact. No gross muscle atrophy, no edema, no contractures Neuro: Speech clear, face symmetrical and CN II-XII grossly intact with no noted focal neuro deficits Psych: Alert and oriented to person, place, time, and situation. Appropriate and pleasant affect. Assessment and Plan of Care: Severe acute on chronic hypochloremic hyponatremia, believed to be secondary to poor oral intake Symptomatic bradycardia Metastatic non-small cell lung cancer Generalized weakness and fatigue, likely multifactorial secondary to above. Paroxysmal atrial fibrillation Hypertension Hyperlipidemia Hypothyroidism -Labs completed and reviewed. CBC showing mild leukocytosis with WBC count of 13.01 and BMP revealing continued hyponatremia with sodium of 119. Patient remains on 0.9% normal saline at 75 mL's per hour and nephrology recommended one-time dose of Samsca 7.5 mg. -Nephrology following, recommended one-time dose of Samsca 7.5 mg. -Telemetry monitoring -Continue Gentle IV fluid hydration with 0.9% normal saline at 75 mL per hour order placed a repeat BMP every 6 hours. -Seizure precautions and fall precautions to remain in place. -TSH normal findings at 4.240. -Neuro checks to continue every 4 hours. -Cardiology evaluated secondary to bradycardia, discussed plan of care with aircraft skin burnisher and cardiac CHRISTIAN SCIENCE READER recommending resuming decrease dose of Lopressor 50 mg 3 times daily. -Encourage oral intake -Order placed for swallow eval to be completed by speech and language pathologist due to patient's complaints of feeling of a lump in her throat. -Oncology also consulted for evaluation as patient is currently undergoing radiation treatment with their group. Morning labs reviewed. CBC showing worsening leukocytosis with WBC count of 13.01. BMP also showing worsening sodium resulting in 119 with chloride of 90 and bicarb of 18. Patient remains on 0.9% normal saline at 75 mL's per hour and was given a dose of Samsca 7.5 mg 1 dose. CODE STATUS: Full code DVT prophylaxis: Holliqurandi Discussed with: Patient, RN, and ED provider Anticipated discharge date: Clinical course to determine Anticipated discharge place: Home Patient was seen independently by Nurse Practitioner. This document was prepared using [employer] dictation software. Please allow for errors in show dog trainer while rare they do occur. I reviewed the documentation as provided by the MARIANNA above, who is the original author of this note. I agree with the documented assessment and plan, with the following changes: none Objective - Vital Signs Vital signs: Vital Signs Temp 98.0 F 09/26/22 16:00 Pulse 87 09/27/22 07:44 Resp 16 09/27/22 07:44 BP 133/79 09/27/22 07:44 Pulse Ox 93 L 09/27/22 07:44 FiO2 Intake & Output 09/26/22 09/27/22 09/27/22 18:59 06:59 18:59 Intake Total 75 Output Total 150 Balance -75 Weight 60.781 kg Intake: Intake, IV Titration 75 Amount Sodium Chloride 0.9% 1, 75 000 ml @ 75 mls/hr IV . [id number] [facility] Rx#:[id number] Output: Urine 150 Other: Voiding Method Bedpan Bedpan Diaper Diaper External Catheter External Catheter # Voids 2 - Labs CBC & Chem 7: 09/29/22 04:59 09/29/22 04:59 Labs: Abnormal Lab Results - Last 24 Hours (Table) 09/26/22 09/26/22 09/26/22 Range/Units 10:20 10:20 17:10 WBC 11.2 H (3.8-10.6) k/uL Neutrophils # 9.5 H (1.3-7.7) k/uL Lymphocytes # 0.7 L (1.0-4.8) k/uL Sodium 120 L 121 L (137-145) mmol/L Potassium 5.4 H (3.5-5.1) mmol/L Chloride 86 L (98-107) mmol/L Carbon Dioxide (22-30) mmol/L BUN 18 H (7-17) mg/dL Creatinine (0.52-1.04) mg/dL Glucose 157 H (74-99) mg/dL AST 101 H (14-36) U/L ALT 48 H (4-34) U/L 09/26/22 09/27/22 09/27/22 Range/Units 21:47 01:25 04:12 WBC (3.8-10.6) k/uL Neutrophils # (1.3-7.7) k/uL Lymphocytes # (1.0-4.8) k/uL Sodium 121 L 121 L 119 L* (137-145) mmol/L Potassium (3.5-5.1) mmol/L Chloride 89 L 90 L (98-107) mmol/L Carbon Dioxide 18 L (22-30) mmol/L BUN (7-17) mg/dL Creatinine 0.51 L 0.47 L (0.52-1.04) mg/dL Glucose 110 H 125 H (74-99) mg/dL AST (14-36) U/L ALT (4-34) U/L 09/27/22 Range/Units 04:12 WBC 13.01 H (3.8-10.6) k/uL Neutrophils # (1.3-7.7) k/uL Lymphocytes # (1.0-4.8) k/uL Sodium (137-145) mmol/L Potassium (3.5-5.1) mmol/L Chloride (98-107) mmol/L Carbon Dioxide (22-30) mmol/L BUN (7-17) mg/dL Creatinine (0.52-1.04) mg/dL Glucose (74-99) mg/dL AST (14-36) U/L ALT (4-34) U/L
[2022-09-27 16:37] LABS: BUN/Creat Ratio 14.12 Ratio (12.00-20.00); Blood Urea Nitrogen 11.3 mg/dL (9.0-27.0); Calcium 9.3 mg/dL (8.7-10.3); Carbon Dioxide 21.5 mmol/L (21.6-31.8); Chloride 86 mmol/L (96-109); Glucose 165 mg/dL (70-110); Potassium 4.3 mmol/L (3.5-5.5); Sodium 124 mmol/L (135-145)
--- NOTE | 2022-09-27 17:16 | P.PN ---
Subjective Patient is seen for f/u for hyponatremia. Started on Normal saline yesterday and sodium did not improve much and decreased to 119. Saline was discontinued and pt received a dose of samsca. Sodium improved to 123 this am. Patient is seen in the ER. She is nauseated. BP was high but has improved without meds. Urine osmolality 438 Objective - Vital Signs Vital signs: Vital Signs Temp 98.1 F 09/27/22 14:10 Pulse 53 L 09/27/22 14:10 Resp 20 09/27/22 14:10 BP 92/56 09/27/22 14:10 Pulse Ox 93 L 09/27/22 14:10 FiO2 Intake & Output 09/26/22 09/27/22 09/27/22 18:59 06:59 18:59 Intake Total 75 Output Total 150 Balance -75 Weight 60.781 kg 60.781 kg Intake: Intake, IV Titration 75 Amount Sodium Chloride 0.9% 1, 75 000 ml @ 75 mls/hr IV . [id number] [facility] Rx#:[id number] Output: Urine 150 Other: Voiding Method Bedpan Bedpan Diaper Diaper External Catheter External Catheter # Voids 2 - Exam Awake, nauseated. Uncomfortable No acute distress. Lungs are clear CVS S1 and S2 Mass in left supraclavicular area.\Abdomen is soft, non tender GOLD PLATER exam is intact. - Labs CBC & Chem 7: 09/27/22 04:12 09/27/22 16:03 Labs: Abnormal Lab Results - Last 24 Hours (Table) 09/26/22 09/26/22 09/27/22 Range/Units 17:10 21:47 01:25 WBC (4.50-10.00) X 10*3/uL Sodium 121 L 121 L 121 L (137-145) mmol/L Chloride 89 L (98-107) mmol/L Carbon Dioxide (22-30) mmol/L Anion Gap (4.00-12.00) mmol/L Creatinine 0.51 L (0.52-1.04) mg/dL Glucose 110 H (74-99) mg/dL 09/27/22 09/27/22 09/27/22 Range/Units 04:12 04:12 04:12 WBC 13.01 H (4.50-10.00) X 10*3/uL Sodium 119 L* 123 L (137-145) mmol/L Chloride 90 L (98-107) mmol/L Carbon Dioxide 18 L (22-30) mmol/L Anion Gap (4.00-12.00) mmol/L Creatinine 0.47 L (0.52-1.04) mg/dL Glucose 125 H (74-99) mg/dL 09/27/22 09/27/22 Range/Units 10:13 16:03 WBC (4.50-10.00) X 10*3/uL Sodium 124 L 119 L* (137-145) mmol/L Chloride 86 L (98-107) mmol/L Carbon Dioxide 21.5 L (22-30) mmol/L Anion Gap 16.50 H (4.00-12.00) mmol/L Creatinine (0.52-1.04) mg/dL Glucose 165 H (74-99) mg/dL Assessment and Plan Assessment: 1. Hyponatremia secondary to SAIDH. Sodium did not improve much with Saline and started decreasing. Urine osmolality 2. Non-small cell lung cancer,metastatic receiving radiation therapy 3. Mild hyperkalemia with no evidence of acute kidney injury. Rule out urine retention Plan: Continue off of IVF. Recheck sodium in 4 hrs. Encourage increased oral intake
[2022-09-27 20:23] LABS: African American GFR (CKD) 50 (>60 ml/min/1.73 sqM); Anion Gap 8 mmol/L; Blood Urea Nitrogen 23 mg/dL (7-17); Calcium 8.9 mg/dL (8.4-10.2); Carbon Dioxide 27 mmol/L (22-30); Chloride 85 mmol/L (98-107); Glucose 154 mg/dL (74-99); Non-African American GFR(CKD) 43 (>60 ml/min/1.73 sqM); Sodium 120 mmol/L (137-145)
[2022-09-27] MEDS: ATORVASTATIN 10 MG TAB PO SCH (20:46)
[2022-09-28 02:42] LABS: African American GFR (CKD) 66 (>60 ml/min/1.73 sqM); Anion Gap 10 mmol/L; Blood Urea Nitrogen 23 mg/dL (7-17); Calcium 9.5 mg/dL (8.4-10.2); Carbon Dioxide 29 mmol/L (22-30); Chloride 86 mmol/L (98-107); Glucose 106 mg/dL (74-99); Non-African American GFR(CKD) 57 (>60 ml/min/1.73 sqM); Potassium 4.6 mmol/L (3.5-5.1); Sodium 125 mmol/L (137-145)
[2022-09-28] MEDS: traMADol 50 MG TAB PO SCH ×4 (05:31→23:52)
[2022-09-28] MEDS: LEVOTHYROXINE 50 MCG TAB PO SCH (05:32)
[2022-09-28] MEDS: METOPROLOL TARTRATE 50 MG TAB PO SCH ×3 (08:52→20:44)
[2022-09-28] MEDS: oxyBUTYnin chloride 5 MG TAB PO SCH ×2 (08:53→20:44)
[2022-09-28] MEDS: APIXABAN 2.5 MG TABLET PO SCH ×2 (08:53→20:44)
[2022-09-28] MEDS: DOCUSATE 100 MG CAP PO SCH ×2 (08:53→20:44)
[2022-09-28] MEDS: MULTIVITAMINS, THERA 1 EACH TAB PO SCH (08:53)
[2022-09-28] MEDS: PANTOPRAZOLE 40 MG TABLET PO SCH (08:53)
[2022-09-28] MEDS: droNABinol 2.5 MG CAP PO SCH ×2 (08:53→17:27)
--- NOTE | 2022-09-28 10:12 | P.PN ---
Subjective Progress Note Date: 09/28/22 HISTORY OF PRESENT ILLNESS: This is a 82-year-old female patient of Dr. Harris with a past medical history significant for paroxysmal atrial fibrillation hypertension, hyperlipidemia, and metastatic lung cancer. Patient had recent hospitalization discharged on 09/22 which time cardiology evaluate the patient for A. fib and started her on amiodarone, discharged on a tapering dose. Patient states that she has not been eating and feeling very weak and she ended up falling as she missed a step when she was coming into the house. She denies having any loss of consciousness and no lightheadedness or dizziness. She denies any chest pain or shortness of breath. She states she had a small amount of cough last night. Patient is under care for non-small cell lung cancer undergoing radiation treatment which she states is making her weaker. Patient presented with a sodium of 119 and she has been seen by nephrology. Regarding heart rate, telemetry is been sinus rhythm with frequent episodes of A. fib with RVR. In the emergency center and found to have A. fib at this time [id number] ventricular rate. EKG reveals sinus rhythm with QR prolongation Laboratory data: WBC 13, hemoglobin 14.6, platelet count 249. Sodium 119, potassium 4.3, chloride 90, CO2 18, BUN 11 creatinine 0.47. Blood sugar 125. TSH 4.24. Current home cardiac medications include amiodarone 400 mg twice daily on tapering dose, eliquis 25 mg twice daily, atorvastatin 10 g at bedtime, Vasotec 2.5 mg at bedtime, Lopressor 75 mg 3 times daily, levothyroxine 50 g daily. Most recent echocardiogram obtained in August 2022 revealing normal left ventricular size and systolic function, mild mitral and moderate tricuspid regurgitation and mild pulmonary hypertension 09/28 Patient is seen today in follow-up on [facility] floor. She is been maintaining a sinus rhythm. We did resume metoprolol at a lower dose 50 mg twice daily yesterday at specific times of 8 and 4 PM. Heart rate is about 60s to 80s, blood pressure 93/59. Repeat blood work reveals sodium of 125, potassium 4.6, BUN 23 creatinine 0.94. Patient denies having any chest pain. No palpitations. PHYSICAL EXAM: VITAL SIGNS: Reviewed. GENERAL: Well-developed in no acute distress. HEENT: Head is normocephalic. Pupils are equal, round. Sclerae anicteric. LUNGS: Respirations even and unlabored. Lungs essentially clear to auscultation bilaterally. HEART: regular rate and rhythm. S1 and S2 heard. Systolic murmur at the left sternal border and base. ABDOMEN: Soft. Nondistended. Nontender. EXTREMITIES: No clubbing or cyanosis. Peripheral pulses intact. No lower extremity edema NEUROLOGIC: Awake and alert. Oriented x 3. ASSESSMENT: Paroxysmal atrial fibrillation with RVR Bradycardia, rule out tachybradycardia syndrome Hyponatremia Generalized weakness Metastatic lung cancer Hypertension Hyperlipidemia PLAN: Patient was found to have profound bradycardia with weakness and initially amiodarone was held and beta stefany was resumed at a lower dose. Patient is maintaining a sinus rhythm and rates are improved. Continue patient on decreased dose of Lopressor 50 mg 3 times daily Start amiodarone 200 mg every other day Continue patient's other home medications Once patient's hyponatremia is resolved, patient is cleared from cardiology for discharge home. We will sign off and follow on an as-needed basis. Patient to follow up with Dr. Harris in 2 weeks. Nurse practitioner note has been reviewed by physician. Signing provider agrees with the documented findings, assessment, and plan of care. Objective - Vital Signs Vital signs: Vital Signs Temp 98.1 F 09/28/22 08:35 Pulse 82 09/28/22 08:52 Resp 15 09/28/22 08:35 BP 93/59 09/28/22 08:52 Pulse Ox 94 L 09/28/22 08:35 FiO2 Intake & Output 09/27/22 09/28/22 09/28/22 18:59 06:59 18:59 Intake Total 900 Output Total 900 Balance 0 Weight 60.781 kg Intake: Intake, IV Titration 900 Amount Sodium Chloride 0.9% 1, 900 000 ml @ 75 mls/hr IV . [id number] [facility] Rx#:[id number] Output: Urine 900 Other: Voiding Method Bedpan Bedpan Bedpan Diaper Diaper Diaper External Catheter External Catheter # Voids 2 1 - Labs CBC & Chem 7: 09/27/22 04:12 09/28/22 01:51 Labs: Abnormal Lab Results - Last 24 Hours (Table) 09/27/22 09/27/22 09/27/22 Range/Units 04:12 10:13 16:03 Sodium 123 L 124 L 119 L* (135-145) mmol/L Chloride 86 L (96-109) mmol/L Carbon Dioxide 21.5 L (21.6-31.8) mmol/L Anion Gap 16.50 H (4.00-12.00) mmol/L BUN (7-17) mg/dL Creatinine (0.52-1.04) mg/dL Glucose 165 H (70-110) mg/dL 09/27/22 09/28/22 Range/Units 19:52 01:51 Sodium 120 L 125 L (135-145) mmol/L Chloride 85 L 86 L (96-109) mmol/L Carbon Dioxide (21.6-31.8) mmol/L Anion Gap (4.00-12.00) mmol/L BUN 23 H 23 H (7-17) mg/dL Creatinine 1.18 H (0.52-1.04) mg/dL Glucose 154 H 106 H (70-110) mg/dL
[2022-09-28] MEDS: AMIODARONE 200 MG TAB PO SCH (10:56)
[2022-09-28 11:31] LABS: Blood Urea Nitrogen 19.4 mg/dL (9.0-27.0); Calcium 9.7 mg/dL (8.7-10.3); Chloride 91 mmol/L (96-109); Glucose 135 mg/dL (70-110); Potassium 4.7 mmol/L (3.5-5.5); Sodium 127 mmol/L (135-145)
--- NOTE | 2022-09-28 13:18 | P.PN ---
Subjective Patient is seen for f/u for hyponatremia. Started on Normal saline and sodium did not improve much and decreased to 119. Saline was discontinued and pt received a dose of samsca. Sodium has been improving and patient received another dose of Samsca yesterday. Urine osmolality 438 Sodium is 127 today. Objective - Vital Signs Vital signs: Vital Signs Temp 98 F 09/28/22 12:25 Pulse 70 09/28/22 12:25 Resp 17 09/28/22 12:25 BP 92/59 09/28/22 12:25 Pulse Ox 94 L 09/28/22 12:25 FiO2 Intake & Output 09/27/22 09/28/22 09/28/22 18:59 06:59 18:59 Intake Total 900 Output Total 900 350 Balance 0 -350 Weight 60.781 kg Intake: Intake, IV Titration 900 Amount Sodium Chloride 0.9% 1, 900 000 ml @ 75 mls/hr IV . [id number] [facility] Rx#:[id number] Output: Urine 900 350 Other: Voiding Method Bedpan Bedpan Bedpan Diaper Diaper Diaper External Catheter External Catheter # Voids 2 1 - Exam Awake, comfortable No acute distress Alert oriented 3 Lungs are clear CVS S1 and S2 Mass in left supraclavicular area. 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 Examination of lower extremity shows no evidence of edema - Labs CBC & Chem 7: 09/27/22 04:12 09/28/22 07:15 Labs: Abnormal Lab Results - Last 24 Hours (Table) 09/27/22 09/27/22 09/27/22 Range/Units 10:13 16:03 19:52 Sodium 124 L 119 L* 120 L (135-145) mmol/L Chloride 86 L 85 L (96-109) mmol/L Carbon Dioxide 21.5 L (21.6-31.8) mmol/L Anion Gap 16.50 H (4.00-12.00) mmol/L BUN 23 H (7-17) mg/dL Creatinine 1.18 H (0.52-1.04) mg/dL Est GFR (CKD-EPI) (>=60) Glucose 165 H 154 H (70-110) mg/dL 09/28/22 09/28/22 Range/Units 01:51 07:15 Sodium 125 L 127 L (135-145) mmol/L Chloride 86 L 91 L (96-109) mmol/L Carbon Dioxide (21.6-31.8) mmol/L Anion Gap (4.00-12.00) mmol/L BUN 23 H (7-17) mg/dL Creatinine (0.52-1.04) mg/dL Est GFR (CKD-EPI) 56 L (>=60) Glucose 106 H 135 H (70-110) mg/dL Assessment and Plan Assessment: 1. Hyponatremia secondary to SAIDH. Sodium has improved with Samsca. Urine osmolality 438. 2. Non-small cell lung cancer,metastatic receiving radiation therapy 3. Mild hyperkalemia with no evidence of acute kidney injury. Plan: Continue off of IVF. Recheck sodium in a.m. Maintained free water restriction Encourage increased oral intake
--- NOTE | 2022-09-28 13:28 | P.PN ---
Progress Note - Text Progress Note Date: 09/28/22 Advanced Care Planning: Diagnoses: Metastatic small cell lung cancer Discussion: People present and participating in discussion: Where patient and her Daughter, patient Summary: Discussed the patient's goals of care in great detail with the patient and her daughter at the bedside. We discussed options available and current plan of care. Patient unclear if she wants to continue with radiation, we discussed the differences and options available between palliative and hospice care. The patient and her daughter would like to discuss further with hospitalist team prior to making final decisions. Consult placed to hospice care. A total of 26 minutes of face to face time was spent discussing advanced care planning. Lefty Jacobson NP rendered care for this patient independently, reviewed the findings and plan as documented in the note above. I did not physically speak with or examine the patient on this date.
[2022-09-28] MEDS: dexAMETHasone 2 MG TAB PO SCH ×2 (13:35→20:44)
--- NOTE | 2022-09-28 17:53 | P.CONS ---
History of Present Illness - Reason for Consult Consult date: 09/28/22 Non-small cell Malignancy with neuroendocrine features, lung primary Requesting physician: Lefty Jacobson - Chief Complaint Weakness - History of Present Illness i, initially seen in consult at [facility] 07/18/22, she presented with a left supraclavicular mass, persistent and progressive over the past 2 months, became painful to palpation, x-ray of the clavicle 06/22 showed no evidence of fracture. Ultrasound 3I 1.8 x 2.8 cm mass, with additional masses in the 2 cm range next to it. CT chest showed bilateral prominent enlarged hilar nodes, mediastinal lymphadenopathy with mass effect and left supraclavicular adenopathy, bilateral lung nodules, largest 1.4 cm in the left lower lobe. There was a 1 cm cystic lesion in the liver. CT AP showed 2 lesions in the spleen measuring up to 3.5 cm concerning for metastasis. 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 IHC was nonspecific or site of origin, which is felt to include lung, upper GI, head and neck/salivary gland and breast. Case was d/w pathology who confirmed that this was non small cell malig with neuroendocrine features. She had an EGD showing a benign looking polyp in the duodenum. Staging PET showed uptake jasper lung nodules and mediastinum and supraclavicular adenopathy, as well as involvement of the spleen and portocaval/hepatorenal nodes. PD1 < 1%. NGS showed TP53 mutation. Case has been discussed with pathology, surgery and radiation oncology. Patient did see Dr. Washington at [facility] for second opinion. Patient was going to be completing radiation to the left supraclavicular mass. Order was sent to start carboplatinum, Alimta, keytruda once patient had completed radiation. Patient is currently admitted for weakness, reports that she does feel a little better after eating breakfast. She has some mild difficulty with swallowing, denies aspiration. No fevers, chills, vomiting, abdominal pain or cramping, acute changes in bowel or bladder habits. Sodium 119, UA negative, slightly elevated WBC. Review of Systems 10 point review of systems is negative except as stated in HPI Past Medical History Past Medical History: Atrial Fibrillation, Cancer, Hearing Disorder / Deafness, Hyperlipidemia, Hypertension, Osteoarthritis (OA), Syncope, Thyroid Disorder Additional Past Medical History / Comment(s): Hx MURMUR, PALPITATIONS, SHINGLES, CONSTIPATION, CURVATURE OF SPINE, bladder control prob, prob w/ balance-IMPROVED "Small leak in heart valve.", SKIN CANCER, recent adm. [facility] lung nodules, left clavicular mass, pt. unsure of kind of cancer, states when anxious or "worked up" affects her a-fib History of Any Multi-Drug Resistant Organisms: None Reported Past Surgical History: Hysterectomy, Joint Replacement Additional Past Surgical History / Comment(s): JASPER CATARACTS, JASPER KNEE REPLACEMENTS, OOPHERECTOMY, Colonoscopies Past Anesthesia/Blood Transfusion Reactions: No Reported Reaction Past Psychological History: No Psychological Hx Reported, Anxiety Smoking Status: Never smoker Past Alcohol Use History: Rare Past Drug Use History: Marijuana - Past Family History Father Family Medical History: Cancer Additional Family Medical History / Comment(s): AGE 98, SMOKED, SKIN CANCER Mother Additional Family Medical History / Comment(s): AGE 80- SMOKER/EMPHYSEMA Medications and Allergies Home Medications Medication Instructions Recorded Confirmed Type Azelastine HCl [Astepro] 1 - 2 spray EA NOSTRIL BID PRN 07/18/22 09/26/22 History Fluticasone Propionate 1 - 2 spray EA NOSTRIL HS PRN 07/18/22 09/26/22 History Multivitamins, Thera [Multivitamin 1 tab PO DAILY 07/18/22 09/26/22 History (formulary)] Neuriva 1 tab PO DAILY 08/18/22 09/26/22 History traMADol HCL [Ultram] 50 mg PO Q6HR 08/18/22 09/26/22 History Zolpidem [Ambien] 5 mg PO HS PRN 09/12/22 09/26/22 History Calcium Carbonate [Tums] 500 mg PO QID PRN #28 tab 09/14/22 09/26/22 Rx Docusate [Colace] 100 mg PO BID #60 capsule 09/15/22 09/26/22 Rx ALPRAZolam [Xanax] 0.25 mg PO DAILY PRN tab 09/17/22 09/26/22 Rx Apixaban [Eliquis] 2.5 mg PO BID 30 Days #60 tab 09/17/22 09/26/22 Rx Atorvastatin [Lipitor] 10 mg PO HS 30 Days #30 tab 09/17/22 09/26/22 Rx Enalapril [Vasotec] 2.5 mg PO HS 30 Days #30 tab 09/17/22 09/26/22 Rx Levothyroxine Sodium [Synthroid] 50 mcg PO DAILY 30 Days #30 tab 09/17/22 09/26/22 Rx Metoprolol Tartrate [Lopressor] 75 mg PO TID 30 Days #90 tab 09/17/22 09/26/22 Rx Omeprazole 20 mg PO DAILY 30 Days #30 tab 09/17/22 09/26/22 Rx Ondansetron Odt [Zofran ODT] 8 mg PO Q8HR PRN 7 Days #21 tab 09/17/22 09/26/22 Rx oxyBUTYnin chloride [Ditropan] 5 mg PO BID 30 Days #60 tab 09/17/22 09/26/22 Rx droNABinol [Marinol] 2.5 mg PO AC-BID #60 cap 09/22/22 09/26/22 Rx Amiodarone [Cordarone] See Taper PO DIRECTED 09/26/22 09/26/22 History Allergies Allergy/AdvReac Type Severity Reaction Status Date / Time No Known Allergies Allergy Verified 09/26/22 10:49 Physical Exam Vitals: Vital Signs Temp Pulse Resp BP BP BP Pulse Ox 09/28/22 12:25 98 F 70 17 92/59 94 L 09/28/22 10:45 80 89/61 09/28/22 08:52 82 93/59 09/28/22 08:35 98.1 F 74 15 91/58 94 L 09/28/22 02:09 98.8 F 57 L 18 145/83 93 L 09/27/22 19:50 18 09/27/22 18:58 98.4 F 61 18 100/62 94 L Intake and Output 09/28/22 09/28/22 09/28/22 06:59 14:59 22:59 Intake Total 900 Output Total 900 350 Balance 0 -350 Intake: Intake, IV Titration 900 Amount Sodium Chloride 0.9% 1, 900 000 ml @ 75 mls/hr IV . [id number] Rx#:[id number] Output: Urine 900 350 Other: Voiding Method Bedpan Diaper - Constitutional General appearance: average body habitus, cooperative, no acute distress - EENT Eyes: anicteric sclerae, EOMI ENT: hearing grossly normal, normal oropharynx - Neck Significant left supraclavicular mass, size of a lemon, no axillary adenopathy no other lymph nodes palpable in the neck Neck: lymphadenopathy - Respiratory Respiratory: bilateral: CTA - Cardiovascular Rhythm: regular Heart sounds: normal: S1, S2 Abnormal Heart Sounds: systolic murmur leg Peripheral Edema: bilateral: None - Gastrointestinal General gastrointestinal: no absent bowel sounds, no decreased bowel sounds, no distended, no hepatomegaly, no hyperactive bowel sounds, normal bowel sounds, no organomegaly, no rigid, no scaphoid, soft, no splenomegaly, no tenderness, no umbilical hernia, no ventral hernia - Integumentary Mild left supraclavicular skin changes secondary to radiation - Neurologic Neurologic: CNII-XII intact - Musculoskeletal Musculoskeletal: generalized weakness, strength equal bilaterally - Psychiatric Psychiatric: A&O x's 3, appropriate affect, intact judgment & insight Results CBC & Chem 7: 09/27/22 04:12 09/28/22 07:15 Labs: Abnormal Lab Results - Last 24 Hours (Table) 09/27/22 09/28/22 09/28/22 Range/Units 19:52 01:51 07:15 Sodium 120 L 125 L 127 L (137-145) mmol/L Chloride 85 L 86 L 91 L (98-107) mmol/L BUN 23 H 23 H (7-17) mg/dL Creatinine 1.18 H (0.52-1.04) mg/dL Est GFR (CKD-EPI) 56 L (>=60) Glucose 154 H 106 H 135 H (74-99) mg/dL Assessment and Plan (1) Weakness Current Visit: Yes Status: Acute Priority: High Code(s): R53.1 - WEAKNESS SNOMED Code(s): 30466810 (2) SIADH (syndrome of inappropriate ADH production) Current Visit: Yes Status: Acute Priority: High Code(s): E22.2 - SYNDROME OF INAPPROPRIATE SECRETION OF ANTIDIURETIC HORMONE SNOMED Code(s): 44510101 (3) Non-small cell lung cancer (NSCLC) Current Visit: Yes Status: Acute Priority: High Code(s): C34.90 - MALIGNANT NEOPLASM OF UNSP PART OF UNSP BRONCHUS OR LUNG SNOMED Code(s): 168776740 (4) Metastatic cancer Current Visit: Yes Status: Acute Priority: High Code(s): C79.9 - SECONDARY MALIGNANT NEOPLASM OF UNSPECIFIED SITE SNOMED Code(s): 296161239 Plan: Weakness -Secondary to malignancy, recent radiation and hyponatremia -Patient reports feeling a little bit better today especially after eating some breakfast -Continue supportive care SIADH -Secondary to malignancy -Improved with saline hydration Non-small cell malignancy, neuroendocrine features, lung primary -Patient did get a second opinion at [facility]. Orders were recently sent for chemotherapy treatment so, Dr. Randhawa likely has collaborated with them. -Radiation wanted to provide patient with a few more treatments to the large left supraclavicular mass Contacted by the Attending. Patient requesting hospice informational session. Hospice is a reasonable option for care. attests: I have seen and examined patient, performed H&P, developed impression and plan of care. Discussed with dictator. Agree with documentation, dictated as a scribe
--- NOTE | 2022-09-28 18:13 | P.PN ---
Subjective Progress Note Date: 09/28/22 Hospital course: Patient is a very pleasant 82-year-old female with a past medical history of atrial fibrillation on anticoagulation, with Eliquis hypertension, hy perlipidemia, hypothyroidism, and metastatic non-small cell lung cancer. She presented to the emergency department with a chief complaint of generalized weakness and fatigue and decreased appetite. She recently underwent hospitalization 09/21/22 through 09/22/22 for similar complaint. Patient shay gaitan undergoing radiation therapy for treatment of her metastatic lung cancer. She denies having any fevers, chills, dizziness, lightheadedness, headache, palpitations, chest pain, shortness of breath, abdominal pain, nausea, vomiting, diarrhea, melena, hematochezia, or difficulties with or changes in urination. She underwent full evaluation in the emergency department. Labs completed and reviewed. CBC completed showing leukocytosis with WBC count of 11.2. Coagulation profile normal findings. BMP revealed severe hyperchloremic hyponatremia with sodium of 120 and chloride of 86 as well as mild hyperkalemia with potassium of 5.4 however showing hemolyzed specimen. Liver profile showing elevated AST 101 and ALT of 48. Troponin was negative at less than 0.012. Urinalysis was negative for infection. Urine osmolality was 438. EKG was completed showing sinus bradycardia at 46 bpm. Discussed presenting symptoms, clinical findings, laboratory analysis, and EKG results in detail with the ED provider. Patient being admitted under services with consultation to nephrology and cardiology. Physical exam: Patient seen and fully evaluated at bedside. She was sitting up in bed visiting with her daughter.. Patient reports continued decreased appetite stating everything just tastes awful. No noted thrush. Consult was placed for speech and language pathologist to perform swallow evaluation. Patient does otherwise reports feeling less weak at this time. Sodium levels reviewed this morning and currently 127. Sodium levels did decrease down to 119 yesterday evening on 0.9% normal saline infusion. Patient was then given a repeat dose of Samsca 15 mg by mouth 1 dose by supervisor meter shop. At this time we will continue to monitor sodium levels every 12 hours. Vital signs reviewed and stable. General: Nontoxic, no distress and appears stated age. Thin build. Derm: Skin warm and dry, normal coloration for ethnicity. Head: Atraumatic, normocephalic and symmetric. Eyes: EOMs intact, no lid lag, and anicteric sclera Mouth: no lip lesions, mucus membranes moist Cardiovascular: Regular rate and regular rhythm with normal S1S2, systolic murmur, positive posterior tibial pulses bilaterally, and cap refill < 2 seconds. Large left supraclavicular mass. Lungs: Respirations even, regular, and unlabored on room air. Lungs CTA bilat erally, no rhonchi, no rales, no wheezing, and no accessory muscle usage. Abdominal: soft, nontender to palpation, no guarding, no appreciable organomegaly Ext: ROM intact. No gross muscle atrophy, no edema, no contractures Neuro: Speech clear, face symmetrical and CN II-XII grossly intact with no noted focal neuro deficits Psych: Alert and oriented to person, place, time, and situation. Appropriate and pleasant affect. Assessment and Plan of Care: Severe acute on chronic hypochloremic hyponatremia, believed to be secondary to poor oral intake Symptomatic bradycardia Metastatic non-small cell lung cancer Generalized weakness and fatigue, likely multifactorial secondary to above. Paroxysmal atrial fibrillation Hypertension Hyperlipidemia Hypothyroidism -Labs completed and reviewed. BMP revealing improvement of hyponatremia with sodium of 127, chloride 91, and glucose of 135. -Nephrology following, and discussed plan of care with supervisor meter shop recommending continued close monitoring of sodium levels with further recommendations based upon these results. -Continue Telemetry monitoring -Seizure precautions and fall precautions to remain in place. -TSH normal findings at 4.240. -Neuro checks to continue every 4 hours. -Cardiology evaluated secondary to bradycardia, discussed plan of care with clinical veterinarian and cardiac BUYERS' AGENT recommending continuing decreased dose of Lopressor 50 mg 3 times daily resuming amiodarone 200 mg every other day . -Encourage oral intake in order placed for protein supplements 3 times daily be tween meals. -Oncology following and discussed plan of care with oncology BUYERS' AGENT. Patient to hold off on resuming radiation until next week secondary to weakness resulting from malignancy, recent radiation, and hyponatremia. CODE STATUS: Full code DVT prophylaxis: Holliquis Discussed with: Patient, RN, supervisor meter shop, and oncology BUYERS' AGENT. Anticipated discharge date: Clinical course to determine Anticipated discharge place: Home Patient was seen independently by Nurse Practitioner. This document was prepared using [employer] dictation software. Please allow for errors in lead dental assistant while rare they do occur. Lefty Jacobson BUYERS' AGENT rendered care for this patient independently, reviewed the findings and plan as documented in the note above. I did not physically speak w ith or examine the patient on this date. Objective - Vital Signs Vital signs: Vital Signs Temp 98.8 F 09/28/22 02:09 Pulse 82 09/28/22 08:52 Resp 18 09/28/22 02:09 BP 93/59 09/28/22 08:52 Pulse Ox 93 L 09/28/22 02:09 FiO2 Intake & Output 09/27/22 09/28/22 09/28/22 18:59 06:59 18:59 Intake Total 900 Output Total 900 Balance 0 Weight 60.781 kg Intake: Intake, IV Titration 900 Amount Sodium Chloride 0.9% 1, 900 000 ml @ 75 mls/hr IV . [id number] [facility] Rx#:[id number] Output: Urine 900 Other: Voiding Method Bedpan Bedpan Diaper Diaper External Catheter External Catheter # Voids 2 1 - Labs CBC & Chem 7: 09/27/22 04:12 09/28/22 07:15 Labs: Abnormal Lab Results - Last 24 Hours (Table) 09/27/22 09/27/22 09/27/22 Range/Units 04:12 10:13 16:03 Sodium 123 L 124 L 119 L* (135-145) mmol/L Chloride 86 L (96-109) mmol/L Carbon Dioxide 21.5 L (21.6-31.8) mmol/L Anion Gap 16.50 H (4.00-12.00) mmol/L BUN (7-17) mg/dL Creatinine (0.52-1.04) mg/dL Glucose 165 H (70-110) mg/dL 09/27/22 09/28/22 Range/Units 19:52 01:51 Sodium 120 L 125 L (135-145) mmol/L Chloride 85 L 86 L (96-109) mmol/L Carbon Dioxide (21.6-31.8) mmol/L Anion Gap (4.00-12.00) mmol/L BUN 23 H 23 H (7-17) mg/dL Creatinine 1.18 H (0.52-1.04) mg/dL Glucose 154 H 106 H (70-110) mg/dL
[2022-09-28 19:59] LABS: BUN/Creat Ratio 23.92 Ratio (12.00-20.00); Blood Urea Nitrogen 28.7 mg/dL (9.0-27.0); Calcium 9.6 mg/dL (8.7-10.3); Carbon Dioxide 24.1 mmol/L (21.6-31.8); Chloride 90 mmol/L (96-109); Glucose 224 mg/dL (70-110); Potassium 4.7 mmol/L (3.5-5.5); Sodium 126 mmol/L (135-145)
[2022-09-28] MEDS: ATORVASTATIN 10 MG TAB PO SCH (20:44)
[2022-09-28 21:40] LABS: African American GFR (CKD) 57 (>60 ml/min/1.73 sqM); Anion Gap 9 mmol/L; Blood Urea Nitrogen 35 mg/dL (7-17); Carbon Dioxide 26 mmol/L (22-30); Chloride 88 mmol/L (98-107); Glucose 233 mg/dL (74-99); Non-African American GFR(CKD) 49 (>60 ml/min/1.73 sqM); Potassium 5.2 mmol/L (3.5-5.1); Sodium 123 mmol/L (137-145)
[2022-09-29] MEDS: traMADol 50 MG TAB PO SCH ×4 (05:37→23:30)
[2022-09-29] MEDS: LEVOTHYROXINE 50 MCG TAB PO SCH (05:37)
[2022-09-29 05:39] LABS: African American GFR (CKD) 80 (>60 ml/min/1.73 sqM); Anion Gap 6 mmol/L; Blood Urea Nitrogen 28 mg/dL (7-17); Calcium 9.2 mg/dL (8.4-10.2); Carbon Dioxide 26 mmol/L (22-30); Chloride 92 mmol/L (98-107); Glucose 153 mg/dL (74-99); Magnesium 1.9 mg/dL (1.6-2.3); Non-African American GFR(CKD) 69 (>60 ml/min/1.73 sqM); Potassium 4.9 mmol/L (3.5-5.1); Sodium 124 mmol/L (137-145)
[2022-09-29] MEDS: APIXABAN 2.5 MG TABLET PO SCH ×2 (08:14→20:30)
[2022-09-29] MEDS: droNABinol 2.5 MG CAP PO SCH ×2 (08:14→17:34)
[2022-09-29] MEDS: PANTOPRAZOLE 40 MG TABLET PO SCH (08:14)
[2022-09-29] MEDS: METOPROLOL TARTRATE 50 MG TAB PO SCH (08:15)
[2022-09-29] MEDS: dexAMETHasone 2 MG TAB PO SCH ×2 (08:15→20:30)
[2022-09-29] MEDS: MULTIVITAMINS, THERA 1 EACH TAB PO SCH (08:15)
[2022-09-29] MEDS: DOCUSATE 100 MG CAP PO SCH ×2 (08:15→20:30)
[2022-09-29] MEDS: oxyBUTYnin chloride 5 MG TAB PO SCH ×2 (08:16→20:30)
[2022-09-29] MEDS: METOPROLOL TARTRATE 25 MG TAB PO SCH ×3 (08:57→21:13)
[2022-09-29 09:03] LABS: HCT 38.1 % (37.2-46.3); HGB 13.2 d/dL (12.0-15.0); MCH 30.4 pg (27.0-32.0); MCHC 34.6 d/dL (32.0-37.0); MCV 87.8 FL (80.0-97.0); Mean Platelet Volume 10.6 FL (9.5-12.2); NRBC Per 100 WBC 0 X 10*3/uL (0.00-0.01); Platelet Count 263 X 10*3/uL (140-440); RBC 4.34 X 10*6/uL (4.10-5.20); RDW 12.4 % (11.5-14.5); WBC 7.94 X 10*3/uL (4.50-10.00)
[2022-09-29] MEDS ORDERED: TOLVAPTAN 15 MG TABLET PO ONE (10:13)
--- NOTE | 2022-09-29 15:55 | P.PN ---
Subjective Patient is seen for f/u for hyponatremia. Started on Normal saline and sodium did not improve much and decreased to 119. Saline was discontinued and pt received samsca. Sodium has been improving with samsca. Patient dd not receive samsca yesterday and sodium dropped again. Urine osmolality 438 Sodium is 124 today. Overall feeling better. Eating better as well. No n/v. Objective - Vital Signs Vital signs: Vital Signs Temp 98.1 F 09/29/22 14:23 Pulse 52 L 09/29/22 14:23 Resp 14 09/29/22 14:23 BP 134/66 09/29/22 14:32 Pulse Ox 94 L 09/29/22 07:45 FiO2 Intake & Output 09/28/22 09/29/22 09/29/22 18:59 06:59 18:59 Intake Total 600 630 Output Total 670 Balance -670 600 630 Weight 60.781 kg Intake: Oral 600 630 Output: Urine 670 Other: Voiding Method Bedpan Bedpan Bedpan Diaper Diaper Diaper # Voids 2 - Exam Awake, comfortable No acute distress Alert oriented 3 Lungs are clear CVS S1 and S2 Mass in left supraclavicular area. Abdomen is soft, non tender ADAPTIVE PHYSICAL EDUCATION TEACHER exam is intact. Examination of lower extremity shows no evidence of edema - Labs CBC & Chem 7: 09/29/22 04:59 09/29/22 04:59 Labs: Abnormal Lab Results - Last 24 Hours (Table) 09/28/22 09/28/22 09/29/22 Range/Units 13:36 20:18 04:59 Sodium 126 L 123 L 124 L (135-145) mmol/L Potassium 5.2 H (3.5-5.1) mmol/L Chloride 90 L 88 L 92 L (96-109) mmol/L BUN 28.7 H 35 H 28 H (9.0-27.0) mg/dL Creatinine 1.06 H (0.52-1.04) mg/dL Est GFR (CKD-EPI) 45 L (>=60) BUN/Creatinine Ratio 23.92 H (12.00-20.00) Ratio Glucose 224 H 233 H 153 H (70-110) mg/dL Assessment and Plan Assessment: 1. Hyponatremia secondary to SAIDH. Sodium had improved with Samsca. Sodium dropped again without samsca yesterday. Urine osmolality 438. 2. Non-small cell lung cancer,metastatic receiving radiation therapy 3. Mild hyperkalemia with no evidence of acute kidney injury. Plan: Repeat samsca today Add demeclocycline for SIADH as samsca will likely not be covered as op. Maintained free water restriction Encourage increased oral intake
--- NOTE | 2022-09-29 16:56 | P.PN ---
Subjective Progress Note Date: 09/29/22 Hospital course: Patient is a very pleasant 82-year-old female with a past medical history of atrial fibrillation on anticoagulation, with Eliquis hypertension, hy perlipidemia, hypothyroidism, and metastatic non-small cell lung cancer. She presented to the emergency department with a chief complaint of generalized weakness and fatigue and decreased appetite. She recently underwent hospitalization 09/21/22 through 09/22/22 for similar complaint. Patient shay gaitan undergoing radiation therapy for treatment of her metastatic lung cancer. She denies having any fevers, chills, dizziness, lightheadedness, headache, palpitations, chest pain, shortness of breath, abdominal pain, nausea, vomiting, diarrhea, melena, hematochezia, or difficulties with or changes in urination. She underwent full evaluation in the emergency department. Labs completed and reviewed. CBC completed showing leukocytosis with WBC count of 11.2. Coagulation profile normal findings. BMP revealed severe hyperchloremic hyponatremia with sodium of 120 and chloride of 86 as well as mild hyperkalemia with potassium of 5.4 however showing hemolyzed specimen. Liver profile showing elevated AST 101 and ALT of 48. Troponin was negative at less than 0.012. Urinalysis was negative for infection. Urine osmolality was 438. EKG was completed showing sinus bradycardia at 46 bpm. Discussed presenting symptoms, clinical findings, laboratory analysis, and EKG results in detail with the ED provider. Patient being admitted under services with consultation to nephrology and cardiology.TSH normal findings at 4.240. Cortisol levels normal findings at 3. Physical exam: Patient seen and fully evaluated at bedside. She was resting comfortably in bed. Patient reports feeling substantially better than she felt upon arrival to our facility. Decadron 2 mg twice daily was added yesterday for treatment of nausea. She reports that she is eating better and no longer experiencing any nausea. Vital signs reviewed and stable. General: Nontoxic, no distress and appears stated age. Thin build. Derm: Skin warm and dry, normal coloration for ethnicity. Head: Atraumatic, normocephalic and symmetric. Eyes: EOMs intact, no lid lag, and anicteric sclera Mouth: no lip lesions, mucus membranes moist Cardiovascular: Regular rate and regular rhythm with normal S1S2, systolic murmur, positive posterior tibial pulses bilaterally, and cap refill < 2 seconds. Large left supraclavicular mass. Lungs: Respirations even, regular, and unlabored on room air. Lungs CTA bilaterally, no rhonchi, no rales, no wheezing, and no accessory muscle usage. Abdominal: soft, nontender to palpation, no guarding, no appreciable organomegaly Ext: ROM intact. No gross muscle atrophy, no edema, no contractures Neuro: Speech clear, face symmetrical and CN II-XII grossly intact with no noted focal neuro deficits Psych: Alert and oriented to person, place, time, and situation. Appropriate and pleasant affect. Assessment and Plan of Care: Severe acute on chronic hypochloremic hyponatremia, believed to be secondary to poor oral intake Symptomatic bradycardia Metastatic non-small cell lung cancer Generalized weakness and fatigue, likely multifactorial secondary to above. Paroxysmal atrial fibrillation Hypertension Hyperlipidemia Hypothyroidism -Nephrology following, and discussed plan of care with cargo trimmer and she is recommending repeating Samsca 15 mg by mouth 1 dose this morning and continued close monitoring of sodium levels with further recommendations based upon these results. -Continue Telemetry monitoring -Seizure precautions and fall precautions to remain in place. -Neuro checks to continue every 4 hours. -Cardiology evaluated secondary to bradycardia and recommended continuing decreased dose of Lopressor 50 mg 3 times daily resuming amiodarone 200 mg every other day . -Encourage oral intake in order placed for protein supplements 3 times daily between meals. -Oncology following and reviewed documentation in chart. -Sodium levels slowly improving and episodes of bradycardia improved as well. Heart rate ranging from 57-92 over the past 24 hours. -Continue Decadron 2 mg by mouth twice daily for continued treatment of nausea. Data review: Vital signs stable with blood pressure 133/83, heart rate 60, respiratory rate 16, SpO2 of 94% on room air and temperature 97.6F. Labs reviewed. CBC unremarkable. BMP showing persistent hyponatremia with sodium 124, chloride 92, and elevated BUN of 28. Cortisol level normal finding 3. Imaging reviewed: No new imaging to review CODE STATUS: Full code DVT prophylaxis: Holliqurandi Discussed with: Patient, RN, and cargo trimmer Anticipated discharge date: Clinical course to determine Anticipated discharge place: Home Patient was seen independently by Nurse Practitioner. This document was prepared using [employer] dictation software. Please allow for errors in dub room engineer while rare they do occur. Lefty Jacobson NP rendered care for this patient independently, reviewed the fin dings and plan as documented in the note above. I did not physically speak with or examine the patient on this date. Objective - Vital Signs Vital signs: Vital Signs Temp 97.7 F 09/29/22 07:28 Pulse 64 09/29/22 07:28 Resp 18 09/29/22 07:28 BP 117/73 09/29/22 07:28 Pulse Ox 95 09/29/22 07:28 FiO2 Intake & Output 09/28/22 09/29/22 09/29/22 18:59 06:59 18:59 Intake Total 600 Output Total 670 Balance -670 600 Intake: Oral 600 Output: Urine 670 Other: Voiding Method Bedpan Bedpan Bedpan Diaper Diaper Diaper # Voids 2 - Labs CBC & Chem 7: 09/29/22 04:59 09/29/22 04:59 Labs: Abnormal Lab Results - Last 24 Hours (Table) 09/28/22 09/28/22 09/28/22 Range/Units 07:15 13:36 20:18 Sodium 127 L 126 L 123 L (135-145) mmol/L Potassium 5.2 H (3.5-5.1) mmol/L Chloride 91 L 90 L 88 L (96-109) mmol/L BUN 28.7 H 35 H (9.0-27.0) mg/dL Creatinine 1.06 H (0.52-1.04) mg/dL Est GFR (CKD-EPI) 56 L 45 L (>=60) BUN/Creatinine Ratio 23.92 H (12.00-20.00) Ratio Glucose 135 H 224 H 233 H (70-110) mg/dL 09/29/22 Range/Units 04:59 Sodium 124 L (135-145) mmol/L Potassium (3.5-5.1) mmol/L Chloride 92 L (96-109) mmol/L BUN 28 H (9.0-27.0) mg/dL Creatinine (0.52-1.04) mg/dL Est GFR (CKD-EPI) (>=60) BUN/Creatinine Ratio (12.00-20.00) Ratio Glucose 153 H (70-110) mg/dL
[2022-09-29] MEDS: DEMECLOCYCLINE 150 MG TAB PO SCH (20:30)
[2022-09-29] MEDS: ATORVASTATIN 10 MG TAB PO SCH (20:30)
[2022-09-30 02:23] VITALS: RESP 16
[2022-09-30] MEDS: traMADol 50 MG TAB PO SCH ×4 (06:00→23:46)
[2022-09-30] MEDS: LEVOTHYROXINE 50 MCG TAB PO SCH (06:00)
[2022-09-30] MEDS: PANTOPRAZOLE 40 MG TABLET PO SCH (08:19)
[2022-09-30] MEDS: APIXABAN 2.5 MG TABLET PO SCH ×2 (08:19→20:01)
[2022-09-30] MEDS: METOPROLOL TARTRATE 25 MG TAB PO SCH ×3 (08:19→21:26)
[2022-09-30] MEDS: DEMECLOCYCLINE 150 MG TAB PO SCH ×2 (08:19→20:01)
[2022-09-30] MEDS: droNABinol 2.5 MG CAP PO SCH ×2 (08:19→17:06)
[2022-09-30] MEDS: oxyBUTYnin chloride 5 MG TAB PO SCH ×2 (08:20→20:01)
[2022-09-30] MEDS: dexAMETHasone 2 MG TAB PO SCH (08:20)
[2022-09-30] MEDS: DOCUSATE 100 MG CAP PO SCH ×2 (08:20→20:01)
[2022-09-30] MEDS: MULTIVITAMINS, THERA 1 EACH TAB PO SCH (08:20)
[2022-09-30] MEDS ORDERED: AMIODARONE 200 MG TAB PO SCH (09:00)
[2022-09-30] MEDS: AMIODARONE 200 MG TAB PO SCH (11:01)
--- NOTE | 2022-09-30 11:58 | P.PN ---
Subjective Progress Note Date: 09/30/22 Hospital course: Patient is a very pleasant 82-year-old female with a past medical history of atrial fibrillation on anticoagulation, with Eliquis hypertension, hy perlipidemia, hypothyroidism, and metastatic non-small cell lung cancer. She presented to the emergency department with a chief complaint of generalized weakness and fatigue and decreased appetite. She recently underwent hospitalization 09/21/22 through 09/22/22 for similar complaint. Patient shay gaitan undergoing radiation therapy for treatment of her metastatic lung cancer. She denies having any fevers, chills, dizziness, lightheadedness, headache, palpitations, chest pain, shortness of breath, abdominal pain, nausea, vomiting, diarrhea, melena, hematochezia, or difficulties with or changes in urination. She underwent full evaluation in the emergency department. Labs completed and reviewed. CBC completed showing leukocytosis with WBC count of 11.2. Coagulation profile normal findings. BMP revealed severe hyperchloremic hyponatremia with sodium of 120 and chloride of 86 as well as mild hyperkalemia with potassium of 5.4 however showing hemolyzed specimen. Liver profile showing elevated AST 101 and ALT of 48. Troponin was negative at less than 0.012. Urinalysis was negative for infection. Urine osmolality was 438. EKG was completed showing sinus bradycardia at 46 bpm. Discussed presenting symptoms, clinical findings, laboratory analysis, and EKG results in detail with the ED provider. Patient being admitted under services with consultation to nephrology and cardiology. Physical exam: Gen: awake, alert HEENT: normocephalic, atraumatic, good hearing acuity, moist mucous membranes Resp: good air exchange, breathing comfortably with no accessory muscle use CVS: good distal perfusion x 4, GI: soft, NTTP, ND : no SPT, no CVAT, mccormack catheter not present MSK: no pitting edema, no clubbing Neuro: non-focal, moving all extremities Psych: cooperative, euthymic mood Assessment and Plan of Care: Hyponatremia, secondary to SIADH Symptomatic bradycardia Metastatic non-small cell lung cancer Generalized weakness Paroxysmal atrial fibrillation Hypertension Hyperlipidemia Hypothyroidism -Nephrology following, and discussed plan of care with manager copy and she is recommending repeating Samsca 15 mg by mouth 1 dose again this morning and continued close monitoring of sodium levels with further recommendations based upon these results. -Continue Telemetry monitoring -Sodium levels slowly improving and episodes of bradycardia improved as well. Heart rate ranging from 57-92 over the past 24 hours. -Discontinue decadron - will require repeat AM cortisol check in the outpatient setting in 1-2 weeks Data review: Vital signs stable with blood pressure 147/69, heart rate 75, SpO2 of 94% on room air. Labs reviewed. Na is 127 today. AM cortisol is low at 3, but patient rec'd two doses of decadron in the day preceding blood draw Imaging reviewed: No new imaging to review CODE STATUS: Full code DVT prophylaxis: Holliqurandi Discussed with: Patient, RN, and manager copy Anticipated discharge date: Clinical course to determine Anticipated discharge place: Home Objective - Vital Signs Vital signs: Vital Signs Temp 97.9 F 09/30/22 07:10 Pulse 75 09/30/22 07:10 Resp 16 09/30/22 07:10 BP 147/69 09/30/22 07:10 Pulse Ox 93 L 09/30/22 07:59 FiO2 Intake & Output 09/29/22 09/30/22 09/30/22 18:59 06:59 18:59 Intake Total 630 Balance 630 Weight 60.781 kg Intake: Oral 630 Other: Voiding Method Bedpan Bedpan Bedpan Diaper Diaper Diaper # Voids 3 1 1 - Labs CBC & Chem 7: 09/29/22 04:59 09/30/22 09:53 Labs: Abnormal Lab Results - Last 24 Hours (Table) 09/30/22 Range/Units 09:53 Sodium 127 L (137-145) mmol/L
[2022-09-30] MEDS ORDERED: TOLVAPTAN 15 MG TABLET PO ONE (13:00)
[2022-09-30 18:57] LABS: African American GFR (CKD) 67 (>60 ml/min/1.73 sqM); Anion Gap 7 mmol/L; Blood Urea Nitrogen 33 mg/dL (7-17); Calcium 9.2 mg/dL (8.4-10.2); Carbon Dioxide 27 mmol/L (22-30); Chloride 93 mmol/L (98-107); Glucose 197 mg/dL (74-99); Non-African American GFR(CKD) 58 (>60 ml/min/1.73 sqM); Sodium 127 mmol/L (137-145)
[2022-09-30] MEDS: ATORVASTATIN 10 MG TAB PO SCH (20:01)
--- NOTE | 2022-10-01 00:02 | P.PN ---
Subjective Patient is seen for f/u for hyponatremia secondary to SIADH, improving with samsca. Also started on demeclocycline as Samsca will likely not be covered as outpatient. Urine osmolality 438 Sodium is 127 today. Overall feeling better. Eating better as well. No n/v. Random cortisol resulted at 3. However pt had received dexamethasone for nausea. Therefore, it is not accurate. Objective - Vital Signs Vital signs: Vital Signs Temp 97.7 F 09/30/22 18:09 Pulse 65 09/30/22 18:09 Resp 16 09/30/22 19:45 BP 117/67 09/30/22 18:09 Pulse Ox 94 L 09/30/22 18:09 FiO2 Intake & Output 09/30/22 09/30/22 10/01/22 06:59 18:59 06:59 Other: Voiding Method Bedpan Bedpan Bedpan Diaper Diaper Diaper # Voids 1 3 1 - Exam Awake, comfortable No acute distress Alert oriented 3 Lungs are clear CVS S1 and S2 Mass in left supraclavicular area. 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 Examination of lower extremity shows no evidence of edema - Labs CBC & Chem 7: 09/29/22 04:59 09/30/22 18:22 Labs: Abnormal Lab Results - Last 24 Hours (Table) 09/30/22 09/30/22 Range/Units 09:53 18:22 Sodium 127 L 127 L (137-145) mmol/L Chloride 93 L (98-107) mmol/L BUN 33 H (7-17) mg/dL Glucose 197 H (74-99) mg/dL Assessment and Plan Assessment: 1. Hyponatremia secondary to SAIDH. Sodium had improved with Samsca. Urine osmolality 438. Also started on demeclocycline as patient is requiring samsca daily. Low cortisol from recent dexamethasone administration. 2. Non-small cell lung cancer,metastatic receiving radiation therapy 3. Mild hyperkalemia with no evidence of acute kidney injury. Plan: Repeat samsca today Continue demeclocycline for SIADH as samsca will likely not be covered as op. Maintained free water restriction Encourage increased oral intake Repeat cortisol in 1 week
[2022-10-01] MEDS: LEVOTHYROXINE 50 MCG TAB PO SCH (05:38)
[2022-10-01] MEDS: traMADol 50 MG TAB PO SCH ×2 (05:38→12:17)
[2022-10-01 07:33] VITALS: BP 148/97; TEMP 97.9
[2022-10-01 08:35] VITALS: PULSE 65
[2022-10-01] MEDS: DOCUSATE 100 MG CAP PO SCH (08:36)
[2022-10-01] MEDS: droNABinol 2.5 MG CAP PO SCH (08:36)
[2022-10-01] MEDS: oxyBUTYnin chloride 5 MG TAB PO SCH (08:36)
[2022-10-01] MEDS: METOPROLOL TARTRATE 25 MG TAB PO SCH (08:36)
[2022-10-01] MEDS: DEMECLOCYCLINE 150 MG TAB PO SCH (08:36)
[2022-10-01] MEDS: MULTIVITAMINS, THERA 1 EACH TAB PO SCH (08:36)
[2022-10-01] MEDS: APIXABAN 2.5 MG TABLET PO SCH (08:36)
[2022-10-01] MEDS: PANTOPRAZOLE 40 MG TABLET PO SCH (08:36)
--- NOTE | 2022-10-01 09:45 | P.PN ---
Subjective Patient is seen for f/u for hyponatremia secondary to SIADH, improving with samsca. Also started on demeclocycline as Samsca will likely not be covered as outpatient. Urine osmolality 438 Sodium is 127 yesterday. Status post Samsca 15 mg. Overall feeling better. Eating better as well. No n/v. Random cortisol resulted at 3. However pt had received dexamethasone for nausea. Therefore, it is not accurate. Objective - Vital Signs Vital signs: Vital Signs Temp 97.9 F 10/01/22 07:08 Pulse 65 10/01/22 08:35 Resp 16 10/01/22 07:08 BP 148/97 10/01/22 07:08 Pulse Ox 95 10/01/22 07:19 FiO2 Intake & Output 09/30/22 10/01/22 10/01/22 18:59 06:59 18:59 Intake Total 600 Balance 600 Intake: Oral 600 Other: Voiding Method Bedpan Bedpan Diaper Diaper # Voids 3 1 - Exam Awake, comfortable No acute distress Alert oriented 3 Lungs are clear CVS S1 and S2 Mass in left supraclavicular area. Abdomen is soft, non tender [employer] RENTAL AGENT exam is intact. Examination of lower extremity shows no evidence of edema - Labs CBC & Chem 7: 09/29/22 04:59 09/30/22 18:22 Labs: Abnormal Lab Results - Last 24 Hours (Table) 09/30/22 09/30/22 Range/Units 09:53 18:22 Sodium 127 L 127 L (137-145) mmol/L Chloride 93 L (98-107) mmol/L BUN 33 H (7-17) mg/dL Glucose 197 H (74-99) mg/dL Assessment and Plan Assessment: 1. Hyponatremia secondary to SAIDH. Sodium had improved with Samsca. Urine osmolality 438. Also started on demeclocycline as patient is requiring samsca daily. Low cortisol from recent dexamethasone administration. We will need to be repeated in 1-2 weeks. 2. Non-small cell lung cancer,metastatic receiving radiation therapy 3. Mild hyperkalemia with no evidence of acute kidney injury, resolved. Plan: Follow-up on sodium from today Continue demeclocycline for SIADH as samsca will likely not be covered as op. Maintained free water restriction Encourage increased oral intake Repeat cortisol in 1 week
[2022-10-01 10:27] LABS: Blood Urea Nitrogen 26.1 mg/dL (9.0-27.0); Chloride 93 mmol/L (96-109); Glucose 88 mg/dL (70-110); Potassium 4.8 mmol/L (3.5-5.5); Sodium 132 mmol/L (135-145)
--- NOTE | 2022-10-01 12:46 | P.PN ---
Subjective Progress Note Date: 10/01/22 The patient complains of generalized weakness. She states that the pain associated with the left supraclavicular mass has improved since starting radiation. Objective - Vital Signs Vital signs: Vital Signs Temp 97.9 F 10/01/22 07:08 Pulse 65 10/01/22 08:35 Resp 16 10/01/22 07:08 BP 148/97 10/01/22 07:08 Pulse Ox 95 10/01/22 07:19 FiO2 Intake & Output 09/30/22 10/01/22 10/01/22 18:59 06:59 18:59 Intake Total 600 Balance 600 Intake: Oral 600 Other: Voiding Method Bedpan Bedpan Bedpan Diaper Diaper Diaper # Voids 3 1 - Constitutional General appearance: Present: no acute distress - EENT Eyes: Present: EOMI ENT: Present: hearing grossly normal, normal oropharynx - Neck Details: Left supraclavicular fossa mass, and encroaching onto the left clavicle, with overlying skin showing radiation changes - Respiratory Respiratory: bilateral: diminished - Cardiovascular Rhythm: regular Heart sounds: normal: S1, S2 - Gastrointestinal General gastrointestinal: Present: normal bowel sounds, soft - Neurologic Neurologic: Present: CNII-XII intact - Musculoskeletal Musculoskeletal: Present: generalized weakness, strength equal bilaterally - Psychiatric Psychiatric: Present: A&O x's 3 - Labs CBC & Chem 7: 09/29/22 04:59 10/01/22 05:49 Labs: Abnormal Lab Results - Last 24 Hours (Table) 09/30/22 10/01/22 Range/Units 18:22 05:49 Sodium 127 L 132 L (137-145) mmol/L Chloride 93 L 93 L (98-107) mmol/L Anion Gap 13.00 H (4.00-12.00) mmol/L BUN 33 H (7-17) mg/dL Est GFR (CKD-EPI) 56 L (>=60) BUN/Creatinine Ratio 26.10 H (12.00-20.00) Ratio Glucose 197 H (74-99) mg/dL Assessment and Plan (1) Hyponatremia Narrative/Plan: Due to paraneoplastic SIADH. This has been improving slowly with Samsca. nephrology following. Defer to them for ongoing management Current Visit: Yes Status: Acute Code(s): E87.1 - HYPO-OSMOLALITY AND HYPONATREMIA SNOMED Code(s): 80739053 (2) Non-small cell lung cancer (NSCLC) Narrative/Plan: The patient is currently undergoing palliative radiation to the left supraclavicular fossa mass. She has noted some improvement in pain. She was supposed to start chemotherapy plus immunotherapy after completion of radiation. Her main concern is weakness and fatigue, which she is attributing to radiat ion. Some of this was pre-existing, due to her underlying malignancy, but was not significant enough to affect her performance status and ability to start chemo. The current worsening may actually be due to the electrolyte abnormalities, and not related to the radiation since her radiation treatments are localized and limited. Therefore it is possible that her symptoms and performance status will improve with improvement in her electrolyte abnormalities. - Assuming the same, the plan would be to start her on systemic treatment after completion of radiation. This was discussed in detail with her, and she expressed understanding. Current Visit: Yes Status: Acute Priority: High Code(s): C34.90 - MALIGNANT NEOPLASM OF UNSP PART OF UNSP BRONCHUS OR LUNG SNOMED Code(s): 878012801
--- NOTE | 2022-10-01 13:27 | P.DS ---
Providers Date of admission: 09/26/22 11:53 Expected date of discharge: 10/01/22 Attending physician: David Garza MD Consults: 09/26/22 12:21 Consult Physician Routine Consulting Provider: Natalia Kay Consult Reason/Comments: acute on chronic hyponatremia Do you want consulting provider notified?: Yes 09/26/22 18:46 Consult Physician Routine Consulting Provider: Lilia Middleton Consult Reason/Comments: Weakness and bradycardia Do you want consulting provider notified?: Yes 09/27/22 14:43 Consult Physician Routine Consulting Provider: Kieran Randhawa Consult Reason/Comments: metastatic lung cancer Do you want consulting provider notified?: Yes Primary care physician: [facility] Hospital Course: Assessment: Hyponatremia, secondary to SIADH Symptomatic bradycardia Metastatic non-small cell lung cancer Generalized weakness Paroxysmal atrial fibrillation Hypertension Hyperlipidemia Hypothyroidism Hospital course: Patient is a very pleasant 82-year-old female with a past medical history of atrial fibrillation on anticoagulation, with Eliquis hypertension, hyperlipidemia, hypothyroidism, and metastatic non-small cell lung cancer. She presented to the emergency department with a chief complaint of generalized weakness and fatigue and decreased appetite. She recently underwent hospitalization 09/21/22 through 09/22/22 for similar complaint. Patient currently undergoing radiation therapy for treatment of her metastatic lung cancer. She denies having any fevers, chills, dizziness, lightheadedness, headache, palpitations, chest pain, shortness of breath, abdominal pain, nausea, vomiting, diarrhea, melena, hematochezia, or difficulties with or changes in urination. She underwent full evaluation in the emergency department. Labs completed and reviewed. CBC completed showing leukocytosis with WBC count of 11.2. Coagulation profile normal findings. BMP revealed severe hyperchloremic hyponatremia with sodium of 120 and chloride of 86 as well as mild hyperkalemia with potassium of 5.4 however showing hemolyzed specimen. Liver profile showing elevated AST 101 and ALT of 48. Troponin was negative at less than 0.012. Urinalysis was negative for infection. Urine osmolality was 438. EKG was completed showing sinus bradycardia at 46 bpm. Discussed presenting symptoms, clinical findings, laboratory analysis, and EKG results in detail with the ED provider. Patient being admitted under services with consultation to nephrology and cardiology. Patient was noted to have SIADH and placed on fluid restriction. Had several doses of tolvaptan for low Na, and was started on demeocycline. Her Na improved to 133 on day of discharge. She was also noted to have low AM cortisol of 3, but in the context of having rec'd decadron for nausea. This was discontinued, and she was advised to have repeat check in 1 w [place] of cortisol. I spent 40 minutes coordinating this discharge on 10/01 Physical exam: Gen: awake, alert HEENT: normocephalic, atraumatic, good hearing acuity, moist mucous membranes Resp: good air exchange, breathing comfortably with no accessory muscle use CVS: good distal perfusion x 4, GI: soft, NTTP, ND : no SPT, no CVAT, mccormack catheter not present MSK: no pitting edema, no clubbing Neuro: non-focal, moving all extremities Psych: cooperative, euthymic mood Patient Condition at Discharge: Good Plan - Discharge Summary Discharge Rx Participant: Yes New Discharge Prescriptions: New Amiodarone [Cordarone] 200 mg PO Q48H #15 tab Demeclocycline [Declomycin] 300 mg PO BID #120 tab Acetaminophen Tab [Tylenol] 650 mg PO Q6HR PRN tab PRN Reason: Mild Pain Or Fever > 100.5 Continue Azelastine HCl [Astepro] 1 - 2 spray EA NOSTRIL BID PRN PRN Reason: DRAINAGE/CONGESTION Neuriva 1 tab PO DAILY Calcium Carbonate [Tums] 500 mg PO QID PRN #28 tab PRN Reason: Heartburn ALPRAZolam [Xanax] 0.25 mg PO DAILY PRN tab PRN Reason: Anxiety Apixaban [Eliquis] 2.5 mg PO BID 30 Days #60 tab Atorvastatin [Lipitor] 10 mg PO HS 30 Days #30 tab Levothyroxine Sodium [Synthroid] 50 mcg PO DAILY 30 Days #30 tab Ondansetron Odt [Zofran ODT] 8 mg PO Q8HR PRN 7 Days #21 tab PRN Reason: Nausea And Vomiting Multivitamins, Thera [Multivitamin (formulary)] 1 tab PO DAILY Fluticasone Propionate 1 - 2 spray EA NOSTRIL HS PRN PRN Reason: DRAINAGE/CONGESTION traMADol HCL [Ultram] 50 mg PO Q6HR Zolpidem [Ambien] 5 mg PO HS PRN PRN Reason: Insomnia Docusate [Colace] 100 mg PO BID #60 capsule oxyBUTYnin chloride [Ditropan] 5 mg PO BID 30 Days #60 tab Omeprazole 20 mg PO DAILY 30 Days #30 tab droNABinol [Marinol] 2.5 mg PO AC-BID #60 cap Changed Metoprolol Tartrate [Lopressor] 25 mg PO TID 30 Days #90 tab Discontinued Enalapril [Vasotec] 2.5 mg PO HS 30 Days #30 tab Amiodarone [Cordarone] See Taper PO DIRECTED Discharge Medication List Azelastine HCl [Astepro] 1 - 2 spray EA NOSTRIL BID PRN 07/18/22 [History] Fluticasone Propionate 1 - 2 spray EA NOSTRIL HS PRN 07/18/22 [History] Multivitamins, Thera [Multivitamin (formulary)] 1 tab PO DAILY 07/18/22 [History] Neuriva 1 tab PO DAILY 08/18/22 [History] traMADol HCL [Ultram] 50 mg PO Q6HR 08/18/22 [History] Zolpidem [Ambien] 5 mg PO HS PRN 09/12/22 [History] Calcium Carbonate [Tums] 500 mg PO QID PRN #28 tab 09/14/22 [Rx] Docusate [Colace] 100 mg PO BID #60 capsule 09/15/22 [Rx] ALPRAZolam [Xanax] 0.25 mg PO DAILY PRN tab 09/17/22 [Rx] Apixaban [Eliquis] 2.5 mg PO BID 30 Days #60 tab 09/17/22 [Rx] Atorvastatin [Lipitor] 10 mg PO HS 30 Days #30 tab 09/17/22 [Rx] Levothyroxine Sodium [Synthroid] 50 mcg PO DAILY 30 Days #30 tab 09/17/22 [Rx] Omeprazole 20 mg PO DAILY 30 Days #30 tab 09/17/22 [Rx] Ondansetron Odt [Zofran ODT] 8 mg PO Q8HR PRN 7 Days #21 tab 09/17/22 [Rx] oxyBUTYnin chloride [Ditropan] 5 mg PO BID 30 Days #60 tab 09/17/22 [Rx] droNABinol [Marinol] 2.5 mg PO AC-BID #60 cap 09/22/22 [Rx] Acetaminophen Tab [Tylenol] 650 mg PO Q6HR PRN tab 10/01/22 [Rx] Amiodarone [Cordarone] 200 mg PO Q48H #15 tab 10/01/22 [Rx] Demeclocycline [Declomycin] 300 mg PO BID #120 tab 10/01/22 [Rx] Metoprolol Tartrate [Lopressor] 25 mg PO TID 30 Days #90 tab 10/01/22 [Rx] Follow up Appointment(s)/Referral(s): [facility],Equipment [NON-STAFF] - 1 Week Natalie Rossi NPC [STAFF PHYSICIAN] - 1-2 days [facility], [NON-STAFF] - 1 Week Patient Instructions/Handouts: Syndrome of Inappropriate Antidiuretic Hormone Secretion (DC), Weakness (DC) Discharge Disposition: HOME SELF-CARE
[2022-10-07] MEDS ORDERED: AMIODARONE 200 MG TAB PO SCH (09:00)
== END 2022-10-01 14:50 | disposition home or self-care (01) | DRG 644 ==
LOC: EC 08:53 → 5NMEDONC 11:53
PROVIDERS: ADMIT Internal Medicine; ATTEND Internal Medicine
DX: E22.2 Syndrome of inappropriate secretion of antidiuretic hormone (principal); C34.90 Malignant neoplasm of unspecified part of unspecified bronchus or lung; I48.20 Chronic atrial fibrillation, unspecified; R00.1 Bradycardia, unspecified; E03.9 Hypothyroidism, unspecified; E78.5 Hyperlipidemia, unspecified; E87.5 Hyperkalemia; E87.8 Other disorders of electrolyte and fluid balance, not elsewhere classified; H91.90 Unspecified hearing loss, unspecified ear; I10 Essential (primary) hypertension; I48.0 Paroxysmal atrial fibrillation; K31.7 Polyp of stomach and duodenum; Z96.653 Presence of artificial knee joint, bilateral; Z79.01 Long term (current) use of anticoagulants; Z79.890 Hormone replacement therapy; Z79.899 Other long term (current) drug therapy; Z80.8 Family history of malignant neoplasm of other organs or systems; Z82.5 Family history of asthma and other chronic lower respiratory diseases; Z85.118 Personal history of other malignant neoplasm of bronchus and lung; Z85.828 Personal history of other malignant neoplasm of skin; Z90.710 Acquired absence of both cervix and uterus; Z92.3 Personal history of irradiation
CPT/HCPCS: 36415; 80048; 80053; 81003; 82533; 83735; 83935; 84295; 84443; 84484; 85025; 85027; 85610; 85730; 93005; 94760; 96361; 96374; 96375; 99285